=== PATIENT | female | born 1965 | race Caucasian/White ===

== ENCOUNTER → 2019-09-24 | Outpatient (CLI) | payer BC ==
[2019-09-24 14:17] VITALS: BP 116/72; PULSE 93; RESP 16; TEMP 97.9; BMI 44.3
--- NOTE | 2019-09-24 15:49 | P.GSHP ---
History of Present Illness H&P Date: 09/24/19 Chief Complaint: right breast cancer Destinee is a 53 old white female who approximately 6 weeks ago noticed some nodularity in her right breast. She states it was uncomfortable and she subsequently saw her primary care doctor and a mammogram and ultrasound were ordered. The mammogram was performed on 1020 919 as well as an ultrasound of the right breast and axilla. The radiographic findings revealed a 3.5-4 cm lesion in the 7 o'clock position of the right breast. An ultrasound-guided core biopsy was performed on 09-16-19. Pathology revealed invasive mammary carcinoma grade 2. The subtype was deferred. The tumor markers are not yet available. The patient does not complain of any nipple discharge or skin changes. The patient does complain of discomfort where the lump was noted. The pain intermittently for sharp like a needle stabbing her. Does not spread any place. Family History: paternal grandmother: breast cancer paternal aunt: breast cancer father: prostate patient: cervix frozen for pre-cancer Hormonal history: Menarche: 13 , first born at 23, breast fed: yes last menstraul period May 20 BCP: intermittant for 20 years hormones: none Medical history: arthritis Surgical History: 1. 4 C-sections 2. tonsillectomy 3. cervix frozen Social History: smoke: none alcohol: none drugs: none - Constitutional Constitutional: Reports sweats - EENT Comment: optic neuritis Eyes: denies blurred vision, denies pain Ears: deny: decreased hearing, tinnitus Ears, nose, mouth and throat: Denies headache, Denies sore throat - Breasts Breasts: bilateral: as per HPI - Cardiovascular Cardiovascular: Denies chest pain, Denies shortness of breath - Respiratory Comment: asthma Respiratory: Denies cough, Denies 7 - Gastrointestinal Comment: colitis Gastrointestinal: Denies abdominal pain, Denies diarrhea, Denies nausea, Denies vomiting - Genitourinary (Female) Genitourinary: Denies dysuria, Denies hematuria - Menstruation Comment: perimenopausal - Musculoskeletal Musculoskeletal: Denies myalgias - Integumentary Integumentary: Denies pruritus, Denies rash - Neurological Comment: multiple sclerosis dx for 3 years, left foot drop, left side of face numb - Psychiatric Psychiatric: Reports anxiety, Reports depression - Endocrine Endocrine: Denies fatigue, Denies weight change - Hematologic/Lymphatic Comment: aspirin - Allergic/Immunologic Allergic/Immunologic: Reports seasonal allergies Past Medical History History of Any Multi-Drug Resistant Organisms: None Reported Smoking Status: Never smoker Medications and Allergies Home Medications Medication Instructions Recorded Confirmed Type Aspirin [Adult Low Dose Aspirin EC] 81 mg PO DAILY 09/24/19 09/24/19 History Baclofen [Lioresal] 10 mg PO DAILY 09/24/19 09/24/19 History Cholecalciferol (Vitamin D3) 4,000 unit PO DAILY 09/24/19 09/24/19 History [Vitamin D3] Fingolimod HCl [Gilenya] 0.5 mg PO DAILY 09/24/19 09/24/19 History Gabapentin [Neurontin] 300 mg PO DAILY 09/24/19 09/24/19 History busPIRone HCL 10 mg PO DAILY 09/24/19 09/24/19 History Allergies Allergy/AdvReac Type Severity Reaction Status Date / Time Sulfa (Sulfonamide Allergy Mild Rash/Hives Unverified 09/24/19 14:21 Antibiotics) Surgical - Exam Vital Signs Temp Pulse Resp BP Pulse Ox 97.9 F 93 16 116/72 96 09/24/19 14:08 09/24/19 14:08 09/24/19 14:08 09/24/19 14:08 09/24/19 14:08 BMI 44.4 - General well developed, well nourished, no distress - Eyes normal ocular movement - ENT no hearing loss, no congestion - Neck no masses, trachea midline - Respiratory normal respiratory effort, clear to auscultation - Cardiovascular Rhythm: regular Heart Sounds: normal: S1, S2 - Abdomen Abdomen: soft, non tender, no guarding, no rigid, no rebound - Integumentary normal turgor - Neurologic no disoriented, no combative - Musculoskeletal no foot drop today normal gait, normal posture - Psychiatric oriented to time, oriented to person, oriented to place, speech is normal, memory intact Breast examination: Right breast: At approximately 7:00 there is an area of increased nodularity which is approximately 4 cm in size, there is no skin dimpling. There is a very small skin defect where the core biopsy was performed with some mild ecchymosis no evidence of infection Right axilla: No adenopathy of concern Left breast: Multiple positional exam no dominant masses or nodules of concern Left axilla: No adenopathy of concern Results Radiographic, pathology reports revealed Assessment and Plan Assessment: Impression: 1. Mastodynia 2. Right breast malignancy approximately 4 cm in size 3. Fibrocystic breast changes 4. Multiple sclerosis Plan: 1. Preoperative chemotherapy consultation 2. Await tumor markers 3. Pathology to be reviewed by our pathologist 4. Medical management of multiple sclerosis ([phone] Naomi Freeman Neurologist) 5. genetic testing (getting insurance clearance) I discussed medical treatment options with the patient and her . At this time I would recommend preoperative chemotherapy to shrink the lesion. We are awaiting the tumor marker results. I've also discussed genetic testing and the patient is going to have her blood drawn for this and wait for insurance clearance to proceed with the testing. Face time 50 minutes > 1/2 time discussing treatment options and planning. CC: DR. Manpreet Santillan
== END | disposition home or self-care (01) ==
LOC: WWCWWP 14:03
PROVIDERS: ATTEND Surgery
DX: Z53.9 Procedure and treatment not carried out, unspecified reason (principal)

== ENCOUNTER → 2019-10-14 | Outpatient (CLI) | payer BC ==
[2019-10-14 08:14] VITALS: BP 134/82; PULSE 81; RESP 18; TEMP 97.8
--- NOTE | 2019-10-14 15:05 | P.PN ---
Progress Note - Text Progress Note Date: 10/14/19 Destinee presents for discussion regarding treatment after she has been seen by Dr. Huizar from plastic surgery. It was felt after being seen by Dr. Huizar that she is not a good candidate for an attempted breast preservation. Destinee will have a right breast mastectomy with immediate post pectoral implant reconstruction. Her genetic studies are not yet back. She has obtained her radiographs from [facility] these have been reviewed with the radiologist including the left breast. No lesions of concern were identified in the left breast. The patient understands the risks and benefits of the procedure and she is scheduled for next week. At this time she is going to undergo a right breast mastectomy with subpectoral implant reconstruction, sentinel node biopsy possible axillary node dissection. She is not planning on a procedure in the left breast at the present time.
== END ==
LOC: WWCWWP 07:35
PROVIDERS: ATTEND Surgery
DX: Z53.9 Procedure and treatment not carried out, unspecified reason (principal)

== ENCOUNTER 2019-10-21 08:50 | Observation (INO) | payer BC ==
[2019-10-14 14:31] VITALS: BMI 45.3
[~2019-10-21 08:50] MED LIST: DEXAMETHASONE SOD PHOSPHATE 10 MG/ML 1 ML VIAL IV ONE; HEPARIN SODIUM,PORCINE 5,000 UNIT/ML 1 ML VIAL SQ ONE; LACTATED RINGERS 1,000 ML IV SCH; ONDANSETRON 4 MG/2 ML VIAL IVP ONE; Pre Op ABX Message 1 EACH MISC MISCELLANE ONE; SCOPOLAMINE 1.5MG/72HR PATCH TRANSDERM ONE
[2019-10-21] MEDS ORDERED: LIDOCAINE 1% 20 ML VIAL (10MG/ML) FOR IV START INTRADERMA ONE (10:02)
--- NOTE | 2019-10-21 10:32 | NM ---
EXAMINATION TYPE: NM sentinel node injection DATE OF EXAM: 10/21/2019 COMPARISON: Outside right breast imaging September 16, 2019. HISTORY: Right breast cancer. TECHNIQUE AND FINDINGS: The procedure of sentinel lymph node injection was explained to the patient. The benefits, alternatives, and risks were discussed. An informed consent was then obtained. Overlying skin is cleaned with sterile alcohol. Following this, 520 uCi Tc99m Tilmanocept was inject ed in the upper outer aspect of the right nipple intradermally. The patient tolerated the procedure well without any immediate complication. The patient was kept in the radiology department for short stay after the procedure and then taken to surgery for surgical p rocedure what is presumed intraoperative gamma probe will be used for sentinel lymph node detection. IMPRESSION: Right breast radiotracer injection for sentinel node localization as above.
[2019-10-21] MEDS: MIDAZOLAM 2 MG/2 ML VIAL IV PRN ×2 (10:40→10:46)
[2019-10-21] MEDS ORDERED: fentaNYL (PF) 50 MCG/ML 2 ML AMP ONE (11:09)
[2019-10-21] MEDS ORDERED: ROPIVACAINE 5 MG/ML 30 ML VIAL ONE (11:09)
[2019-10-21] MEDS ORDERED: PROPOFOL 10 MG/ML 20 ML VIAL IV ONE (11:09)
[2019-10-21] MEDS ORDERED: LIDOCAINE 1% INJ 10MG/ML (20 ML MDV) ONE (11:09)
[2019-10-21] MEDS ORDERED: PHENYLEPHRINE-0.9% NACL SYG 1 MG/10 ML SYRINGE ONE (11:09)
[2019-10-21] MEDS ORDERED: GLYCOPYRROLATE 0.2 MG/ML 2 ML VIAL ONE (11:09)
[2019-10-21] MEDS ORDERED: ROCURONIUM BROMIDE 10 MG/ML 10 ML VIAL IV ONE (11:09)
[2019-10-21] MEDS ORDERED: NEOSTIGMINE 1 MG/ML 10 ML VIAL ONE (11:09)
--- NOTE | 2019-10-21 11:10 | P.ANPRN ---
Procedure Note - Anesthesia - Nerve Block Performed Right Other (see comment) Single Time Out Performed: Yes (PECS2 Right side) Date of Procedure: 10/21/19 Procedure Start Time: 10:38 Procedure Stop Time: 10:48 Location of Patient: PreOp Indication: Acute Post-Operative Pain, Requested by Surgeon Sedation Type: Sedate with meaningful contact maintained Preparation: Sterile Prep, Sterile Dressing Position: Supine Catheter: None Needle Types: Pajunk Needle Gauge: 20 Ultrasound used to visualize needle placement: Yes Ultrasound used to observe medication spread: Yes Injectate: 0.5% Ropivacaine (see comment for volume) (30 ml) Blood Aspirated: No Pain Paresthesia on Injection Noted: No Resistance on Injection: Normal Image Stored and Saved: Yes Events: Uneventful and Well Tolerated
[2019-10-21] MEDS ORDERED: SODIUM CHLORIDE 0.9% 50 ML with ceFAZolin 2,000 MG IV ONE ×2 (11:28)
[2019-10-21] MEDS ORDERED: NALOXONE 0.4 MG/ML 1 ML VIAL IV PRN (14:11)
[2019-10-21] MEDS ORDERED: CALCIUM CARBONATE 500 MG CHEWABLE PO PRN (14:11)
[2019-10-21] MEDS ORDERED: ONDANSETRON 4 MG/2 ML VIAL IVP PRN (14:11)
[2019-10-21] MEDS ORDERED: BENZOCAINE/MENTHOL LOZENG 1 EACH LOZENGE MUCOUS MEM PRN (14:11)
--- NOTE | 2019-10-21 14:11 | P.OP ---
Date of Procedure: 10/21/19 Preoperative Diagnosis: Right breast cancer Postoperative Diagnosis: Same, micrometastatic disease and sentinel node Procedure(s) Performed: Right sentinel node biopsy, axillary dissection, mastectomy Anesthesia: NANNETTE Surgeon: Leeanna Concepcion Estimated Blood Loss (ml): 30 IV fluids (ml): 800 Pathology: other (Glen node, axillary contents, right breast) Condition: stable Disposition: floor Indications for Procedure: Right breast cancer Operative Findings: Varun metastatic disease and sentinel node, large mass right breast in proximity to chest wall Description of Procedure: The patient is a 54-year-old white female with a right breast mass biopsy proven to be invasive ductal carcinoma. She had no radiographic or physical exam evidence of axillary adenopathy. Preoperative injection of lymph node kind was performed. The patient was brought to the operating room after the right breast area for incisions was marked in conjunction with Dr. Huizar plastic surgery. There was concern that the tumor was close to the skin of the inferior lateral breast/chest wall and incision was performed skin could be taken. Following induction of anesthesia the right breast and axilla were prepped and draped in a sterile fashion. Using the neoprobe the area of greatest radioactivity in the axilla was identified. An incision was made at this site through the skin and subcutaneous tissue. Dissection was performed to thlateral edge of the pectoralis muscle and laterally the area of increased radioactivity was tracked. This tissue was grasped using an Allis clamp and using the Harmonic scalpel dissection was performed. The radioactive lymph node was identified. The node was approximately 1-1/2 CM in size and clinically Suspicious. A 10 Second Count on This was 34,000. The Background 10 Second Count Was Approximately 19. The node Was sent for frozen section evaluation. However, Secondary to the Suspicious Nature Dissection Was Performed in the Axilla. The Area of the Pectoralis Muscle Was Followed Superiorly to the Region of the Axillary Vein. The Vein Was Identified. Tissues Were Swept Inferiorly Using the Harmonic Scalpel to Maintain Hemostasis. The thoracodorsal nerve was identified and tissues were swept inferiorly preserving the nerve. The area of the long thoracic nerve was protected as well. Tissues were swept inferiorly and hemostasis was attained using the electrocautery device. The frozen section revealed micrometastatic disease in the lymph node. After being assured that hemostasis was attained thet area was well irrigated. A #10 NELI drain was placed and secured using a nylon suture. The subcutaneous tissues were closed using 3- 0 Vicryl suture. This was followed by closure of the skin with a 4-0 Monocryl. Following this the area of the breast was approached. Pre-operatively the area for the incision had been marked. This incorporated removal of skin over the area where the tumor was closest to the skin. Incision was made through the previously marked skin lines. This was carried through the skin into subcutaneous tissue. Entering the plane anterior to the breast tissue dissection was performed circumferentially down to the pectoralis major muscle. This was facilitated using the electrocautery device. Ligation of any vessels of concern was preformed. Following this dissection was performed down to the pectoralis muscle. The tissues were then swept laterally being careful to maintain hemostasis using the electrocautery device, Harmonic scalpel, and ligating any vessels of concern. The breast was then removed. Sutures were placed to jack the superior and lateral aspect of the breast. On evaluation it appeared that the tumor was close to the inferior medial margin and additional tissue was obtained from this area and painted for orientation. Additional tumor appeared to be close to the chest wall/serratus anterior muscle. There is no definite direct extension. The wound was well irrigated. After being assured that hemostasis was attained Dr. Huizar from plastic surgery came to place the subpectoral maintenance dispatcher and preform closure.
[2019-10-21] MEDS: HYDROmorphone 0.5 MG/0.5 ML SYRINGE IVP PRN ×2 (15:30→15:40)
[2019-10-21] MEDS ORDERED: LACTATED RINGERS 1,000 ML IV ONE (15:30)
[2019-10-21] MEDS: HYDROmorphone 1 MG/ML 1 ML SYRINGE IVP PRN (17:14)
[2019-10-21] MEDS: HEPARIN SODIUM,PORCINE 5,000 UNIT/ML 1 ML VIAL SQ SCH (18:24)
[2019-10-21] MEDS: DEXTROSE 5%-0.45% NACL 1,000 ML IV SCH (18:37)
[2019-10-21] MEDS: BACLOFEN 10 MG TAB PO SCH (22:23)
[2019-10-21] MEDS: busPIRone HCl 10 MG TAB PO SCH (22:23)
[2019-10-21] MEDS: GABAPENTIN 300 MG CAP PO SCH (22:24)
[2019-10-21] MEDS: FINGOLIMOD HCL 0.5 MG PO SCH (22:24)
--- NOTE | 2019-10-21 23:17 | OP ---
OPERATIVE REPORT SURGEON: Americo Chowdhury M.D. DATE OF SURGERY: October 21, 2019. PREOPERATIVE DIAGNOSES: 1. Acquired loss of right breast. 2. Breast cancer, right breast. POSTOPERATIVE DIAGNOSES: 1. Acquired loss, right breast. 2. Breast cancer, right breast. OPERATIVE PROCEDURE: 1. Immediate reconstruction right breast with insertion of tissue merchandising assistant and subsequent outpatient expansion. 2. Implantation of reconstructive graft for right breast reconstruction. OPERATIVE INDICATIONS: The patient is a 54-year-old female who has been diagnosed with breast cancer of the right breast. She has a large palpable tumor located central and inferiorly and very close to the inferior skin tissue. The patient was referred to my care for breast reconstructive surgery. She is to undergo mastectomy with sentinel lymph node dissection and possible axillary lymph node dissection. The patient understands potential risks and complications, and stage nature of reconstructive breast surgery, including but not limited to, seroma, hematoma, postoperative infection, wound healing problems, among others. She has requested I perform the surgery. OPERATIVE PROCEDURE SUMMARY: The patient is seen presurgical area, markings made and procedure reviewed and coordinated with Dr. Concepcion, her cancer surgeon. The patient was then transported to the operative room where she was placed in supine position. Following induction general endotracheal anesthesia, the patient is prepped and draped in the usual fashion. Dr. Concepcion and her surgical team then proceeded with sentinel lymph node dissection, which was positive for cancer. Axillary lymph node dissection was performed followed by right mastectomy. Once the mastectomy procedure was completed, I entered the procedure. All sponge and needle counts of prior procedure were correct. The mastectomy wound was open with no active bleeding. A modified circumareolar incision was made to allow for resection of the skin located inferiorly to the nipple areolar complex that was very close to the tumor. The breast reconstruction was initiated with elevation of the muscle flap identifying the pectorals major muscle where it joined the chest wall and the lateral border. Cauterization was used to divide loose areolar connective tissue. Blunt dissection was performed the pectorals major and minor muscles in the potential space area. Medial attachment fibers of the pectorals major muscle to ribs and all inferior attachments were released with cautery. To obtain sufficient muscle flap coverage required additional muscle tissue. Inferomedially, rectus abdominis muscle and fascia inferior laterally,external abdominal oblique muscle and fascia and laterally serrated anterior muscle and fascia. Once a sufficient size submuscular pocket was created, irrigations performed. Hemostasis was maintained with cautery and optimal tissue merchandising assistant was opened onto the field after first measuring for the size. A 500 mL high profile tissue merchandising assistant was opened on the field from the [employer] reference number TEXP 135 Rh serial #[id number]. The device was only handled by the surgeon after first changing gloves. All air was extracted. 50 mL 0.9 normal saline instilled. The patient's muscle flap tissue did have small tears and areas of significant attenuation. Due to this prior to inserting the merchandising assistant, SurgiMend reconstructive graft was opened on the field. SurgiMend measured 10 x 15 cm thin and fenestrated. We vitalized room temperature saline. Once ready it was inserted in reconstructive cavity in a modified inferior sling orientation and secured to the muscle flap tissue using interrupted and short running 3-0 Vicryl suture along the inferior portion, leaving the lateral access site open where the tissue merchandising assistant was now inserted. Orientation was assured under direct vision and then the SurgiMend was advanced over the merchandising assistant and inset to the muscle flap tissue where needed providing complete coverage. Irrigation was performed. Hemostasis was excellent. Surgicel powder was then sprayed into the surgical site including axillary node dissection and subcutaneous tissue flap spaces followed by insertion of a 19 round Venu drain was brought through a separate stab incision right anterior lateral chest wall suture placed 2-0 Prolene. The mastectomy incision was now closed closing the inferior portion as directly, approximated deep dermis using inverted interrupted 4-0 Monocryl. This continued until reaching the proximal into the level of where the circumareolar portion of the incision was made. At this point, the remaining open wound was closed as a [place] using a 2-0 Prolene pursestring suture in a deep dermal layer followed by finer approximation of the deep dermis with interrupted inverted 4-0 Monocryl and then completing the skin closure with pravin for the circumareolar closure and using running 5-0 Prolene for the linear closure along the lateral aspect. The drain was connected to close bulb suction and patent. Surgical cota cleansed with saline. Postoperative bandages placed using paper tape over suture repairs, Kerlix squares for drain sponges, all secured with 3 Medipore tape. The patient was then awakened from anesthetic and transferred to the recovery room in good condition with stable vital signs. ESTIMATED BLOOD LOSS: Was 100 mL for the entire procedure. There were no complications. QAMAR / SERGEYN: [id number] /
--- NOTE | 2019-10-21 23:31 | P.CONS ---
History of Present Illness - Reason for Consult Consult date: 10/21/19 Medical management Requesting physician: Leeanna Concepcion - Chief Complaint Mastectomy - History of Present Illness Consultation: This is a very pleasant 54-year-old patient of Dr. rdz. Patient was found to have right breast intraductal carcinoma. Patient today underwent right-sided mastectomy with sentinel node biopsy. Postprocedure she has a drain in place. Some pain is present. Patient chronic stable medical conditions include multiple sclerosis with optic neuritis and some left-sided weakness. Patient is able to walk without any support, chronic colitis controlled, anxiety depression controlled, and asthma. Postprocedure patient having some nausea from the pain medications. Did take a very light liquid diet. Laying in bed. Review of systems: GEN.: Tired EYES: None HEENT: None NECK: None RESPIRATORY: None CARDIOVASCULAR: None GASTROINTESTINAL: None GENITOURINARY: None MUSCULOSKELETAL: None LYMPHATICS: None HEMATOLOGICAL: None PSYCHIATRY: None NEUROLOGICAL: Some left-sided weakness and some vision is affected Past medical history to include: Right breast intraductal carcinoma, multiple sclerosis, chronic colitis, anxiety depression, asthma Social history: Does not smoke or drink alcohol. Physical examination: VITAL SIGNS: 98.6, 11, 18, 11 7/72, 94% on 2 L GENERAL: BMI 44.8, laying in bed awake. EYES: Pupils equal. Conjunctiva normal. HEENT: External appearance of nose and ears normal, oral cavity grossly normal. NECK: JVD unable to assess; masses not palpable. HEART: First and second heart sounds are normal; no edema. LUNGS: Respiratory rate normal; clear to auscultation. ABDOMEN: Soft, nontender, liver spleen not palpable, no masses palpable. PSYCH: Alert and oriented x3; mood and affect normal. NEUROLOGICAL: Cranial nerves grossly intact; no facial asymmetry, power and sensation grossly intact. LYMPHATICS: No lymph nodes palpable neck CHEST wall: Dressing over the right chest wall is a drain in place INVESTIGATIONS, reviewed in the clinical context: Urine hCG not detected Assessment: -Right sentinel lymph node biopsy, axilla dissection, mastectomy -Morbid obesity BMI 44.8 -Chronic multiple sclerosis was residue optic neuritis and left-sided paresis -Chronic colitis controlled -Intermittent asthma Plan: Patient's home medications to be resumed. Venodyne boots in place for DVT prophylaxis. Pain control in place. Care was discussed with the patient. Questions were answered. Thank you Dr.clark- Duffy Past Medical History Past Medical History: Cancer, Musculoskeletal Disorder Additional Past Medical History / Comment(s): STAGE 2 RT BREAST CANCER. MS. COLITIS History of Any Multi-Drug Resistant Organisms: None Reported Past Surgical History: Breast Surgery, Section, Tonsillectomy Additional Past Surgical History / Comment(s): RT BREAST BX. C-SECT X 4. COLONOSCOPY Past Anesthesia/Blood Transfusion Reactions: No Reported Reaction Past Psychological History: Anxiety, Depression Smoking Status: Never smoker Past Alcohol Use History: None Reported Past Drug Use History: None Reported - Past Family History Brother(s) Family Medical History: Deep Vein Thrombosis (DVT) Additional Family Medical History / Comment(s): 2 BROTHERS WITH DVT'S Medications and Allergies Home Medications Medication Instructions Recorded Confirmed Type Aspirin [Adult Low Dose Aspirin EC] 81 mg PO HS 09/24/19 10/21/19 History Baclofen [Lioresal] 10 mg PO HS 09/24/19 10/14/19 History Cholecalciferol (Vitamin D3) 4,000 unit PO HS 09/24/19 10/14/19 History [Vitamin D3] Fingolimod HCl [Gilenya] 0.5 mg PO HS 09/24/19 10/14/19 History Gabapentin [Neurontin] 300 mg PO HS 09/24/19 10/14/19 History busPIRone HCL 10 mg PO HS 09/24/19 10/14/19 History Albuterol Nebulized [Ventolin 1 ampul INHALATION DIRECTED PRN 10/21/19 10/21/19 History Nebulized] Allergies Allergy/AdvReac Type Severity Reaction Status Date / Time Sulfa (Sulfonamide Allergy Mild Rash/Hives Verified 10/21/19 19:23 Antibiotics) Physical Exam Vitals: Vital Signs Temp Pulse Pulse Resp BP BP Pulse Ox 10/21/19 20:50 98.6 F 111 H 18 117/72 94 L 10/21/19 19:50 113 H 16 109/71 96 10/21/19 18:50 113 H 14 114/73 93 L 10/21/19 18:20 113 H 16 117/74 93 L 10/21/19 17:50 110 H 16 126/72 94 L 10/21/19 17:35 110 H 16 123/79 93 L 10/21/19 17:20 111 H 16 134/80 94 L 10/21/19 17:08 99.4 F 105 H 16 134/84 94 L 10/21/19 16:30 105 H 16 139/75 94 L 10/21/19 16:15 101 H 16 143/79 95 10/21/19 16:00 98 16 146/84 95 10/21/19 15:45 101 H 16 151/82 99 10/21/19 15:32 97.7 F 99 146/84 98 10/21/19 10:57 90 16 135/77 97 10/21/19 09:21 98.7 F 91 16 149/80 98 Intake and Output 10/21/19 10/21/19 10/22/19 14:59 22:59 06:59 Intake Total 1050 800 Output Total 335 Balance 1050 465 Intake: IV 1050 800 Output: Drainage 60 A 60 B 0 Urine 175 Estimated Blood Loss 100 Other: Voiding Method Indwelling Catheter Weight 94 kg 94 kg
[2019-10-22] MEDS: HYDROmorphone 1 MG/ML 1 ML SYRINGE IVP PRN (00:35)
[2019-10-22] MEDS: HEPARIN SODIUM,PORCINE 5,000 UNIT/ML 1 ML VIAL SQ SCH ×3 (01:09→18:44)
[2019-10-22] MEDS: DEXTROSE 5%-0.45% NACL 1,000 ML IV SCH (04:28)
[2019-10-22] MEDS: HYDROcodone/APAP 5-325MG 1 EACH TAB PO PRN ×4 (06:29→21:06)
[2019-10-22 11:00] LABS: Basophils % (A) 0 %; Eosinophils # (A) 0.1 k/uL (0-0.7); Eosinophils % (A) 1 %; HCT 37.4 % (34.0-46.0); HGB 12.6 gm/dL (11.4-16.0); Lymphocytes # (A) 0.5 k/uL (1.0-4.8); Lymphocytes % (A) 4 %; MCH 30.5 pg (25.0-35.0); MCHC 33.6 g/dL (31.0-37.0); MCV 90.9 fL (80.0-100.0); Mean Platelet Volume 6.6; Monocytes # (A) 0.6 k/uL (0-1.0); Monocytes % (A) 6 %; Neutrophils % (A) 88 %; Platelet Count 249 k/uL (150-450); RBC 4.11 m/uL (3.80-5.40); RDW 12.9 % (11.5-15.5); WBC 10.2 k/uL (3.8-10.6)
--- NOTE | 2019-10-22 17:48 | P.PN ---
Subjective Progress Note Date: 10/22/19 Principal diagnosis: Postop day #1 right breast mastectomy and sub-pectoral implant placement and sentinel node biopsy Destinee is a 54-year-old white female who is status post right breast mastectomy and sentinel node biopsy/axillary node dissection on . At this time sta abundio she states she does have some discomfort in the right chest wall however, the Dilaudid makes her nauseated. She wishes not to take Dilaudid and wishes to use only [place]. She has had no output from the drain at the mastectomy site, and approximately 55 mL of thin dark serous drainage from the axillary drain. She was somewhat upset this morning feeling that there was some misunderstanding regarding her care with the night nurse. Objective - Vital Signs Vital signs: Vital Signs Temp 98.6 F 10/22/19 12:08 Pulse 94 10/22/19 12:08 Resp 16 10/22/19 12:08 BP 130/74 10/22/19 12:08 Pulse Ox 93 L 10/22/19 12:08 Intake & Output 10/21/19 10/22/19 10/22/19 18:59 06:59 18:59 Intake Total 1850 600 Output Total 275 1035 55 Balance 1575 -1035 545 Weight 94 kg 94 kg Intake: IV 1850 Oral 600 Output: Drainage 110 55 A 110 55 B 0 0 Urine 175 925 Estimated Blood Loss 100 Other: Voiding Method Indwelling Catheter Indwelling Catheter # Voids 1 - Constitutional General appearance: Present: obese - EENT Eyes: Present: EOMI ENT: Present: hearing grossly normal - Neck Neck: Present: normal ROM - Respiratory Respiratory: bilateral: CTA - Cardiovascular Rhythm: regular Heart sounds: normal: S1, S2 - Gastrointestinal General gastrointestinal: Present: soft - Integumentary Integumentary Comment(s): Incision clean and dry right axilla and right mastectomy site NELI drain a 55 mL of dark serous thin fluid NELI drain be no drainage No evidence of acute hematoma CBC reveals white count 10.2 Hemoglobin 12.6 Integumentary: Present: normal turgor - Psychiatric Psychiatric: Present: A&O x's 3, appropriate affect, intact judgment & insight - Labs CBC & Chem 7: 10/22/19 10:32 Labs: Abnormal Lab Results - Last 24 Hours (Table) 10/22/19 Range/Units 10:32 Neutrophils # 9.0 H (1.3-7.7) k/uL Lymphocytes # 0.5 L (1.0-4.8) k/uL Assessment and Plan Assessment: Impression: 1. Postop day #1 skin sparing mastectomy with subpectoral implant immediate reconstruction, sentinel node biopsy, axillary node dissection 2. Postop pain patient is not taking dilaudid 3. NELI drain A with dark serous output, does not appear to have a hematoma 4. Patient was somewhat anxious when evaluated this morning Plan: 1. Continue present therapy 2. Continue to manage postoperative pain 3. Follow NELI output 4. probable discharge home tomorrow
[2019-10-22] MEDS: GABAPENTIN 300 MG CAP PO SCH (21:08)
[2019-10-22] MEDS: BACLOFEN 10 MG TAB PO SCH (21:08)
[2019-10-22] MEDS: busPIRone HCl 10 MG TAB PO SCH (21:09)
[2019-10-22] MEDS: FINGOLIMOD HCL 0.5 MG PO SCH (21:10)
--- NOTE | 2019-10-22 23:36 | P.PN ---
Progress Note - Text Progress Note Date: 10/22/19 - Chief Complaint Mastectomy - History of Present Illness Consultation: This is a very pleasant 54-year-old patient of Dr. rdz. Patient was found to have right breast intraductal carcinoma. Patient underwent right-sided mastectomy with sentinel node biopsy. Postprocedure she has a drain in place. Patient chronic stable medical conditions include multiple sclerosis with optic neuritis and some left-sided weakness. Patient is able to walk without any support, chronic colitis controlled, anxiety depression controlled, and asthma. Today-sitting up in a chair. Some pain is present. Some anxiety. Did tolerate breakfast. Family is present. Review of systems: Was done for constitutional, cardiovascular, GI, pulmonary. relevant finding as above Active Medications Hydrocodone Bitart/Acetaminophen ([place] 5-325) 1 each PO Q4HR PRN PRN Reason: Moderate Pain Last Admin: 10/22/19 21:06 Dose: 1 each Documented by: Baclofen (Lioresal) 10 mg PO [facility] Last Admin: 10/22/19 21:08 Dose: 10 mg Documented by: Benzocaine/Menthol (Cepacol Lozenge) 1 each MUCOUS MEM Q4HR PRN PRN Reason: Sore Throat Buspirone HCl (Buspar) 10 mg PO [facility] Last Admin: 10/22/19 21:09 Dose: 10 mg Documented by: Calcium Carbonate/Glycine (Tums) 1,000 mg PO Q4HR PRN PRN Reason: Dyspepsia Gabapentin (Neurontin) 300 mg PO [facility] Last Admin: 10/22/19 21:08 Dose: 300 mg Documented by: Heparin Sodium (Porcine) (Heparin) 5,000 unit SQ Q8H [facility] Last Admin: 10/22/19 18:44 Dose: 5,000 unit Documented by: Hydromorphone HCl (Dilaudid) 1 mg IVP Q3HR PRN PRN Reason: Severe Pain Last Admin: 10/22/19 00:35 Dose: 0.5 mg Documented by: Naloxone HCl (Narcan) 0.2 mg IV Q2M PRN PRN Reason: Opioid Reversal Non-Formulary Medication (Fingolimod Hcl [Gilenya]) 0.5 mg PO [facility] Last Admin: 10/22/19 21:10 Dose: Not Given Documented by: Ondansetron HCl (Zofran) 4 mg IVP Q8HR PRN PRN Reason: Nausea And Vomiting Last Admin: 10/22/19 05:36 Dose: 4 mg Documented by: Physical examination: VITAL SIGNS: 98.6, 94, 16, 130/74, 93% on room air GENERAL: Sitting upon a chair, comfortable EYES: Pupils equal. Conjunctiva normal. HEENT: External appearance of nose and ears normal, oral cavity grossly normal. NECK: JVD unable to assess; masses not palpable. HEART: First and second heart sounds are normal; no edema. LUNGS: Respiratory rate normal; clear to auscultation. ABDOMEN: Soft, nontender, liver spleen not palpable, no masses palpable. PSYCH: Alert and oriented x3; mood and affect normal. CHEST wall: Dressing over the right chest wall is a drain in place INVESTIGATIONS, reviewed in the clinical context: Urine hCG not detected Assessment: -Right sentinel lymph node biopsy, axilla dissection, mastectomy -Morbid obesity BMI 44.8 -Chronic multiple sclerosis was residue optic neuritis and left-sided paresis -Chronic colitis controlled -Intermittent asthma Plan: Continue current medication treatment plan. Encouraged to ambulate. Care was discussed with the patient and at bedside. Thank you Dr.clark- Duffy
[2019-10-23] MEDS: HEPARIN SODIUM,PORCINE 5,000 UNIT/ML 1 ML VIAL SQ SCH ×2 (02:46→09:45)
[2019-10-23] MEDS: HYDROcodone/APAP 5-325MG 1 EACH TAB PO PRN ×3 (02:47→12:26)
[2019-10-23 09:28] VITALS: BP 144/82; PULSE 117; RESP 20; TEMP 98.4
[2019-10-23 10:14] LABS: Basophils % (A) 0 %; Eosinophils # (A) 0.1 k/uL (0-0.7); Eosinophils % (A) 2 %; HCT 38.9 % (34.0-46.0); HGB 13.1 gm/dL (11.4-16.0); Lymphocytes # (A) 0.3 k/uL (1.0-4.8); Lymphocytes % (A) 5 %; MCH 30.9 pg (25.0-35.0); MCHC 33.8 g/dL (31.0-37.0); MCV 91.5 fL (80.0-100.0); Mean Platelet Volume 6.3; Monocytes # (A) 0.4 k/uL (0-1.0); Monocytes % (A) 6 %; Neutrophils # (A) 5.7 k/uL (1.3-7.7); Neutrophils % (A) 88 %; Platelet Count 225 k/uL (150-450); RBC 4.26 m/uL (3.80-5.40); RDW 13.1 % (11.5-15.5); WBC 6.5 k/uL (3.8-10.6)
--- NOTE | 2019-10-23 13:58 | P.PN ---
Subjective Progress Note Date: 10/23/19 Principal diagnosis: Postop day #2 right breast mastectomy and sub-pectoral implant placement and sentinel node biopsy Destinee is a 54-year-old white female who is status post right breast mastectomy and sentinel node biopsy/axillary node dissection on . At this time the patient's pain is much improved. She is tolerating diet without difficulty. NELI drain under the axilla is serous in nature. Repeat hemoglobin 13.1. Objective - Vital Signs Vital signs: Vital Signs Temp 98.4 F 10/23/19 08:33 Pulse 117 H 10/23/19 08:33 Resp 20 10/23/19 08:33 BP 144/82 10/23/19 08:33 Pulse Ox 96 10/23/19 08:33 Intake & Output 10/22/19 10/23/19 10/23/19 18:59 06:59 18:59 Intake Total 600 Output Total 1270 390 170 Balance -670 -390 -170 Intake: Oral 600 Output: Drainage 70 90 20 A 70 90 20 B 0 0 0 Urine 1200 300 150 Uretheral (Rodriguez) 1200 Other: Voiding Method Toilet # Voids 1 1 1 # Bowel Movements 1 - Constitutional General appearance: Present: obese - EENT Eyes: Present: EOMI ENT: Present: hearing grossly normal - Respiratory Respiratory: bilateral: CTA - Cardiovascular Rhythm: regular Heart sounds: normal: S1, S2 - Integumentary Integumentary: Present: normal turgor - Musculoskeletal Musculoskeletal: Present: gait normal - Psychiatric Psychiatric: Present: A&O x's 3, appropriate affect, intact judgment & insight - Additional findings Additional findings: Incision: Clean and dry right breast and right axilla NELI drain and axilla serous in nature approximately 50 mL No evidence of any hematoma NELI at mastectomy site is no drainage - Labs CBC & Chem 7: 10/23/19 09:49 Labs: Abnormal Lab Results - Last 24 Hours (Table) 10/23/19 Range/Units 09:49 Lymphocytes # 0.3 L (1.0-4.8) k/uL Assessment and Plan Assessment: Impression: 1. Postop day #2 skin sparing mastectomy with subpectoral implant immediate reconstruction, sentinel node biopsy, axillary node dissection 2. Postop pain controlled 3. NELI drain A with dark serous output, does not appear to have a hematoma 4. Patient doing well at this time Plan: 1. Continue present therapy 2. Discharge home Patient was complaining of some postnasal discharge. She was evaluated by Dr. Fernandez and it is not felt to have any infection requiring antibiotic therapy.
--- NOTE | 2019-10-23 14:01 | P.DS ---
Providers Date of admission: 10/22/19 06:22 Attending physician: Leeanna Concepcion Consults: 10/21/19 14:14 Consult Physician Routine Consulting Provider: Teddy Fernandez Consult Reason/Comments: medical managment Do you want consulting provider notified?: Yes Primary care physician: Manpreet Santillan Plan - Discharge Summary Discharge Rx Participant: Yes New Discharge Prescriptions: No Action Baclofen [Lioresal] 10 mg PO HS Fingolimod HCl [Gilenya] 0.5 mg PO HS busPIRone HCL 10 mg PO HS Cholecalciferol (Vitamin D3) [Vitamin D3] 4,000 unit PO HS Aspirin [Adult Low Dose Aspirin EC] 81 mg PO HS Gabapentin [Neurontin] 300 mg PO HS Albuterol Nebulized [Ventolin Nebulized] 1 ampul INHALATION DIRECTED PRN PRN Reason: Dyspnea Discharge Medication List Aspirin [Adult Low Dose Aspirin EC] 81 mg PO HS 09/24/19 [History] Baclofen [Lioresal] 10 mg PO HS 09/24/19 [History] Cholecalciferol (Vitamin D3) [Vitamin D3] 4,000 unit PO HS 09/24/19 [History] Fingolimod HCl [Gilenya] 0.5 mg PO HS 09/24/19 [History] Gabapentin [Neurontin] 300 mg PO HS 09/24/19 [History] busPIRone HCL 10 mg PO HS 09/24/19 [History] Albuterol Nebulized [Ventolin Nebulized] 1 ampul INHALATION DIRECTED PRN 10/21/19 [History] Follow up Appointment(s)/Referral(s): Leeanna Concepcion MD [STAFF PHYSICIAN] - 10/31/19 1:20 pm Activity/Diet/Wound Care/Special Instructions: do not drive until seen by DR. Kevin hurst shower at 48 hours Discharge Disposition: HOME SELF-CARE
--- NOTE | 2019-10-24 11:56 | P.PN ---
Progress Note - Text Progress Note Date: 10/23/19 - Chief Complaint Mastectomy Interval history: This is a very pleasant 54-year-old patient of Dr. rdz. Patient was found to have right breast intraductal carcinoma. Patient underwent right-sided mastectomy with sentinel node biopsy. has a drain in place. Patient chronic stable medical conditions include multiple sclerosis with optic neuritis and some left-sided weakness. Baseline, Patient is able to walk without any support, chronic colitis controlled, anxiety depression controlled, and asthma. Today-sitting up in a chair. Did tolerate her breakfast. Pain is controlled. Has a slight cough with some clear sputum. No fever no chills. Review of systems: Was done for constitutional, cardiovascular, GI, pulmonary. relevant finding as above Current medications are reviewed in today's electronic records Physical examination: VITAL SIGNS: 98.4, 117, 20, 144/82, 96% room air GENERAL: Sitting upon a chair, comfortable EYES: Pupils equal. Conjunctiva normal. HEENT: External appearance of nose and ears normal, oral cavity grossly normal. NECK: JVD unable to assess; masses not palpable. HEART: First and second heart sounds are normal; no edema. LUNGS: Respiratory rate normal; clear to auscultation. ABDOMEN: Soft, nontender, liver spleen not palpable, no masses palpable. PSYCH: Alert and oriented x3; mood and affect normal. CHEST wall: Dressing over the right chest wall , drain in place INVESTIGATIONS, reviewed in the clinical context: White count 6.5 hemoglobin 13.1 Urine hCG not detected Assessment: -Right sentinel lymph node biopsy, axilla dissection, mastectomy -Morbid obesity BMI 44.8 -Chronic multiple sclerosis was residue optic neuritis and left-sided paresis -Chronic colitis controlled -Intermittent asthma -Virall upper respiratory tract infection. No fever. No white count. Plan: Patient doing well. Discussed with the patient. Did discuss with her to avoid antibiotics for upper respiratory tract infection felt to be viral at this point. Antibiotics living which indicated if there is fever or chills. Thank you Dr.clark- Duffy
== END 2019-10-23 14:45 | disposition home or self-care (01) ==
LOC: OR 08:50 → 6PED 15:32 → OR 10-22 06:22
PROVIDERS: ADMIT Surgery; ATTEND Surgery
DX: D05.11 Intraductal carcinoma in situ of right breast (principal); C77.3 Secondary and unspecified malignant neoplasm of axilla and upper limb lymph nodes; G35 Multiple sclerosis; H46.9 Unspecified optic neuritis; F41.8 Other specified anxiety disorders; E66.01 Morbid (severe) obesity due to excess calories; Z68.41 Body mass index [BMI] 40.0-44.9, adult; J45.20 Mild intermittent asthma, uncomplicated; K52.9 Noninfective gastroenteritis and colitis, unspecified; J06.9 Acute upper respiratory infection, unspecified; M19.90 Unspecified osteoarthritis, unspecified site; N60.19 Diffuse cystic mastopathy of unspecified breast; R11.0 Nausea; T40.2X5A Adverse effect of other opioids, initial encounter; Z79.82 Long term (current) use of aspirin; Z88.2 Allergy status to sulfonamides; Z79.899 Other long term (current) drug therapy; Z80.3 Family history of malignant neoplasm of breast; Z80.42 Family history of malignant neoplasm of prostate; Z80.8 Family history of malignant neoplasm of other organs or systems; Z82.49 Family history of ischemic heart disease and other diseases of the circulatory system
CPT/HCPCS: 19303; 19340; 81025; 64490; 76942; 85025 ×2; 88342; 88331; 88307; 88309; 84703; 88341; 38792; G0378 ×2; C1763; A9520; J2250; J1644 ×3; J1100; J2710; J2405 ×2; J0690 ×2; J2001; J3010; J1170 ×3; J2795; J2370; J2704

== ENCOUNTER → 2019-10-31 | Outpatient (CLI) | payer BC ==
[2019-10-31 13:36] VITALS: BP 124/79; PULSE 95; RESP 16; TEMP 97.7
--- NOTE | 2019-10-31 14:16 | P.PN ---
Progress Note - Text Progress Note Date: 10/31/19 Stage IIA [id number] Nahomy is a 54-year-old white female status post right breast mastectomy with subpectoral immediate reconstruction and axillary node dissection. She had 1 lymph node out of 7 with micrometastatic disease. The breast tumor greatest dimension was 4 cm. The margins of resection of the mastectomy were negative for malignancy. The closest margin was 4 mm from the debridement inferior margin. Additional inferior tissue was taken which was benign fibroadipose tissue. The patient has no complaints at this time. She is being followed by Dr. Huizar. She has [address] the one at the mastectomy site is pretty minimal output. The one at the axilla is still putting out approximately 170 mL per day. It is very serous in nature. physical exam: Lungs: Clear Heart: Regular rate and rhythm Right breast incision with ecchymosis/possible some early necrosis at the lateral aspect of the vertical portion of the incision. No evidence of infection NELI drain axilla approximately 1 70 mL per day serous NELI mastectomy site minimal output Impression/plan: 1. Patient status post mastectomy subpectoral immediate reconstruction and right axillary node dissection 2. some ecchymosis/necrosis of the lateral aspect of the vertical portion of the breast incision, this is being followed by plastic surgery 3. Appointment with medical oncology 4. Appointment with radiation oncology, consider radiation of the axilla as patient had micro-scopic disease to one of the nodes, although most likely this will not be necessary as nodes were resected 5. follow up in one week for drain removal CC: Dr. Santillan
== END | disposition home or self-care (01) ==
LOC: WWCWWP 13:20
PROVIDERS: ATTEND Surgery
DX: Z53.9 Procedure and treatment not carried out, unspecified reason (principal)

== ENCOUNTER → 2019-11-07 | Outpatient (CLI) | payer BC ==
[2019-11-07 16:17] VITALS: BP 146/86; PULSE 82; RESP 18; TEMP 97.9
--- NOTE | 2019-11-07 16:52 | P.PN ---
Progress Note - Text Progress Note Date: 11/07/19 Stage IIA [id number]+Her2-G3 Nahomy is a 54-year-old white female status post right breast mastectomy with subpectoral immediate reconstruction and axillary node dissection. She had 1 lymph node out of 7 with micrometastatic disease. The breast tumor greatest dimension was 4 cm. The margins of resection of the mastectomy were negative for malignancy. The closest margin was 4 mm from the debridement inferior margin. Additional inferior tissue was taken which was benign fibroadipose tissue. The patient has no complaints at this time. She is being followed by Dr. Huizar. She has [address]; liver putting out serous drainage but both are greater than 40 mL per day. She was recently seen by Dr. Huizar who felt that drain should stay until the first part of November. The patient is complaining of some tenderness around the more inferior drain. physical exam: Lungs: Clear Heart: Regular rate and rhythm No evidence of infection at incision sites NELI drain axilla serous output, greater than 40 mL per day NELI mastectomy serous output, greater than 40 mL per day, inflammation around the entrance site of the drain at the skin tender to palpation Incision with some necrosis at the lateral aspect of the vertical portion which is sloughing Impression/plan: 1. Patient status post mastectomy subpectoral immediate reconstruction and right axillary node dissection 2. some sloughing of hte skin of the lateral aspect of the vertical portion of the breast incision, this is being followed by plastic surgery 3. Appointment with medical oncology 4. Appointment with radiation oncology, consider radiation of the axilla as patient had micro-scopic disease to one of the nodes, although most likely this will not be necessary as nodes were resected 5. follow up in two weeks for hermelindo barahona 6. patient started on Keflex 500 mg QID 7. If patient has any fever/chills or concerns she should call immediately CC: Dr. Santillan
== END | disposition home or self-care (01) ==
LOC: WWCWWP 15:57
PROVIDERS: ATTEND Surgery
DX: Z53.9 Procedure and treatment not carried out, unspecified reason (principal)

== ENCOUNTER 2019-11-20 06:21 | Day surgery (SDC) | payer BC ==
[2019-11-18 09:04] VITALS: BMI 45.2
[~2019-11-20 06:21] MED LIST changes: -HEPARIN SODIUM,PORCINE 5,000 UNIT/ML 1 ML VIAL SQ ONE; +LIDOCAINE 1% 20 ML VIAL (10MG/ML) FOR IV START INTRADERMA PRN; +METOCLOPRAMIDE 5 MG/ML 2 ML VIAL IVP PRN; -SCOPOLAMINE 1.5MG/72HR PATCH TRANSDERM ONE
[2019-11-20] MEDS ORDERED: KETOROLAC 30 MG/ML 1 ML VIAL IVP SCH (07:00)
[2019-11-20] MEDS ORDERED: MIDAZOLAM 2 MG/2 ML VIAL ONE (08:42)
[2019-11-20] MEDS ORDERED: PHENYLEPHRINE-0.9% NACL SYG 1 MG/10 ML SYRINGE ONE (08:42)
[2019-11-20] MEDS ORDERED: PROPOFOL 10 MG/ML 20 ML VIAL IV ONE (08:42)
[2019-11-20] MEDS ORDERED: fentaNYL (PF) 50 MCG/ML 2 ML AMP ONE (08:42)
[2019-11-20] MEDS ORDERED: ROCURONIUM BROMIDE 10 MG/ML 10 ML VIAL IV ONE (08:42)
[2019-11-20] MEDS ORDERED: NEOSTIGMINE 1 MG/ML 10 ML VIAL ONE (08:42)
[2019-11-20] MEDS ORDERED: LIDOCAINE 1% INJ 10MG/ML (20 ML MDV) ONE (08:42)
[2019-11-20] MEDS ORDERED: GLYCOPYRROLATE 0.2 MG/ML 2 ML VIAL ONE (08:42)
[2019-11-20] MEDS ORDERED: LACTATED RINGERS 1,000 ML IV ONE (09:46)
[2019-11-20 10:07] VITALS: RESP 16; TEMP 98.9
[2019-11-20] MEDS ORDERED: ONDANSETRON 4 MG/2 ML VIAL IVP ONE (10:30)
[2019-11-20] MEDS: HYDROmorphone 0.5 MG/0.5 ML SYRINGE IVP PRN (10:38)
[2019-11-20 12:04] VITALS: BP 137/87; PULSE 92
--- NOTE | 2019-11-20 13:14 | OP ---
OPERATIVE REPORT DATE OF SURGERY: November 20, 2019 SURGEON: Americo Chowdhury MD. PREOPERATIVE DIAGNOSES: 1. Open right reconstructed breast wound with exposed director mba. 2. Invasive breast cancer. POSTOPERATIVE DIAGNOSES: 1. Open right reconstructed breast wound with exposed director mba. 2. Invasive breast cancer. OPERATIVE PROCEDURE: 1. Exploration of right reconstructed breast with removal of tissue director mba, irrigation and drainage. 2. Excision open right breast wound with local advancement flap closure, 40 square centimeters. OPERATIVE INDICATIONS: The patient is a 54-year-old female who underwent surgery for an invasive ductal carcinoma of the right breast October 21, 2019 with right mastectomy and sentinel lymph node excision. The patient elected preoperatively to proceed with immediate breast reconstruction and a tissue director mba was placed. The patient's postoperative course initially was unremarkable. She was seen for postoperative care in the office and the axillary drain ultimately removed. The reconstructive drain remained in place. Beginning of this week, the patient presented to the office with drainage through her incision, which was new and wound began opening up. Shortly thereafter there was tissue necrosis present. She was scheduled for the surgery and understands the director mba will need to be removed and if possible the site closed due to the nonviable tissue, some tissue will require excision and this may make closure not possible depending on circumstances. She understands the potential risks and complications associated with surgery such as wound healing, postoperative infection, hematoma, seroma, among others. She has requested I perform the surgery. OPERATIVE PROCEDURE SUMMARY: The patient was seen presurgical area. Markings made. Procedure reviewed. All questions answered. She was transported to the operating room where she was placed in supine position. Following induction general tracheal anesthesia, the patient was prepped and draped in usual fashion. The open right breast wound measured 6 x 3 square centimeters with necrotic tissue edges that is opened. Rn Transitional Care was exposed. There was minimal erythema and some induration in the area. The wound was outlined in a modified elliptical fashion creating an elliptical S. The wound was first sharply excised using a 10 blade scalpel and make full-thickness skin incision followed by cauterization excised soft tissue components until the wound was excised and area of fat necrosis was noted in the lateral aspect and this was also excised. All excised tissue was sent to pathology for permanent evaluation. Once demonstrating healthy margins, hemostasis maintained with cauterization. The muscle flap had a tear where it was inset just above the inframammary fold. The director mba was removed through this tear. The director mba appeared intact. The expansion cavity surfaces underneath demonstrated no exudates or granulation tissue. There is essentially no fluid collected at this point. Irrigation was performed using pulsatile irrigation unit and several liters of fluid. All tissue that remained appeared healthy. Cultures were obtained and sent to microbiology for Gram stain, aerobic, anaerobic culture and sensitivity. A new drain was inserted. A 19 round Venu channel drains brought through a new stab incision in the right anterior lateral chest wall and sutured in place with 2-0 Prolene. The full length of the drain was used for drainage. The muscle flap was reapproximated along the inferior edge using horizontal mattress sutures of 3-0 Monocryl. The mastectomy wound could not be primarily closed due to tension. Additional adipose tissue was excised from the lateral aspect and a flap created. This right lateral skin subcutaneous tissue flap was now advanced in tension-free fashion in inset, the deep dermal level using inverted interrupted 3-0 Monocryl followed by completing this skin closure with pravin. The flap measured 10 x 4 square centimeters. The drain is connected to closed bulb suction and patent. Surgical cota cleansed with saline, dried, postoperative bandages placed using Kerlix squares secured with 3M Medipore tape. The patient was then awakened from her anesthetic, extubated, and transferred to the recovery room in good condition with stable vital signs. The estimated blood loss was 25 mL. There were no complications. MMODL / IJN: [id number] /
--- NOTE | 2019-11-25 07:28 | CDI ---
Outpatient Documentation Clarification Form Date: 11/25/19 CDS/Access Service Representative Name: Nicole Rae Phone: If any questions, call Faiza Parsons [employer] Hand at [phone] Patient Name: Destinee Bell Admit Date: 11/20/19 Discharge DAte: 11/20/19 ATTENTION: The HIM/Coding staff appreciate your assistance in clarifying documentation. Please respond to the clarification below the line at the bottom and electronically sign. The [facility] Coding staff with review the response and follow-up as needed. Please Note: Queries are made part of the Legal Health Record. If you have any questions, pleas contact the Coding Manger. Dear. Dr. Chowdhury, In order to comply with the coding guidelines and to code to the greatest specificity, please clarify the dimensions of the area of of the wound that was debrided. Thank you for your kind consideration. ____ MTDD
== END 2019-11-20 12:13 | disposition home or self-care (01) ==
LOC: OR 06:21
PROVIDERS: ATTEND Plastic Surgery
DX: T81.31XA Disruption of external operation (surgical) wound, not elsewhere classified, initial encounter (principal); L98.492 Non-pressure chronic ulcer of skin of other sites with fat layer exposed; N64.1 Fat necrosis of breast; Z98.82 Breast implant status; K52.9 Noninfective gastroenteritis and colitis, unspecified; J45.909 Unspecified asthma, uncomplicated; G35 Multiple sclerosis; M19.90 Unspecified osteoarthritis, unspecified site; Z88.2 Allergy status to sulfonamides
CPT/HCPCS: 11971; 14301; 11045; 11042; 88304; 84703; 87070; 87205; 87075; 87077; 87186; J2250; J1100; J2710; J2405; J2001; J3010; J2370; J2704; J1170

== ENCOUNTER → 2019-11-28 | Outpatient (CLI) | payer BC ==
[2019-11-28 12:36] VITALS: BP 132/79; PULSE 98; RESP 18; TEMP 98
--- NOTE | 2019-11-28 12:40 | P.PN ---
Subjective Progress Note Date: 11/28/19 Principal diagnosis: stage IIA [id number]/AK+Her2-G3 Nahomy is a 54-year-old white female status post right breast mastectomy with subpectoral implant immediate reconstruction and axillary node dissection. This was performed on 10/21/2019. She had 1 lymph node out of 7 with micrometastatic disease. The breast tumor greatest dimension was 4 cm. The margins of resection of the mastectomy were negative for malignancy. The closest margin was 4 mm from the inferior margin. Postprocedure the patient developed exposure of the implant and this was removed approximately one week ago. A new NELI drain was placed. The drainage is approximately 60 mL per day at this time and it is serous in nature. She was taking Keflex prior to the removal of the implant. She has appointment with medical oncology on December 15. She has an appointment with radiation oncology on December 09. Patient has no fever or chills. She continues to complain of discomfort at the NELI drain site. This is a new NELI drain site which was placed by Dr. Huizar last week. Objective - Constitutional General appearance: Present: obese - EENT Eyes: Present: EOMI ENT: Present: hearing grossly normal - Respiratory Respiratory: bilateral: CTA - Cardiovascular Rhythm: regular Heart sounds: normal: S1, S2 - Integumentary Integumentary Comment(s): Incision reveals some erythematous irritation at the inferior aspect no definite infection There is a small area of questionable breakdown at the staple line which is being followed clinically NELI drain site inflammation noted definite infection output is serous in nature Assessment and Plan Assessment: Impression: 1. Patient status post right mastectomy with subpectoral implant placement October 21, the implant began to extrude and was removed on November 20. The patient has a NELI drain in place the output is serous in nature and it is decreased in amount. 2. Appointment with medical oncology 3. Primary with radiation oncology 4. No need for surgical intervention at this time Plan: 1. Follow-up medical oncology 2. Follow-up radiation oncology 3. Continue follow with plastic surgery 4. Patient is not on antibiotics at this time/if she develops evidence of increased erythema would consider antibiotics 5. Close surveillance of incision as a small portion appears to be breaking down and this may require debridement 6. Follow-up. 3 month's time unless patient has questions or concerns sooner CC: DR. Alonso Time with Patient: Less than 30
== END | disposition home or self-care (01) ==
LOC: WWCWWP 11:49
PROVIDERS: ATTEND Surgery
DX: Z53.9 Procedure and treatment not carried out, unspecified reason (principal)

== ENCOUNTER 2020-01-21 14:09 | Inpatient (IN) | payer BC ==
[2020-01-21 15:22] LABS: Appearance,Urine Clear (Clear); Bilirubin,Urine Negative (Negative); Blood,Urine Negative (Negative); Color,Urine Yellow; Glucose,Urine (UA) Negative (Negative); Ketones,Urine Negative (Negative); Leukocyte Esterase,Urine Negative (Negative); Nitrite,Urine Negative (Negative); PH, Urine 5.5 (5.0-8.0); Protein,Urine Negative (Negative); Specific Gravity,Urine 1.011 (1.001-1.035); Urobilinogen,Urine <2.0 mg/dL (<2.0)
[2020-01-21] MEDS ORDERED: LACTATED RINGERS 250 ML IV SCH (15:30)
--- NOTE | 2020-01-21 16:15 | P.PN ---
Progress Note - Text Progress Note Date: 01/21/20 01/21/20, Patient in office for f/u, s/p post first cycle of ADJUVANT TC with Neulasta-given 01/14. She has been having fevers intermittently at home, x 2 days, last night Tman 102.6F, she has been controlling temperature with Tylenol. She was given a Rx for cefedinir by her PCP yesterday, she has taken 2 doses, had a temp of 101F since starting abx, she has taken 3 doses of tylenol today. When seen today patient visually has start of rigors, moderate SOB at rest, tachycardic, temp 98.8F, WBC 0.9, ANC 416. + N, she vomited water x1, her mouth and tongue are very sore. In the last 5 days she had a MS relapse, she is taking antidiarrheals with control of diarrhea. She is feeling weak SOB, tired. Surprisingly she is drinking adequate fluids. On examination in the office patient had hard palate thrush, mild oral irritation, cool solution with nystatin ordered as well as salt and soda for cleansing of the mouth. Pancultures ordered. Empiric antibiotics initiated. Patient does not have a port. CTA ordered, malignancy, fever, RICHARD, tachycardia. Malignancy history: Mrs. Bell is a very pleasant 54-year-old female with a PMH of otic neuroitis and colitis, pt of Dr. Levine who presented with a right palpable breast mass 08/2019. Ultrasound follow-up revealed 3.5 x 3.8 x 4.0 cm mass at 7:00 in the right breast, core biopsy 09/16/19 positive for invasive ductal carcinoma, grade 2, ER/NC positive (31%/46% respectively), HER- 2/jesusita negative by fish. Genetic testing was negative. 10/21/19 patient had a right mastectomy, final path grade 3, IDC, 5 cm, 1/5 nodes positive for micrometastases. Patient did have complications postsurgery and prolonged healing. Oncotype DX recurrence risk score was 51. Patient has been started on adjuvant treatment, curative. She had a set of blood cultures done in the office during her lab draw. It is felt, due to persistent fevers and symptoms, patient be admitted to the hospital. Spoke with Dr. Fernandez who has accepted admission. She will be seen in the a.m. for formal consult.
--- NOTE | 2020-01-21 16:42 | CT ---
EXAMINATION TYPE: CT angio chest DATE OF EXAM: 01/21/2020 COMPARISON: None HISTORY: Tachycardia and fever. CT DLP: 290.8 mGycm Automated exposure control for dose reduction was used. CONTRAST: Performed with IV Contrast, patient injected with 55ml mL of Isovue 370. There are 3-D post processed images. FINDINGS: The lungs are clear of consolidation. There is mild coarsening of interstitial markings. There is no mediastinal adenopathy. Thoracic aorta shows no aneurysm or dissection. There are no hilar masses. As cending aorta measures 3.3 cm. Heart size is normal. There is no pericardial effusion. There is some fatty infiltration of the liver. I see no filling defects in the pulmonary arteries. Thoracic spine is intact. There is degenerative spurring in the mid thoracic spine. IMPRESSION: Mild coarse interstitial pulmonary density is nonspecific. This could relate to mild fibrosis. There is no evidence of pulmonary embolism.
[2020-01-21 16:45] LABS: ALT 63 U/L (4-34); AST 61 U/L (14-36); African American GFR (CKD) >90 (>60 ml/min/1.73 sqM); Albumin 3.6 g/dL (3.5-5.0); Alkaline Phosphatase 139 U/L (38-126); Anion Gap 9 mmol/L; Blood Urea Nitrogen 7 mg/dL (7-17); Calcium 8.5 mg/dL (8.4-10.2); Carbon Dioxide 23 mmol/L (22-30); Chloride 98 mmol/L (98-107); Glucose 134 mg/dL (74-99); Non-African American GFR(CKD) >90 (>60 ml/min/1.73 sqM); Potassium 3.8 mmol/L (3.5-5.1); Sodium 130 mmol/L (137-145); Total Bilirubin 1.3 mg/dL (0.2-1.3); Total Protein 6.2 g/dL (6.3-8.2)
[2020-01-21] MEDS: LACTATED RINGERS 1,000 ML IV SCH ×2 (16:45→22:57)
[2020-01-21 16:58] LABS: HCT 40.2 % (34.0-46.0); HGB 13.3 gm/dL (11.4-16.0); MCH 29.2 pg (25.0-35.0); MCHC 33.2 g/dL (31.0-37.0); MCV 88.1 fL (80.0-100.0); Mean Platelet Volume 7.6; Platelet Count 199 k/uL (150-450); RBC 4.57 m/uL (3.80-5.40); RDW 13.1 % (11.5-15.5)
[2020-01-21 17:01] LABS: WBC 1.3 k/uL (3.8-10.6)
--- NOTE | 2020-01-21 17:19 | XR ---
EXAMINATION TYPE: XR chest 2V DATE OF EXAM: 01/21/2020 COMPARISON: NONE HISTORY: Fever TECHNIQUE: 2 views FINDINGS: Heart and mediastinum are normal. Lungs are clear. Diaphragm is normal. Bony thorax is norm al. IMPRESSION: Normal chest.
[2020-01-21] MEDS: SALT AND SODA MOUTHWASH 1,000 ML PO SCH ×3 (18:33→23:22)
[2020-01-21] MEDS: MAG HYDROX/AL HYDROX/SIMETH 30 ML, LIDOCAINE VISCOUS 30 ML, diphenhydrAMINE ELIXIR 75 M... PO SCH ×8 (18:42→18:43)
[2020-01-21] MEDS ORDERED: ALBUTEROL NEBULIZED 2.5 MG/3 ML INHALATION PRN (19:10)
[2020-01-21 19:25] LABS: Band Neutrophils % 4 %; Lymphocytes # (M) 0.27 k/uL (1.0-4.8); Metamyelocytes # (M) 0.01 k/uL (0); Metamyelocytes % 1 %; Monocytes # (M) 0.47 k/uL (0-1.0); Myelocytes # (M) 0.01 k/uL (0); Myelocytes % 1 %; Neutrophils % (M) 37 %; Nucleated Red Blood Cells 0 /100 WBC (0-0); Total Cells Counted 100
[2020-01-21] MEDS ORDERED: LACTATED RINGERS 1,000 ML IV SCH (20:00)
[2020-01-21] MEDS: BACLOFEN 10 MG TAB PO SCH (20:45)
[2020-01-21] MEDS: busPIRone HCl 10 MG TAB PO SCH (20:45)
[2020-01-21] MEDS: ASPIRIN 81 MG PO SCH (20:45)
[2020-01-21] MEDS: CHOLECALCIFEROL 1,000 UNIT TAB PO SCH (20:45)
[2020-01-21] MEDS: GABAPENTIN 300 MG CAP PO SCH (20:46)
[2020-01-21] MEDS: CEFEPIME 2 GM in SODIUM CHLORIDE 0.9% 100 ML IVPB SCH (22:57)
[2020-01-21] MEDS: ACETAMINOPHEN TAB 325 MG TAB PO PRN (23:13)
--- NOTE | 2020-01-21 23:33 | P.CONS ---
History of Present Illness - Reason for Consult Consult date: 01/21/20 neutropenic fever Requesting physician: Teddy Fernandez - Chief Complaint Fever x 2 days - History of Present Illness Patient is a 54-year female with a past medical history significant for breast cancer in this patient was status post first cycle of chemotherapy w ith Neulasta given patient presented to her oncology office this morning with chief complaints of fever with chills for 2 days patient did have a temperature of 102/64 her last night for the patient has been taking some Tylenol currently patient was started on cefdinir by the PCP yesterday patient has taken 2 doses however the patient will have elevated fever patient denies having any headache denies any significant URI symptoms patient did have cough which has been mild to moderate intensity not bringing up any sputum denies having any chest pain, no nausea no vomiting no abdominal pain did have an episode of diarrhea with no blood or mucus in the stool patient was evaluated by her oncologist subsequently has been admitted her into the hospital for management of possible neutropenic fever. Review of Systems Positive point has been mentioned in HPI rest of the systems are negative Past Medical History Past Medical History: Asthma, Cancer, Osteoarthritis (OA) Additional Past Medical History / Comment(s): right breast cancer 08/2019, MULTIPLE SCLEROSIS , optic neuritis History of Any Multi-Drug Resistant Organisms: None Reported Past Surgical History: Section, Tonsillectomy Additional Past Surgical History / Comment(s): section x4, RIGHT MASTECTOMY WITH TISSURE CORRECTIONS LIEUTENANT. Tissue shook splicer removed in November 2019. Past Anesthesia/Blood Transfusion Reactions: Postoperative Nausea & Vomiting (PONV) Past Psychological History: Anxiety, Depression Smoking Status: Never smoker Past Alcohol Use History: None Reported Past Drug Use History: None Reported - Past Family History Brother(s) Family Medical History: Deep Vein Thrombosis (DVT) Additional Family Medical History / Comment(s): 2 BROTHERS WITH DVT'S Medications and Allergies Home Medications Medication Instructions Recorded Confirmed Type Aspirin [Adult Low Dose Aspirin EC] 81 mg PO HS 09/24/19 01/21/20 History Baclofen [Lioresal] 10 mg PO BID 09/24/19 01/21/20 History Cholecalciferol (Vitamin D3) 4,000 unit PO HS 09/24/19 01/21/20 History [Vitamin D3] Gabapentin [Neurontin] 300 mg PO BID 09/24/19 01/21/20 History busPIRone HCL 10 mg PO BID 09/24/19 01/21/20 History Albuterol Nebulized [Ventolin 2.5 mg INHALATION RT-TID PRN 01/21/20 01/21/20 His tory Nebulized] Cefdinir [Omnicef] 300 mg PO Q12H 01/21/20 01/21/20 History Cyclophosphamide [Cytoxan] 1,100 mg IV Q21D 01/21/20 01/21/20 History DOCEtaxel [Docetaxel] 140 mg IV Q21D 01/21/20 01/21/20 History Loratadine [Claritin] 10 mg PO DAILY 01/21/20 01/21/20 History Ondansetron [Zofran] 4 mg PO Q6H PRN 01/21/20 01/21/20 History Allergies Allergy/AdvReac Type Severity Reaction Status Date / Time Sulfa (Sulfonamide Allergy Mild Rash/Hives Verified 01/21/20 16:48 Antibiotics) Physical Exam Vitals: Vital Signs Temp Pulse Resp BP Pulse Ox 01/21/20 21:00 98.5 F 143 H 22 103/64 93 L 01/21/20 18:48 97.9 F 146 H 22 123/65 96 01/21/20 16:00 145 H 01/21/20 15:13 99.5 F 145 H 17 124/74 94 L Intake and Output 01/21/20 01/21/20 01/21/20 06:59 14:59 22:59 Other: Voiding Method Toilet Weight 91.172 kg 91.172 kg GENERAL DESCRIPTION: Middle-aged female lying in bed, no distress. No tachypnea or accessory muscle of respiration use. HEENT: Shows Pallor , no scleral icterus. Oral mucous membrane is dry. NECK: Trachea central, no thyromegaly. LUNGS: Unlabored breathing. Clear to auscultation anteriorly. No wheeze or crackle. HEART: S1, S2, regular rate and rhythm. ABDOMEN: Soft, no tenderness , guarding or rigidity EXTREMITIES: No edema of feet. SKIN: No rash, no masses palpable. NEUROLOGICAL: The patient is awake, alert, oriented x3, mood and affect normal. Results CBC & Chem 7: 01/21/20 16:07 03/04/20 16:07 Labs: Abnormal Lab Results - Last 24 Hours (Table) 01/21/20 01/21/20 Range/Units 16:07 16:07 WBC 1.3 L* (3.8-10.6) k/uL Neutrophils # (Manual) 0.50 L (1.3-7.7) k/uL Lymphocytes # (Manual) 0.27 L (1.0-4.8) k/uL Metamyelocytes # (Man) 0.01 H (0) k/uL Myelocytes # (Manual) 0.01 H (0) k/uL Sodium 130 L (137-145) mmol/L Glucose 134 H (74-99) mg/dL AST 61 H (14-36) U/L ALT 63 H (4-34) U/L Alkaline Phosphatase 139 H (38-126) U/L Total Protein 6.2 L (6.3-8.2) g/dL Assessment and Plan Assessment: -patient presented hospital with a fever of 2 days duration in this patient who has recently received chemotherapy for her breast cancer patient had did have a CBC we did shows mild leukopenia with white of 1.3 patient UA has been negative, chest x-ray and CT has been requested which is currently pending and her with predominantly respiratory symptom wound need to cover for possible pneumonia (1) Fever Current Visit: Yes Status: Acute Code(s): R50.9 - FEVER, UNSPECIFIED SNOMED Code(s): 208163027 Plan: 1-check nasopharyngeal swab for influenza a and B 2-we will obtain a sputum for Gram stain culture 3-blood cultures x2 4-we will empirically add cefepime 2 g every 12 hours We will follow on clinical condition and cultures to further adjust medication if needed Thank you for this consultation we will follow the patient along with you Time with Patient: Greater than 30
[2020-01-22] MEDS: ACETAMINOPHEN TAB 325 MG TAB PO PRN (04:58)
[2020-01-22] MEDS: LACTATED RINGERS 1,000 ML IV SCH ×2 (05:10→12:01)
[2020-01-22] MEDS: SALT AND SODA MOUTHWASH 1,000 ML PO SCH ×5 (05:11→23:16)
[2020-01-22] MEDS: GABAPENTIN 300 MG CAP PO SCH ×2 (08:30→20:12)
[2020-01-22] MEDS: LORATADINE 10 MG TAB PO SCH (08:30)
[2020-01-22] MEDS: busPIRone HCl 10 MG TAB PO SCH ×2 (08:30→20:12)
[2020-01-22] MEDS: BACLOFEN 10 MG TAB PO SCH ×2 (08:30→20:12)
[2020-01-22] MEDS: MAG HYDROX/AL HYDROX/SIMETH 30 ML, LIDOCAINE VISCOUS 30 ML, diphenhydrAMINE ELIXIR 75 M... PO SCH ×16 (08:32→20:12)
[2020-01-22] MEDS: CEFEPIME 2 GM in SODIUM CHLORIDE 0.9% 100 ML IVPB SCH ×2 (11:52→23:14)
[2020-01-22] MEDS: ENOXAPARIN 40 MG/0.4 ML SYRINGE SQ SCH (11:52)
[2020-01-22 12:06] LABS: HCT 39.3 % (34.0-46.0); HGB 13.3 gm/dL (11.4-16.0); MCH 29.8 pg (25.0-35.0); MCHC 33.9 g/dL (31.0-37.0); MCV 87.9 fL (80.0-100.0); Platelet Count 268 k/uL (150-450); RBC 4.48 m/uL (3.80-5.40); RDW 13.2 % (11.5-15.5); WBC 10.9 k/uL (3.8-10.6)
[2020-01-22 12:29] LABS: Band Neutrophils % 58 %; Lymphocytes # (M) 0.22 k/uL (1.0-4.8); Metamyelocytes # (M) 1.31 k/uL (0); Metamyelocytes % 12 %; Monocytes # (M) 0.76 k/uL (0-1.0); Myelocytes # (M) 0.11 k/uL (0); Myelocytes % 1 %; Neutrophils % (M) 21 %; Nucleated Red Blood Cells 0 /100 WBC (0-0); Total Cells Counted 200
[2020-01-22 12:30] LABS: Anisocytosis (M) Present; Poikilocytosis (M) Present; Toxic Granulation Present; Toxic Vacuolation Present
[2020-01-22 12:31] LABS: Polychromasia Present
--- NOTE | 2020-01-22 12:44 | P.HPIM ---
History of Present Illness H&P Date: 01/22/20 Chief Complaint: Fever History of presenting complaint: This is a pleasant 54-year-old patient of Dr. rdz out [facility].. Chronic stable medical conditions include asthma, osteoarthritis, multiple sclerosis, optic neuritis. Anxiety depression. Patient has a diagnosis of right breast cancer with biopsy confirming invasive ductal carcinoma. Patient had right mastectomy done. With 1 out of 5 nodes positive for micrometastases. Patient's cancer was grade 2 ER/IN positive, HER-2/jesusita negative. Patient started on adjuvant treatment with Neulasta. For last 3 days patient been having fevers up to 102. Saw family doctor. Started on cefednir. She spiked fever up to 102. Congested chest. Tired also had diarrhea for 1 day. Took some Imodium. Had presented with Dr. Levine's office. From there patient was sent to the hospital. Patient was tachycardic. Given fluid bolus started on lactated Ringer's. Also started on IV cefepime. ID was consulted. At her baseline does not use any support to walk Review of systems: GEN.: Fever or chills tired EYES: None HEENT: None NECK: None RESPIRATORY: Congested chest CARDIOVASCULAR: None GASTROINTESTINAL: Diarrhea 3 days ago better GENITOURINARY: None MUSCULOSKELETAL: None LYMPHATICS: None HEMATOLOGICAL: None PSYCHIATRY: None NEUROLOGICAL: None Past medical history to include: Asthma, right breast cancer with mastectomy getting adjuvant chemotherapy, osteoarthritis, MS, optic neuritis, anxiety depression Social history: Does not smoke or drink alcohol. . Physical examination: VITAL SIGNS: 100.9, 1:30, 23, para 3/63, 93% on room air GENERAL: BMI 43.5, sitting up, it of the bed, tired. EYES: Pupils equal. Conjunctiva normal. HEENT: External appearance of nose and ears normal, oral cavity dry. NECK: JVD not raised; masses not palpable. HEART: First and second heart sounds are normal; no edema. LUNGS: Respiratory rate increased, slightly decreased breath sounds. ABDOMEN: Soft, nontender, liver spleen not palpable, no masses palpable. PSYCH: [Alert and oriented x3; mood and affect tired l. NEUROLOGICAL: Cranial nerves grossly intact; no facial asymmetry, power and se nsation grossly intact. LYMPHATICS: No lymph nodes palpable in the axilla and neck INVESTIGATIONS, reviewed in the clinical context: White count 1.3 hemoglobin 13.3 platelets 199 sodium 1:30 potassium 3.8 creatinine 0.5 to UA negative Influenza A and B both negative Chest CTA-mild coarse interstitial pulmonary density Chest x-ray film personally reviewed by me-interstitial prominence/coarsening Assessment: -This is a patient presents with 3 days of fever up to 102 congested chest diarrhea for 24 hours of activity is resolved, we could be dealing with a viral pneumonitis and also evidenced by the coarsening of the chest x-ray. Given the neutropenia secondary bacterial infection decreased to be covered. -Severe sepsis from above -Right breast cancer with mastectomy getting adjuvant chemotherapy -Leukopenia secondary to chemotherapy -Hyponatremia from decreased solid intake -Chronic multiple sclerosis -Morbid obesity BMI 43.5 Plan: Patient started and IV cefepime. IV fluid bolus and IV fluids. Home medications resumed. Blood work will be followed closely. Patient is feeling better since compared to last night. Sitting in the edge of the bed. Consultation to oncology and infectious disease was made. Repeat labs. DVT prophylaxis. Past Medical History Past Medical History: Asthma, Cancer, Osteoarthritis (OA) Additional Past Medical History / Comment(s): right breast cancer 08/2019, MULTIPLE SCLEROSIS , optic neuritis History of Any Multi-Drug Resistant Organisms: None Reported Past Surgical History: Section, Tonsillectomy Additional Past Surgical History / Comment(s): section x4, RIGHT MASTECTOMY WITH TISSURE CHEST PAINTING LEADER. Tissue construction project engineer removed in November 2019. Past Anesthesia/Blood Transfusion Reactions: Postoperative Nausea & Vomiting (PONV) Past Psychological History: Anxiety, Depression Smoking Status: Never smoker Past Alcohol Use History: None Reported Past Drug Use History: None Reported - Past Family History Brother(s) Family Medical History: Deep Vein Thrombosis (DVT) Additional Family Medical History / Comment(s): 2 BROTHERS WITH DVT'S Medications and Allergies Home Medications Medication Instructions Recorded Confirmed Type Aspirin [Adult Low Dose Aspirin EC] 81 mg PO HS 09/24/19 01/21/20 History Baclofen [Lioresal] 10 mg PO BID 09/24/19 01/21/20 History Cholecalciferol (Vitamin D3) 4,000 unit PO HS 09/24/19 01/21/20 History [Vitamin D3] Gabapentin [Neurontin] 300 mg PO BID 09/24/19 01/21/20 History busPIRone HCL 10 mg PO BID 09/24/19 01/21/20 History Albuterol Nebulized [Ventolin 2.5 mg INHALATION RT-TID PRN 01/21/20 01/21/20 History Nebulized] Cefdinir [Omnicef] 300 mg PO Q12H 01/21/20 01/21/20 History Cyclophosphamide [Cytoxan] 1,100 mg IV Q21D 01/21/20 01/21/20 History DOCEtaxel [Docetaxel] 140 mg IV Q21D 01/21/20 01/21/20 History Loratadine [Claritin] 10 mg PO DAILY 01/21/20 01/21/20 History Ondansetron [Zofran] 4 mg PO Q6H PRN 01/21/20 01/21/20 History Allergies Allergy/AdvReac Type Severity Reaction Status Date / Time Sulfa (Sulfonamide Allergy Mild Rash/Hives Verified 01/21/20 16:48 Antibiotics) Physical Exam Vitals: Vital Signs Temp Pulse Pulse Resp BP Pulse Ox 01/22/20 08:54 119 H 01/22/20 08:41 120 H 01/22/20 06:05 97.3 F L 97/54 01/22/20 05:37 120 H 01/22/20 05:00 100.9 F H 130 H 23 93/63 93 L 01/21/20 23:38 138 H 20 01/21/20 21:00 98.5 F 143 H 22 103/64 93 L 01/21/20 18:48 97.9 F 146 H 22 123/65 96 01/21/20 16:00 145 H 01/21/20 15:13 99.5 F 145 H 17 124/74 94 L Intake and Output 01/21/20 01/22/20 01/22/20 22:59 06:59 14:59 Intake Total 570 1090 Balance 570 1090 Intake: Intake, IV Titration 450 850 Amount Cefepime 2 gm In Sodium 100 Chloride 0.9% 100 ml @ 200 mls/hr IVPB Q12H REYNA Rx#:[id number] Lactated Ringers 1,000 ml 450 750 @ 150 mls/hr IV .Q6H40M REYNA Rx#:[id number] Oral 120 240 Other: Voiding Method Toilet Toilet # Voids 3 5 Weight 91.172 kg Results CBC & Chem 7: 01/22/20 11:22 01/21/20 16:07 Labs: Abnormal Lab Results - Last 24 Hours (Table) 01/21/20 01/21/20 Range/Units 16:07 16:07 WBC 1.3 L* (3.8-10.6) k/uL Neutrophils # (Manual) 0.50 L (1.3-7.7) k/uL Lymphocytes # (Manual) 0.27 L (1.0-4.8) k/uL Metamyelocytes # (Man) 0.01 H (0) k/uL Myelocytes # (Manual) 0.01 H (0) k/uL Sodium 130 L (137-145) mmol/L Glucose 134 H (74-99) mg/dL AST 61 H (14-36) U/L ALT 63 H (4-34) U/L Alkaline Phosphatase 139 H (38-126) U/L Total Protein 6.2 L (6.3-8.2) g/dL Thrombosis Risk Factor Assmnt - Choose All That Apply Any of the Below Risk Factors Present?: Yes Each Factor Represents 1 point: Age 41-60 years, Obesity (BMI >25) Each Risk Factor Represents 2 Points: Malignancy Thrombosis Risk Factor Assessment Total Risk Factor Score: 4 Thrombosis Risk Factor Assessment Level: Moderate Risk
[2020-01-22] MEDS: ALBUTEROL NEBULIZED 2.5 MG/3 ML INHALATION SCH ×3 (13:47→20:36)
[2020-01-22 14:01] VITALS: BMI 43.4
[2020-01-22] MEDS: ONDANSETRON 4 MG TAB PO PRN (17:39)
--- NOTE | 2020-01-22 19:07 | P.CONS ---
History of Present Illness - Reason for Consult Consult date: 01/22/20 neutropenic fever, chemotherapy for breast cancer Requesting physician: Teddy Fernandez - Chief Complaint Febrile neutropenia - History of Present Illness 01/21/20, Patient in office for f/u, s/p post first cycle of ADJUVANT TC with Neulasta-given 01/14. She has been having fevers intermittently at home, x 2 days, last night Tman 102.6F, she has been controlling temperature with Tylenol. She was given a Rx for cefedinir by her PCP yesterday, she has taken 2 doses, had a temp of 101F since starting abx, she has taken 3 doses of tylenol today. When seen today patient visually has start of rigors, moderate SOB at rest, tachycardic, temp 98.8F, WBC 0.9, ANC 416. + N, she vomited water x1, her mouth and tongue are very sore. In the last 5 days she had a MS relapse, she is taking antidiarrheals with control of diarrhea. She is feeling weak SOB, tired. Malignancy history: Mrs. Bell is a very pleasant 54-year-old female with a PMH of otic neuroitis and colitis, pt of Dr. Levine who presented with a right palpable breast mass 08/2019. Ultrasound follow-up revealed 3.5 x 3.8 x 4.0 cm mass at 7:00 in the right breast, core biopsy 09/16/19 positive for invasive ductal carcinoma, grade 2, ER/OH positive (31%/46% respectively), HER- 2/jesusita negative by fish. Genetic testing was negative. 10/21/19 patient had a right mastectomy, final path grade 3, IDC, 5 cm, 1/5 nodes positive for micrometastases. Patient did have complications postsurgery and prolonged healing. Oncotype DX recurrence risk score was 51. Patient has been started on adjuvant treatment, curative. Today in follow-up patient states she does feel a little bit better, she is persistently tachycardic, 120 range, she had a 100.9F fever last night, her blood pressure is low today. CTA was negative for PE, chest x-ray did not show any infiltrates, UA was negative, thrush in her mouth still persist today, she denies any cough, shortness of breath, nausea, vomiting, abdominal pain or cramping, diarrhea, constipation, dysuria, hematuria, swelling or pain area Review of Systems 14 point review of systems is negative except as stated in HPI Past Medical History Past Medical History: Asthma, Cancer, Osteoarthritis (OA) Additional Past Medical History / Comment(s): right breast cancer 08/2019, MULTIPLE SCLEROSIS , optic neuritis History of Any Multi-Drug Resistant Organisms: None Reported Past Surgical History: Section, Tonsillectomy Additional Past Surgical History / Comment(s): section x4, RIGHT MASTECTOMY WITH TISSURE BUTCHER CHICKEN AND FISH. Tissue plastering supervisor removed in November 2019. Past Anesthesia/Blood Transfusion Reactions: Postoperative Nausea & Vomiting (PONV) Past Psychological History: Anxiety, Depression Smoking Status: Never smoker Past Alcohol Use History: None Reported Past Drug Use History: None Reported - Past Family History Brother(s) Family Medical History: Deep Vein Thrombosis (DVT) Additional Family Medical History / Comment(s): 2 BROTHERS WITH DVT'S Medications and Allergies Home Medications Medication Instructions Recorded Confirmed Type Aspirin [Adult Low Dose Aspirin EC] 81 mg PO HS 09/24/19 01/21/20 History Baclofen [Lioresal] 10 mg PO BID 09/24/19 01/21/20 History Cholecalciferol (Vitamin D3) 4,000 unit PO HS 09/24/19 01/21/20 History [Vitamin D3] Gabapentin [Neurontin] 300 mg PO BID 09/24/19 01/21/20 History busPIRone HCL 10 mg PO BID 09/24/19 01/21/20 History Albuterol Nebulized [Ventolin 2.5 mg INHALATION RT-TID PRN 01/21/20 01/21/20 History Nebulized] Cefdinir [Omnicef] 300 mg PO Q12H 01/21/20 01/21/20 History Cyclophosphamide [Cytoxan] 1,100 mg IV Q21D 01/21/20 01/21/20 History DOCEtaxel [Docetaxel] 140 mg IV Q21D 01/21/20 01/21/20 History Loratadine [Claritin] 10 mg PO DAILY 01/21/20 01/21/20 History Ondansetron [Zofran] 4 mg PO Q6H PRN 01/21/20 01/21/20 History Allergies Allergy/AdvReac Type Severity Reaction Status Date / Time Sulfa (Sulfonamide Allergy Mild Rash/Hives Verified 01/21/20 16:48 Antibiotics) Physical Exam Vitals: Vital Signs Temp Pulse Pulse Resp BP Pulse Ox 01/22/20 14:01 121 H 01/22/20 13:48 120 H 01/22/20 11:52 97.3 F L 115 H 18 121/76 96 01/22/20 08:54 119 H 01/22/20 08:41 120 H 01/22/20 06:05 97.3 F L 97/54 01/22/20 05:37 120 H 01/22/20 05:00 100.9 F H 130 H 23 93/63 93 L 01/21/20 23:38 138 H 20 01/21/20 21:00 98.5 F 143 H 22 103/64 93 L Intake and Output 01/22/20 01/22/20 01/22/20 06:59 14:59 22:59 Intake Total 1090 Balance 1090 Intake: Intake, IV Titration 850 Amount Cefepime 2 gm In Sodium 100 Chloride 0.9% 100 ml @ 200 mls/hr IVPB Q12H REYNA Rx#:[id number] Lactated Ringers 1,000 ml 750 @ 150 mls/hr IV .Q6H40M REYNA Rx#:[id number] Oral 240 Other: Voiding Method Toilet Toilet Toilet # Voids 5 3 Weight 91.172 kg - Constitutional General appearance: cooperative, no acute distress, obese - EENT Eyes: anicteric sclerae, EOMI ENT: hearing grossly normal, thrush (hard palate) - Neck Neck: no lymphadenopathy - Respiratory Respiratory: bilateral: CTA - Cardiovascular sustained tachycardia Heart sounds: normal: S1, S2 Abnormal Heart Sounds: no systolic murmur, no diastolic murmur, no rub, no S3 Gallop, no S4 Gallop, no click, no other leg Peripheral Edema: bilateral: Trace - Gastrointestinal General gastrointestinal: no absent bowel sounds, no decreased bowel sounds, no distended, no hepatomegaly, no hyperactive bowel sounds, normal bowel sounds, no organomegaly, no rigid, no scaphoid, soft, no splenomegaly, no tenderness, no umbilical hernia, no ventral hernia - Integumentary Integumentary: normal - Neurologic Neurologic: CNII-XII intact - Musculoskeletal Musculoskeletal: strength equal bilaterally - Psychiatric Psychiatric: A&O x's 3, appropriate affect, intact judgment & insight Results CBC & Chem 7: 01/22/20 11:22 01/21/20 16:07 Labs: Abnormal Lab Results - Last 24 Hours (Table) 01/21/20 01/22/20 Range/Units 16:07 11:22 WBC 10.9 H (3.8-10.6) k/uL Neutrophils # (Manual) 0.50 L 8.60 H (1.3-7.7) k/uL Lymphocytes # (Manual) 0.27 L 0.22 L (1.0-4.8) k/uL Metamyelocytes # (Man) 0.01 H 1.31 H (0) k/uL Myelocytes # (Manual) 0.01 H 0.11 H (0) k/uL Microbiology - Last 24 Hours (Table) 01/21/20 16:07 Blood Culture - Preliminary Blood No Growth after 24 hours Chest x-ray: report reviewed CT scan - chest: report reviewed Assessment and Plan (1) Neutropenia with fever Narrative/Plan: Patient's white count has recovered today. Patient did receive Neulasta about 8 days ago. Pending finalization of cultures. Patient will likely be discharged in the next 24-48 hours. Current Visit: Yes Status: Acute Priority: High Code(s): D70.9 - NEUTROPENIA, UNSPECIFIED; R50.81 - FEVER PRESENTING WITH CONDITIONS CLASSIFIED ELSEWHERE SNOMED Code(s): 361352613 (2) Breast cancer Narrative/Plan: Adjuvant TC with Neulasta, status post first cycle. Would certainly like to achieve relative dose intensity with this patient in the adjuvant setting. Going to investigate any way of providing growth factors in a different Rx for her. For now, plan is to keep patient on treatment plan. She did verbalize understanding this Current Visit: Yes Status: Acute Priority: High Code(s): C50.919 - MALIGNANT NEOPLASM OF UNSP SITE OF UNSPECIFIED FEMALE BREAST SNOMED Code(s): 033769937 (3) Thrush, oral Narrative/Plan: Mild case, oral treatments ordered. Current Visit: Yes Status: Acute Priority: Medium Code(s): B37.0 - CANDIDAL STOMATITIS SNOMED Code(s): 64516008 (4) Fever Narrative/Plan: Neutropenic fever from chemo, s/p GCSF, with WBC recovery. 100.9 Fahrenheit overnight. Needing >24 hours without fever for DC Current Visit: Yes Status: Acute Priority: High Code(s): R50.9 - FEVER, UNSPECIFIED SNOMED Code(s): 604491990 Plan: Did request a Cardiology consult. Patient has remained tachycardic, persistently.
[2020-01-22] MEDS: ASPIRIN 81 MG PO SCH (20:11)
[2020-01-22] MEDS: CHOLECALCIFEROL 1,000 UNIT TAB PO SCH (20:12)
--- NOTE | 2020-01-22 23:55 | PN ---
PROGRESS NOTE DATE OF SERVICE: 01/22/2020 REASON FOR FOLLOWUP: Fever. INTERVAL HISTORY: The patient did spike a fever of 100.9 early this morning; however, the patient has been afebrile since then. She is feeling slightly better. Denies having any chest pain. Occasional cough. No nausea, no vomiting. No abdominal pain or diarrhea. PHYSICAL EXAMINATION: Blood pressure 103/66, pulse of 131, temperature 98.5. She is 98% on room air. General description is a middle-aged female lying in bed in no distress. RESPIRATORY SYSTEM: Unlabored breathing with decreased breath sounds at the base. No wheeze. HEART: S1, S2. Regular rate and rhythm. ABDOMEN: Soft. No tenderness. LABS: Hemoglobin 13.3, white count 10.9. Liver enzymes mildly elevated. Blood culture so far negative. DIAGNOSTIC IMPRESSION AND PLAN: Patient admitted to hospital with a fever in this patient who did have a history of breast cancer, status post chemotherapy. So far of the pain has been negative. The patient is covered with cefazolin; to continue. Will check her hepatitis panel in view of elevated liver enzymes and monitor her clinical course closely. MMODL / IJN: [id number] /
[2020-01-23] MEDS: LACTATED RINGERS 1,000 ML IV SCH ×5 (01:21→19:47)
[2020-01-23] MEDS: SALT AND SODA MOUTHWASH 1,000 ML PO SCH ×5 (04:55→23:09)
[2020-01-23] MEDS: ALBUTEROL NEBULIZED 2.5 MG/3 ML INHALATION SCH ×4 (07:59→20:31)
[2020-01-23 09:07] LABS: Basophils % (A) 0 %; Eosinophils % (A) 0 %; HCT 36.4 % (34.0-46.0); HGB 11.8 gm/dL (11.4-16.0); Lymphocytes # (A) 0.8 k/uL (1.0-4.8); Lymphocytes % (A) 6 %; MCH 28.4 pg (25.0-35.0); MCHC 32.5 g/dL (31.0-37.0); MCV 87.4 fL (80.0-100.0); Monocytes # (A) 0.4 k/uL (0-1.0); Monocytes % (A) 3 %; Neutrophils # (A) 11.3 k/uL (1.3-7.7); Neutrophils % (A) 89 %; Platelet Count 241 k/uL (150-450); RBC 4.17 m/uL (3.80-5.40); RDW 13.3 % (11.5-15.5); WBC 12.7 k/uL (3.8-10.6)
[2020-01-23 09:21] LABS: ALT 42 U/L (4-34); AST 27 U/L (14-36); African American GFR (CKD) >90 (>60 ml/min/1.73 sqM); Albumin 2.8 g/dL (3.5-5.0); Alkaline Phosphatase 121 U/L (38-126); Anion Gap 9 mmol/L; Blood Urea Nitrogen 9 mg/dL (7-17); Calcium 8.7 mg/dL (8.4-10.2); Carbon Dioxide 24 mmol/L (22-30); Chloride 102 mmol/L (98-107); Glucose 85 mg/dL (74-99); Non-African American GFR(CKD) >90 (>60 ml/min/1.73 sqM); Potassium 3.7 mmol/L (3.5-5.1); Sodium 135 mmol/L (137-145); Total Bilirubin 0.7 mg/dL (0.2-1.3); Total Protein 5.3 g/dL (6.3-8.2)
[2020-01-23] MEDS: ENOXAPARIN 40 MG/0.4 ML SYRINGE SQ SCH (09:27)
[2020-01-23] MEDS: ONDANSETRON 4 MG TAB PO PRN ×2 (09:28→19:48)
[2020-01-23] MEDS: LORATADINE 10 MG TAB PO SCH (09:28)
[2020-01-23] MEDS: busPIRone HCl 10 MG TAB PO SCH ×2 (09:28→21:14)
[2020-01-23] MEDS: GABAPENTIN 300 MG CAP PO SCH ×2 (09:28→21:14)
[2020-01-23] MEDS: BACLOFEN 10 MG TAB PO SCH ×2 (09:28→21:13)
[2020-01-23] MEDS: MAG HYDROX/AL HYDROX/SIMETH 30 ML, LIDOCAINE VISCOUS 30 ML, diphenhydrAMINE ELIXIR 75 M... PO SCH ×16 (09:29→21:15)
[2020-01-23 10:59] LABS: Magnesium 2.2 mg/dL (1.6-2.3)
[2020-01-23] MEDS: CEFEPIME 2 GM in SODIUM CHLORIDE 0.9% 100 ML IVPB SCH (11:40)
--- NOTE | 2020-01-23 12:00 | ECHOF ---
Referral Reason:palpitations s/p chemotherapy MEASUREMENTS -------- HEIGHT: 149.9 cm WEIGHT: 91.2 kg BP: 111/75 RVIDd: 2.8 cm (< 3.3) IVSd: 1.1 cm (0.6 - 1.1) LVIDd: 3.6 cm (3.9 - 5.3) LVPWd: 1.1 cm (0.6 - 1.1) IVSs: 1.6 cm LVIDs: 2.5 cm LVPWs: 1.5 cm LA Diam: 3.3 cm (2.7 - 3.8) LAESV Index (A-L): 19.43 ml/m Ao Diam: 2.9 cm (2.0 - 3.7) AV Cusp: 1.8 cm (1.5 - 2.6) MV EXCURSION: 12.451 mm (> 18.000) MV EF SLOPE: 86 mm/s (70 - 150) EPSS: 0.5 cm AV maxP.32 mmHg AV meanP.58 mmHg RAP: 5.00 mmHg RVSP: 29.32 mmHg FINDINGS -------- Sinus rhythm. This was a technically adequate study. The left ventricular size is normal. There is borderline concentric left ventricular hypertrophy. Overall left ventricular systolic function is normal with, an EF between 60 - 65 %. The right ventricle is normal in size. Normal LA size by volume 22+/-6 ml/m2. The right atrium is normal in size. Interatrial and interventricular septum intact. There is mild aortic valve sclerosis. Peak/mean gradient across the Aortic Valve is 15.32mmHg / 7.5 8mmHg. Mild mitral annular calcification present. Mild tricuspid regurgitation present. Right ventricular systolic pressure is normal at < 35 mmHg. The pulmonic valve was not well visualized. The aortic root size is normal. IVC Not well visulized. There is no pericardial effusion. CONCLUSIONS -------- 1. Sinus rhythm. 2. This was a technically adequate study. 3. The left ventricular size is normal. 4. There is borderline concentric left ventricular hypertrophy. 5. Overall left ventricular systolic function is normal with, an EF between 60 - 65 %. 6. The right ventricle is normal in size. 7. Normal LA size by volume 22+/-6 ml/m2. 8. The right atrium is normal in size. 9. Interatrial and interventricular septum intact. 10. There is mild aortic valve sclerosis. 11. Peak/mean gradient across the Aortic Valve is 15.32mmHg / 7.58mmHg. 12. Mild mitral annular calcification present. 13. Mild tricuspid regurgitation present. 14. Right ventricular systolic pressure is normal at < 35 mmHg. 15. The pulmonic valve was not well visualized. 16. The aortic root size is normal. 17. IVC Not well visulized. 18. There is no pericardial effusion. ONION FARMER: Jayda Handley RDCS
--- NOTE | 2020-01-23 12:31 | P.CRDCN ---
History of Present Illness History of present illness: HISTORY OF PRESENTING ILLNESS This is a pleasant 54-year-old female past medical history significant for breast cancer status post mastectomy currently undergoing chemotherapy, mul tiple sclerosis and asthma. 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 She states approximately 8 years ago she underwent a cardiac catheterization at [facility] secondary to an abnormal stress test. Per the patient the cardiac catheterization was normal. Exact details and records unavailable. We have been asked to see in consultation for persistent tachycardia. She is seen and examined sitting up on the edge of the bed eating breakfast. She presented to the hospital with symptoms of persistent fever status post chemotherapy infusion with Neulasta. Initial EKG on arrival revealed sinus tachycardia heart rate 1 44. Telemetry tracings throughout hospitalization revealed persistent sinus tachycardia. No arrhythmias noted. She denies symptoms of chest pain, dizziness or shortness of breath. CT of the chest is negative for pulmonary embolism with mild coarse interstitial pulmonary density likely related to mild fibrosis. Chest x-ray is negative for an acute cardiopulmonary process. Laboratory data reviewed, WBC on admission was 1. 3 repeat today 12.7, hemoglobin 11.8-41, sodium 135, potassium 3.7, creatinine 0.4. Current daily cardiac medications include aspirin 81 mg daily. Echocardiogram obtained reveals preserved LV systolic function with ejection fraction 60-65%, mild aortic sclerosis with mild stenosis and a mean gradient of 7 mmHg. REVIEW OF SYSTEMS At the time of my exam: CONSTITUTIONAL: Denies fever or chills. CARDIOVASCULAR: Complains of palpitations. Denies chest pain, shortness of breath, orthopnea or PND. RESPIRATORY: Denies cough. GASTROINTESTINAL: Denies abdominal pain, diarrhea, constipation, nausea or vomiting. MUSCULOSKELETAL: Denies myalgias. NEUROLOGIC: Denies numbness, tingling or weakness. ENDOCRINE: Denies fatigue, weight change, polydipsia or polyurina. GENITOURINARY: Denies burning, hematuria or urgency with micturation. HEMATOLOGIC: Denies history of anemia or bleeding. PHYSICAL EXAMINATION Blood pressure 111/75 heart rate 105 afebrile and maintaining oxygen saturation on room air. CONSTITUTIONAL: No apparent distress. HEENT: Head is normocephalic. Pupils are equal, round. Sclerae anicteric. Mucous membranes of the mouth are moist. No JVD. No carotid bruit. CHEST EXAMINATION: Lungs are clear to auscultation. No chest wall tenderness is noted on palpation or with deep breathing. HEART EXAMINATION: Regular rate and rhythm. S1, S2 heard. Soft systolic murmur at the left sternal border, no gallops or rub. ABDOMEN: Soft, nontender. Positive bowel sounds. EXTREMITIES: 2+ peripheral pulses, no lower extremity edema and no calf tenderness. NEUROLOGIC EXAMINATION: Patient is awake, alert and oriented x3. ASSESSMENT Fever s/p chemotherapy with neutropenia Thrush Sinus tachycardia Breast cancer PLAN Telemetry tracings reviewed and reveal persistent sinus tachycardia with no evidence of arrhythmia. Tachycardia secondary to underlying fever and illness related to chemotherapy. Beta blockers may help relieve her symptoms however her blood pressure has been on the low side. PE has been ruled out. Check TSH. Tachycardia should improve when underlying infection improves. Thank you kindly for this consultation. Nurse Practitioner note has been reviewed, I agree with a documented findings and plan of care. Patient was seen and examined. Past Medical History Past Medical History: Asthma, Cancer, Osteoarthritis (OA) Additional Past Medical History / Comment(s): right breast cancer 08/2019, MULTIPLE SCLEROSIS , optic neuritis History of Any Multi-Drug Resistant Organisms: None Reported Past Surgical History: Section, Tonsillectomy Additional Past Surgical History / Comment(s): section x4, RIGHT MASTECTOMY WITH TISSURE TRACK LINER OPERATOR. Tissue ergonomist removed in November 2019. Past Anesthesia/Blood Transfusion Reactions: Postoperative Nausea & Vomiting (PONV) Past Psychological History: Anxiety, Depression Smoking Status: Never smoker Past Alcohol Use History: None Reported Past Drug Use History: None Reported - Past Family History Brother(s) Family Medical History: Deep Vein Thrombosis (DVT) Additional Family Medical History / Comment(s): 2 BROTHERS WITH DVT'S Medications and Allergies Home Medications Medication Instructions Recorded Confirmed Type Aspirin [Adult Low Dose Aspirin EC] 81 mg PO HS 09/24/19 01/21/20 History Baclofen [Lioresal] 10 mg PO BID 09/24/19 01/21/20 History Cholecalciferol (Vitamin D3) 4,000 unit PO HS 09/24/19 01/21/20 History [Vitamin D3] Gabapentin [Neurontin] 300 mg PO BID 09/24/19 01/21/20 History busPIRone HCL 10 mg PO BID 09/24/19 01/21/20 History Albuterol Nebulized [Ventolin 2.5 mg INHALATION RT-TID PRN 01/21/20 01/21/20 History Nebulized] Cefdinir [Omnicef] 300 mg PO Q12H 01/21/20 01/21/20 History Cyclophosphamide [Cytoxan] 1,100 mg IV Q21D 01/21/20 01/21/20 History DOCEtaxel [Docetaxel] 140 mg IV Q21D 01/21/20 01/21/20 History Loratadine [Claritin] 10 mg PO DAILY 01/21/20 01/21/20 History Ondansetron [Zofran] 4 mg PO Q6H PRN 01/21/20 01/21/20 History Allergies Allergy/AdvReac Type Severity Reaction Status Date / Time Sulfa (Sulfonamide Allergy Mild Rash/Hives Verified 01/21/20 16:48 Antibiotics) Physical Exam Vitals: Vital Signs Temp Pulse Pulse Resp BP Pulse Ox 01/23/20 08:13 105 H 01/23/20 08:00 104 H 01/23/20 04:45 98 F 111 H 17 111/75 95 01/22/20 20:59 98.5 F 131 H 17 103/66 95 01/22/20 14:01 121 H 01/22/20 13:48 120 H 01/22/20 11:52 97.3 F L 115 H 18 121/76 96 Intake and Output 01/22/20 01/23/20 01/23/20 22:59 06:59 14:59 Other: Voiding Method Toilet Toilet # Voids 1 # Bowel Movements 1 5 Results 01/23/20 08:11 01/23/20 08:11 Cardiac Enzymes 01/23/20 Range/Units 08:11 AST 27 (14-36) U/L CBC 01/22/20 01/23/20 Range/Units 11:22 08:11 WBC 10.9 H 12.7 H (3.8-10.6) k/uL RBC 4.48 4.17 (3.80-5.40) m/uL Hgb 13.3 11.8 (11.4-16.0) gm/dL Hct 39.3 36.4 (34.0-46.0) % Plt Count 268 241 (150-450) k/uL Comprehensive Metabolic Panel 01/23/20 Range/Units 08:11 Sodium 135 L (137-145) mmol/L Potassium 3.7 (3.5-5.1) mmol/L Chloride 102 (98-107) mmol/L Carbon Dioxide 24 (22-30) mmol/L BUN 9 (7-17) mg/dL Creatinine 0.48 L (0.52-1.04) mg/dL Glucose 85 (74-99) mg/dL Calcium 8.7 (8.4-10.2) mg/dL AST 27 (14-36) U/L ALT 42 H (4-34) U/L Alkaline Phosphatase 121 (38-126) U/L Total Protein 5.3 L (6.3-8.2) g/dL Albumin 2.8 L (3.5-5.0) g/dL Current Medications Generic Name Dose Route Start Last Admin Trade Name Freq PRN Reason Stop Dose Admin Acetaminophen 650 mg 01/21/20 23:05 01/22/20 04:58 Tylenol Tab PO 650 mg Q4HR PRN Administration Fever and/ or Pain Albuterol Sulfate 2.5 mg 01/22/20 12:45 01/23/20 07:59 Ventolin Nebulized INHALATION 2.5 mg RT-QID REYNA Administration Aspirin 81 mg 01/21/20 21:00 01/22/20 20:11 Aspirin PO 81 mg HS REYNA Administration Baclofen 10 mg 01/21/20 21:00 01/23/20 09:28 Lioresal PO 10 mg BID REYNA Administration Buspirone HCl 10 mg 01/21/20 21:00 01/23/20 09:28 Buspar PO 10 mg BID REYNA Administration Cholecalciferol 4,000 unit 01/21/20 21:00 01/22/20 20:12 Vitamin D3 (25 Mcg = 1000 Iu) PO 4,000 unit HS REYNA Administration Al Hydroxide/Mg Hydroxide 30 0 ml 01/21/20 18:00 01/23/20 09:29 ml/ Lidocaine HCl 30 ml/ PO 30 ml Diphenhydramine HCl 75 mg/ QID REYNA Administration Nystatin 3,000,000 unit Enoxaparin Sodium 40 mg 01/22/20 09:15 01/23/20 09:27 Lovenox SQ 40 mg DAILY REYNA Administration Gabapentin 300 mg 01/21/20 21:00 01/23/20 09:28 Neurontin PO 300 mg BID REYNA Administration Lactated Ringer's 1,000 mls @ 150 mls/hr 01/21/20 15:30 01/23/20 01:21 Lactated Ringers IV Not Given .Q6H40M REYNA Cefepime HCl 2 gm/ Sodium 100 mls @ 200 mls/hr 01/21/20 23:00 01/22/20 23:14 Chloride IVPB 200 mls/hr Q12H REYNA Administration Loratadine 10 mg 01/22/20 09:00 01/23/20 09:28 Claritin PO 10 mg DAILY REYNA Administration Ondansetron HCl 4 mg 01/21/20 19:10 01/23/20 09:28 Zofran PO 4 mg Q6H PRN Administration Nausea Sodium Bicarbonate 5 ml 01/21/20 16:00 01/23/20 04:55 PO Not Given 5XD REYNA Intake and Output 01/22/20 01/23/20 01/23/20 22:59 06:59 14:59 Other: Voiding Method Toilet Toilet # Voids 1 # Bowel Movements 1 5 01/23/20 08:11 01/23/20 08:11
[2020-01-23 13:22] LABS: T4, Free (Free Thyroxine) 1.62 ng/dL (0.78-2.19)
[2020-01-23] MEDS ORDERED: CHOLESTYRAMINE (WITH SUGAR) 4 GM PACKET PO STA (15:42)
--- NOTE | 2020-01-23 16:59 | P.PN ---
Subjective Progress Note Date: 01/23/20 Principal diagnosis: Sepsis, diarrhea 54-year-old female with PMH of multiple sclerosis, stage II breast cancer on chemotherapy, ulcerative colitis that was sent from her oncology clinic for concerns of sepsis. Patient underwent first round of chemotherapy recently and subsequently developed 2 days of fever with T-max 102.6 Fahrenheit at home. She was given cefdinir by her PCP but things continue to worsen. This prompted direct admission from her oncology clinic. When she first came to the hospital, she had a T-max of 100.9 Fahrenheit. She was tachycardic to 145 with BP of 124/76. She was leukopenic with WBC count 1.3. She was hyponatremic with sodium of 130. She had transaminitis with AST 61, ALT 63, alkaline phosphatase 139. Influenza negative. C. diff negative. CTA chest showed mild coarse interstitial pulmonary density could be related to mild fibrosis, no PE. Chest x-ray was negative. Patient was admitted for workup of sepsis and for infectious disease consult. Patient was seen and examined. No acute events overnight. Patient reports 9 episodes of diarrhea today. She describes her stool as loose, dark brown. Patient states that she last received Neulasta injection on January 14. She currently complains of a temporal headache that started today. Yesterday, patient experienced some nausea and nonbilious nonbloody vomiting. She does complain of some chills and shortness of breath. She denies any lower extremity edema, chest pain, cough, palpitations, changes in urination. No changes in appetite or weight. Patient denies any dizziness, numbness/weakness/tingling of the extremities. Objective - Vital Signs Vital signs: Vital Signs Temp 98.3 F 01/23/20 12:46 Pulse 104 H 01/23/20 16:23 Resp 16 01/23/20 12:46 BP 116/78 01/23/20 12:46 Pulse Ox 96 01/23/20 12:46 Intake & Output 01/22/20 01/23/20 01/23/20 18:59 06:59 18:59 Intake Total 100 Balance 100 Weight 91.172 kg Intake: Intake, IV Titration 100 Amount Cefepime 2 gm In Sodium 100 Chloride 0.9% 100 ml @ 200 mls/hr IVPB Q12H [facility] Rx#:[id number] Other: Voiding Method Toilet Toilet Toilet # Voids 3 1 2 # Bowel Movements 5 3 - Exam General: [non toxic], [no distress], [appears at stated age] Derm: [warm], [dry] Head: [atraumatic], [normocephalic], [symmetric] Eyes: [EOMI], [no lid lag], [anicteric sclera] Mouth: [no lip lesion], [mucus membranes moist] Cardiovascular: [S1S2 reg], [tachycardia], [positive DP pulse bilateral], Lungs: [CTA bilateral], [no rhonchi, no rales] , [no accessory muscle use] Abdominal: [soft], [ nontender to palpation], [no guarding], [no appreciable organomegaly] Ext: [no gross muscle atrophy], [no edema], [no contractures] Neuro: [no focal neuro deficits] Psych: [Alert], [oriented], [appropriate affect] - Labs CBC & Chem 7: 01/23/20 08:11 01/23/20 08:11 Labs: Abnormal Lab Results - Last 24 Hours (Table) 01/23/20 01/23/20 01/23/20 Range/Units 08:11 08:11 08:11 WBC 12.7 H (3.8-10.6) k/uL Neutrophils # 11.3 H (1.3-7.7) k/uL Lymphocytes # 0.8 L (1.0-4.8) k/uL Sodium 135 L (137-145) mmol/L Creatinine 0.48 L (0.52-1.04) mg/dL ALT 42 H (4-34) U/L Total Protein 5.3 L (6.3-8.2) g/dL Albumin 2.8 L (3.5-5.0) g/dL TSH 4.840 H (0.465-4.680) mIU/L Microbiology - Last 24 Hours (Table) 01/21/20 16:07 Blood Culture - Preliminary Blood No Growth after 24 hours Assessment and Plan Assessment: Sepsis of unknown etiology Diarrhea Stage II breast cancer on chemotherapy Leukocytosis Hyponatremia Multiple sclerosis Asthma Morbid obesity with BMI 43.5 Patient initially met sepsis criteria. She was leukopenic, tachycardic and hypotensive responding to fluid bolus. She did have T-max of 100.9 Fahrenheit. C. diff has been negative. Influenza has been negative. Urinalysis has been negative. Chest x-ray has been negative for pneumonia. Blood cultures negative at 24 hours. Plans: Tylenol as needed for fever. Zofran for nausea or vomiting. Continue lactated Ringer's at 150 mL per hour. Continue cefepime. Telemetry monitoring. Follow blood and stool culture. Follow infectious disease consultation. Possibly related to chemotherapy. Could also be infectious? Plans: Questran as needed. Follow stool culture. Plans: Follow oncology consultation. Patient has leukocytosis of 12.7. Her last Neulasta injection was 01/14/2020. Plans: Repeat CBC tomorrow morning. Patient initially with sodium of 130, today 135. Likely due to dehydration. Plans: Continue IVF as above. Repeat BMP tomorrow morning. Encourage hydration by mouth. Plans: Stable. Needs follow-up at [facility]. Plans: Albuterol neb as needed for shortness of breath and wheezing. Plans: Patient would likely benefit from structured weight loss program. [Patient admitted for sepsis of unknown etiology. Currently on IV antibiotics. Infectious disease on board. She is pending clinical improvement. Likely DC in 2-3 days.]
[2020-01-23] MEDS: CHOLESTYRAMINE (WITH SUGAR) 4 GM PACKET PO SCH (17:57)
--- NOTE | 2020-01-23 19:09 | PN ---
PROGRESS NOTE DATE OF SERVICE: 01/23/2020 REASON FOR FOLLOWUP: Fever. INTERVAL HISTORY: The patient is currently afebrile. The patient has been breathing comfortably. The patient has developed significant diarrhea as of yesterday and has had almost 10 loose stools for the last 24 hours. No blood or mucous in the stool. No abdominal pain. Denies any chest pain, shortness of breath or cough. PHYSICAL EXAMINATION: Blood pressure 115/78 with a pulse of 107, temperature 98.3. She is 96% on room air. General description is a middle-aged female up in the bed in no distress. Respiratory system: Unlabored breathing. Clear to auscultation anteriorly. Heart is S1, S2. Regular rate and rhythm. Abdomen soft, no tenderness. LABS: White count 12.7, creatinine 0.48. Stool for C difficile is negative. Blood culture has been negative. DIAGNOSTIC IMPRESSION AND PLAN: Patient admitted to the hospital with fever in this patient who did have history of breast cancer and recent chemo. The patient's fever has resolved and white count has recovered and no clinical focus of infection. Not developing significant diarrhea. Possible antibiotic associated. We will go ahead and discontinue the cefepime. Monitor the patient closely off antibiotic therapy. We will add Questran for symptomatic relief of her diarrhea and continue supportive care. MMODL / IJN: [id number] /
[2020-01-23] MEDS ORDERED: diphenhydrAMINE 25 MG CAP PO PRN (20:46)
[2020-01-23] MEDS: ASPIRIN 81 MG PO SCH (21:13)
[2020-01-23] MEDS: ACETAMINOPHEN TAB 325 MG TAB PO PRN (21:13)
[2020-01-23] MEDS: CHOLECALCIFEROL 1,000 UNIT TAB PO SCH (21:14)
--- NOTE | 2020-01-24 00:30 | P.PN ---
Subjective Progress Note Date: 01/23/20 The patient feels better overall. Her appetite is improved. Nausea is mostly resolved. She still having loose stools. She complains of feeling somewhat lightheaded on getting up after laying down. No oral ulcers. No fever since 3/5 am Objective - Vital Signs Vital signs: Vital Signs Temp 98 F 01/23/20 20:47 Pulse 104 H 01/23/20 20:50 Resp 17 01/23/20 20:47 BP 127/81 01/23/20 20:47 Pulse Ox 98 01/23/20 20:47 Intake & Output 01/23/20 01/23/20 01/24/20 06:59 18:59 06:59 Intake Total 340 1320 Balance 340 1320 Intake: Intake, IV Titration 100 600 Amount Cefepime 2 gm In Sodium 100 Chloride 0.9% 100 ml @ 200 mls/hr IVPB Q12H [facility] Rx#:[id number] Lactated Ringers 1,000 ml 600 @ 50 mls/hr IV .Q20H [facility] Rx#:[id number] Oral 240 720 Other: Voiding Method Toilet Toilet # Voids 1 2 2 # Bowel Movements 5 3 - Constitutional General appearance: Present: no acute distress - EENT Eyes: Present: EOMI ENT: Present: normal oropharynx - Respiratory Respiratory: bilateral: CTA - Cardiovascular Rhythm: regular Heart sounds: normal: S1, S2 - Gastrointestinal General gastrointestinal: Present: normal bowel sounds, soft - Integumentary Integumentary: Present: normal - Neurologic Neurologic: Present: CNII-XII intact - Musculoskeletal Musculoskeletal: Present: strength equal bilaterally - Psychiatric Psychiatric: Present: A&O x's 3 - Labs CBC & Chem 7: 01/23/20 08:11 01/23/20 08:11 Labs: Abnormal Lab Results - Last 24 Hours (Table) 01/23/20 01/23/20 01/23/20 Range/Units 08:11 08:11 08:11 WBC 12.7 H (3.8-10.6) k/uL Neutrophils # 11.3 H (1.3-7.7) k/uL Lymphocytes # 0.8 L (1.0-4.8) k/uL Sodium 135 L (137-145) mmol/L Creatinine 0.48 L (0.52-1.04) mg/dL ALT 42 H (4-34) U/L Total Protein 5.3 L (6.3-8.2) g/dL Albumin 2.8 L (3.5-5.0) g/dL TSH 4.840 H (0.465-4.680) mIU/L Microbiology - Last 24 Hours (Table) 01/23/20 18:57 Stool Culture - Preliminary Stool 01/21/20 16:07 Blood Culture - Preliminary Blood No Growth after 48 hours Assessment and Plan (1) Neutropenia with fever Narrative/Plan: WBC has normalized. No fever over the past 24 hours. Cultures are negative at this point. Antibiotic management for ID. Patient is okay for discharge from our standpoint whenever okay with the admitting service and other consultants Current Visit: Yes Status: Acute Priority: High Code(s): D70.9 - NEUTROPENIA, UNSPECIFIED; R50.81 - FEVER PRESENTING WITH CONDITIONS CLASSIFIED ELSEWHERE SNOMED Code(s): 234403663 (2) Breast cancer Narrative/Plan: Patient will continue chemotherapy as an outpatient. She will however have follow-up with Dr. Levine post discharge prior to resuming treatment Current Visit: Yes Status: Acute Priority: High Code(s): C50.919 - MALIGNANT NEOPLASM OF UNSP SITE OF UNSPECIFIED FEMALE BREAST SNOMED Code(s): 056901479
[2020-01-24] MEDS: LACTATED RINGERS 1,000 ML IV SCH ×2 (05:06→09:43)
[2020-01-24] MEDS: SALT AND SODA MOUTHWASH 1,000 ML PO SCH ×2 (05:09→13:00)
[2020-01-24] MEDS: ALBUTEROL NEBULIZED 2.5 MG/3 ML INHALATION SCH ×2 (07:44→10:55)
[2020-01-24 07:48] VITALS: PULSE 100
[2020-01-24 08:20] LABS: Basophils % (A) 0 %; Eosinophils % (A) 0 %; HCT 36.1 % (34.0-46.0); HGB 11.7 gm/dL (11.4-16.0); Lymphocytes # (A) 0.7 k/uL (1.0-4.8); Lymphocytes % (A) 7 %; MCH 28.5 pg (25.0-35.0); MCHC 32.5 g/dL (31.0-37.0); MCV 87.7 fL (80.0-100.0); Mean Platelet Volume 7.7; Monocytes # (A) 0.2 k/uL (0-1.0); Monocytes % (A) 2 %; Neutrophils # (A) 8.8 k/uL (1.3-7.7); Neutrophils % (A) 89 %; Platelet Count 273 k/uL (150-450); RBC 4.11 m/uL (3.80-5.40); RDW 13.2 % (11.5-15.5); WBC 9.8 k/uL (3.8-10.6)
[2020-01-24] MEDS: busPIRone HCl 10 MG TAB PO SCH (09:42)
[2020-01-24] MEDS: BACLOFEN 10 MG TAB PO SCH (09:42)
[2020-01-24] MEDS: GABAPENTIN 300 MG CAP PO SCH (09:42)
[2020-01-24] MEDS: ENOXAPARIN 40 MG/0.4 ML SYRINGE SQ SCH (09:42)
[2020-01-24] MEDS: LORATADINE 10 MG TAB PO SCH (09:42)
[2020-01-24] MEDS: CHOLESTYRAMINE (WITH SUGAR) 4 GM PACKET PO SCH (09:43)
[2020-01-24] MEDS: MAG HYDROX/AL HYDROX/SIMETH 30 ML, LIDOCAINE VISCOUS 30 ML, diphenhydrAMINE ELIXIR 75 M... PO SCH ×8 (09:44→13:00)
[2020-01-24] MEDS ORDERED: FLUCONAZOLE 150 MG TAB PO STA (10:08)
[2020-01-24 12:26] VITALS: BP 116/77; RESP 16; TEMP 97.9
--- NOTE | 2020-01-24 13:10 | P.DS ---
Providers Date of admission: 01/21/20 15:39 Expected date of discharge: 01/24/20 Attending physician: Evan Pan MD Consults: 01/21/20 15:34 Consult Physician Urgent Consulting Provider: Raman Vásquez Consult Reason/Comments: Neutropenic fever Do you want consulting provider notified?: Yes Placement Type Exists?: Yes 01/21/20 15:35 Consult Physician Routine Consulting Provider: Rusty Palacios Consult Reason/Comments: Neutropenic fever Do you want consulting provider notified?: Already Contacted Placement Type Exists?: Yes 01/22/20 18:56 Consult Physician Routine Consulting Provider: Jose Agraawl Consult Reason/Comments: sustained tachycardia Do you want consulting provider notified?: Yes, Notify in am Primary care physician: Manpreet [facility] Course: 54-year-old female with PMH of multiple sclerosis, stage II breast cancer on chemotherapy, ulcerative colitis that was sent from her oncology clinic for concerns of sepsis. Patient underwent first round of chemotherapy recently and subsequently developed 2 days of fever with T-max 102.6 Fahrenheit at home. She was given cefdinir by her PCP but things continue to worsen. This prompted direct admission from her oncology clinic. When she first came to the hospital, she had a T-max of 100.9 Fahrenheit. She was tachycardic to 145 with BP of 124/76. She was leukopenic with WBC count 1.3. She was hyponatremic with sodium of 130. She had transaminitis with AST 61, ALT 63, alkaline phosphatase 139. Influenza negative. C. diff negative. CTA chest showed mild coarse interstitial pulmonary density could be related to mild fibrosis, no PE. Chest x-ray was negative. Patient was admitted for workup of sepsis and for infectious disease consult. Patient had complaints of diarrhea on 01/23/2020. Stool for C. diff was negative. Stool culture was collected. Urinalysis was collected and was negative. Blood cultures were negative at 48 hours at the time of this note. Patient was initially started on cefepime and infectious disease was consulted. Cefepime was discontinued when cultures were negative. Patient was initially noted to be leukopenic with WBC count of 1.3 the trended up to 12.7. Her WBC count was within normal limits at 9.8 at the time of discharge. Her sodium did improve from 130 to 135 with IV hydration. Patient was seen and examined. No acute events overnight. Patient denies any more episodes of diarrhea. She denies any chest pain, shortness of breath or palpitations. No nausea or vomiting. No fever or chills. Wanting to go home today. General: [non toxic], [no distress], [appears at stated age] Derm: [warm], [dry] Head: [atraumatic], [normocephalic], [symmetric] Eyes: [EOMI], [no lid lag], [anicteric sclera] Mouth: [no lip lesion], [mucus membranes moist] Cardiovascular: [S1S2 reg], [tachycardia but improved], [positive DP pulse bilateral], Lungs: [CTA bilateral], [no rhonchi, no rales] , [no accessory muscle use] Abdominal: [soft], [ nontender to palpation], [no guarding], [no appreciable organomegaly] Ext: [no gross muscle atrophy], [no edema], [no contractures] Neuro: [no focal neuro deficits] Psych: [Alert], [oriented], [appropriate affect] Sepsis of unknown etiology Stage II breast cancer on chemotherapy Hyponatremia Multiple sclerosis Asthma Morbid obesity with BMI 43.5 Patient initially met sepsis criteria. She was leukopenic, tachycardic and hypotensive responding to fluid bolus. She did have T-max of 100.9 Fahrenheit, afebrile over the last 24 hours. C. diff has been negative. Influenza has been negative. Urinalysis has been negative. Chest x-ray has been negative for pneumonia. Blood cultures negative at 48 hours. Plans: Tylenol as needed for fever. Zofran for nausea or vomiting. Continue lactated Ringer's at 150 mL per hour. Antibiotics discontinued by ID. Telemetry monitoring. Follow blood and stool culture. Follow infectious disease consultation. Plans: Follow oncology consultation. Patient initially with sodium of 130, today 135. Likely due to dehydration. Plans: Continue IVF as above. Repeat BMP tomorrow morning. Encourage hydration by mouth. Plans: Stable. Needs follow-up at [facility]. Plans: Albuterol neb as needed for shortness of breath and wheezing. Plans: Patient would likely benefit from structured weight loss program. [Patient admitted for sepsis of unknown etiology. Cultures have been negative thus far. Leukopenia has improved now WBC count within normal limits. We'll plan on DC today and she will need to follow-up with her PCP for final results of her blood culture.] Pertinent Studies: Chest CTA, chest x-ray, echocardiogram Patient Condition at Discharge: Stable Plan - Discharge Summary New Discharge Prescriptions: Continue Baclofen [Lioresal] 10 mg PO BID busPIRone HCL 10 mg PO BID Cholecalciferol (Vitamin D3) [Vitamin D3] 4,000 unit PO HS Aspirin [Adult Low Dose Aspirin EC] 81 mg PO HS Gabapentin [Neurontin] 300 mg PO BID Cyclophosphamide [Cytoxan] 1,100 mg IV Q21D Loratadine [Claritin] 10 mg PO DAILY Albuterol Nebulized [Ventolin Nebulized] 2.5 mg INHALATION RT-TID PRN PRN Reason: Shortness Of Breath Ondansetron [Zofran] 4 mg PO Q6H PRN PRN Reason: Nausea DOCEtaxel [Docetaxel] 140 mg IV Q21D Ondansetron [Zofran] 4 mg PO Q6H PRN PRN Reason: dizziness Acetaminophen/Diphenhydramine [Tylenol PM 500-25mg] 1 tab PO HS Discontinued Cefdinir [Omnicef] 300 mg PO Q12H Discharge Medication List Aspirin [Adult Low Dose Aspirin EC] 81 mg PO HS 09/24/19 [History] Baclofen [Lioresal] 10 mg PO BID 09/24/19 [History] Cholecalciferol (Vitamin D3) [Vitamin D3] 4,000 unit PO HS 09/24/19 [History] Gabapentin [Neurontin] 300 mg PO BID 09/24/19 [History] busPIRone HCL 10 mg PO BID 09/24/19 [History] Albuterol Nebulized [Ventolin Nebulized] 2.5 mg INHALATION RT-TID PRN 01/21/20 [History] Cyclophosphamide [Cytoxan] 1,100 mg IV Q21D 01/21/20 [History] DOCEtaxel [Docetaxel] 140 mg IV Q21D 01/21/20 [History] Loratadine [Claritin] 10 mg PO DAILY 01/21/20 [History] Ondansetron [Zofran] 4 mg PO Q6H PRN 01/21/20 [History] Acetaminophen/Diphenhydramine [Tylenol PM 500-25mg] 1 tab PO HS 01/23/20 [History] Ondansetron [Zofran] 4 mg PO Q6H PRN 01/23/20 [History] Follow up Appointment(s)/Referral(s): Kana Herrera MD [STAFF PHYSICIAN] - 2 Weeks Manpreet Santillan MD [STAFF PHYSICIAN] - 1 Week Activity/Diet/Wound Care/Special Instructions: Diet: Low fiber Follow-up PCP within 3 days of discharge. Follow-up with cardiology within 2 weeks of discharge. Follow-up with your oncologist within 1 week of discharge. Take all medications as advised. Please follow up final blood culture results with your PCP. Discharge Disposition: HOME SELF-CARE
--- NOTE | 2020-01-24 21:04 | PN ---
PROGRESS NOTE DATE OF SERVICE: 01/24/2020. REASON FOR FOLLOW UP: 1. Fever, possible viral syndrome. 2. Diarrhea, antibiotic associated. INTERVAL HISTORY: The patient is currently afebrile. The patient has been feeling much better, breathing comfortably. The patient denies having any chest pain or shortness of breath or cough. No nausea, vomiting. No abdominal pain. Diarrhea has resolved. PHYSICAL EXAMINATION: Blood pressure is 113/77, pulse of 100. Temperature 97.9. She is 94% on room air. General description is a middle-aged female lying in bed in no distress. Respiratory system: Unlabored breathing. Clear to auscultation anteriorly. Heart S1, S2. Regular rate and rhythm. Abdomen soft. No tenderness. LABS: Hemoglobin 11.7, white count 9.8. Stool for C difficile is negative. Stool culture pending. Blood culture negative. DIAGNOSTIC IMPRESSION AND PLAN: 1. Patient admitted to the hospital with a fever, possible viral syndrome as the patient has no clinical focus of infection. Culture has been negative. Patient is currently off antibiotic for 24 hours with no recurrence of fever. 2. The patient with diarrhea antibiotic associated, resolved after discontinuation of antibiotics. There is no need for any antibiotic on discharge. MMODL / IJN: [id number] /
--- NOTE | 2020-01-30 08:21 | CDI ---
Documentation Clarification Form Date: 01/30/20 From: Teri Youssef Phone: If you have a question about this query, please contact Faiza Parsons, [employer] at [phone] between 8am and 5pm. Admit Date: 01/21/20 Discharge Date:01/24/20 Patient Name: Destinee Bell Visit Number: [id number] ATTENTION: The Clinical Documentation Specialists (CDI) and [facility] Coding Staff appreciate your assistance in clarifying documentation. Please respond to the clarification below the line at the bottom and electronically sign. The CDI & [facility] Coding staff will review the response and follow-up if needed. Please note: Queries are made part of the Legal Health Record. If you have any questions, please contact the author of this message via ITS. Dear Dr. Pan The patient presented with the following: Fevers for 3 days up to 102, congested chest, tired and diarrhea. Family doctor started patient on Cefdinir. Severe sepsis is documented in the H&P and sepsis of unknown etiology is documented in the discharge summary and your 01/22 progress note. Possible viral pneumonitis is documented in the H&P and possible viral syndrome is documented in Dr. Vásquez's 01/23 progress note. History/Risk Factors: Right breast cancer with lymph node metastases with recent first round of chemotherapy. Neutropenia Clinical Indicators: Neutropenia, leukocytosis Lab findings: WBC: 3/4 - 1/3, /5 - 10.9, /6 - 12.7. Bands: 3/4 - 4, /5 - 58. Lactic acid not tested. Radiology findings: CT Chest: Mild coarse interstitial pulmonary density is nonspecific. This could related to mild fibrosis. There is no evidence of pulmonary embolism. Chest x-ray: Normal chest Vital Signs: T. 99.5 on admit, 01/21 100.9, P. 120 on admit, R. 17 on admit, 23 on 01/21, BP 124/74 on admit, 01/21 - 93/63, 97/54. Treatment: IV Cefepime, 2 liters fluid bolus Consults: Dr. Vásquez documented possible viral syndrome as the patient has no clinical focus of infection. In your professional opinion, what is the most clinically appropriate diagnosis for this patient? Sepsis Ruled Out Sepsis Viral Syndrome Viral pneumonitis Fever of unknown origin Other, please specify Unable to determine sepsis likely from viral syndrome MTDD
== END 2020-01-24 15:45 | disposition home or self-care (01) | DRG 872 ==
LOC: 5NMEDONC 14:28 → OBSVTOIN 15:39
PROVIDERS: ADMIT Family Medicine; ATTEND Family Medicine
DX: A41.89 Other specified sepsis (principal); B37.0 Candidal stomatitis; E87.1 Hypo-osmolality and hyponatremia; H46.9 Unspecified optic neuritis; K51.90 Ulcerative colitis, unspecified, without complications; C77.9 Secondary and unspecified malignant neoplasm of lymph node, unspecified; Z68.41 Body mass index [BMI] 40.0-44.9, adult; D70.1 Agranulocytosis secondary to cancer chemotherapy; C50.911 Malignant neoplasm of unspecified site of right female breast; B34.9 Viral infection, unspecified; R50.81 Fever presenting with conditions classified elsewhere; E66.01 Morbid (severe) obesity due to excess calories; E86.0 Dehydration; G35 Multiple sclerosis; J45.909 Unspecified asthma, uncomplicated; M19.90 Unspecified osteoarthritis, unspecified site; T45.1X5A Adverse effect of antineoplastic and immunosuppressive drugs, initial encounter; R74.8 Abnormal levels of other serum enzymes; R74.0 Nonspecific elevation of levels of transaminase and lactic acid dehydrogenase [LDH]; I35.0 Nonrheumatic aortic (valve) stenosis; F41.9 Anxiety disorder, unspecified; F32.9 Major depressive disorder, single episode, unspecified; Z79.82 Long term (current) use of aspirin; Z79.899 Other long term (current) drug therapy; Z90.11 Acquired absence of right breast and nipple; Z88.2 Allergy status to sulfonamides; Z86.718 Personal history of other venous thrombosis and embolism
CPT/HCPCS: 71046; 71275; 80053; 81003; 83630; 83735; 84439; 84443; 85025; 87040; 87045; 87046; 87324; 87502; 93005; 93306; 94640

== ENCOUNTER → 2020-08-24 | Outpatient (CLI) | payer BC ==
--- NOTE | 2020-08-24 17:37 | BD ---
EXAMINATION TYPE: Axial Bone Density DATE OF EXAM: 08/24/2020 COMPARISON: NONE CLINICAL HISTORY: Height: 4 FT 9 1/2 IN Weight: 204 FRAX RISK QUESTIONS: Alcohol (3 or more units per day): NO Family History (Parent hip fracture): YES Glucocorticoids (More than 3mos): NO (Ex: prednisone, prednisolone, methylprednisolone, dexamethasone, and hydrocortisone). History of Fracture in Adulthood: NO Secondary Osteoporosis: 1. Type 1 Diabetes: NO 2. Hyperthyroidism: NO 3. Menopause before 45: NO 4. Malnutrition: NO 5. Chronic liver disease: NO Rheumatoid Arthritis: NO Current Tobacco Use: NO RISK FACTORS HISTORY OF: Family History of Osteoporosis: YES Active: YES Postmenopausal woman: AGE 52 MEDICATIONS: Additional Medications: HORMONE ROSE, BUSPRIN, BACLIFEN, AVITIN, VIT D, CLARITIN Additional History: HISTORY OF MS , RECENT BREAST CANCER DIAGNOSIS RADIATION AND CHEMO EXAM MEASUREMENTS: Bone mineral densitometry was performed using the [employer] Work Study System. Bone mineral density as measured about the Lumbar spine is: ----- L1-L4(G/cm2): 1.164 T Score Values are as follows: ----- L2: 0.1 ----- L3: 0.0 ----- L4: -0.8 ----- L1-L4: -0.1 BASELINE Bone mineral density about the R hip (g/cm2): 1.023 Bone mineral density about the L hip (g/cm2): 0.812 T Score values are as follows: -----R Neck: -0.1 -----L Neck: -1.6 -----R Total: 0.9 -----L Total: 0.5 BASELINE IMPRESSION: Osteopenia (T Score between -2.5 and -1) femoral neck level left hip. There is slightly increased risk of fracture and the patient may be considered for treatment. Re-Screen 2-5 years. NOTE: T-SCORE=SD OF THE YOUNG ADULT MEAN.
== END | disposition home or self-care (01) ==
LOC: RADBDWWP 13:12
PROVIDERS: ATTEND Internal Medicine Hematology & Oncology
DX: M85.88 Other specified disorders of bone density and structure, other site (principal); Z88.2 Allergy status to sulfonamides
CPT/HCPCS: 77080

== ENCOUNTER → 2020-09-23 | Outpatient (CLI) | payer BC ==
--- NOTE | 2020-10-01 10:41 | MM ---
Reason for exam: additional evaluation requested from prior study. Last mammogram was performed 1 year ago. History: Patient is postmenopausal and has history of breast cancer at age 53. Taking antineoplastic for 4 years. Physical Findings: Nurse did not find any significant physical abnormalities on exam. MG 3D Diag Mammo W/Cad LT CC and MLO view(s) were taken of the left breast. Prior study comparison: September 16, 2019, mammogram, performed at [place]. July 26, 2017, mammogram, performed at [place]. February 29, 2016, mammogram, performed at [place]. There are scattered fibroglandular densities. No significant new findings when compared with previous films. These results were verbally communicated with the patient on 10/01/20. ASSESSMENT: Negative, BI-RAD 1 RECOMMENDATION: Routine screening mammogram of both breasts in 1 year.
== END | disposition home or self-care (01) ==
LOC: RADMAMWWP 14:15
PROVIDERS: ATTEND Radiology Radiation Oncology
DX: C50.411 Malignant neoplasm of upper-outer quadrant of right female breast (principal); C77.9 Secondary and unspecified malignant neoplasm of lymph node, unspecified; Z92.21 Personal history of antineoplastic chemotherapy
CPT/HCPCS: 77061; 77065

== ENCOUNTER → 2020-10-21 | Outpatient (CLI) | payer BC ==
[2020-10-21 14:45] VITALS: BP 135/80; PULSE 90; RESP 16; TEMP 98
--- NOTE | 2020-10-21 15:22 | P.PN ---
Subjective Progress Note Date: 10/21/20 Principal diagnosis: right bresat stage IIA invasive ductal cancer Stage IIA [id number]+Her2-G3 right breast invasive ductal cancer Destinee is a 55 old white female initially noticed some nodularity in her right breast in 2018. She stateed it was uncomfortable and she subsequently saw her primary care doctor and a mammogram and ultrasound were ordered. The mammogram was performed on [id number] as well as an ultrasound of the right breast and axilla. The radiographic findings revealed a 3.5-4 cm lesion in the 7 o'clock position of the right breast. An ultrasound-guided core biopsy was performed on 09-16-19. Pathology revealed invasive mammary carcinoma grade 2. She underwent a right breast mastectomy and axillary node dissection the mastectomy revealed invasive high-grade ductal carcinoma at which was approximately 4 cm in size. The lymph nodes revealed sentinel node positive for micrometastatic disease 5 additional axillary nodes negative for cancer. She also had immediate postoperative subpectoral implant placement. However the implant became infected and was removed. She did not have any new implants placed. She states that she continues to have drainage sites from the breast approximately once a month. She did have chemotherapy with DR. Vega, and finished this in approximately April. She is using a breast prosthetic. She did have radiation therapy to the chest wall and under the arm. She completed this approximately 3 months ago. She is presently taking anastrozole with hot flashes. At this time she is doing well with no complaints. left bresat mammogram BIRAD 1, 09-23-20. Family History: paternal grandmother: breast cancer paternal aunt: breast cancer father: prostate patient: cervix frozen for pre-cancer Hormonal history: Menarche: 13 , first born at 23, breast fed: yes last menstraul period May 20 BCP: intermittant for 20 years hormones: none Medical history: arthritis Right arm lymphedema has seen a lymphedema specialist, and has a sleeve Surgical History: 1. 4 C-sections 2. tonsillectomy 3. cervix frozen 4. right mastectomy and AND, implant placed and removed Social History: smoke: none alcohol: none drugs: none - Constitutional Constitutional: Reports sweats - EENT Comment: optic neuritis Eyes: denies blurred vision, denies pain Ears: deny: decreased hearing, tinnitus Ears, nose, mouth and throat: Denies headache, Denies sore throat - Breasts Breasts: bilateral: as per HPI - Cardiovascular Cardiovascular: Denies chest pain, Denies shortness of breath - Respiratory Comment: asthma Respiratory: Denies cough - Gastrointestinal Comment: colitis Gastrointestinal: Denies abdominal pain, Denies diarrhea, Denies nausea, Denies vomiting - Genitourinary (Female) Genitourinary: Denies dysuria, Denies hematuria - Menstruation Comment: perimenopausal - Musculoskeletal Musculoskeletal: Denies myalgias - Integumentary Integumentary: Denies pruritus, Denies rash - Neurological Comment: multiple sclerosis dx for 3 years, left foot drop, left side of face numb - Psychiatric Psychiatric: Reports anxiety, Reports depression - Endocrine Endocrine: Denies fatigue, Denies weight change - Hematologic/Lymphatic Comment: aspirin - Allergic/Immunologic Allergic/Immunologic: Reports seasonal allergies Objective - Vital Signs Vital signs: Vital Signs Temp 98.0 F 10/21/20 14:35 Pulse 90 10/21/20 14:35 Resp 16 10/21/20 14:35 BP 135/80 10/21/20 14:35 Pulse Ox 98 10/21/20 14:35 Intake & Output 10/20/20 10/21/20 10/21/20 18:59 06:59 18:59 Weight 92.533 kg - Exam BMI 44.1 - Constitutional General appearance: Present: obese - EENT Eyes: Present: EOMI ENT: Present: hearing grossly normal - Neck Neck: Present: normal ROM - Respiratory Respiratory: bilateral: CTA - Cardiovascular Rhythm: regular Heart sounds: normal: S1, S2 - Gastrointestinal General gastrointestinal: Present: normal bowel sounds, soft - Integumentary Integumentary: Present: normal turgor - Musculoskeletal Musculoskeletal: Present: gait normal - Psychiatric Psychiatric: Present: A&O x's 3, appropriate affect - Additional findings Additional findings: breast exam: BRA: 46B inspection: scar no recurrence on the right chest wall, left breast grade 3 ptosis Palpation: right chest wall no recurrence right chest wall Right axilla: No adenopathy of concern Left breast: Positional exam no dominant masses or nodules of concern, fibrocystic changes Left axilla: No adenopathy of concern Assessment and Plan Assessment: Impression: 1. Patient status post right mastectomy for stage II invasive ductal breast cancer 2. Patient completed chemotherapy 3. Patient completed a course of radiation therapy 4. Patient presently on anastrozole 5. Left breast fibrocystic breast changes recent mammogram BIRADS 1 Plan: 1. Repeat examination in 6 months time 2. Continue anastrozole CC: Dr. Santillan encounter 25 minutes, > 50% of time on planning and counselling
== END | disposition home or self-care (01) ==
LOC: WWCWWP 14:20
PROVIDERS: ATTEND Surgery
DX: Z53.9 Procedure and treatment not carried out, unspecified reason (principal)

== ENCOUNTER 2020-11-28 11:07 | Emergency (ER) | payer BC ==
[2020-11-28 11:12] VITALS: BP 158/73; PULSE 96; RESP 18; TEMP 98.3
[2020-11-28] MEDS ORDERED: RX INFO: IV CONTRAST WAS GIVEN 1 EACH MISC MISCELLANE PRN (11:24)
[2020-11-28 11:51] LABS: Basophils # (A) 0.1 k/uL (0-0.2); Basophils % (A) 2 %; Eosinophils # (A) 0.2 k/uL (0-0.7); Eosinophils % (A) 4 %; HCT 40.9 % (34.0-46.0); Lymphocytes # (A) 0.7 k/uL (1.0-4.8); Lymphocytes % (A) 14 %; MCH 29.8 pg (25.0-35.0); MCHC 34.2 g/dL (31.0-37.0); MCV 87.1 fL (80.0-100.0); Mean Platelet Volume 6.9; Monocytes # (A) 0.4 k/uL (0-1.0); Monocytes % (A) 7 %; Neutrophils # (A) 3.7 k/uL (1.3-7.7); Neutrophils % (A) 71 %; Platelet Count 221 k/uL (150-450); RDW 13.4 % (11.5-15.5); WBC 5.1 k/uL (3.8-10.6)
[2020-11-28 12:01] LABS: ALT 22 U/L (4-34); AST 22 U/L (14-36); African American GFR (CKD) >90 (>60 ml/min/1.73 sqM); Alkaline Phosphatase 80 U/L (38-126); Anion Gap 7 mmol/L; Blood Urea Nitrogen 8 mg/dL (7-17); Calcium 9.1 mg/dL (8.4-10.2); Carbon Dioxide 27 mmol/L (22-30); Chloride 106 mmol/L (98-107); Glucose 106 mg/dL (74-99); Non-African American GFR(CKD) >90 (>60 ml/min/1.73 sqM); Sodium 140 mmol/L (137-145); Total Bilirubin 0.3 mg/dL (0.2-1.3); Total Protein 6.6 g/dL (6.3-8.2)
--- NOTE | 2020-11-28 12:14 | ED ---
General Adult HPI - General Chief complaint: Recheck/Abnormal Lab/Rx Stated complaint: PCP request ct Time Seen by Provider: 11/28/20 11:13 Source: patient, RN notes reviewed Mode of arrival: ambulatory Limitations: no limitations - History of Present Illness Initial comments: This a 55-year-old female presents emergency Department chief complaint of pos sible right breast infection. Patient states that she diagnosed in 2019 with fresh cancer. She had a mastectomy. Patient states she had expanders placed but states it became infected and was removed. Patient had on-and-off issues with infections to her right breast and usually requires antibiotics. Patient reports increasing discomfort, drainage from the site. Patient was seen by PCP sent for further evaluation there concern for spreading infection to the chest wall. Patient's prior surgeon was Dr. Kevin Duffy and plastic surgeon - Related Data Home Medications Medication Instructions Recorded Confirmed Aspirin [Adult Low Dose Aspirin EC] 81 mg PO HS 09/24/19 10/21/20 Baclofen [Lioresal] 10 mg PO HS 09/24/19 10/21/20 Cholecalciferol (Vitamin D3) 4,000 unit PO HS 09/24/19 10/21/20 [Vitamin D3] Gabapentin [Neurontin] 600 mg PO HS 09/24/19 10/21/20 busPIRone HCL 10 mg PO BID 09/24/19 10/21/20 Albuterol Nebulized [Ventolin 2.5 mg INHALATION RT-TID PRN 01/21/20 10/21/20 Nebulized] Loratadine [Claritin] 10 mg PO HS 01/21/20 10/21/20 Amitriptyline HCl 10 mg PO HS 10/21/20 10/21/20 Anastrozole [Arimidex] 1 mg PO HS 10/21/20 10/21/20 Glatiramer Acetate 40 mg SQ DIRECTED 10/21/20 10/21/20 Allergies Allergy/AdvReac Type Severity Reaction Status Date / Time Sulfa (Sulfonamide Allergy Mild Rash/Hives Verified 11/28/20 11:12 Antibiotics) Review of Systems ROS Statement: Those systems with pertinent positive or pertinent negative responses have been documented in the HPI. ROS Other: All systems not noted in ROS Statement are negative. 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 insertion of prosthesis due to infection; Past Anesthesia/Blood Transfusion Reactions: Postoperative Nausea & Vomiting (PONV) Past Psychological History: Anxiety, Depression Smoking Status: Never smoker Past Alcohol Use History: None Reported Past Drug Use History: None Reported - Past Family History Brother(s) Family Medical History: Deep Vein Thrombosis (DVT) Additional Family Medical History / Comment(s): 2 BROTHERS WITH DVT'S General Exam Limitations: no limitations General appearance: alert, in no apparent distress Head exam: Present: atraumatic, normocephalic, normal inspection Eye exam: Present: normal appearance, PERRL, EOMI. Absent: scleral icterus, conjunctival injection, periorbital swelling ENT exam: Present: normal exam, normal oropharynx, mucous membranes moist Neck exam: Present: normal inspection, full ROM. Absent: tenderness, meningismus, lymphadenopathy Respiratory exam: Present: normal lung sounds bilaterally, chest wall tenderness (mild right chest), other (Postsurgical changes the right breast there is small healing area that is tender with palpation mild erythema). Absent: respiratory distress, wheezes, rales, rhonchi, stridor Cardiovascular Exam: Present: regular rate, normal rhythm, normal heart sounds. Absent: systolic murmur, diastolic murmur, rubs, gallop, clicks Course Vital Signs 11/28/20 11:09 Temperature 98.3 F Pulse Rate 96 Respiratory 18 Rate Blood Pressure 158/73 O2 Sat by Pulse 99 Oximetry Medical Decision Making - Medical Decision Making Labwork reviewed no significant abnormality, CT shows postsurgical changes no drainable abscess. This image is stable from prior, appears to have mild underlying cellulitis. Patient was started on oral antibiotics advised to follow-up with her surgeon tomorrow and return for any worsening change in symptoms. - Lab Data Result diagrams: 11/28/20 11:37 11/28/20 11:37 Lab Results 11/28/20 11/28/20 11/28/20 Range/Units 11:37 11:37 11:37 WBC 5.1 (3.8-10.6) k/uL RBC 4.70 (3.80-5.40) m/uL Hgb 14.0 (11.4-16.0) gm/dL Hct 40.9 (34.0-46.0) % MCV 87.1 (80.0-100.0) fL MCH 29.8 (25.0-35.0) pg MCHC 34.2 (31.0-37.0) g/dL RDW 13.4 (11.5-15.5) % Plt Count 221 (150-450) k/uL MPV 6.9 Neutrophils % 71 % Lymphocytes % 14 % Monocytes % 7 % Eosinophils % 4 % Basophils % 2 % Neutrophils # 3.7 (1.3-7.7) k/uL Lymphocytes # 0.7 L (1.0-4.8) k/uL Monocytes # 0.4 (0-1.0) k/uL Eosinophils # 0.2 (0-0.7) k/uL Basophils # 0.1 (0-0.2) k/uL Sodium 140 (137-145) mmol/L Potassium 4.0 (3.5-5.1) mmol/L Chloride 106 (98-107) mmol/L Carbon Dioxide 27 (22-30) mmol/L Anion Gap 7 mmol/L BUN 8 (7-17) mg/dL Creatinine 0.53 (0.52-1.04) mg/dL Est GFR (CKD-EPI)AfAm >90 (>60 ml/min/1.73 sqM) Est GFR (CKD-EPI)NonAf >90 (>60 ml/min/1.73 sqM) Glucose 106 H (74-99) mg/dL Plasma Lactic Acid Tristen 1.2 (0.7-2.0) mmol/L Calcium 9.1 (8.4-10.2) mg/dL Total Bilirubin 0.3 (0.2-1.3) mg/dL AST 22 (14-36) U/L ALT 22 (4-34) U/L Alkaline Phosphatase 80 (38-126) U/L Total Protein 6.6 (6.3-8.2) g/dL Albumin 4.0 (3.5-5.0) g/dL Disposition Clinical Impression: Cellulitis of chest wall Disposition: HOME SELF-CARE Condition: Stable Instructions (If sedation given, give patient instructions): Cellulitis (ED) Additional Instructions: Please return to the Emergency Department if symptoms worsen or any other concerns. Is patient prescribed a controlled substance at d/c from ED?: No Referrals: Manpreet Santillan MD [Primary Care Provider] - 1-2 days Time of Disposition: 12:55
--- NOTE | 2020-11-28 12:40 | CT ---
EXAMINATION TYPE: CT chest w con DATE OF EXAM: 11/28/2020 COMPARISON: 01/21/2020 HISTORY: Rt chest wall infection CT DLP: 442.7 mGycm Automated exposure control for dose reduction was used. CONTRAST: CT scan of the chest is performed with IV Contrast, patient injected with 100 mL of Isovue 370. FINDINGS: Postsurgical change involving the right breast with abnormal soft tissue attenuation and thickening a nd likely postsurgical. Underlying infection not excluded. Skin thickening noted. No definable absces s cavity. Structures of the upper abdomen demonstrate no acute abnormality. Low-attenuation liver suggestive of fatty infiltration. Hypertrophic and degenerative changes spine. There is soft tissue fullness in the subcarinal region and right hilum measuring short axis of 1.2 cm compatible with pathologic adenopathy. Numerous nodes are seen on coronal subcarinal region. No pleu ral effusion. No consolidation or pneumothorax. No sizable pulmonary nodules. Aorta of normal caliber . Main pulmonary arteries enhance normally. IMPRESSION: 1. Postsurgical change involving the right breast with abnormal soft tissue attenuation skin thickeni ng most likely post surgical although infection would also be in the differential diagnosis. No defin able abscess. Findings are similar to the prior exam. Mild induration of the subcutaneous fat extends along lateral margin of the lower chest and upper abd omen on the right. This likely is postinfectious. Correlate for cellulitis. 2. Pathologic adenopathy right right hilum and mediastinum measuring 1.2 cm.
[2020-11-28] MEDS ORDERED: cefTRIAXone IN SWFI 1,000 MG/10 ML SYRINGE IVP STA (12:53)
== END 2020-11-28 13:09 | disposition home or self-care (01) ==
LOC: EC 11:07
DX: L03.313 Cellulitis of chest wall (principal); C50.911 Malignant neoplasm of unspecified site of right female breast; M19.90 Unspecified osteoarthritis, unspecified site; J45.909 Unspecified asthma, uncomplicated; G35 Multiple sclerosis; F41.9 Anxiety disorder, unspecified; F32.9 Major depressive disorder, single episode, unspecified; Z79.82 Long term (current) use of aspirin; Z79.899 Other long term (current) drug therapy; Z88.2 Allergy status to sulfonamides; Z90.11 Acquired absence of right breast and nipple
CPT/HCPCS: 36415; 80053; 83605; 85025; 71260; 99284; 96374; J0696; Q9967

== ENCOUNTER → 2020-12-03 | Outpatient (CLI) | payer BC ==
[2020-12-03 14:10] VITALS: BP 126/84; PULSE 100; RESP 18; TEMP 98.2
--- NOTE | 2020-12-03 14:36 | P.PN ---
Subjective Progress Note Date: 12/03/20 Principal diagnosis: rule out cellulitis right breast stage IIA invasive ductal cancer Stage IIA [id number]+Her2-G3 right breast invasive ductal cancer Destinee is a 55 old white female initially noticed some nodularity in her right breast in 2018. She stated it was uncomfortable and she subsequently saw her primary care doctor and a mammogram and ultrasound were ordered. The mammogram was performed on 10281127 as well as an ultrasound of the right breast and axilla. The radiographic findings revealed a 3.5-4 cm lesion in the 7 o'clock position of the right breast. An ultrasound-guided core biopsy was performed on 09-16-19. Pathology revealed invasive mammary carcinoma grade 2. She underwent a right breast mastectomy and axillary node dissection the mastectomy revealed invasive high-grade ductal carcinoma at which was approximately 4 cm in size. The lymph nodes revealed sentinel node positive for micrometastatic disease 5 additional axillary nodes negative for cancer. She also had immediate postoperative subpectoral implant placement. However the implant became infected and was removed. She did not have any new implants placed. She states that she continues to have drainage sites from the breast approximately once a month. She did have chemotherapy with DR. Vega, and finished this in approximately April. She is using a breast prosthetic. She did have radiation therapy to the chest wall and under the arm. She completed this approximately 3 months ago. She is presently taking anastrozole with hot flashes. At this time she is doing well with no complaints. left bresat mammogram BIRAD 1, 09-23-20. The patient states about a week ago she noted that a small portion of the incision had opened with some drainage and she was evaluated at urgent care. They sent her for a CAT scan and CAT scan was performed on . This reveals postsurgical changes in the right breast with abnormal soft tissue attenuation most likely postsurgical. No definable abscess was identified. Mild induration of the subcutaneous fat was noted. Pathologic adenopathy in the right hilum and mediastinum was noted. She was seen in the emergency department on and there was a question of some mild underlying cellulitis. The patient's WBC was 5.1. The patient has no drainage and no fever. The patient is feeling well at this time. She was given a prescription for cephalexin and is continuing this. Family History: paternal grandmother: breast cancer paternal aunt: breast cancer father: prostate patient: cervix frozen for pre-cancer Hormonal history: Menarche: 13 , first born at 23, breast fed: yes last menstraul period May 20 BCP: intermittant for 20 years hormones: none Medical history: arthritis Right arm lymphedema has seen a lymphedema specialist, and has a sleeve Surgical History: 1. 4 C-sections 2. tonsillectomy 3. cervix frozen 4. right mastectomy and AND, implant placed and removed Social History: smoke: none alcohol: none drugs: none - Constitutional Constitutional: Reports sweats - EENT Comment: optic neuritis Eyes: denies blurred vision, denies pain Ears: deny: decreased hearing, tinnitus Ears, nose, mouth and throat: Denies headache, Denies sore throat - Breasts Breasts: bilateral: as per HPI - Cardiovascular Cardiovascular: Denies chest pain, Denies shortness of breath - Respiratory Comment: asthma Respiratory: Denies cough - Gastrointestinal Comment: colitis Gastrointestinal: Denies abdominal pain, Denies diarrhea, Denies nausea, Denies vomiting - Genitourinary (Female) Genitourinary: Denies dysuria, Denies hematuria - Menstruation Comment: perimenopausal - Musculoskeletal Musculoskeletal: Denies myalgias - Integumentary Integumentary: Denies pruritus, Denies rash - Neurological Comment: multiple sclerosis dx for 3 years, left foot drop, left side of face numb - Psychiatric Psychiatric: Reports anxiety, Reports depression - Endocrine Endocrine: Denies fatigue, Denies weight change - Hematologic/Lymphatic Comment: aspirin - Allergic/Immunologic Allergic/Immunologic: Reports seasonal allergies Objective - Vital Signs Vital signs: Vital Signs Temp 98.2 F 12/03/20 14:08 Pulse 100 12/03/20 14:08 Resp 18 12/03/20 14:08 BP 126/84 12/03/20 14:08 Pulse Ox 96 12/03/20 14:08 Intake & Output 12/02/20 12/03/20 12/03/20 18:59 06:59 18:59 Weight 91.626 kg - Exam BMI 43.7 - Constitutional General appearance: Present: obese - EENT Eyes: Present: EOMI ENT: Present: hearing grossly normal - Neck Neck: Present: normal ROM - Respiratory Respiratory: bilateral: CTA - Cardiovascular Rhythm: regular Heart sounds: normal: S1, S2 - Integumentary Integumentary Comment(s): Incision right chest wall is clean and dry there is no open area on today's examination there is no drainage on today's examination there is no cellulitis and no infection there is a portion where the scar tissue and radiation tissue appeared to be somewhat thin but today there is no drainage from the site - Musculoskeletal Musculoskeletal: Present: gait normal Assessment and Plan Assessment: Impression: 1. Patient status post right breast mastectomy for stage II a invasive ductal carcinoma. 2. Patient had some drainage from the site with a question of cellulitis which has since resolved 3. CAT scan which was performed some questionable mediastinal adenopathy Plan: 1. Follow up with Dr. Levine regarding computed tomography scan findings of the mediastinum 2. Probable repeat computed tomography scan in 3 months 3. Follow-up in 2 months CC: Dr. Levine, Dr. Santillan encounter 15 minutes, > 50% of time in planning and counselling
== END | disposition home or self-care (01) ==
LOC: WWCWWP 13:42
PROVIDERS: ATTEND Surgery
DX: Z53.9 Procedure and treatment not carried out, unspecified reason (principal)

== ENCOUNTER → 2021-02-17 | Outpatient (CLI) | payer BC ==
[2021-02-17 09:55] VITALS: BP 118/77; PULSE 82; RESP 18; TEMP 98
--- NOTE | 2021-02-17 10:38 | P.PN ---
Subjective Progress Note Date: 02/17/21 Principal diagnosis: Stage II a left breast invasive ductal carcinoma Destinee is a 55-year-old white female who was initially seen in 2018 with a mass in her right breast. She had mammograms and ultrasound the [facility] and additional imaging which revealed a 3.5 x 3.8 cm mass at the 7 o'clock position of the right breast. Core biopsy on 10281127 was positive for invasive ductal carcinoma, grade 2, ER/NE positive, and HER-2/jesusita negative. Genetic testing was negative. On she underwent a right mastectomy with a subpectoral implant reconstruction. Pathology at the time of the mastectomy revealed a 4 cm lesion; lymph nodes revealed sentinel node positive for micrometastatic disease and 5 additional axillary nodes negative for cancer. The implant became infected and it was necessary for this to be removed. She did not have any new implants plac ed. She completed 4 cycles of adjuvant TC on 5719 She completed adjuvant radiation in April 2020. She was started on a arimidex May 2020, she is tolerating this without difficulty On bone density revealed mild osteopenia Patient's latest mammogram was on which was negative of the left breast. In November 2020 she noted a small opening in the right chest wall and wound. The wound has not completely healed since her surgery, and every several weeks she will have some minimal drainage from this site. She ended up having a computed tomography scan which revealed 1.2 cm right hilar lymph node and borderline enlarged mediastinal nodes. A PET scan was performed at [facility] on 2720 which revealed increased uptake in the thoracic nodes. She was evaluated by Dr. Doe it was felt that this was reactive and related to infection. The patient herself is asymptomatic. Repeat computed tomography scan is recommended to follow these. She was recently seen by DR. Santillan. She had a UTI and noted some minimal drainage from the right chest wall incision and was told it was a yeast infection. She was given nystatin cream and has had resolution of the drainage. Prior to that she had use Silvadene on the area in the past. At this time she has no complaints related to the right chest wall nor the left breast. She is not complaining of any new lumps masses or nodules in the left breast. She's not had any recent change in drainage of the right chest wall. Family history: Paternal grandmother: Breast cancer Paternal aunt: Breast cancer Father: Prostate cancer Patient: Cervix frozen for precancer, stage II a right breast cancer Hormonal history: Menarche: 13 ,M1 first at 23, breast-fed: Yes control pills: Intermittent for 20 years Last menstrual period: Over a year ago Hormones: Negative, is on limited ducts Medical history: Arthritis Right arm lymphedema has significant lymphedema specialist and has a sleeve Surgical history: 1. 4 C-sections 2. Tonsillectomy 3. Cervical frozen 4. Right mastectomy and axillary node biopsies, implant placed and removed Social history: Smoke: Negative Alcohol: Negative Drugs: Negative Review of systems: HEENT: MLS/optic neuritis Breasts: As per HPI Cardiovascular: Negative Pulmonary: Asthma: GI: Colitis : As HPI Musculoskeletal: Negative Integument: Negative Neurologic: Multiple sclerosis, left foot drop, left side of face numb Psychiatric: Anxiety/depression Endocrine: Negative Hematologic: Takes baby aspirin Objective - Vital Signs Vital signs: Vital Signs Temp 98.0 F 02/17/21 09:51 Pulse 82 02/17/21 09:51 Resp 18 02/17/21 09:51 BP 118/77 02/17/21 09:51 Pulse Ox 96 02/17/21 09:51 Intake & Output 02/16/21 02/17/21 02/17/21 18:59 06:59 18:59 Weight 88.451 kg - Exam BMI 42.2 - Constitutional General appearance: Present: cooperative - EENT Eyes: Present: EOMI ENT: Present: hearing grossly normal - Neck Neck: Present: normal ROM - Respiratory Respiratory: bilateral: CTA - Cardiovascular Rhythm: regular Heart sounds: normal: S1, S2 - Gastrointestinal General gastrointestinal: Present: soft - Integumentary Integumentary: Present: normal turgor - Musculoskeletal Musculoskeletal: Present: gait normal - Psychiatric Psychiatric: Present: A&O x's 3, appropriate affect, intact judgment & insight - Additional findings Additional findings: breast exam: BRA: 38D inspection: Incision right chest wall punctate opening the midportion approximately 6 mm, no drainage at this time is not bothering the patient; redundant skin at the mastectomy site Left breast grade 3 ptosis Palpation: Right chest wall: No evidence of recurrent cancer proximally 6 mm punctate opening in the midportion of the incision no drainage from this site this is an radiated tissue Right axilla: No adenopathy of concern Left breast: Multi-positional exam fibrocystic changes, no dominant masses or nodules of concern Left axilla: No adenopathy of concern In the left axilla and extending under the left breast there is a skin discoloration which is darker than the surrounding skin. This does not appear to be a specific rash the patient has not had it evaluated By dermatology Assessment and Plan Assessment: Impression: 1. Patient status post right mastectomy for stage II a invasive ductal right breast cancer, no evidence of recurrent cancer on chest wall 2. Difficulty with wound healing on the right mastectomy site no drainage at this time; has had intermittent drainage in the midportion of the wound sensor surgery 3. Patient has completed a course of TC is presently on a limited axis 4. Patient has completed course of radiation therapy 5. Skin discoloration left axilla 6. Patient recently treated for fungal infection and UTI via primary care physician 7. BMI 42.2 8. MS; left foot drop, left facial weakness 9. Recent CT November/PET scan enlarged lymph nodes and repeat computed tomography scan recommend that 10. Asymmetry related to right mastectomy, left breast BRA 42D Plan: 1. Repeat computed tomography scan with contrast in follow-up after this 2. Repeat left breast mammogram in September 2021 3. Continue to follow with medical oncology 4. At this time I would not recommend any further intervention for the right chest wall wound continue present therapy as needed; at this time it is not draining; 5. We have discussed the asymmetry related to her mastectomy and the patient is going to consider if she would like anything further done with respect to this however at this time we are awaiting the repeat computed tomography scan 6. We have discussed reconstruction of the right breast and she is not interested at this time 7. Consider appointment with wound clinic, possible excision of the area of ulceration in the right chest wall but we'll do this after consultation with wound clinic, to be done after CT results obtained CC: Dr. Serrano Encounter 35 minutes, time spent in reviewing medical records, physical exam, and counselling. Diagnoses: 1. Stage IIA right breast cancer 2. Wound healing difficulty right mastectomy site 3. Recent computed tomography scan in November 2019 with questionable lymph nodes followed by PET scan showing some increased activity. Repeat computed tomography scan 4. Fibrocystic changes left breast 5. Multiple sclerosis 6. Asymmetry related to right mastectomy 7. Skin discoloration left axilla/consider appointment with dermatology 8. Continue to follow with medical oncology, and radiation oncology [place] reviewed [place] [id number] Computed tomography scan and mammogram reviewed with Dr. Mason Computed tomography scan with contrast Repeat left breast mammogram consider appointment with dermatology Patient will follow up after the repeat computed tomography scan is performed Patient is going to consider if she would like to have a symmetry procedure to the left breast Prior to symmetry procedure would recommend appointment at wound clinic regarding the nonhealing wound on the right chest wall
== END ==
LOC: WWCWWP 09:43
PROVIDERS: ATTEND Surgery
DX: Z08 Encounter for follow-up examination after completed treatment for malignant neoplasm (principal); Z85.3 Personal history of malignant neoplasm of breast; M21.372 Foot drop, left foot; F32.9 Major depressive disorder, single episode, unspecified; J45.909 Unspecified asthma, uncomplicated; R29.810 Facial weakness; Z87.440 Personal history of urinary (tract) infections; Z68.41 Body mass index [BMI] 40.0-44.9, adult; L98.8 Other specified disorders of the skin and subcutaneous tissue; R92.8 Other abnormal and inconclusive findings on diagnostic imaging of breast

== ENCOUNTER → 2021-03-07 | Outpatient (CLI) | payer BC ==
[2021-03-07 12:36] LABS: African American GFR (CKD) >90 (>60 ml/min/1.73 sqM); Blood Urea Nitrogen 8 mg/dL (7-17); Non-African American GFR(CKD) >90 (>60 ml/min/1.73 sqM)
--- NOTE | 2021-03-07 14:59 | CT ---
EXAMINATION TYPE: CT chest w con DATE OF EXAM: 03/07/2021 COMPARISON: Chest CT November 28, [address] January 21, 2020 HISTORY: Hx right sided breast ca. Possible issue w/lymph node RT side. CT DLP: 590 mGycm. Automated Exposure Control for Dose Reduction was Utilized. TECHNIQUE: CT scan of the thorax is performed following with IV Contrast, patient injected with 100 mL of Isovue 300. FINDINGS: LUNGS: The lungs remain grossly clear, there is no concerning new parenchymal mass or nodule identifi ed. There is no pleural effusion or pneumothorax seen. The tracheobronchial tree is patent. MEDIASTINUM: There are persistent prominent and slightly enlarged bilateral hilar lymph nodes. There are fairly low density. For reference stable 1.2 x 1.1 cm lymph node image 26 from prior 2 studies. S table enlarged 1.4 x 1.3 cm right tracheobronchial lymph node axial image 21 from prior studies. No n ew or enlarging greater than 1.0 cm lymph nodes. No cardiomegaly and/or pericardial effusion is seen. OTHER: Treatment changes right breast with significant diminished size and focal scarring is redemons trated. IMPRESSION: Stable prominent thoracic lymph nodes favored inflammatory or product of old granulomatou s disease. No new or enlarging masses or adenopathy identified to suggest active neoplastic recurrenc e.
== END | disposition home or self-care (01) ==
LOC: RADCTMAIN 11:15
PROVIDERS: ATTEND Internal Medicine Hematology & Oncology
DX: C50.311 Malignant neoplasm of lower-inner quadrant of right female breast (principal)
CPT/HCPCS: 82565; 84520; 71260; 36415; Q9967

== ENCOUNTER → 2021-03-17 | Outpatient (CLI) | payer BC ==
[2021-03-17 11:44] VITALS: BP 123/75; PULSE 84; RESP 18; TEMP 98
--- NOTE | 2021-03-17 12:08 | P.PN ---
Progress Note - Text Progress Note Date: 03/17/21 Destinee is a 55-year-old white female who was initially seen in 2018 with a mass in her right breast. She had mammograms and ultrasound the [facility] and additional imaging which revealed a 3.5 x 3.8 cm mass at the 7 o'clock position of the right breast. Core biopsy on [id number] was positive for invasive ductal carcinoma, grade 2, ER/OK positive, and HER-2/jesusita negative. Genetic testing was negative. On she underwent a right mastectomy with a subpectoral implant reconstruction. Pathology at the time of the mastectomy revealed a 4 cm lesion; lymph nodes revealed sentinel node positive for micrometastatic disease and 5 additional axillary nodes negative for cancer. The implant became infected and it was necessary for this to be removed. She did not have any new implants placed. She completed 4 cycles of adjuvant TC on 5719 She completed adjuvant radiation in April 2020. She was started on a arimidex May 2020, she is tolerating this without difficulty On bone density revealed mild osteopenia Patient's latest mammogram was on which was negative of the left breast. In November 2020 she noted a small opening in the right chest wall and wound. The wound has not completely healed since her surgery, and every several weeks she will have some minimal drainage from this site. She ended up having a computed tomography scan which revealed 1.2 cm right hilar lymph node and borderline enlarged mediastinal nodes. A PET scan was performed at [facility] on 2720 which revealed increased uptake in the thoracic nodes. She was evaluated by Dr. Doe it was felt that this was reactive and related to infection. The patient herself is asymptomatic. Repeat computed tomography scan is recommended to follow these. She was recently seen by DR. Santillan. She had a UTI and noted some minimal drainage from the right chest wall incision and was told it was a yeast infection. She was given nystatin cream and has had resolution of the drainage. Prior to that she had use Silvadene on the area in the past. At this time she has no complaints related to the right chest wall nor the left breast. She is not complaining of any new lumps masses or nodules in the left breast. She's not had any recent change in drainage of the right chest wall. She had [place] [id number]. This showed stable prominent thoracic lymph nodes favored inflammatory prior to full granulomatous disease. Physical exam: Heart: Regular rate and rhythm Lungs: Clear bilaterally Right chest wall assessed, and the wound is closed at this time Patient continues to have asymmetry between the right chest wall and the left breast Stage II a right breast cancer Wound healing right mastectomy site improved at this time Recent computed [place] [address] Multiple sclerosis Asymmetry related to right mastectomy Skin discoloration and patient is going to be seen by dermatology Continue to follow with medical oncology and radiation oncology I discussed with Nahomy and her regarding the results of the computed tomography scan. We've also discussed possibility of wound revision of the right chest wall and reduction mammoplasty on the left. At this time she is going to wait and see if the area continues to stay healed. If it breaks down again to most likely want a revision of this incision. I would delay any left breast symmetry procedure until the right chest wall is completely healed. CC: Dr. Santillan
== END ==
LOC: WWCWWP 11:16
PROVIDERS: ATTEND Surgery
DX: C50.911 Malignant neoplasm of unspecified site of right female breast (principal); G35 Multiple sclerosis; N63.13 Unspecified lump in the right breast, lower outer quadrant; Z17.0 Estrogen receptor positive status [ER+]; Z90.11 Acquired absence of right breast and nipple

== ENCOUNTER → 2021-04-08 | Outpatient (CLI) | payer BC ==
[2021-04-08 10:07] VITALS: BP 149/93; PULSE 92; RESP 18; TEMP 98
--- NOTE | 2021-04-08 10:24 | P.PN ---
Subjective Progress Note Date: 04/08/21 Principal diagnosis: difficulty with wound healing Destinee is a 55-year-old white female who was initially seen in 2018 with a mass in her right breast. She had mammograms and ultrasound the [facility] and additional imaging which revealed a 3.5 x 3.8 cm mass at the 7 o' clock position of the right breast. Core biopsy on [id number] was positive for invasive ductal carcinoma, grade 2, ER/SC positive, and HER-2/jesusita negative. Genetic testing was negative. On she underwent a right mastectomy with a subpectoral implant reconstruction. Pathology at the time of the mastectomy revealed a 4 cm lesion; lymph nodes revealed sentinel node positive for micrometastatic disease and 5 additional axillary nodes negative for cancer. The implant became infected and it was necessary for this to be removed. She did not have any new implants placed. She completed 4 cycles of adjuvant TC on 5719 She completed adjuvant radiation in April 2020. She was started on a arimidex May 2020, she is tolerating this without difficulty On bone density revealed mild osteopenia Patient's latest mammogram was on which was negative of the left breast. In November 2020 she noted a small opening in the right chest wall and wound. The wound has not completely healed since her surgery, and every several weeks she will have some minimal drainage from this site. She ended up having a computed tomography scan which revealed 1.2 cm right hilar lymph node and borderline enlarged mediastinal nodes. A PET scan was performed at [facility] on 2720 which revealed increased uptake in the thoracic nodes. She was evaluated by Dr. Doe it was felt that this was reactive and related to infection. The patient herself is asymptomatic. Repeat computed tomography scan is recommended to follow these. She was recently seen by DR. Santillan. She had a UTI and noted some minimal drainage from the right chest wall incision and was told it was a yeast infection. She was given nystatin cream and has had resolution of the drainage. Prior to that she had use Silvadene on the area in the past. At this time she has no complaints related to the right chest wall nor the left breast. She is not complaining of any new lumps masses or nodules in the left breast. She's not had any recent change in drainage of the right chest wall. She had a repeat chest CT done a . This showed stable prominent thoracic lymph nodes favored inflammatory prior to full granulomatous disease. Patient states about one week ago she noted a second area of drainage from the midportion of the incision site. This is approximately 2 mm in size. It was clear in nature and stopped after approximately 4 days. At this time it is not draining. She has however had multiple episodes of intermittent drainage from the site. It has been infected in the past. At this episode she did not take any antibiotics and had spontaneous resolution. She did not have any fever or chills. Review of systems: HEENT: Negative Lungs: Negative Heart: Negative GI: colitis : right breast cancer Musculoskeletal: Arthritis Neurologic: Multiple sclerosis Endocrine: Negative Hematologic: Negative ALLERGIES: Sulfa Objective - Vital Signs Vital signs: Vital Signs Temp 98.0 F 04/08/21 10:03 Pulse 92 04/08/21 10:03 Resp 18 04/08/21 10:03 BP 149/93 04/08/21 10:03 Pulse Ox 96 04/08/21 10:03 Intake & Output 04/07/21 04/08/21 04/08/21 18:59 06:59 18:59 Weight 87.543 kg - Exam BMI 41.8 - Constitutional Constitutional Comment(s): BMI 41.8 General appearance: Present: cooperative - EENT Eyes: Present: EOMI ENT: Present: hearing grossly normal - Neck Neck: Present: normal ROM - Respiratory Respiratory: bilateral: CTA - Cardiovascular Rhythm: regular Heart sounds: normal: S1, S2 - Integumentary Integumentary Comment(s): Incision right chest wall clean and dry in the midportion there is approximately a 2 mm segment which is got minimal serous drainage, no evidence of infection Integumentary: Present: normal turgor - Musculoskeletal Musculoskeletal: Present: gait normal - Psychiatric Psychiatric: Present: A&O x's 3, appropriate affect, intact judgment & insight Assessment and Plan Assessment: Impression: 1. Chronic wound right chest wall 2. Status post right mastectomy for invasive ductal carcinomastage II 3. Multiple sclerosis in 4. BMI 41.8 Plan: 1. Appointment with wound clinic 2. Patient due for her left breast mammogram September 2021, with appointment 3. Chest CT in June to follow adenopathy/following with Dr. Levine 4. patient on Anestrazole I have called wound clinic and they are going to come and see the patient at this visit, depending on their recommendation further recommendation here to follow. CC: Dr. Santillan
--- NOTE | 2021-04-08 11:42 | P.CONS ---
History of Present Illness - Reason for Consult Consult date: 04/08/21 Nonhealing ulceration - History of Present Illness This is a 55-year-old female being seen in women's wellness for a nonhealing ulceration to the right breast. Patient was initially seen in 2018 with a mass to the right breast. She was found to have invasive ductal carcinoma grade 2 ER/MO positive and HGR2/and negative. Negative genetic testing. Patient underwent a right mastectomy on 10/21/2019 with subpectoral implant reconstruction. Pathology at the time of the mastectomy revealed a 4 cm lesion. Lymph nodes revealed sentinel node positive and 5 additional axillary nodes negative for cancer. The implant became infected and it was necessary for removal at that time. Patient did not have any new implants. Patient completed 4 cycles of adjuvant TC on 03/25/2020. She also completed radiation in April 2020. In November 2019 the patient develops a nonhealing ulceration which was treated over multiple weeks and eventually healed. In November 2020 the small opening to the right chest wall was noted with serosanguineous drainage. That ULCERATION subsequently healed however patient presented today with a recurrence reopening of the same ulceration. After discussion patient will undergo re vision of the incision site with hyperbaric therapy prior and post procedure. Patient ulceration has a thin layer epithelialized tissue however she continues to have serous drainage to the site. The ulceration measures approximately 0.3 x 0.8 x 0.1 cm. Review Of Systems: Constitutional: No fever, no chills, no night sweats. No weight change. No weakness, fatigue or lethargy. No daytime sleepiness. Integumentary:reports wounds, no lesions. No rash or pruritus. No unusual bruising. No change in hair or nails. Physical exam: General Appearance: Alert, cooperative, no distress, appears stated age. Skin: See HPI all other Skin color, texture, tugor normal, no rashes or lesions. Neurologic: Alert oriented x3 Assessment: 1. Nonhealing ulceration Limited to skin breakdown 2. Soft tissue radionecrosis 3. History of breast CA with mastectomy and reconstruction Plan: 1. Patient will undergo incisional revision with Dr. Kevin connor on 06/14/2021. Patient will starts hyperbaric therapy at 2.5 JANNA 20 visits prior to surgery and 20 visits post procedure. Patient is agreeable. Patient is scheduled for May 16, 2021 2 starts the HBO therapy. Thank you for the consultation any questions please contact the wound care center DNP note has been reviewed and discussed with Dr. Magaña and the impression and plan of care has been directed as dictated. 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 insertion of prosthesis due to infection; Past Anesthesia/Blood Transfusion Reactions: Postoperative Nausea & Vomiting (PONV) Past Psychological History: Anxiety, Depression Smoking Status: Never smoker Past Alcohol Use History: None Reported Additional Past Alcohol Use History / Comment(s): Never smoker Past Drug Use History: None Reported - Past Family History Brother(s) Family Medical History: Deep Vein Thrombosis (DVT) Additional Family Medical History / Comment(s): 2 BROTHERS WITH DVT'S Medications and Allergies Home Medications Medication Instructions Recorded Confirmed Type Aspirin [Adult Low Dose Aspirin EC] 81 mg PO HS 09/24/19 04/08/21 History Baclofen [Lioresal] 10 mg PO HS 09/24/19 04/08/21 History Cholecalciferol (Vitamin D3) 4,000 unit PO HS 09/24/19 04/08/21 History [Vitamin D3] Gabapentin [Neurontin] 600 mg PO HS 09/24/19 04/08/21 History busPIRone HCL 10 mg PO HS 09/24/19 04/08/21 History Albuterol Nebulized [Ventolin 2.5 mg INHALATION RT-TID PRN 01/21/20 04/08/21 History Nebulized] Loratadine [Claritin] 10 mg PO HS 01/21/20 04/08/21 History Amitriptyline HCl 10 mg PO HS 10/21/20 04/08/21 History Anastrozole [Arimidex] 1 mg PO HS 10/21/20 04/08/21 History Glatiramer Acetate 40 mg SQ DIRECTED 10/21/20 04/08/21 History Allergies Allergy/AdvReac Type Severity Reaction Status Date / Time Sulfa (Sulfonamide Allergy Mild Rash/Hives Verified 04/08/21 10:00 Antibiotics) Physical Exam Vitals: Vital Signs Temp Pulse Resp BP Pulse Ox 04/08/21 10:03 98.0 F 92 18 149/93 96 Intake and Output 04/07/21 04/08/21 04/08/21 22:59 06:59 14:59 Other: Weight 87.543 kg Assessment and Plan (1) Soft tissue radionecrosis Current Visit: Yes Status: Acute Code(s): L59.8 - OTH DISRD OF THE SKIN, SUBCU RELATED TO RADIATION; Y84.2 - RADIOLOG PROC/RADIOTHRPY CAUSE ABN REACT/COMPL, W/O MISADVNT SNOMED Code(s): 18248474 (2) Non-pressure chronic ulcer of skin of other sites limited to breakdown of skin Current Visit: Yes Status: Acute Code(s): L98.491 - NON-PRS CHRONIC ULCER SKIN/ SITES LIMITED TO BRKDWN SKIN SNOMED Code(s): 86798869 (3) Postoperative wound breakdown Current Visit: No Status: Acute Code(s): T81.31XA - DISRUPTION OF EXTERNAL OPERATION (SURGICAL) WOUND, NEC, INIT SNOMED Code(s): 880543516
== END ==
LOC: WWCWWP 09:42
PROVIDERS: ATTEND Surgery
DX: T81.31XA Disruption of external operation (surgical) wound, not elsewhere classified, initial encounter (principal); L59.8 Other specified disorders of the skin and subcutaneous tissue related to radiation; L98.491 Non-pressure chronic ulcer of skin of other sites limited to breakdown of skin; G35 Multiple sclerosis; F41.9 Anxiety disorder, unspecified; J45.909 Unspecified asthma, uncomplicated; M19.90 Unspecified osteoarthritis, unspecified site; F32.9 Major depressive disorder, single episode, unspecified; Z79.82 Long term (current) use of aspirin; Z88.2 Allergy status to sulfonamides; Z90.11 Acquired absence of right breast and nipple; Z85.3 Personal history of malignant neoplasm of breast; Z79.899 Other long term (current) drug therapy

== ENCOUNTER → 2021-05-26 | Outpatient (CLI) | payer BC ==
[2021-05-26 16:39] VITALS: BP 122/80; PULSE 94; RESP 18; TEMP 98.3
--- NOTE | 2021-05-26 16:53 | P.GSHP ---
History of Present Illness H&P Date: 05/26/21 Chief Complaint: Nonhealing wound right chest wall Nahomy is a 55-year-old white female who was initially seen in August 2019 with a mass in her right breast. Core biopsy was positive for invasive ductal carcinoma, G-tube, ER/IL positive, HER-2 negative. The lesion was 3.5 x 3.8 cm in size at the 7 o'clock position of the right breast. Today testing was negative. On she underwent a right mastectomy with subpectoral implant reconstruction. Pathology at the time of the mastectomy revealed a 4 cm lesion. Lymph nodes revealed sentinel node positive for micrometastatic disease and 5 additional nodes negative for cancer. The implant became infected and was necessary for this to be removed. She did not have new implants replaced. She completed 4 cycles of adjuvant TC on 5719. She completed adjuvant radiation therapy in April 2020. She was started on Arimidex in May 2020 and is continuing on this without difficulty Following the radiation the patient noted a small opening in her right chest wall incision. She has had intermittent drainage from several sites since that time. She wishes to have revision of the surgical scar and removal of redundant tissue. Secondary to the radiation she has received pre-operative hyperbaric oxygen and we'll continue this after the procedure. The patient has no evidence of metastatic disease at this time. She did have a computed tomography scan of the chest performed on which revealed stable prominent thoracic lymph nodes favoring inflammatory or old granulomatous disease. Patient's last left breast mammogram was 09/23/2020 this was benign BIRADS 1. Family History: paternal aunt: breast cancer paternal cousin: bilateral breast cancer Hormonal History: menarche: 13 M1, age at first :23, breast fed: yes menopause: stopped periods 2 years ago BCP: 14 years hormones: none Surgical history: Right mastectomy with subpectoral implant placement and axillary node removal Removal of subpectoral implant Anal fissure Tonsillectomy Medical history: asthma lymphedema right arm Multiple sclerosis Social History: Nicotine: Negative Alcohol: Negative Drugs: Negative - Constitutional Comment: hot flashes 5 times/day Constitutional: Denies chills, Denies fever - EENT Comment: optic neuritits Ears: deny: decreased hearing, tinnitus Ears, nose, mouth and throat: Denies headache, Denies sore throat - Breasts Breasts: bilateral: as per HPI - Cardiovascular Cardiovascular: Denies chest pain, Denies shortness of breath - Respiratory Respiratory: Denies cough, Denies 7 - Gastrointestinal Comment: colitis Gastrointestinal: Denies abdominal pain, Denies diarrhea, Denies nausea, Denies vomiting - Genitourinary (Female) Genitourinary: Denies dysuria, Denies hematuria - Menstruation Menstruation: Reports postmenopausal - Musculoskeletal Musculoskeletal: Denies myalgias - Integumentary Comment: Skin biopsy done by indirect sales representative results pending Integumentary: Denies pruritus, Denies rash - Neurological Neurological: Denies numbness, Denies weakness - Psychiatric Psychiatric: Reports anxiety, Reports depression - Endocrine Endocrine: Denies fatigue, Denies weight change - Hematologic/Lymphatic Comment: baby aspirin - Allergic/Immunologic Allergic/Immunologic: Reports as per HPI Past Medical History Past Medical History: Asthma, Cancer, Osteoarthritis (OA) Additional Past Medical History / Comment(s): right breast cancer 08/2019; MULTIPLE SCLEROSIS; optic neuritis; History of Any Multi-Drug Resistant Organisms: None Reported Past Surgical History: Section, Tonsillectomy Additional Past Surgical History / Comment(s): section x4; 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, 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 without insertion of prosthesis due to infection; Past Anesthesia/Blood Transfusion Reactions: Postoperative Nausea & Vomiting (PONV) Past Psychological History: Anxiety, Depression Smoking Status: Never smoker Past Alcohol Use History: None Reported Additional Past Alcohol Use History / Comment(s): Never smoker Past Drug Use History: None Reported - Past Family History Brother(s) Family Medical History: Deep Vein Thrombosis (DVT) Additional Family Medical History / Comment(s): 2 BROTHERS WITH DVT'S Medications and Allergies Home Medications Medication Instructions Recorded Confirmed Type Aspirin [Adult Low Dose Aspirin EC] 81 mg PO HS 09/24/19 04/08/21 History Baclofen [Lioresal] 10 mg PO HS 09/24/19 04/08/21 History Cholecalciferol (Vitamin D3) 4,000 unit PO HS 09/24/19 04/08/21 History [Vitamin D3] Gabapentin [Neurontin] 600 mg PO HS 09/24/19 04/08/21 History busPIRone HCL 10 mg PO HS 09/24/19 04/08/21 History Albuterol Nebulized [Ventolin 2.5 mg INHALATION RT-TID PRN 01/21/20 04/08/21 History Nebulized] Loratadine [Claritin] 10 mg PO HS 01/21/20 04/08/21 History Amitriptyline HCl 10 mg PO HS 10/21/20 04/08/21 History Anastrozole [Arimidex] 1 mg PO HS 10/21/20 04/08/21 History Glatiramer Acetate 40 mg SQ DIRECTED 10/21/20 04/08/21 History Allergies Allergy/AdvReac Type Severity Reaction Status Date / Time Sulfa (Sulfonamide Allergy Mild Rash/Hives Verified 05/26/21 16:33 Antibiotics) Surgical - Exam BMI 42.2 - General no distress - Eyes normal ocular movement - ENT normal pinna, normal mucosa - Neck no masses, trachea midline - Respiratory normal respiratory effort, clear to auscultation - Cardiovascular Rhythm: regular Heart Sounds: normal: S1, S2 - Abdomen Abdomen: soft - Integumentary skin biopsy path pending - Neurologic no disoriented, no combative - Musculoskeletal normal gait - Psychiatric oriented to time, oriented to person, oriented to place, speech is normal, memory intact breast exam: BRA: left breast 46D inspection: Right chest wall midportion radiation changes with some breakdown of the midportion of the incision no drainage at this time, dogear medially and laterally, grade 3 ptosis left breast Palpation: Right chest wall: No evidence of recurrent cancer radiation changes midportion of the incision with some mild breakdown and medial and lateral dogears Right axilla: No adenopathy of concern Left breast: No dominant masses or nodules of concern Left axilla: No adenopathy of concern Assessment and Plan Assessment: Impression: 1. Radiation and surgical changes right chest wall with chronic nonhealing wound 2. Redundant tissue right chest wall related to prior mastectomy with reconstruction 3. Fibrocystic changes left breast 4. No evidence of metastatic disease at this time Plan: 1. Patient is receiving hyperbaric oxygen she will have revision of the right chest wall incision and then continued hyperbaric oxygen throughout the healing period. 2. Close surveillance of the left breast with repeat left breast mammogram in September 2021 3. Continue Arimidex 4. Patient has skin changes in bilateral axilla for which she has seen a indirect sales representative biopsies been performed and results are pending 5. Patient to follow-up computed tomography scan of the chest as per medical oncology Cc: Dr. Santillan Risk and benefits of the procedure discussed with the patient. Risks include but are not limited to bleeding, infection, reaction to the anesthetic. Additionally fit difficulty with wound healing could occur. She understands and wishes to proceed.
== END ==
LOC: WWCWWP 16:17
PROVIDERS: ATTEND Surgery
DX: N60.12 Diffuse cystic mastopathy of left breast (principal); T81.89XA Other complications of procedures, not elsewhere classified, initial encounter; J45.909 Unspecified asthma, uncomplicated; M19.90 Unspecified osteoarthritis, unspecified site; F32.9 Major depressive disorder, single episode, unspecified; F41.9 Anxiety disorder, unspecified; Z79.82 Long term (current) use of aspirin; Z79.899 Other long term (current) drug therapy; Z79.811 Long term (current) use of aromatase inhibitors; Z88.2 Allergy status to sulfonamides; Z90.11 Acquired absence of right breast and nipple

== ENCOUNTER 2021-06-14 06:42 | Day surgery (SDC) | payer BC ==
[2021-06-10 09:45] VITALS: BMI 42.6
[~2021-06-14 06:42] MED LIST changes: -DEXAMETHASONE SOD PHOSPHATE 10 MG/ML 1 ML VIAL IV ONE; +DEXAMETHASONE SOD PHOSPHATE 4 MG/ML 1 ML VIAL IV ONE; +HEPARIN SODIUM,PORCINE/PF 5,000 UNIT/0.5 ML SYRINGE SQ PRN; -LACTATED RINGERS 1,000 ML IV SCH; -LIDOCAINE 1% 20 ML VIAL (10MG/ML) FOR IV START INTRADERMA PRN; -METOCLOPRAMIDE 5 MG/ML 2 ML VIAL IVP PRN; -Pre Op ABX Message 1 EACH MISC MISCELLANE ONE; +VANCOMYCIN 1,250 MG in SODIUM CHLORIDE 0.9% 250 ML IVPB PRN
[2021-06-14 07:39] VITALS: TEMP 97.9
[2021-06-14] MEDS: LACTATED RINGERS 1,000 ML IV SCH ×2 (07:53→08:45)
[2021-06-14] MEDS ORDERED: PROPOFOL 10 MG/ML 20 ML VIAL IV ONE (08:43)
[2021-06-14] MEDS ORDERED: HYDROmorphone (PF) 1 MG/ML ONE (08:43)
[2021-06-14] MEDS ORDERED: fentaNYL (PF) 50 MCG/ML 2 ML AMP ONE (08:43)
[2021-06-14] MEDS ORDERED: MIDAZOLAM 2 MG/2 ML VIAL ONE (08:43)
[2021-06-14] MEDS ORDERED: LIDOCAINE 1% INJ 10MG/ML (20 ML MDV) ONE (08:43)
[2021-06-14] MEDS ORDERED: LIDOCAINE 1% INJ 10MG/ML (20 ML MDV) SQ ONE ×2 (09:14→10:33)
--- NOTE | 2021-06-14 10:46 | P.OP ---
Date of Procedure: 06/14/21 Preoperative Diagnosis: Chronic wound midportion of the mastectomy incision/radiated tissue/redundant skin and subcutaneous tissue Postoperative Diagnosis: Same Procedure(s) Performed: Revision of right mastectomy scar/tissue transfer/excision of radiated tissue Anesthesia: NANNETTE Surgeon: Leeanna Concepcion Estimated Blood Loss (ml): 15 IV fluids (ml): 400 Pathology: other (Subcutaneous tissue and radiated chest wall cavity) Condition: stable Disposition: same day Indications for Procedure: Nonhealing wound center of the right breast mastectomy scar Operative Findings: Radiated breast tissue cavity approximately 8 cm x 5 cm Description of Procedure: The patient was taken to the operating room and following induction of general anesthesia the right chest wall was prepped and draped in a sterile fashion. An incision was made excising redundant tissue. Dissecting down into the subcutaneous tissue a smooth-walled cavity directly on the chest wall was identified. The cavity was approximately 8 cm x 5 cm. The cavity was able to be removed and a large portion of the posterior wall of the cavity was removed. The cavity however was directly on the ribs. The tissue removed was 13 cm x 5 cm. The subcutaneous tissue was mobilized superiorly 3 x 13 cm inferiorly 3 x 9 cm. Total tissue mobilized was 131 cm. The cavity was well irrigated. After assured that hemostasis was attained the deep tissues were brought together using 3-0 Vicryl suture. Prior to this a Noel-Montemayor drain was placed. The subcutaneous tissue was closed using 3-0 Vicryl suture. The skin was reapproximated using pravin. Drain was secured using a nylon suture. Patient tolerated the procedure in stable condition. All instrument and sponge counts were correct at the end of the case.
--- NOTE | 2021-06-14 10:50 | P.DS ---
Providers Attending physician: Leeanna Concepcion Primary care physician: Manpreet Santillan Plan - Discharge Summary Discharge Rx Participant: No New Discharge Prescriptions: No Action Cholecalciferol (Vitamin D3) [Vitamin D3] 5,000 unit PO HS Aspirin [Adult Low Dose Aspirin EC] 81 mg PO HS Gabapentin [Neurontin] 600 mg PO HS Loratadine [Claritin] 10 mg PO HS Anastrozole [Arimidex] 1 mg PO HS Amitriptyline HCl 10 mg PO HS Glatiramer Acetate 40 mg SQ MOWEFR Melatonin 5 mg PO HS Cyclobenzaprine HCl 10 mg PO HS Ascorbic Acid [Vitamin C] 1,000 mg PO DAILY Cranberry Fruit Extract [Cranberry] 200 mg PO DAILY FLUoxetine HCL [PROzac] 20 mg PO HS Mupirocin 2% Oint [Bactroban 2% Oint] 1 applic TOPICAL BID Triamcinolone 0.1% Cream [Kenalog 0.1% Cream] 1 applicatio TOPICAL DAILY Albuterol Inhaler [Ventolin Hfa Inhaler] 1 puff INHALATION DAILY PRN PRN Reason: Dyspnea Discharge Medication List Aspirin [Adult Low Dose Aspirin EC] 81 mg PO HS 09/24/19 [History] Cholecalciferol (Vitamin D3) [Vitamin D3] 5,000 unit PO HS 09/24/19 [History] Gabapentin [Neurontin] 600 mg PO HS 09/24/19 [History] Loratadine [Claritin] 10 mg PO HS 01/21/20 [History] Amitriptyline HCl 10 mg PO HS 10/21/20 [History] Anastrozole [Arimidex] 1 mg PO HS 10/21/20 [History] Glatiramer Acetate 40 mg SQ MOWEFR 10/21/20 [History] Cranberry Fruit Extract [Cranberry] 200 mg PO DAILY 05/26/21 [History] FLUoxetine HCL [PROzac] 20 mg PO HS 05/26/21 [History] Melatonin 5 mg PO HS 05/26/21 [History] Albuterol Inhaler [Ventolin Hfa Inhaler] 1 puff INHALATION DAILY PRN 06/10/21 [History] Ascorbic Acid [Vitamin C] 1,000 mg PO DAILY 06/10/21 [History] Cyclobenzaprine HCl 10 mg PO HS 06/10/21 [History] Mupirocin 2% Oint [Bactroban 2% Oint] 1 applic TOPICAL BID 06/10/21 [History] Triamcinolone 0.1% Cream [Kenalog 0.1% Cream] 1 applicatio TOPICAL DAILY 06/10/21 [History] Follow up Appointment(s)/Referral(s): Leeanna Concepcion MD [STAFF PHYSICIAN] - 1 Week Activity/Diet/Wound Care/Special Instructions: teach patient drain care/drain BID and as needed Patient to wear bra at all times Patient may shower after [address] for at least 24 hours after discharge or if taking narcotic pain medication Discharge Disposition: HOME SELF-CARE
[2021-06-14] MEDS: HYDROmorphone 0.5 MG/0.5 ML SYRINGE IVP PRN ×2 (11:24→11:37)
[2021-06-14 13:01] VITALS: RESP 20
[2021-06-14] MEDS ORDERED: ONDANSETRON 4 MG/2 ML VIAL IVP ONE (13:04)
[2021-06-14] MEDS ORDERED: ONDANSETRON 4 MG/2 ML VIAL ONE (13:06)
[2021-06-14 14:15] VITALS: BP 106/70; PULSE 87
== END 2021-06-14 14:54 | disposition home or self-care (01) ==
LOC: OR 06:42
PROVIDERS: ATTEND Surgery
DX: T81.89XA Other complications of procedures, not elsewhere classified, initial encounter (principal); Y83.8 Other surgical procedures as the cause of abnormal reaction of the patient, or of later complication, without mention of misadventure at the time of the procedure; L90.5 Scar conditions and fibrosis of skin; Z85.3 Personal history of malignant neoplasm of breast; Z17.1 Estrogen receptor negative status [ER-]; C77.3 Secondary and unspecified malignant neoplasm of axilla and upper limb lymph nodes; Z80.3 Family history of malignant neoplasm of breast; G35 Multiple sclerosis; J45.909 Unspecified asthma, uncomplicated; Z79.899 Other long term (current) drug therapy; Z88.2 Allergy status to sulfonamides
CPT/HCPCS: 88305; 19316; J2250; J3370; J1100; J2405; J2001; J3010; J1170 ×2; J2704; J1644

== ENCOUNTER → 2021-06-23 | Outpatient (CLI) | payer BC ==
[2021-06-23 15:38] VITALS: BP 135/79; PULSE 87; RESP 16; TEMP 98
--- NOTE | 2021-06-23 15:40 | P.PN ---
Progress Note - Text Progress Note Date: 06/23/21 Destinee is a 55 year old white female status post revision of right mastectomy scar on 06-14-21. She has a NELI drain in place and the drain is putting out a proximally 60 mL per day. The drainage is serous in nature. She is also being seen for hyperbaric oxygen therapy. Approximately 3 days ago they noted that she had some erythema of the wound. This has improved. The patient has had no fever or chills. Her pain is 3 on a scale of 1-10 today. The patient did have a nasal swab prior to her procedure which was positive for MRSA and was treated for this prior to the procedure. The patient was also given IV antibiotics prior to her procedure. Pathology revealed scar tissue with no evidence of recurrent cancer. Lungs: Clear Heart: S1-S2 Incision: Clean and dry/erythema in the lateral aspect of the incision which patient states has improved NELI drain in place output is serous Impression: 1. Scar revision right chest wall NELI drain in place 2. Mild erythema lateral aspect of incision Plan: 1. Patient started on doxycycline 2. Patient will continue hyperbaric oxygen therapy 3. Continue NELI drain 4. Follow-up next week CC: Dr. Santillan
== END ==
LOC: WWCWWP 15:08
PROVIDERS: ATTEND Surgery
DX: L53.8 Other specified erythematous conditions (principal); L90.5 Scar conditions and fibrosis of skin; Z90.11 Acquired absence of right breast and nipple; Z88.2 Allergy status to sulfonamides

== ENCOUNTER → 2021-06-28 | Outpatient (CLI) | payer BC ==
--- NOTE | 2021-06-28 16:37 | P.PN ---
Progress Note - Text Progress Note Date: 06/28/21 Patient evaluated in hyperbaric chamber as some concern about erythema of mid portion of right chest wall incision. It could not be well seen with her in the hyperbaric chamber so she was seen in the clinic after she finished the hyperbaric therapy. She has no fever or chills. She is concerned that it may be slightly more red. Exam: The incision has some mild erythema in the mid portion of the wound, but it appears improved from her last visit. Plan: continue antibiotic therapy/doxyclicine follow up on Sunday call if any change she is concerned about
== END ==
LOC: WWCWWP 13:25
PROVIDERS: ATTEND Surgery
DX: L53.8 Other specified erythematous conditions (principal); Z88.2 Allergy status to sulfonamides

== ENCOUNTER → 2021-07-01 | Outpatient (CLI) | payer BC ==
[2021-07-01 08:48] VITALS: BP 158/82; PULSE 89; RESP 18; TEMP 97.7
--- NOTE | 2021-07-01 09:10 | P.PN ---
Progress Note - Text Progress Note Date: 07/01/21 Destinee is a 55 year old white female status post revision of right mastectomy scar on 06-14-21. She has a NELI drain in place and the drain is putting out a proximally 45 mL per day. The drainage is serous in nature. She is also undergoing hyperbaric oxygen therapy. She was seen on Sunday for some erythema of the wound and started on doxycycline. This has improved. The patient has had no fever or chills. She is not complaining of any pain at this time. The patient did have a nasal swab prior to her procedure which was positive for MRSA and was treated for this prior to the procedure. The patient was also given IV antibiotics prior to her procedure. Pathology revealed scar tissue with no evidence of recurrent cancer. Lungs: Clear Heart: S1-S2 Incision: Erythema has improved NELI drain in place output is serous Impression: 1. Scar revision right chest wall NELI drain in place 2. Mild erythema lateral aspect of incision improved Plan: 1. Patient on doxycycline 2. Patient will continue hyperbaric oxygen therapy 3. Continue NELI drain 4. Follow-up next week
== END ==
LOC: WWCWWP 08:29
PROVIDERS: ATTEND Surgery
DX: L76.82 Other postprocedural complications of skin and subcutaneous tissue (principal)

== ENCOUNTER → 2021-07-05 | Outpatient (CLI) | payer BC ==
--- NOTE | 2021-07-05 14:21 | P.PN ---
Progress Note - Text Progress Note Date: 07/05/21 Destinee is a 55 year old white female status post revision of right mastectomy scar on 06-14-21. She has a NELI drain in place and the drain is putting out a proximally 45 mL per day. The drainage is serous in nature. She is also undergoing hyperbaric oxygen therapy. She was seen on Sunday for some erythema of the wound and started on doxycycline. This has improved. The patient has had no fever or chills. She is not complaining of any pain at this time. The patient did have a nasal swab prior to her procedure which was positive for MRSA and was treated for this prior to the procedure. The patient was also given IV antibiotics prior to her procedure. Pathology revealed scar tissue with no evidence of recurrent cancer. 07-05-21 Patient presented today to the office with a concern that she had fallen and hit the right side of her chest. After which the drainage in the NELI drain w as serosanguineous. The patient has no evidence of any hematoma. She has had no fever or chills. She finished her doxycycline several days ago. The output from the NELI drain is approximately 20 mL per day. Lungs: Clear Heart: S1-S2 Incision: Erythema has resolved NELI drain in place output is serosangenous/ about 50cctoday Impression: 1. Scar revision right chest wall NELI drain in place/ open serosanguineous no evidence of any infection 2. Mild erythema lateral aspect of incision improved Plan: 1. Patient finished doxycycline 2. Patient will continue hyperbaric oxygen therapy 3. Continue NELI drain 4. Follow-up next week for drain removal
== END ==
LOC: WWCWWP 13:51
PROVIDERS: ATTEND Surgery
DX: L76.82 Other postprocedural complications of skin and subcutaneous tissue (principal); Z90.11 Acquired absence of right breast and nipple; Z99.81 Dependence on supplemental oxygen

== ENCOUNTER → 2021-07-11 | Outpatient (CLI) | payer BC ==
--- NOTE | 2021-07-11 10:30 | CT ---
EXAMINATION TYPE: CT chest w con DATE OF EXAM: 07/11/2021 COMPARISON: 03/07/2021, 11/28/2020 HISTORY: 55-year-old female C50.311 breast cancer, Z03.89 Observation for Mets. TECHNIQUE: Contiguous axial scanning of the chest after the administration of 100 mL of Isovue 300. Coronal/sagittal reconstructions performed. CT DLP: 404.0mGycm. Automatic exposure control utilized for a dose reduction. FINDINGS: Partial right-sided mastectomy redemonstrated. There is some skin and trabecular thickening with fat stranding in this region, increased from prior. Surgical drain is present. Some of the soft tissue thickening along the far lateral aspect of the right breast measuring up to 1 .8 cm now versus 1.0 cm, previously. Suspect postinflammatory changes but continued follow-up is krystal mmended. Heart upper limits of normal in size without pericardial effusion. Aorta normal caliber with conventional arch vessel branching anatomy. A 1.1 cm right hilar lymph node is unchanged to slightly smaller compared to 1.2 cm, previously. Othe rwise, no thoracic lymphadenopathy by CT size criteria. No consolidation or pleural effusion. No suspicious pulmonary nodules. Visualized upper abdomen shows no gross abnormal ejection Bones: No osseous destructive process. Anterior endplate spondylosis lower thoracic spine. IMPRESSION: 1. Partial right-sided mastectomy. Skin and trabecular thickening is new and could reflect interval r adiation therapy change or other inflammation/cellulitis. A surgical drain is in place. 2. Increase in soft tissue thickening peripheral lateral right breast measuring up to 1.8 cm versus 1 .0 cm, previously. Suspect postinflammatory changes but continued follow-up is recommended. 3. Otherwise, no evidence for metastatic disease in the chest.
== END | disposition home or self-care (01) ==
LOC: RADCTMAIN 09:06
PROVIDERS: ATTEND Internal Medicine Hematology & Oncology
DX: Z46.82 Encounter for fitting and adjustment of non-vascular catheter (principal); C50.311 Malignant neoplasm of lower-inner quadrant of right female breast
CPT/HCPCS: 71260; Q9967

== ENCOUNTER → 2021-07-14 | Outpatient (CLI) | payer BC ==
[2021-07-14 08:42] VITALS: BP 121/83; PULSE 85; RESP 16; TEMP 98.3
--- NOTE | 2021-07-14 09:02 | P.PN ---
Progress Note - Text Progress Note Date: 07/14/21 Destinee is a 55 year old white female status post revision of right mastectomy scar on 06-14-21. She has a NELI drain in place and the drain was initially putting out approximately 45 mL per day. The drainage was serous in nature. She was also undergoing hyperbaric oxygen therapy. She was seen for some erythema of the wound and started on doxycycline. This improved. The patient has had no fever or chills. She is not complaining of any pain at this time. The patient did have a nasal swab prior to her procedure which was positive for MRSA and was treated for this prior to the procedure. The patient was also given IV antibiotics prior to her procedure. Pathology revealed scar tissue with no evidence of recurrent cancer. The patient at this time only has approximately 16 mL per day of serous drainage / day. Lungs: Clear Heart: S1-S2 Incision: Erythema has improved NELI drain in place output is serous Impression: 1. Scar revision right chest wall NELI drain in place 2. no evidence of infection of the incision site Plan: 1. Patient finished doxycycline 2. Patient will continue hyperbaric oxygen therapy last treatment is next week 3. d/c NELI drain 4. Follow-up two weeks
== END ==
LOC: WWCWWP 08:21
PROVIDERS: ATTEND Surgery
DX: Z48.03 Encounter for change or removal of drains (principal); Z88.2 Allergy status to sulfonamides

== ENCOUNTER 2021-08-11 12:13 | Inpatient (IN) | payer BC ==
[2021-08-11] MEDS ORDERED: HYDROmorphone 1 MG/ML 1 ML SYRINGE IVP STA ×2 (12:30→14:15)
--- NOTE | 2021-08-11 12:31 | ED ---
Back Pain HPI - General Chief Complaint: Back Pain/Injury Stated Complaint: back pain Time Seen by Provider: 08/11/21 12:15 Source: EMS Limitations: no limitations - History of Present Illness Initial Comments: 55-year-old female past medical history of breast cancer in remission who presents emergency room with reported left side back pain with lumbar radiculopathy. Patient states she has a long-standing history of sciatica she follows with Dr. Santillan. She does have Motrin 800 mg and a control at home to take when she has exacerbation of her pain. States that for the past week her pain has been worse. 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 The pain starts in the middle of her back as a throbbing sensation and radiates down the left leg into the knee. She went into [facility] yesterday. She was given a shot of Toradol and discharged. States that she cannot get up out of bed and ambulate and therefore called EMS to be reevaluated. Denies having any previous imaging. She does have a history of breast cancer however is in remission. EMS upon transfer did give her 30 mg of Toradol however she states it did not help. No fevers. No numbness, tingling, weakness or paralysis of the lower extremities. No chages in her bowel or bladder habits. No saddle anesthesia. No other alleviating, precipit ating or modifying factors - Related Data Home Medications Medication Instructions Recorded Confirmed Aspirin [Adult Low Dose Aspirin EC] 81 mg PO HS 09/24/19 08/11/21 Gabapentin [Neurontin] 600 mg PO HS 09/24/19 08/11/21 Loratadine [Claritin] 10 mg PO HS 01/21/20 08/11/21 Amitriptyline HCl 10 mg PO HS 10/21/20 08/11/21 Anastrozole [Arimidex] 1 mg PO HS 10/21/20 08/11/21 Glatiramer Acetate 40 mg SQ MOWEFR 10/21/20 08/11/21 Cranberry Fruit Extract [Cranberry] 200 mg PO HS 05/26/21 08/11/21 FLUoxetine HCL [PROzac] 20 mg PO HS 05/26/21 08/11/21 Melatonin 5 mg PO HS 05/26/21 08/11/21 Albuterol Inhaler [Ventolin Hfa 1 - 2 puff INHALATION RT-QID PRN 06/10/21 08/11/21 Inhaler] Ascorbic Acid [Vitamin C] 1,000 mg PO HS 06/10/21 08/11/21 Cyclobenzaprine HCl 10 mg PO TID PRN 06/10/21 08/11/21 Cholecalciferol (Vitamin D3) 125 mcg PO HS 08/11/21 08/11/21 [Vitamin D3 (125 MCG = 5,000 IU)] Ibuprofen [Motrin] 600 mg PO Q8H PRN 08/11/21 08/11/21 methylPREDNISolone [Medrol Dose See Taper PO DIRECTED 08/11/21 08/11/21 Pack] Allergies Allergy/AdvReac Type Severity Reaction Status Date / Time Sulfa (Sulfonamide Allergy Mild Rash/Hives Verified 08/11/21 13:28 Antibiotics) Review of Systems ROS Statement: Those systems with pertinent positive or pertinent negative responses have been documented in the HPI. ROS Other: All systems not noted in ROS Statement are negative. Past Medical History Past Medical History: Asthma, Cancer, Neurologic Disorder, Osteoarthritis (OA) Additional Past Medical History / Comment(s): right breast cancer 08/2019; MU LTIPLE SCLEROSIS; optic neuritis; lymphadema rt arm; mild lichenoid inflammation lt axillary area and inbetween legs; colitis History of Any Multi-Drug Resistant Organisms: MRSA Date of last positivie culture/infection: 01/2020 MDRO Source:: abdomen Past Surgical History: Section, Tonsillectomy Additional Past Surgical History / Comment(s): section x4; RIGHT MASTECTOMY WITH TISSUE SITE ACQUISITION SPECIALIST, subsequent extraction of tissue building services coordinator without insertion of prosthesis due to infection; right chest wall revision 06/14/21; Past Anesthesia/Blood Transfusion Reactions: Postoperative Nausea & Vomiting (PONV) Past Psychological History: Anxiety, Depression Smoking Status: Never smoker Past Alcohol Use History: None Reported Past Drug Use History: None Reported - Past Family History Brother(s) Family Medical History: Deep Vein Thrombosis (DVT) Additional Family Medical History / Comment(s): 2 BROTHERS WITH DVT'S General Exam Limitations: no limitations Course Vital Signs 08/11/21 08/11/21 12:13 14:27 Temperature 98 F Pulse Rate 92 101 H Respiratory 18 18 Rate Blood Pressure 146/75 153/88 O2 Sat by Pulse 99 97 Oximetry - Reevaluation(s) Reevaluation #1: reevaluated and states she has no improvement in her symptoms. 5 mg of Valium and 125 mg of SoluMedrol are ordered. 08/11/21 13:50 Reevaluation #2: 08/11/21 16:00 Spoke with roxi lentz - dr bertrand will take admission Reevaluation #3: 08/11/21 16:[address] marques Medical Decision Making - Medical Decision Making On arrival patient is placed into room 6. A thorough history and physical exam was performed. Patient was given 15 mg of Toradol from EMS did report some improvement in her pain. I did give her 1 mg of Dilaudid and sent her over for a CT of her lumbar spine due to her history of breast cancer with worsening back pain. It demonstrates mild disc bulge at L4-L5 and L5-S1 with no enhancing lesions. Patient is reevaluated and continues to have pain. She is given 5 mg of Valium and 125 mg of Solu-Medrol. Patient is reevaluated after vacation administration with continued pain. Because of this I did order laboratory studies and a pelvic x-ray. Other x-ray demonstrates a displaced femoral neck fracture on the left. Patient originally denies any trauma. 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 He attempted to grope her and she jumped backwards hitting her left hip against the table. I did call and seek with Roxi Lentz. Recommending dedicated hip imaging. Patient will be admitted to Dr. Bertrand. Spoke with Dr. Marques who will be on consult. Patient's remained in stable condition awaiting a bed on the floor - Lab Data Result diagrams: 08/11/21 15:03 08/11/21 15:03 Lab Results 08/11/21 08/11/21 Range/Units 15:03 15:03 WBC 12.9 H (3.8-10.6) k/uL RBC 4.38 (3.80-5.40) m/uL Hgb 13.3 (11.4-16.0) gm/dL Hct 40.7 (34.0-46.0) % MCV 92.9 (80.0-100.0) fL MCH 30.4 (25.0-35.0) pg MCHC 32.7 (31.0-37.0) g/dL RDW 13.0 (11.5-15.5) % Plt Count 238 (150-450) k/uL MPV 7.4 Neutrophils % 90 % Lymphocytes % 6 % Monocytes % 3 % Eosinophils % 0 % Basophils % 0 % Neutrophils # 11.6 H (1.3-7.7) k/uL Lymphocytes # 0.8 L (1.0-4.8) k/uL Monocytes # 0.4 (0-1.0) k/uL Eosinophils # 0.0 (0-0.7) k/uL Basophils # 0.0 (0-0.2) k/uL Sodium 135 L (137-145) mmol/L Potassium 4.2 (3.5-5.1) mmol/L Chloride 105 (98-107) mmol/L Carbon Dioxide 23 (22-30) mmol/L Anion Gap 7 mmol/L BUN 9 (7-17) mg/dL Creatinine 0.37 L (0.52-1.04) mg/dL Est GFR (CKD-EPI)AfAm >90 (>60 ml/min/1.73 sqM) Est GFR (CKD-EPI)NonAf >90 (>60 ml/min/1.73 sqM) Glucose 106 H (74-99) mg/dL Calcium 9.4 (8.4-10.2) mg/dL Total Bilirubin 0.5 (0.2-1.3) mg/dL AST 22 (14-36) U/L ALT 15 (4-34) U/L Alkaline Phosphatase 99 (38-126) U/L Total Protein 6.6 (6.3-8.2) g/dL Albumin 4.2 (3.5-5.0) g/dL Disposition Clinical Impression: Mechanical back pain, Left hip pain, Femoral neck fracture Disposition: ADMITTED IP TO THIS [facility] Condition: Stable Is patient prescribed a controlled substance at d/c from ED?: No Decision to Admit Reason: Admit from EC Decision Date: 08/11/21 Decision Time: 15:55
--- NOTE | 2021-08-11 13:22 | CT ---
EXAMINATION TYPE: CT lumbar spine w con DATE OF EXAM: 08/11/2021 COMPARISON: None HISTORY: Back pain without injury. CT DLP: 1581.6 mGycm Automated exposure control for dose reduction was used. CONTRAST: CT scan of the lumbar is performed with IV Contrast, patient injected with 100 mL of Isovue 300. Enhanced CT of the lumbar spine was performed. Bone and soft tissue window settings are submitted as well as coronal and sagittal reconstructions. L1-L2: Normal disc space height. No disc herniation protrusion or central stenosis. No facet joint arthropathy. No evidence for foraminal encroachment. L2-L3: Normal disc space height. No disc herniation protrusion or central stenosis. No facet joint arthropathy. No evidence for foraminal encroachment. L3-L4: Normal disc space height. No disc herniation protrusion or central stenosis. No facet joint arthropathy. No evidence for foraminal encroachment. L4-L5: Normal disc space height. There is mild posterior disc bulge noted. No evidence for herniation protrusion or central stenosis. No facet joint arthropathy. No evidence for foraminal encroachment. L5-S1: Normal disc space height. There is mild posterior disc bulge noted. No evidence for herniatio n protrusion or central stenosis. No facet joint arthropathy. No evidence for foraminal encroachmen t. IMPRESSION: Mild disc bulging at L4-5 and L5-S1. No enhancing lesions seen.
[2021-08-11] MEDS ORDERED: methylPREDNISolone SOD SUCCI 125 MG/2 ML VIAL IV STA (13:33)
[2021-08-11] MEDS ORDERED: DIAZEPAM 5 MG/ML 2 ML INJ IVP STA (13:33)
[2021-08-11 15:20] LABS: Basophils % (A) 0 %; Eosinophils % (A) 0 %; HCT 40.7 % (34.0-46.0); HGB 13.3 gm/dL (11.4-16.0); Lymphocytes # (A) 0.8 k/uL (1.0-4.8); Lymphocytes % (A) 6 %; MCH 30.4 pg (25.0-35.0); MCHC 32.7 g/dL (31.0-37.0); MCV 92.9 fL (80.0-100.0); Mean Platelet Volume 7.4; Monocytes # (A) 0.4 k/uL (0-1.0); Monocytes % (A) 3 %; Neutrophils # (A) 11.6 k/uL (1.3-7.7); Neutrophils % (A) 90 %; Platelet Count 238 k/uL (150-450); RBC 4.38 m/uL (3.80-5.40); WBC 12.9 k/uL (3.8-10.6)
[2021-08-11 15:26] LABS: ALT 15 U/L (4-34); AST 22 U/L (14-36); African American GFR (CKD) >90 (>60 ml/min/1.73 sqM); Albumin 4.2 g/dL (3.5-5.0); Alkaline Phosphatase 99 U/L (38-126); Anion Gap 7 mmol/L; Blood Urea Nitrogen 9 mg/dL (7-17); Calcium 9.4 mg/dL (8.4-10.2); Carbon Dioxide 23 mmol/L (22-30); Chloride 105 mmol/L (98-107); Glucose 106 mg/dL (74-99); Non-African American GFR(CKD) >90 (>60 ml/min/1.73 sqM); Potassium 4.2 mmol/L (3.5-5.1); Sodium 135 mmol/L (137-145); Total Bilirubin 0.5 mg/dL (0.2-1.3); Total Protein 6.6 g/dL (6.3-8.2)
--- NOTE | 2021-08-11 15:40 | XR ---
EXAMINATION TYPE: XR pelvis AP view DATE OF EXAM: 08/11/2021 COMPARISON: NONE HISTORY: Pain Findings: There is a displaced left femoral neck fracture. Arthropathy of the right hip. Contrast in the ureter s and bladder. SI joints symmetric. IMPRESSION: 1. Displaced fracture left femoral neck.
[2021-08-11] MEDS ORDERED: NALOXONE 0.4 MG/ML 1 ML VIAL IV PRN (15:56)
[2021-08-11] MEDS ORDERED: ACETAMINOPHEN TAB 325 MG TAB PO PRN (15:56)
--- NOTE | 2021-08-11 17:09 | XR ---
EXAMINATION TYPE: XR Hip Complete LT DATE OF EXAM: 08/11/2021 CLINICAL HISTORY: Left hip fracture. TECHNIQUE: AP and frogleg views of the left hip are obtained. COMPARISON: Radiograph 08/11/21. FINDINGS: Mildly displaced fracture of the left femoral neck. IMPRESSION: Mildly displaced sub-fracture of the left femoral neck.
--- NOTE | 2021-08-11 17:37 | P.CONS ---
History of Present Illness - Reason for Consult Consult date: 08/11/21 - Chief Complaint Pre-operative clearance, med management - History of Present Illness 55 year old woman with history of MS, Breast cancer on estrogen therapy, ulcerative colitis presented for hip pain. 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 She was seen by [facility] for this pain, and was told it was a sciatic flare and was sent home with steroids after a toradol shot. However, when she got home, the pain was so unbearable she could not walk or move from the bed without significant pain. Her called EMS, and patient was brought to [facility] for further evaluation. Upon arrival, patients pain was controlled with narcotics, but pelvic x ray imaging demonstrated a left hip fracture which prompted her admission. Her last breast cancer treatment was in May with chemoradiation, and patient has also had breast reduction surgery and wound care evaluation for non-healing ulcer in that area. She is currently on maintenance hormonal therapy. She previously had a DEXA scan which demonstrated 2 standard deviation reduction in bone density in the left hip only, but otherwise was unremarkable. She was diagnosed with osteopenia of the left hip. She is also on immunotherapy for relapsing-remitting MS, but retains great functional status at this time. Her METs > 4, and she is physically active. Previously had surgery with no adverse events. Labs and pertinent imaging were reviewed and unremarkable but for mild leukocytosis. Review of Systems All Systems reviewed and pertinent positives and negatives noted in HPI, all other symptoms are negative Past Medical History Past Medical History: Asthma, Cancer, Neurologic Disorder, Osteoarthritis (OA) Additional Past Medical History / Comment(s): right breast cancer 08/2019; MULTIPLE SCLEROSIS; optic neuritis; lymphadema rt arm; mild lichenoid inflammation lt axillary area and inbetween legs; colitis History of Any Multi-Drug Resistant Organisms: MRSA Year Discovered:: 01/2020 MDRO Source:: abdomen Past Surgical History: Section, Tonsillectomy Additional Past Surgical History / Comment(s): section x4; RIGHT MASTECTOMY WITH TISSUE PIANO REFINISHER, subsequent extraction of tissue invertebrate paleontologist with out insertion of prosthesis due to infection; right chest wall revision 06/14/21; Past Anesthesia/Blood Transfusion Reactions: Postoperative Nausea & Vomiting (PONV) Past Psychological History: Anxiety, Depression Smoking Status: Never smoker Past Alcohol Use History: None Reported Past Drug Use History: None Reported - Past Family History Brother(s) Family Medical History: Deep Vein Thrombosis (DVT) Additional Family Medical History / Comment(s): 2 BROTHERS WITH DVT'S Medications and Allergies Home Medications Medication Instructions Recorded Confirmed Type Aspirin [Adult Low Dose Aspirin EC] 81 mg PO HS 09/24/19 08/11/21 History Gabapentin [Neurontin] 600 mg PO HS 09/24/19 08/11/21 History Loratadine [Claritin] 10 mg PO HS 01/21/20 08/11/21 History Amitriptyline HCl 10 mg PO HS 10/21/20 08/11/21 History Anastrozole [Arimidex] 1 mg PO HS 10/21/20 08/11/21 History Glatiramer Acetate 40 mg SQ MOWEFR 10/21/20 08/11/21 History Cranberry Fruit Extract [Cranberry] 200 mg PO HS 05/26/21 08/11/21 History FLUoxetine HCL [PROzac] 20 mg PO HS 05/26/21 08/11/21 History Melatonin 5 mg PO HS 05/26/21 08/11/21 History Albuterol Inhaler [Ventolin Hfa 1 - 2 puff INHALATION RT-QID PRN 06/10/21 08/11/21 History Inhaler] Ascorbic Acid [Vitamin C] 1,000 mg PO HS 06/10/21 08/11/21 History Cyclobenzaprine HCl 10 mg PO TID PRN 06/10/21 08/11/21 History Cholecalciferol (Vitamin D3) 125 mcg PO HS 08/11/21 08/11/21 History [Vitamin D3 (125 MCG = 5,000 IU)] Ibuprofen [Motrin] 600 mg PO Q8H PRN 08/11/21 08/11/21 History methylPREDNISolone [Medrol Dose See Taper PO DIRECTED 08/11/21 08/11/21 History Pack] Allergies Allergy/AdvReac Type Severity Reaction Status Date / Time Sulfa (Sulfonamide Allergy Mild Rash/Hives Verified 08/11/21 13:28 Antibiotics) Physical Exam Osteopathic Statement: *. No significant issues noted on an osteopathic structural exam other than those noted in the History and Physical/Consult. Vitals: Vital Signs Temp Pulse Resp BP Pulse Ox 08/11/21 14:27 101 H 18 153/88 97 08/11/21 12:13 98 F 92 18 146/75 99 Intake and Output 08/11/21 08/11/21 08/11/21 06:59 14:59 22:59 Other: Weight 86.183 kg Gen: awake, alert HEENT: normocephalic, atraumatic, good hearing acuity, moist mucous membranes Resp: good air exchange, breathing comfortably with no accessory muscle use CVS: good distal perfusion x 4, GI: soft, NTTP, ND : no SPT, no CVAT, jaime catheter not present MSK: no pitting edema, no clubbing Neuro: non-focal, moving all extremities Psych: cooperative, euthymic mood Results CBC & Chem 7: 08/11/21 15:03 08/11/21 15:03 Labs: Abnormal Lab Results - Last 24 Hours (Table) 08/11/21 08/11/21 Range/Units 15:03 15:03 WBC 12.9 H (3.8-10.6) k/uL Neutrophils # 11.6 H (1.3-7.7) k/uL Lymphocytes # 0.8 L (1.0-4.8) k/uL Sodium 135 L (137-145) mmol/L Creatinine 0.37 L (0.52-1.04) mg/dL Glucose 106 H (74-99) mg/dL Assessment and Plan Assessment: Pre-operative Clearance Left Hip Fracture - patient is intermediate risk for intermediate risk surgery; may proceed to surgery without further need of testing. - repair and DVT prophylaxis to be addressed by primary team - pain control Multiple Sclerosis Hx of Ulcerative Colitis Hx of Breast Cancer Osteoporosis Mood Disorder -Home medications reviewed and reconciled Thank you for this consult, a member of [employer] is available for any questions or concerns 11/06 via [employer] serve
[2021-08-11] MEDS: HYDROmorphone 1 MG/ML 1 ML SYRINGE IVP PRN ×2 (17:57→21:05)
--- NOTE | 2021-08-11 18:29 | P.HPOR ---
History of Present Illness H&P Date: 08/11/21 Chief Complaint: Left hip pain This is a 55-year-old female who presented to the emergency department today with complaint of severe left buttock and groin pain which radiated down the leg. She does have history of sciatica which flares up from time to time. She also has history of breast cancer 3 years ago with subsequent bilateral mastectomy. She has had a recent surgery for infection with her tissue expanders in May 2021. She had chemotherapy and radiation therapy around the time of her mastectomy. She does not have history of metastatic disease that she is aware of. She originally did not recall an injury but states that 2 days ago at work she did fall against a table when she was assisting with a patient. 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 She states that she did not have pain immediately but yesterday began having increasingly worsening pain to the left hip and leg. She went to [facility] emergency department and low back x-rays were done which showed no acute fracture. She was diagnosed with sciatica and given a shot of site Medrol and discharged home. She states that pain became severe today and presented to the emergency department at [facility]. Lumbar CT revealed no acute findings. Pelvis x- ray revealed a femoral neck fracture. We are consulted for orthopedic evaluation. 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, subsequent extraction of tissue plastics scientist without insertion of prosthesis due to infection; right chest wall revision 06/14/21; Past Anesthesia/Blood Transfusion Reactions: Postoperative Nausea & Vomiting (PONV) Past Psychological History: Anxiety, Depression Smoking Status: Never smoker Past Alcohol Use History: None Reported Past Drug Use History: None Reported - Past Family History Brother(s) Family Medical History: Deep Vein Thrombosis (DVT) Additional Family Medical History / Comment(s): 2 BROTHERS WITH DVT'S Medications and Allergies Home Medications Medication Instructions Recorded Confirmed Type Aspirin [Adult Low Dose Aspirin EC] 81 mg PO HS 09/24/19 08/11/21 History Gabapentin [Neurontin] 600 mg PO HS 09/24/19 08/11/21 History Loratadine [Claritin] 10 mg PO HS 01/21/20 08/11/21 History Amitriptyline HCl 10 mg PO HS 10/21/20 08/11/21 History Anastrozole [Arimidex] 1 mg PO HS 10/21/20 08/11/21 History Glatiramer Acetate 40 mg SQ MOWEFR 10/21/20 08/11/21 History Cranberry Fruit Extract [Cranberry] 200 mg PO HS 05/26/21 08/11/21 History FLUoxetine HCL [PROzac] 20 mg PO HS 05/26/21 08/11/21 History Melatonin 5 mg PO HS 05/26/21 08/11/21 History Albuterol Inhaler [Ventolin Hfa 1 - 2 puff INHALATION RT-QID PRN 06/10/21 08/11/21 History Inhaler] Ascorbic Acid [Vitamin C] 1,000 mg PO HS 06/10/21 08/11/21 History Cyclobenzaprine HCl 10 mg PO TID PRN 06/10/21 08/11/21 History Cholecalciferol (Vitamin D3) 125 mcg PO HS 08/11/21 08/11/21 History [Vitamin D3 (125 MCG = 5,000 IU)] Ibuprofen [Motrin] 600 mg PO Q8H PRN 08/11/21 08/11/21 History methylPREDNISolone [Medrol Dose See Taper PO DIRECTED 08/11/21 08/11/21 History Pack] Allergies Allergy/AdvReac Type Severity Reaction Status Date / Time Sulfa (Sulfonamide Allergy Mild Rash/Hives Verified 08/11/21 13:28 Antibiotics) Physical Examination This is a pleasant 55-year-old female in no acute distress. She is alert and oriented 3. Exam of the head neck reveal no obvious deformity. She has full cervical spine motion without difficulty or pain. Exam of the upper extremities is unremarkable. She has full shoulder, elbow, wrist and finger motion bilaterally. Neurovascular status to the upper extremities is intact. Exam of the lower extremities reveals no obvious rotational deformity. She is unable to lift the left leg off the bed independently. She has full foot ankle motion bilaterally. Neurovascular status to the lower extremities is intact. Results X-rays of the pelvis and left hip reveal a displaced low femoral neck fracture. No other fractures identified. No obvious radiographic evidence of bony metastatic disease. Computed tomography scan of the lumbar spine reveals no obvious bony abnormality or evidence of metastatic disease. Mild degenerative disc changes. - Labs Labs: Abnormal Lab Results - Last 24 Hours (Table) 08/11/21 08/11/21 Range/Units 15:03 15:03 WBC 12.9 H (3.8-10.6) k/uL Neutrophils # 11.6 H (1.3-7.7) k/uL Lymphocytes # 0.8 L (1.0-4.8) k/uL Sodium 135 L (137-145) mmol/L Creatinine 0.37 L (0.52-1.04) mg/dL Glucose 106 H (74-99) mg/dL H & H 08/11/21 Range/Units 15:03 Hgb 13.3 (11.4-16.0) gm/dL Hct 40.7 (34.0-46.0) % Result Diagrams: 08/11/21 15:03 08/11/21 15:03 Assessment and Plan (1) Femoral neck fracture Current Visit: Yes Status: Acute Code(s): S72.009A - FRACTURE OF UNSP PART OF NECK OF UNSP FEMUR, INIT SNOMED Code(s): 3557741 (2) Left hip pain Current Visit: Yes Status: Acute Code(s): M25.552 - PAIN IN LEFT HIP SNOMED Code(s): 37764830 (3) Mechanical back pain Current Visit: Yes Status: Acute Code(s): M54.9 - DORSALGIA, UNSPECIFIED SNOMED Code(s): 455909224 (4) Breast cancer Current Visit: No Status: Acute Priority: High Code(s): C50.919 - MALIGNANT NEOPLASM OF UNSP SITE OF UNSPECIFIED FEMALE BREAST SNOMED Code(s): 527250636 Plan: The clinical and x-ray findings are discussed with the patient. It is recommended she undergo cemented total hip arthroplasty for treatment of her left femoral neck fracture. It is discussed with the patient and her that we will send the femoral head to pathology to evaluate for possible metastatic disease. Internal medicine has been consulted for presurgical clearance and medical management. We are planning surgery for tomorrow morning if cleared medically.
[2021-08-11] MEDS: SODIUM CHLORIDE 0.9% 1,000 ML IV SCH (20:48)
[2021-08-11] MEDS: AMITRIPTYLINE HCL 10 MG TAB PO SCH (21:43)
[2021-08-11] MEDS: ANASTROZOLE 1 MG TAB PO SCH (21:43)
[2021-08-11] MEDS: FLUoxetine HCL 20 MG CAP PO SCH (21:43)
[2021-08-11] MEDS: GABAPENTIN 300 MG CAP PO SCH (21:43)
[2021-08-11] MEDS: CHOLECALCIFEROL 25 MCG (1000 IU) TABLET PO SCH (21:43)
[2021-08-11] MEDS: LORATADINE 10 MG TAB PO SCH (21:43)
[2021-08-11] MEDS: MELATONIN 5 MG TABLET PO SCH (21:43)
[2021-08-11] MEDS: ASCORBIC ACID 500 MG TAB PO SCH (21:43)
[2021-08-12] MEDS: HYDROmorphone 1 MG/ML 1 ML SYRINGE IVP PRN ×6 (00:29→20:23)
[2021-08-12 05:50] LABS: Basophils % (A) 0 %; Eosinophils # (A) 0.1 k/uL (0-0.7); Eosinophils % (A) 1 %; HCT 39.8 % (34.0-46.0); HGB 12.7 gm/dL (11.4-16.0); Lymphocytes # (A) 0.6 k/uL (1.0-4.8); Lymphocytes % (A) 6 %; MCH 30.2 pg (25.0-35.0); MCHC 31.8 g/dL (31.0-37.0); MCV 94.9 fL (80.0-100.0); Mean Platelet Volume 7.1; Monocytes # (A) 0.4 k/uL (0-1.0); Monocytes % (A) 4 %; Neutrophils # (A) 8.5 k/uL (1.3-7.7); Neutrophils % (A) 89 %; Platelet Count 248 k/uL (150-450); RBC 4.19 m/uL (3.80-5.40); WBC 9.6 k/uL (3.8-10.6)
[2021-08-12] MEDS: SODIUM CHLORIDE 0.9% 1,000 ML IV SCH ×2 (05:56→17:50)
[2021-08-12] MEDS ORDERED: IV FLUID CONTINUATION 1,000 ML IV ONE (07:43)
[2021-08-12] MEDS ORDERED: ONDANSETRON 4 MG/2 ML VIAL ONE (07:59)
[2021-08-12] MEDS ORDERED: TRANEXAMIC ACID 1,000 MG in SODIUM CHLORIDE 0.9% 100 ML IVPB ONE ×2 (08:00→08:30)
[2021-08-12] MEDS ORDERED: ONDANSETRON 4 MG/2 ML VIAL IVP ONE (08:04)
[2021-08-12] MEDS ORDERED: DEXAMETHASONE SOD PHOSPHATE 4 MG/ML 1 ML VIAL IV ONE (08:05)
[2021-08-12] MEDS ORDERED: GLYCOPYRROLATE 0.2 MG/ML 2 ML VIAL ONE (08:35)
[2021-08-12] MEDS ORDERED: NALOXONE 0.4 MG/ML 1 ML VIAL ONE (08:35)
[2021-08-12] MEDS ORDERED: LIDOCAINE 1% INJ 10MG/ML (20 ML MDV) ONE (08:35)
[2021-08-12] MEDS ORDERED: ROCURONIUM 10 MG/ML (5 ML VIAL) IV ONE (08:35)
[2021-08-12] MEDS ORDERED: fentaNYL (PF) 50 MCG/ML 2 ML AMP ONE (08:35)
[2021-08-12] MEDS ORDERED: TRANEXAMIC ACID 1,000 MG/10 ML VIAL ONE (08:35)
[2021-08-12] MEDS ORDERED: PROPOFOL 10 MG/ML 20 ML VIAL IV ONE (08:35)
[2021-08-12] MEDS ORDERED: SODIUM CHLORIDE 0.9% 100 ML BAG ONE (08:35)
[2021-08-12] MEDS ORDERED: NEOSTIGMINE 1 MG/ML 10 ML VIAL ONE (08:35)
[2021-08-12] MEDS ORDERED: ceFAZolin 1,000 MG VIAL IVPB ONE (08:40)
[2021-08-12] MEDS ORDERED: ceFAZolin 3,000 MG in SODIUM CHLORIDE 0.9% IRRIGATIO 3,000 ML IRRIGATION ONE (09:00)
[2021-08-12] MEDS ORDERED: THROMBIN (BOVINE) 5,000 UNIT VIAL TOPICAL ONE (09:00)
[2021-08-12] MEDS ORDERED: GELATIN SPONGE,ABSORB (LARGE) 1 EACH SPONGE TOPICAL ONE (09:00)
[2021-08-12] MEDS ORDERED: LACTATED RINGERS 1,000 ML IV ONE (10:15)
[2021-08-12] MEDS ORDERED: NALOXONE 0.4 MG/ML 1 ML VIAL IV PRN (10:56)
[2021-08-12] MEDS ORDERED: HYDROcodone/APAP 5-325MG 1 EACH TAB PO PRN (10:56)
[2021-08-12] MEDS ORDERED: MAGNESIUM HYDROXIDE 2,400 MG/10 ML CUP PO PRN (10:56)
[2021-08-12] MEDS ORDERED: ONDANSETRON 4 MG/2 ML VIAL IVP PRN (10:56)
[2021-08-12] MEDS ORDERED: HYDROmorphone 0.5 MG/0.5 ML SYRINGE IVP ONE (11:24)
--- NOTE | 2021-08-12 11:34 | XR ---
Left hip HISTORY: Postop left hip arthroplasty Single frontal view of the left hip Patient is status post left hip arthroplasty. There is anatomic alignment. Lucencies present in the s oft tissues. There is overlying artifact. IMPRESSION: Orthopedic follow-up
--- NOTE | 2021-08-12 14:03 | P.OP ---
Date of Procedure: 08/12/21 Procedure(s) Performed: PREOPERATIVE DIAGNOSIS: 1. Left hip femoral neck fracture; 2. Morbid obesity, BMI 41 POSTOPERATIVE DIAGNOSIS: 1. Left hip femoral neck fracture; 2. Morbid obesity, BMI 41 OPERATION: Left hip cemented unipolar hemiarthroplasty. ANESTHESIA: Spinal ESTIMATED BLOOD LOSS: 500 ml. GREASE REMOVER: Roxi Lentz PA-C (assistance with: patient positioning, retraction, exposure, hemostasis, leg positioning, implantation, irrigation, closure, dressing) COMPLICATIONS: None apparent. COMPONENTS IMPLANTED: Ankush LDFx cemented femoral stem; unipolar femoral head; neck extension +7 mm. INDICATIONS: Destinee is a 55-year-old female with severe obesity, breast CA and demyelinating disease with a history of falling and sustaining a femoral neck fracture. I have recommended surgical treatment with a cemented unipolar hemiarthroplasty versus total hip arthroplasty. I have discussed this procedure in detail and explained the potential risks and complications as being inclusive of, but not limited to: Bleeding, infection, scarring, discomfort, blood vessel and/or nerve damage, limb length inequality, gait disturbance, blood clot, pulmonary embolism, , and other risks. The consent form has been signed. PROCEDURE: After appropriate consent was obtained, the patient was taken to the operating room and placed in supine position. General anesthetic was administered and after confirmation of adequate anesthesia, the patient was placed into the lateral decubitus position with the affected side up. Care was taken to make sure that all pressure points were adequately padded and a Lv hip positioner was utilized for positioning. The hip was prepped and draped in the usual aseptic fashion using a combination of Chloraprep and alcohol. Ioban drape was used for the case and the patient received intravenous antibiotics and 1 gram intravenous tranexamic acid prior to the incision. The incision was created directly over the greater trochanter and carried slightly posteriorly for a posterior approach to the hip. Due to the patient's body habitus and severe truncal obesity, the length of the incision to be extended to approximately 20 cm. Depth of the incision down to bone was no less than 10 cm. The incision was then deepened down to subcutaneous tissue and fascia armando. Fascia armando was split in line with the incision and split proximally along the fibers of the gluteus glen. The underlying fibers of the muscle were teased apart using finger dissection and bleeding vessels were picked up and coagulated. Retractor was then placed posteriorly consisting of a blunt [place]. The short external rotators and capsule were exposed and good visualization of the attachment of the external rotators to the femur was established. The short external rotators and capsule were released using electrocautery from their femoral attachments. A hockey stick shaped incision was created in the capsule. Joint fluid and hemarthrosis was evacuated and the patient's hip was internally rotated to expose the fracture site. Fracture bone appeared to be somewhat soft, consistent with a possible metastatic lesion in this region. Blood loss was brisk from this area, and therefore a thrombin- soaked Gelfoam, electrocautery, and where necessary Surgicel hemostatic powder was utilized to control bleeding. The femoral neck cut was created approximately 1 cm superior to the lesser trochanter using a reciprocating saw. The femoral head and neck fragment was re moved and visualization and palpation of the acetabular vault showed intact hyaline cartilage with no bone exposure or significant degeneration. At this point, blood loss was approximately 450 mL. Considering difficulty of exposure, medical problems including severe demyelinating disease, ongoing blood loss, and integrity of the acetabular cartilage, I decided proceed with cemented hemiarthroplasty rather than full replacement. Attention was then directed back to the proximal femur. Retractors were placed around the proximal femur and box osteotome was used followed by canal finder and trochanteric reamer. Cylindrical reaming was performed. Progressive broaching was then performed starting with a #10 broach and progressing final size, in a position of 10-15 degrees anteversion. Crow anteversion was within 5 degrees of stem position. The final size broach had excellent fit and fill of the patient's metaphysis and diaphysis. Calcar planing was performed. Trial reduction was then performed starting with appropriately sized femoral head and various neck extensions to evaluate stability, limb length equality, and soft tissue tension. Once these parameters were satisfactory, the corresponding final components were then called for. Trial components were removed. The femoral canal was sized for the centralizer and cement plug. Once the cement plug had been inserted distal to the planned length of the femoral component, the canal was pulse lavaged and brushed to remove any unstable bone. It was then dried with a lap sponge. Cement was mixed under vacuum conditions to decrease porosity and inserted into a cement gun. Distal centralizer was placed onto the femoral component with a bit of cement. The cement was allowed to reach a slightly doughy consistency and then the canal was filled retrograde with the cement gun. Thumb pressurization was performed three times. The femoral component was then inserted with the previously determined degree of anteversion. Excess cement was removed before it hardened completely. The femoral head was then impacted onto the Khan taper. Rate of blood loss significantly diminished once the femoral component had been inserted . Blood and debris were removed from the acetabular socket and the hip was then reduced and checked for stability, limb length and soft tissue tension. These parameters were found to be satisfactory; the wound was then thoroughly irrigated with normal saline. Final hemostasis was obtained using electrocautery and IV tranexamic acid, 1 g given at the time of prepping and draping, and another 1 g given at the time of closure. Closure of the capsule was performed meticulously using #3 Vicryl suture. Four [id number] sutures were placed in the posterior capsule along with repair of the external rotators. The fascia armando was then repaired using combination of #3 Vicryl suture in interrupted fashion and Quill and running fashion. 2-0 Vicryl suture was used for the subcutaneous tissues and 3-0 Quill for the skin. Dermabond or Steri-Strips were then applied. The patient tolerated the procedure well. There were no complications and the wound bed was dry and there was no need for drain placement. Sterile dressing was then applied and the patient was carefully removed from the operating room table, placed on the stretcher and was taken to the recovery room in stable condition. Sponge and needle counts were correct.
--- NOTE | 2021-08-12 14:24 | P.PN ---
Subjective Progress Note Date: 08/12/21 Pt seen after surgery, recovering well from procedure. No further complaints of pain. Objective - Vital Signs Vital signs: Vital Signs Temp 98.4 F 08/12/21 12:40 Pulse 105 H 08/12/21 13:45 Resp 16 08/12/21 13:45 BP 146/86 08/12/21 13:45 Pulse Ox 97 08/12/21 13:45 Intake & Output 08/11/21 08/12/21 08/12/21 18:59 06:59 18:59 Intake Total 750 1551 Output Total 500 Balance 750 1051 Weight 86.183 kg 86.183 kg Intake: IV 1551 Intake, IV Titration 750 Amount Sodium Chloride 0.9% 1, 750 000 ml @ 75 mls/hr IV . [id number] [facility] Rx#:[id number] Output: Estimated Blood Loss 500 Other: Voiding Method Bedpan Diaper Diaper Incontinent # Voids 3 - Exam Gen: asleep, arousable HEENT: normocephalic, atraumatic, good hearing acuity, moist mucous membranes Resp: good air exchange, breathing comfortably with no accessory muscle use CVS: good distal perfusion x 4, GI: soft, NTTP, ND : no SPT, no CVAT, jaime catheter not present MSK: no pitting edema, no clubbing Neuro: non-focal, moving all extremities Psych: cooperative, euthymic mood - Labs CBC & Chem 7: 08/12/21 05:29 08/11/21 15:03 Labs: Abnormal Lab Results - Last 24 Hours (Table) 08/11/21 08/11/21 08/12/21 Range/Units 15:03 15:03 05:29 WBC 12.9 H (3.8-10.6) k/uL Neutrophils # 11.6 H 8.5 H (1.3-7.7) k/uL Lymphocytes # 0.8 L 0.6 L (1.0-4.8) k/uL Sodium 135 L (137-145) mmol/L Creatinine 0.37 L (0.52-1.04) mg/dL Glucose 106 H (74-99) mg/dL Assessment and Plan Assessment: Pre-operative Clearance Left Hip Fracture - patient is intermediate risk for intermediate risk surgery; may proceed to surgery without further need of testing. - repair and DVT prophylaxis to be addressed by primary team - pain control Multiple Sclerosis Hx of Ulcerative Colitis Hx of Breast Cancer Osteoporosis Mood Disorder -Home medications reviewed and reconciled Thank you for this consult, a member of [employer] is available for any questions or concerns 11/06 via [employer]
[2021-08-12 17:08] LABS: African American GFR (CKD) 125.4 (60.0-200.0); Anion Gap 9.7 mmol/L (4.00-12.00); Calcium 8.8 mg/dL (8.7-10.3); Carbon Dioxide 24.3 mmol/L (21.6-31.8); Non-African American GFR(CKD) 108.2 (60.0-200.0); Potassium 5.1 mmol/L (3.5-5.5)
[2021-08-12] MEDS: ANASTROZOLE 1 MG TAB PO SCH (20:22)
[2021-08-12] MEDS: FLUoxetine HCL 20 MG CAP PO SCH (20:22)
[2021-08-12] MEDS: ASPIRIN 81 MG PO SCH (20:22)
[2021-08-12] MEDS: CHOLECALCIFEROL 25 MCG (1000 IU) TABLET PO SCH (20:22)
[2021-08-12] MEDS: AMITRIPTYLINE HCL 10 MG TAB PO SCH (20:22)
[2021-08-12] MEDS: ASCORBIC ACID 500 MG TAB PO SCH (20:22)
[2021-08-12] MEDS: SENNOSIDES-DOCUSATE SODIUM 1 EACH TAB PO SCH (20:23)
[2021-08-12] MEDS: GABAPENTIN 300 MG CAP PO SCH (20:23)
[2021-08-12] MEDS: LORATADINE 10 MG TAB PO SCH (20:23)
[2021-08-12] MEDS: MELATONIN 5 MG TABLET PO SCH (20:23)
[2021-08-13] MEDS: HYDROmorphone 1 MG/ML 1 ML SYRINGE IVP PRN ×2 (02:10→06:11)
[2021-08-13] MEDS: SODIUM CHLORIDE 0.9% 1,000 ML IV SCH ×2 (06:12→21:26)
[2021-08-13 06:41] LABS: Basophils % (A) 0 %; Eosinophils # (A) 0.1 k/uL (0-0.7); Eosinophils % (A) 1 %; HCT 34.9 % (34.0-46.0); HGB 10.9 gm/dL (11.4-16.0); Lymphocytes % (A) 11 %; MCH 30.2 pg (25.0-35.0); MCHC 31.3 g/dL (31.0-37.0); MCV 96.3 fL (80.0-100.0); Mean Platelet Volume 7.4; Monocytes # (A) 0.6 k/uL (0-1.0); Monocytes % (A) 7 %; Neutrophils # (A) 7.2 k/uL (1.3-7.7); Neutrophils % (A) 80 %; Platelet Count 196 k/uL (150-450); RBC 3.62 m/uL (3.80-5.40); RDW 13.2 % (11.5-15.5)
[2021-08-13] MEDS: HYDROcodone/APAP 5-325MG 1 EACH TAB PO PRN ×2 (08:40→15:17)
[2021-08-13] MEDS: MELOXICAM 7.5 MG TAB PO SCH (09:55)
[2021-08-13] MEDS: ASPIRIN 81 MG PO SCH ×2 (09:56→21:22)
--- NOTE | 2021-08-13 12:53 | P.PN ---
Subjective Progress Note Date: 08/13/21 Principal diagnosis: Left femoral neck fracture. History of breast cancer. Status post hemiarthroplasty left hip. This is a 55-year-old female who is status post fortunato-arthroplasty of the left hip for femoral neck fracture on 08/12/2021. She has no new complaints or concerns today. She does continue to have sciatic pain. Vital signs and labs are stable. Pathology is pending. Objective - Vital Signs Vital signs: Vital Signs Temp 97 F L 08/13/21 04:30 Pulse 70 08/13/21 10:03 Resp 20 08/13/21 08:30 BP 104/67 08/13/21 10:03 Pulse Ox 96 08/13/21 07:46 Intake & Output 08/12/21 08/13/21 08/13/21 18:59 06:59 18:59 Intake Total 2711 1150 Output Total 500 300 200 Balance 2211 850 -200 Intake: IV 1551 Intake, IV Titration 800 950 Amount Sodium Chloride 0.9% 1, 750 900 000 ml @ 75 mls/hr IV . [id number] [facility] Rx#:[id number] ceFAZolin 2 gm In Sodium 50 50 Chloride 0.9% 50 ml @ 100 mls/hr IVPB Q8H [facility] Rx#: [id number] Oral 360 200 Output: Urine 300 200 Estimated Blood Loss 500 Other: Voiding Method Diaper Diaper External Catheter Incontinent Incontinent # Voids 3 1 - Exam This is a pleasant 55-year-old female in no acute distress. She is alert and oriented 3. Exam of the left hip reveals that her dressing is clean, dry and intact. She has full foot and ankle motion without difficulty or pain. Neurovascular status to the lower extremity is intact. - Labs CBC & Chem 7: 08/13/21 06:05 08/12/21 05:29 Labs: Abnormal Lab Results - Last 24 Hours (Table) 08/12/21 08/13/21 Range/Units 05:29 06:05 RBC 3.62 L (3.80-5.40) m/uL Hgb 10.9 L (11.4-16.0) gm/dL Creatinine 0.5 L (0.6-1.5) mg/dL BUN/Creatinine Ratio 24.00 H (12.00-20.00) Ratio Glucose 111 H (70-110) mg/dL Assessment and Plan (1) Femoral neck fracture Current Visit: Yes Status: Acute Code(s): S72.009A - FRACTURE OF UNSP PART OF NECK OF UNSP FEMUR, INIT SNOMED Code(s): 7057878 (2) Left hip pain Current Visit: Yes Status: Acute Code(s): M25.552 - PAIN IN LEFT HIP SNOMED Code(s): 63388040 (3) Mechanical back pain Current Visit: Yes Status: Acute Code(s): M54.9 - DORSALGIA, UNSPECIFIED SNOMED Code(s): 368634824 (4) Breast cancer Current Visit: No Status: Acute Priority: High Code(s): C50.919 - MALIGNANT NEOPLASM OF UNSP SITE OF UNSPECIFIED FEMALE BREAST SNOMED Code(s): 523864042 Plan: The clinical findings are discussed the patient and her . She is to continue with physical therapy. We're planning discharge to home tomorrow versus Sunday with home care.
--- NOTE | 2021-08-13 14:05 | P.PN ---
Subjective Progress Note Date: 08/13/21 Pt doing well today. Worked well with PT yesterday. Excited about advanced diet this morning. Objective - Vital Signs Vital signs: Vital Signs Temp 97 F L 08/13/21 04:30 Pulse 70 08/13/21 10:03 Resp 20 08/13/21 08:30 BP 104/67 08/13/21 10:03 Pulse Ox 96 08/13/21 07:46 Intake & Output 08/12/21 08/13/21 08/13/21 18:59 06:59 18:59 Intake Total 2711 1150 Output Total 500 300 200 Balance 2211 850 -200 Intake: IV 1551 Intake, IV Titration 800 950 Amount Sodium Chloride 0.9% 1, 750 900 000 ml @ 75 mls/hr IV . [id number] [facility] Rx#:[id number] ceFAZolin 2 gm In Sodium 50 50 Chloride 0.9% 50 ml @ 100 mls/hr IVPB Q8H [facility] Rx#: [id number] Oral 360 200 Output: Urine 300 200 Estimated Blood Loss 500 Other: Voiding Method Diaper Diaper External Catheter Incontinent Incontinent # Voids 3 1 - Exam Gen: asleep, arousable HEENT: normocephalic, atraumatic, good hearing acuity, moist mucous membranes Resp: good air exchange, breathing comfortably with no accessory muscle use CVS: good distal perfusion x 4, GI: soft, NTTP, ND : no SPT, no CVAT, jaime catheter not present MSK: no pitting edema, no clubbing Neuro: non-focal, moving all extremities Psych: cooperative, euthymic mood - Labs CBC & Chem 7: 08/13/21 06:05 08/12/21 05:29 Labs: Abnormal Lab Results - Last 24 Hours (Table) 08/12/21 08/13/21 Range/Units 05:29 06:05 RBC 3.62 L (3.80-5.40) m/uL Hgb 10.9 L (11.4-16.0) gm/dL Creatinine 0.5 L (0.6-1.5) mg/dL BUN/Creatinine Ratio 24.00 H (12.00-20.00) Ratio Glucose 111 H (70-110) mg/dL Assessment and Plan Assessment: Pre-operative Clearance Left Hip Fracture - patient is intermediate risk for intermediate risk surgery; may proceed to surgery without further need of testing. - repair and DVT prophylaxis to be addressed by primary team - pain control Multiple Sclerosis Hx of Ulcerative Colitis Hx of Breast Cancer Osteoporosis Mood Disorder -Home medications reviewed and reconciled Thank you for this consult, a member of [employer] is available for any questions or concerns 11/06 via [employer]
[2021-08-13] MEDS: AMITRIPTYLINE HCL 10 MG TAB PO SCH (21:21)
[2021-08-13] MEDS: CHOLECALCIFEROL 25 MCG (1000 IU) TABLET PO SCH (21:21)
[2021-08-13] MEDS: ANASTROZOLE 1 MG TAB PO SCH (21:22)
[2021-08-13] MEDS: ASCORBIC ACID 500 MG TAB PO SCH (21:22)
[2021-08-13] MEDS: SENNOSIDES-DOCUSATE SODIUM 1 EACH TAB PO SCH (21:22)
[2021-08-13] MEDS: GABAPENTIN 300 MG CAP PO SCH (21:22)
[2021-08-13] MEDS: LORATADINE 10 MG TAB PO SCH (21:22)
[2021-08-13] MEDS: MELATONIN 5 MG TABLET PO SCH (21:22)
[2021-08-13] MEDS: FLUoxetine HCL 20 MG CAP PO SCH (21:22)
[2021-08-14] MEDS: HYDROmorphone 1 MG/ML 1 ML SYRINGE IVP PRN (02:33)
[2021-08-14 06:43] LABS: African American GFR (CKD) >90 (>60 ml/min/1.73 sqM); Anion Gap 1 mmol/L; Blood Urea Nitrogen 14 mg/dL (7-17); Calcium 8.8 mg/dL (8.4-10.2); Carbon Dioxide 29 mmol/L (22-30); Chloride 104 mmol/L (98-107); Glucose 97 mg/dL (74-99); Magnesium 2.1 mg/dL (1.6-2.3); Non-African American GFR(CKD) >90 (>60 ml/min/1.73 sqM); Potassium 4.4 mmol/L (3.5-5.1); Sodium 134 mmol/L (137-145)
[2021-08-14] MEDS: ASPIRIN 81 MG PO SCH ×2 (08:42→21:18)
[2021-08-14] MEDS: MELOXICAM 7.5 MG TAB PO SCH (08:42)
[2021-08-14] MEDS: HYDROcodone/APAP 5-325MG 1 EACH TAB PO PRN (08:43)
--- NOTE | 2021-08-14 10:52 | P.PN ---
Subjective Progress Note Date: 08/14/21 Pt did well with PT. Had episode of desaturation last night, now on 2L NC. CXR pending. Objective - Vital Signs Vital signs: Vital Signs Temp 97.8 F 08/14/21 05:00 Pulse 88 08/14/21 07:42 Resp 20 08/14/21 05:00 BP 126/76 08/14/21 07:42 Pulse Ox 99 08/14/21 05:00 Intake & Output 08/13/21 08/14/21 08/14/21 18:59 06:59 18:59 Intake Total 800 Output Total 200 450 Balance -200 350 Intake: Intake, IV Titration 600 Amount Sodium Chloride 0.9% 1, 600 000 ml @ 75 mls/hr IV . [id number] [facility] Rx#:[id number] Oral 200 Output: Urine 200 450 Other: Voiding Method External Catheter External Catheter # Voids 1 - Exam Gen: asleep, arousable HEENT: normocephalic, atraumatic, good hearing acuity, moist mucous membranes Resp: good air exchange, breathing comfortably with no accessory muscle use CVS: good distal perfusion x 4, GI: soft, NTTP, ND : no SPT, no CVAT, jaime catheter not present MSK: no pitting edema, no clubbing Neuro: non-focal, moving all extremities Psych: cooperative, euthymic mood - Labs CBC & Chem 7: 08/13/21 06:05 08/13/21 06:05 Labs: Abnormal Lab Results - Last 24 Hours (Table) 08/13/21 Range/Units 06:05 Sodium 134 L (137-145) mmol/L Creatinine 0.51 L (0.52-1.04) mg/dL Assessment and Plan Assessment: Pre-operative Clearance Left Hip Fracture - patient is intermediate risk for intermediate risk surgery; may proceed to surgery without further need of testing. - repair and DVT prophylaxis to be addressed by primary team - pain control Acute Hypoxemic Respiratory Failure - Oxygen PRN - Encourage IS - OOB to chair for meals - CXR pending Multiple Sclerosis Hx of Ulcerative Colitis Hx of Breast Cancer Osteoporosis Mood Disorder -Home medications reviewed and reconciled Thank you for this consult, a member of [employer] is available for any questions or concerns 11/06 via [employer]
--- NOTE | 2021-08-14 12:57 | P.PN ---
Subjective Progress Note Date: 08/14/21 Principal diagnosis: Left femoral neck fracture. History of breast cancer. Status post hemiarthroplasty left hip. This is a 55-year-old female who is status post fortunato-arthroplasty of the left hip for femoral neck fracture on 08/12/2021. She has no new complaints or concerns today. She does continue to have sciatic pain. Vital signs and labs are stable. Pathology is pending. Objective - Vital Signs Vital signs: Vital Signs Temp 97.8 F 08/14/21 05:00 Pulse 96 08/14/21 07:50 Resp 20 08/14/21 07:50 BP 126/76 08/14/21 07:42 Pulse Ox 99 08/14/21 05:00 Intake & Output 08/13/21 08/14/21 08/14/21 18:59 06:59 18:59 Intake Total 800 Output Total 200 450 450 Balance -200 350 -450 Intake: Intake, IV Titration 600 Amount Sodium Chloride 0.9% 1, 600 000 ml @ 75 mls/hr IV . [id number] [facility] Rx#:[id number] Oral 200 Output: Urine 200 450 450 Other: Voiding Method External Catheter External Catheter External Catheter # Voids 1 1 - Exam This is a pleasant 55-year-old female in no acute distress. She is alert and oriented 3. Exam of the left hip reveals that her dressing is clean, dry and intact. She has full foot and ankle motion without difficulty or pain. Neurovascular status to the lower extremity is intact. - Labs CBC & Chem 7: 08/13/21 06:05 08/13/21 06:05 Labs: Abnormal Lab Results - Last 24 Hours (Table) 08/13/21 Range/Units 06:05 Sodium 134 L (137-145) mmol/L Creatinine 0.51 L (0.52-1.04) mg/dL Assessment and Plan (1) Femoral neck fracture Current Visit: Yes Status: Acute Code(s): S72.009A - FRACTURE OF UNSP PART OF NECK OF UNSP FEMUR, INIT SNOMED Code(s): 3498104 (2) Left hip pain Current Visit: Yes Status: Acute Code(s): M25.552 - PAIN IN LEFT HIP SNOMED Code(s): 26244226 (3) Mechanical back pain Current Visit: Yes Status: Acute Code(s): M54.9 - DORSALGIA, UNSPECIFIED SNOMED Code(s): 260647656 (4) Breast cancer Current Visit: No Status: Acute Priority: High Code(s): C50.919 - MALIGNANT NEOPLASM OF UNSP SITE OF UNSPECIFIED FEMALE BREAST SNOMED Code(s): 611893864 Plan: The clinical findings are discussed the patient. She is to continue with physical therapy. We're planning discharge to home Sunday with home care.
[2021-08-14] MEDS: SODIUM CHLORIDE 0.9% 1,000 ML IV SCH (14:31)
--- NOTE | 2021-08-14 15:14 | XR ---
EXAMINATION TYPE: XR chest 1V portable DATE OF EXAM: 08/14/2021 COMPARISON: 01/21/2020 HISTORY: Single view TECHNIQUE: FINDINGS: Heart and mediastinum are normal. Lungs are clear. Diaphragm is normal. Bony thorax appears normal. IMPRESSION: No change. Normal chest.
[2021-08-14] MEDS: LORATADINE 10 MG TAB PO SCH (21:18)
[2021-08-14] MEDS: ASCORBIC ACID 500 MG TAB PO SCH (21:18)
[2021-08-14] MEDS: SENNOSIDES-DOCUSATE SODIUM 1 EACH TAB PO SCH (21:18)
[2021-08-14] MEDS: MELATONIN 5 MG TABLET PO SCH (21:18)
[2021-08-14] MEDS: CHOLECALCIFEROL 25 MCG (1000 IU) TABLET PO SCH (21:18)
[2021-08-14] MEDS: FLUoxetine HCL 20 MG CAP PO SCH (21:18)
[2021-08-14] MEDS: GABAPENTIN 300 MG CAP PO SCH (21:18)
[2021-08-14] MEDS: AMITRIPTYLINE HCL 10 MG TAB PO SCH (21:19)
[2021-08-14] MEDS: ANASTROZOLE 1 MG TAB PO SCH (21:19)
[2021-08-15 06:45] LABS: Basophils % (A) 0 %; Eosinophils # (A) 0.2 k/uL (0-0.7); Eosinophils % (A) 3 %; HCT 30.1 % (34.0-46.0); HGB 10.2 gm/dL (11.4-16.0); Lymphocytes # (A) 0.7 k/uL (1.0-4.8); Lymphocytes % (A) 9 %; MCH 31.4 pg (25.0-35.0); MCHC 33.8 g/dL (31.0-37.0); Mean Platelet Volume 7.2; Monocytes # (A) 0.4 k/uL (0-1.0); Monocytes % (A) 5 %; Neutrophils # (A) 6.6 k/uL (1.3-7.7); Neutrophils % (A) 83 %; Platelet Count 185 k/uL (150-450); RBC 3.24 m/uL (3.80-5.40); WBC 7.9 k/uL (3.8-10.6)
[2021-08-15] MEDS: MELOXICAM 7.5 MG TAB PO SCH (08:03)
[2021-08-15] MEDS: ASPIRIN 81 MG PO SCH (08:03)
--- NOTE | 2021-08-15 11:20 | P.PN ---
Subjective Progress Note Date: 08/15/21 Pt ambulating well with walker. No further oxygen requirement. CXR was clear. Objective - Vital Signs Vital signs: Vital Signs Temp 99.4 F 08/15/21 04:35 Pulse 115 H 08/15/21 04:35 Resp 16 08/15/21 04:35 BP 145/83 08/15/21 04:35 Pulse Ox 94 L 08/15/21 04:35 Intake & Output 08/14/21 08/15/21 08/15/21 18:59 06:59 18:59 Intake Total 240 290 Output Total 1050 700 Balance -810 -410 Intake: Oral 240 290 Output: Urine 1050 700 Other: Voiding Method External Catheter Bedside Commode # Voids 1 1 - Exam Gen: asleep, arousable HEENT: normocephalic, atraumatic, good hearing acuity, moist mucous membranes Resp: good air exchange, breathing comfortably with no accessory muscle use CVS: good distal perfusion x 4, GI: soft, NTTP, ND : no SPT, no CVAT, jaime catheter not present MSK: no pitting edema, no clubbing Neuro: non-focal, moving all extremities Psych: cooperative, euthymic mood - Labs CBC & Chem 7: 08/15/21 06:09 08/13/21 06:05 Labs: Abnormal Lab Results - Last 24 Hours (Table) 08/15/21 Range/Units 06:09 RBC 3.24 L (3.80-5.40) m/uL Hgb 10.2 L (11.4-16.0) gm/dL Hct 30.1 L (34.0-46.0) % Lymphocytes # 0.7 L (1.0-4.8) k/uL Assessment and Plan Assessment: Pre-operative Clearance Left Hip Fracture - patient is intermediate risk for intermediate risk surgery; may proceed to surgery without further need of testing. - repair and DVT prophylaxis to be addressed by primary team - pain control Acute Hypoxemic Respiratory Failure - Oxygen PRN - Encourage IS - OOB to chair for meals - CXR clear Multiple Sclerosis Hx of Ulcerative Colitis Hx of Breast Cancer Osteoporosis Mood Disorder -Home medications reviewed and reconciled Thank you for this consult, a member of [employer] is available for any questions or concerns 11/06 via [employer] Patient medically clear for discharge. Med rec completed.
[2021-08-15 11:38] VITALS: BP 131/74; PULSE 110; RESP 17; TEMP 98.4
== END 2021-08-15 12:22 | disposition home or self-care (01) | DRG 521 ==
LOC: EC 12:13 → 5NMEDONC 15:57
PROVIDERS: ADMIT Orthopaedic Surgery; ATTEND Orthopaedic Surgery
PROC: 0SRS019 Replacement of Left Hip Joint, Femoral Surface with Metal Synthetic Substitute, Cemented, Open Approach (ICD-10-PCS; principal; 2021-08-12 09:45)
DX: S72.002A Fracture of unspecified part of neck of left femur, initial encounter for closed fracture (principal); J96.01 Acute respiratory failure with hypoxia; Z68.41 Body mass index [BMI] 40.0-44.9, adult; K51.90 Ulcerative colitis, unspecified, without complications; H46.9 Unspecified optic neuritis; Z20.822 Contact with and (suspected) exposure to COVID-19; E66.01 Morbid (severe) obesity due to excess calories; G35 Multiple sclerosis; F32.9 Major depressive disorder, single episode, unspecified; F41.9 Anxiety disorder, unspecified; J45.909 Unspecified asthma, uncomplicated; M54.16 Radiculopathy, lumbar region; M54.32 Sciatica, left side; M81.0 Age-related osteoporosis without current pathological fracture; M19.90 Unspecified osteoarthritis, unspecified site; Z79.82 Long term (current) use of aspirin; Z79.811 Long term (current) use of aromatase inhibitors; Z79.899 Other long term (current) drug therapy; Z85.3 Personal history of malignant neoplasm of breast; Z88.2 Allergy status to sulfonamides; Z90.13 Acquired absence of bilateral breasts and nipples; Z86.14 Personal history of Methicillin resistant Staphylococcus aureus infection; Z98.891 History of uterine scar from previous surgery; Z91.81 History of falling; Z90.89 Acquired absence of other organs; Z98.890 Other specified postprocedural states; Z92.3 Personal history of irradiation; Z92.21 Personal history of antineoplastic chemotherapy; W22.8XXA Striking against or struck by other objects, initial encounter; Z83.2 Family history of diseases of the blood and blood-forming organs and certain disorders involving the immune mechanism
CPT/HCPCS: 36415; 71045; 72132; 72170; 73501; 73502; 80048; 80053; 83735; 85025; 86850; 86900; 86901; 87635; 94760; 96374; 96375; 96376; 99285

== ENCOUNTER → 2021-08-25 | Outpatient (CLI) | payer BC ==
[2021-08-25 12:22] VITALS: BP 140/76; PULSE 97; RESP 16; TEMP 98.4
--- NOTE | 2021-08-25 12:36 | P.PN ---
Subjective Progress Note Date: 08/25/21 Principal diagnosis: Stage II right breast invasive ductal cancer, now stage 4 with hip mets Nahomy is a 55-year-old white female who was initially seen in August 2019 with a mass in her right breast. Core biopsy was positive for invasive ductal carcinoma, G-2, ER/AR positive, HER-2 negative. The lesion was 3.5 x 3.8 cm in size at the 7 o'clock position of the right breast. Genetic testing was negative. On she underwent a right mastectomy with subpectoral implant reconstruction. Pathology at the time of the mastectomy revealed a 4 cm lesion. Lymph nodes revealed sentinel node positive for micrometastatic disease and 5 additional nodes negative for cancer. The implant became infected and was necessary for this to be removed. She did not have new implants replaced. She completed 4 cycles of adjuvant TC on 5719. She completed adjuvant radiation therapy in April 2020. She was started on Arimidex in May 2020 and is continuing on this without difficulty Following the radiation the patient noted a small opening in her right chest wall incision. She has had intermittent drainage from several sites since that time. She wished to have revision of the surgical scar and removal of redundant tissue. Secondary to the radiation she received pre-operative hyperbaric oxygen and continued this after the procedure. The patient at that time had no evidence of metastatic disease. She did have a computed tomography scan of the chest performed on which revealed stable prominent thoracic lymph nodes favoring inflammatory or old granulomatous disease. Patient's last left breast mammogram was 09/23/2020 this was benign BIRADS 1. She hit her hip on the table at work several days before she was diagnosed with a fracture on 08-11-21. She had hip surgery on 08-12-21. She is walking now. Her pathology was consistent for metastatic breast cancer. Family History: paternal aunt: breast cancer paternal cousin: bilateral breast cancer Hormonal History: menarche: 13 M1, age at first :23, breast fed: yes menopause: stopped periods 2 years ago BCP: 14 years hormones: none Surgical history: Right mastectomy with subpectoral implant placement and axillary node removal Removal of subpectoral implant Anal fissure Tonsillectomy right hip surgery Medical history: asthma lymphedema right arm Multiple sclerosis Social History: Nicotine: Negative Alcohol: Negative Drugs: Negative - Constitutional Comment: hot flashes 5 times/day Constitutional: Denies chills, Denies fever - EENT Comment: optic neuritits Ears: deny: decreased hearing, tinnitus Ears, nose, mouth and throat: Denies headache, Denies sore throat - Breasts Breasts: bilateral: as per HPI - Cardiovascular Cardiovascular: Denies chest pain, Denies shortness of breath - Respiratory Respiratory: Denies cough - Gastrointestinal Comment: colitis Gastrointestinal: Denies abdominal pain, Denies diarrhea, Denies nausea, Denies vomiting - Genitourinary (Female) Genitourinary: Denies dysuria, Denies hematuria - Menstruation Menstruation: Reports postmenopausal - Musculoskeletal Musculoskeletal: Denies myalgias - Integumentary Comment: Skin biopsy done by [facility] results pending Integumentary: Denies pruritus, Denies rash - Neurological Neurological: Denies numbness, Denies weakness - Psychiatric Psychiatric: Reports anxiety, Reports depression - Endocrine Endocrine: Denies fatigue, Denies weight change - Hematologic/Lymphatic Comment: baby aspirin - Allergic/Immunologic Allergic/Immunologic: Reports as per HPI Objective - Constitutional General appearance: Present: cooperative - EENT Eyes: Present: EOMI ENT: Present: hearing grossly normal - Neck Neck: Present: normal ROM - Respiratory Respiratory: bilateral: CTA - Cardiovascular Heart sounds: normal: S1, S2 - Musculoskeletal Musculoskeletal Comment(s): Left hip fracture, patient is ambulating at this time without difficulty Musculoskeletal: Present: gait normal - Psychiatric Psychiatric: Present: A&O x's 3, appropriate affect, intact judgment & insight - Additional findings Additional findings: Chest wall: Well-healed no evidence of any recurrent cancer Right axilla: No evidence of any recurrent disease Left breast: No masses or nodules of concern Left axilla: No adenopathy of concern Assessment and Plan Assessment: Impression: asthma lymphedema right arm Multiple sclerosis left hip fracture/ stage 4 metastatic breast cancer Plan: Follow-up medical oncology Follow-up radiation oncology Follow-up here in 4 months PET/CT to be done IGGY Cc: Dr. Santillan
== END ==
LOC: WWCWWP 12:03
PROVIDERS: ATTEND Surgery
DX: C50.911 Malignant neoplasm of unspecified site of right female breast (principal); G35 Multiple sclerosis; I89.0 Lymphedema, not elsewhere classified; J45.909 Unspecified asthma, uncomplicated; Z17.0 Estrogen receptor positive status [ER+]; Z90.11 Acquired absence of right breast and nipple; Z80.3 Family history of malignant neoplasm of breast; Z88.2 Allergy status to sulfonamides

== ENCOUNTER → 2021-09-02 | Outpatient (CLI) | payer BC ==
--- NOTE | 2021-09-06 10:45 | PE ---
Nuclear medicine PET/CT HISTORY: Metastatic breast carcinoma, C 79.81, right, subsequent Patient received 9.5 mCi F-18 FDG intravenously in delayed scanning was performed from skull base to the mid thighs. Localization and attenuation correction CT scan was performed. Chest and neck: There is no evident cervical or supraclavicular adenopathy. Postop changes noted to t he right breast, there is some hypermetabolic uptake which is thought likely to be inflammatory. Some mild uptake present within the right hilar nodes which are not enlarged, SUV 2.92, 3.2 left hilar no de 2.7. There is no pleural or pericardial effusion. No evident axillary adenopathy. ABDOMEN: There is no evident liver mass. No retroperitoneal adenopathy. At the level the head of the pancreas there is some nodes present, only mild metabolic activity, SUV 2.9. There is no ascites. Osseous structures remarkable for a contents uptake associated with patient's left hip arthroplasty, SUV greater than 15, within the subcutaneous fat laterally there is probable postoperative collection , consider seroma or hematoma there is streak artifact present. IMPRESSION: Postop changes. Nonspecific findings. Findings at the left hip are felt likely to be due to postop change. Follow-up as indicated.
== END | disposition home or self-care (01) ==
LOC: RADPETMAIN 10:57
PROVIDERS: ATTEND Surgery
DX: C50.911 Malignant neoplasm of unspecified site of right female breast (principal)
CPT/HCPCS: 78815; A9552

== ENCOUNTER 2021-09-23 11:41 | Day surgery (SDC) | payer BC ==
[2021-09-21 11:47] VITALS: BMI 41.8
[~2021-09-23 11:41] MED LIST changes: +ALBUTEROL NEB (CONC) 2.5 MG/0.5 ML INHALATION ONE; -DEXAMETHASONE SOD PHOSPHATE 4 MG/ML 1 ML VIAL IV ONE; -HEPARIN SODIUM,PORCINE/PF 5,000 UNIT/0.5 ML SYRINGE SQ PRN; +LACTATED RINGERS 1,000 ML IV SCH; +LIDOCAINE 1% (10MG/ML) FOR IV START INTRADERMA PRN; +LIDOCAINE 2% (PF) 20 MG/ML 5 ML VIAL INHALATION ONE; +LIDOCAINE VISCOUS 300 MG/15 ML CUP MUCOUS MEM ONE; -ONDANSETRON 4 MG/2 ML VIAL IVP ONE; -VANCOMYCIN 1,250 MG in SODIUM CHLORIDE 0.9% 250 ML IVPB PRN
[2021-09-23] MEDS ORDERED: ONDANSETRON 4 MG/2 ML VIAL ONE (12:48)
[2021-09-23] MEDS ORDERED: fentaNYL (PF) 50 MCG/ML 2 ML AMP ONE (12:59)
[2021-09-23] MEDS ORDERED: MIDAZOLAM 2 MG/2 ML VIAL ONE (12:59)
[2021-09-23] MEDS ORDERED: GLYCOPYRROLATE 0.2 MG/ML 2 ML VIAL ONE (12:59)
[2021-09-23] MEDS ORDERED: LIDOCAINE 1% INJ 10MG/ML (20 ML MDV) ONE (12:59)
[2021-09-23] MEDS ORDERED: PROPOFOL 10 MG/ML 20 ML VIAL IV ONE (12:59)
[2021-09-23] MEDS ORDERED: ROCURONIUM 10 MG/ML (5 ML VIAL) IV ONE (12:59)
[2021-09-23] MEDS ORDERED: NEOSTIGMINE 1 MG/ML 10 ML VIAL ONE (12:59)
--- NOTE | 2021-09-23 13:59 | P.PCN ---
Date of Procedure: 09/23/21 Preoperative Diagnosis: Metastatic breast cancer Mediastinal lymphadenopathy Postoperative Diagnosis: Metastatic breast cancer Mediastinal lymphadenopathy Procedure(s) Performed: Flexible bronchoscopy Endobronchial ultrasound Transbronchial needle aspirate of the station 10R and 11R lymph node Anesthesia: NANNETTE Surgeon: Eagle Doe Clin Tech #1: Tamra Coles Estimated Blood Loss (ml): 0 Pathology: other Condition: stable Disposition: same day Operative Findings: This procedure was done in the endoscopy suite. The patient was intubated by #8 orotracheal tube by the anesthesia team. The patient was placed on a mechanical ventilator. After achieving adequate airway control, oxygenation and ventilation and sedation, the flexible bronchoscope was introduced into the orotracheal tube and physical and lower trachea. Examination of the airway was done. The distal trachea, bilateral mainstem bronchi, right upper lobe bronchus, bronchus intermedius, right middle lobe bronchus and right lower lobe bronchus and the left upper lobe bronchus and left lower bronchus were all inspected and were all within normal limits. The parents segments on the right and 8 segments on the left with also inspected and there were all within normal limits. No endobronchial tumors. No respiratory secretions. No mucus. No foreign bodies Following that, the flexible bronchoscope was removed and the endobronchial ultrasound/EBUS was introduced. Examination of the mediastinal airways revealed that the patient had 2 subcarinal lymph nodes measuring 8 x 4.6 mm in size and 6 x 2.7 mm in size. There was also another 11 x 7 mm station 10 R lymph node and, by 7.6 cm patient 11 R lymph node. Note that the 10 R and 11 R lymph nodes were slightly avid on the previous PET scan. Based on that, under ultrasonic guidance, EBUS directed transbronchial needle aspirate of the station 11 R lymph node was done with a total of 5 passes taken using a 22-gauge needle. Following that EBUS directed transbronchial needle aspirate of station 10 R lymph node was done with total of 4 passes using 22-gauge needle. No bleeding complications. Samples were sent for histologic evaluation. Bronchoscope was removed. Flexible bronchoscope was introduced and therapeutic it was suctioning was done. The flexible onset was removed. Following that the patient was extubated and transferred to recovery in stable condition. No bedside complications. Patient was monitored in recovery and discharged home if stable.
[2021-09-23 14:27] VITALS: TEMP 97.4
--- NOTE | 2021-09-23 14:42 | XR ---
EXAMINATION TYPE: XR chest 1V portable DATE OF EXAM: 09/23/2021 Comparison: 08/14/2021 Clinical History: 55-year-old female post bronchoscopy Findings: Heart borderline enlarged. Diffuse interstitial density. Patchy retrocardiac opacity. Impression: 1. No appreciable pneumothorax. 2. Borderline cardiomegaly and interstitial changes. Correlate to exclude mild pulmonary vascular con gestion. 3. There is patchy retrocardiac atelectasis or consolidation.
[2021-09-23 14:44] VITALS: RESP 16
[2021-09-23] MEDS ORDERED: HYDROcodone/APAP 5-325MG 1 EACH TAB ONE (14:59)
[2021-09-23] MEDS ORDERED: HYDROcodone/APAP 5-325MG 1 EACH TAB PO ONE (15:06)
[2021-09-23 15:36] VITALS: BP 144/76; PULSE 91
[2021-09-25] MEDS ORDERED: LIDOCAINE 1% INJ 10MG/ML (20 ML MDV) ONE (12:59)
[2021-09-25] MEDS ORDERED: ROCURONIUM 10 MG/ML (5 ML VIAL) IV ONE (12:59)
[2021-09-25] MEDS ORDERED: NEOSTIGMINE 1 MG/ML 10 ML VIAL ONE (12:59)
[2021-09-25] MEDS ORDERED: PROPOFOL 10 MG/ML 20 ML VIAL IV ONE (12:59)
[2021-09-25] MEDS ORDERED: GLYCOPYRROLATE 0.2 MG/ML 2 ML VIAL ONE (12:59)
[2021-09-25] MEDS ORDERED: MIDAZOLAM 2 MG/2 ML VIAL ONE (12:59)
[2021-09-25] MEDS ORDERED: fentaNYL (PF) 50 MCG/ML 2 ML AMP ONE (12:59)
== END 2021-09-23 15:51 | disposition home or self-care (01) ==
LOC: ORWHC2ENDO 11:41
PROVIDERS: ATTEND Internal Medicine Critical Care Medicine
DX: R59.0 Localized enlarged lymph nodes (principal); C50.919 Malignant neoplasm of unspecified site of unspecified female breast; I51.7 Cardiomegaly; Z98.890 Other specified postprocedural states
CPT/HCPCS: 31652; 31645; 71045; J2405

== ENCOUNTER 2021-10-21 10:03 | Emergency (ER) | payer BC ==
[2021-10-21 10:21] VITALS: TEMP 97.6
[2021-10-21] MEDS ORDERED: HYDROmorphone 1 MG/ML 1 ML SYRINGE IM STA (10:23)
--- NOTE | 2021-10-21 11:16 | XR ---
EXAMINATION TYPE: XR Hip LT and AP Pelvis DATE OF EXAM: 10/21/2021 COMPARISON: NONE HISTORY: Pain TECHNIQUE: A single AP view of the pelvis is obtained. Two views of the left hip are obtained. FINDINGS: There is postsurgical change involving the left hip. Metallic clips seen within the diaphy sis. Degenerative change lower lumbar spine. No acute fracture or dislocation. IMPRESSION: 1. Postoperative change.
--- NOTE | 2021-10-21 11:22 | ED ---
Lower Extremity Injury HPI - General Chief Complaint: Extremity Injury, Lower Stated Complaint: hip pain Time Seen by Provider: 10/21/21 10:16 Source: patient, RN notes reviewed Mode of arrival: wheelchair Limitations: no limitations - History of Present Illness Initial Comments: Patient is a 56-year-old female that presents to the emergency department complaining of left hip pain. She notes she has a history of breast cancer that metastasized to her left hip. Patient notes that she did have a hip replacement. She notes that she rolled over in bed last night felt a pop in her left hip and noticed sore. Patient notes she can emergency room for evaluation for any possible fractures or hardware issues. Patient was otherwise well- appearing. She denied any other issues or complaints. She denied any numbness or tingling in her left lower external lip. She did know weakness secondary to pain. She denied chest pain shortness of breath headache nausea vomiting diarrhea constipation fever fatigue chills. - Related Data Home Medications Medication Instructions Recorded Confirmed Gabapentin [Neurontin] 600 mg PO HS 09/24/19 10/21/21 Loratadine [Claritin] 10 mg PO HS 01/21/20 10/21/21 Amitriptyline HCl 10 mg PO HS 10/21/20 10/21/21 Glatiramer Acetate 40 mg SQ MOWEFR 10/21/20 10/21/21 Cranberry Fruit Extract [Cranberry] 400 mg PO HS 05/26/21 10/21/21 FLUoxetine HCL [PROzac] 20 mg PO HS 05/26/21 10/21/21 Melatonin 5 mg PO HS 05/26/21 10/21/21 Ascorbic Acid [Vitamin C] 1,000 mg PO HS 06/10/21 10/21/21 Cholecalciferol (Vitamin D3) 125 mcg PO HS 08/11/21 10/21/21 [Vitamin D3 (125 MCG = 5,000 IU)] Aspirin [Adult Low Dose Aspirin EC] 81 mg PO HS 09/21/21 10/21/21 Albuterol Nebulized [Ventolin 2.5 mg INHALATION RT-Q6H PRN 10/21/21 10/21/21 Nebulized] Baclofen [Lioresal] 20 mg PO HS 10/21/21 10/21/21 Capecitabine [Xeloda] 1,500 mg PO DIRECTED 10/21/21 10/21/21 Capecitabine [Xeloda] 150 mg PO DIRECTED 10/21/21 10/21/21 Ibuprofen [Motrin] 800 mg PO Q8H PRN 10/21/21 10/21/21 Ondansetron [Zofran] 4 mg PO Q8H PRN 10/21/21 10/21/21 Zinc 50 mg PO HS 10/21/21 10/21/21 Allergies Allergy/AdvReac Type Severity Reaction Status Date / Time Sulfa (Sulfonamide Allergy Mild Rash/Hives Verified 10/21/21 11:27 Antibiotics) Review of Systems ROS Statement: Those systems with pertinent positive or pertinent negative responses have been documented in the HPI. ROS Other: All systems not noted in ROS Statement are negative. Past Medical History Past Medical History: Asthma, Cancer, Neurologic Disorder, Osteoarthritis (OA) Additional Past Medical History / Comment(s): right breast cancer 08/2019,stage IV breast cancer with bone mestasis 07/09; MULTIPLE SCLEROSIS; optic neuritis; lymphadema rt arm; mild lichenoid inflammation lt axillary area and inbetween legs; colitis History of Any Multi-Drug Resistant Organisms: MRSA Date of last positivie culture/infection: 01/2020 MDRO Source:: abdomen Past Surgical History: Section, Orthopedic Surgery, Tonsillectomy Additional Past Surgical History / Comment(s): section x4; 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, subsequent extraction of tissue mallet cutter without insertion of prosthesis due to infection; right chest wall revision 06/14/21; fx lt hip with surgery using cement to repair 08/11/21 Past Anesthesia/Blood Transfusion Reactions: Postoperative Nausea & Vomiting (PONV) Past Psychological History: Anxiety, Depression Smoking Status: Never smoker Past Alcohol Use History: None Reported Past Drug Use History: None Reported - Past Family History Brother(s) Family Medical History: Deep Vein Thrombosis (DVT) Additional Family Medical History / Comment(s): 2 BROTHERS WITH DVT'S General Exam Limitations: no limitations General appearance: alert, in no apparent distress, obese Head exam: Present: atraumatic, normocephalic, normal inspection Eye exam: Present: normal appearance, PERRL, EOMI. Absent: scleral icterus, conjunctival injection, periorbital swelling ENT exam: Present: normal exam, mucous membranes moist Neck exam: Present: normal inspection Respiratory exam: Present: normal lung sounds bilaterally. Absent: respiratory distress, wheezes, rales, rhonchi, stridor Cardiovascular Exam: Present: regular rate, normal rhythm, normal heart sounds. Absent: systolic murmur, diastolic murmur, rubs, gallop, clicks Extremities exam: Present: normal inspection, full ROM, normal capillary refill. Absent: tenderness, pedal edema, joint swelling, calf tenderness Neurological exam: Present: alert, oriented X3 Psychiatric exam: Present: normal affect, normal mood Skin exam: Present: warm, dry, intact, normal color. Absent: rash Course Vital Signs 10/21/21 10:15 Temperature 97.6 F Pulse Rate 93 Respiratory 20 Rate Blood Pressure 130/70 O2 Sat by Pulse 99 Oximetry Medical Decision Making - Medical Decision Making 56-year-old female complaining of left hip pain after rolling over in bed last night. Left hip and pelvis x-ray, 1 mg of Dilaudid ordered. X-ray shows postoperative changes with no acute process. Patient was informed of these results and was informed that she needs to follow- up with her surgeon. Case discussed with Dr. Larkin. Patient is better with discharge home. - Radiology Data Radiology results: report reviewed, image reviewed Left hip and pelvis x-ray: Postoperative change. Disposition Clinical Impression: Strain of left hip Disposition: HOME SELF-CARE Condition: Stable Instructions (If sedation given, give patient instructions): Hip Pain (ED) Additional Instructions: Please return to the Emergency Department if symptoms worsen or any other concerns. Follow-up with primary care 1-2 days. Take Tylenol Motrin 3 alternating every 3 hours for pain control. Follow-up with corrections specialist. Is patient prescribed a controlled substance at d/c from ED?: No Referrals: Manpreet Santillan MD [Primary Care Provider] - 1-2 days Time of Disposition: 11:36
[2021-10-21] MEDS ORDERED: ONDANSETRON ODT 4 MG TAB PO STA (11:25)
[2021-10-21] MEDS ORDERED: ONDANSETRON 4 MG ODT STARTER PACK 2 TAB BTL PO STA (12:15)
[2021-10-21 12:23] VITALS: BP 128/72; PULSE 82; RESP 18
== END 2021-10-21 12:24 | disposition home or self-care (01) ==
LOC: EC 10:03
DX: S76.012A Strain of muscle, fascia and tendon of left hip, initial encounter (principal); W06.XXXA Fall from bed, initial encounter; J45.909 Unspecified asthma, uncomplicated; M19.90 Unspecified osteoarthritis, unspecified site; F41.9 Anxiety disorder, unspecified; F32.A Depression, unspecified
CPT/HCPCS: 73502; 99283; 96372; J1170; S0119

== ENCOUNTER → 2021-11-01 | Outpatient (CLI) | payer BC ==
--- NOTE | 2021-11-01 11:10 | MM ---
Reason for exam: additional evaluation requested from prior study. Last mammogram was performed 1 year and 1 month ago. History: Patient is postmenopausal and has history of breast cancer at age 53. Family history of breast cancer in paternal cousin. Mastectomy of the right breast. Chemotherapy. Radiation therapy of the right breast. Taking antineoplastic for 4 years. Physical Findings: Nurse did not find any significant physical abnormalities on exam. MG 3D Diag Mammo W/Cad LT CC and MLO view(s) were taken of the left breast. Prior study comparison: September 23, 2020, left breast MG 3d diag mammo w/cad LT. September 16, 2019, mammogram, performed at [facility]. There are scattered fibroglandular densities. These results were verbally communicated with the patient and result sheet given to the patient on 11/01/21. ASSESSMENT: Benign, BI-RAD 2 RECOMMENDATION: Follow-up diagnostic mammogram of the left breast in 1 year. Manage patient on a clinical basis. Ongoing appropriate oncologic management of known metastatic cancer.
== END | disposition home or self-care (01) ==
LOC: RADMAMWWP 08:34
PROVIDERS: ATTEND Surgery
DX: R92.8 Other abnormal and inconclusive findings on diagnostic imaging of breast (principal); Z85.3 Personal history of malignant neoplasm of breast
CPT/HCPCS: 77061; 77065

== ENCOUNTER → 2021-11-25 | Outpatient (CLI) | payer BC ==
[2021-11-25 12:50] VITALS: BP 112/73; PULSE 83; RESP 18; TEMP 97.8
--- NOTE | 2021-11-25 13:03 | P.PN ---
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 Core biopsy was positive for invasive ductal carcinoma, G-2, ER/AK positive, HER-2 negative. The lesion was 3.5 x 3.8 cm in size at the 7 o'clock position of the right breast. Genetic testing was negative. On she underwent a right mastectomy with subpectoral implant reconstruction. Pathology at the time of the mastectomy revealed a 4 cm lesion. Lymph nodes revealed sentinel node positive for micrometastatic disease and 5 additional nodes negative for cancer. The implant became infected and was necessary for this to be removed. She did not have new implants replaced. She completed 4 cycles of adjuvant TC on 5719. She completed adjuvant radiation therapy in April 2020. She was started on Arimidex in May 2020 and is continuing on this without difficulty Following the radiation the patient noted a small opening in her right chest wall incision. She has had intermittent drainage from several sites since that time. She wished to have revision of the surgical scar and removal of redundant tissue. Secondary to the radiation she received pre-operative hyperbaric oxygen and continued this after the procedure. The patient at that time had no evidence of metastatic disease. She did have a computed tomography scan of the chest performed on which revealed stable prominent thoracic lymph nodes favoring inflammatory or old granulomatous disease. Patient's last left breast mammogram was 09/23/2020 this was benign BIRADS 1. She hit her hip on the table at work several days before she was diagnosed with a fracture on 08-11-21. She had hip surgery on 08-12-21. She is walking now. Her pathology was consistent for metastatic breast cancer. She has no complaints of lumps masses or nodules on the chest wall or either breast. She had a left breast mammogram on 11-01-21 Benign BIRAD 2 She is complaining of pain in her left hip. She told Dr. Levine and a CT scan and a bone scan are ordered in two weeks. She will follow up with Dr. Levine at that time. She just saw him today. Family History: paternal aunt: breast cancer paternal cousin: bilateral breast cancer Hormonal History: menarche: 13 M1, age at first :23, breast fed: yes menopause: stopped periods 2 years ago BCP: 14 years hormones: none Surgical history: Right mastectomy with subpectoral implant placement and axillary node removal Removal of subpectoral implant Anal fissure Tonsillectomy right hip surgery Medical history: asthma lymphedema right arm Multiple sclerosis Social History: Nicotine: Negative Alcohol: Negative Drugs: Negative - Constitutional Comment: hot flashes 5 times/day Constitutional: Denies chills, Denies fever - EENT Comment: optic neuritits Ears: deny: decreased hearing, tinnitus Ears, nose, mouth and throat: Denies headache, Denies sore throat - Breasts Breasts: bilateral: as per HPI - Cardiovascular Cardiovascular: Denies chest pain, Denies shortness of breath - Respiratory Respiratory: Denies cough - Gastrointestinal Comment: colitis Gastrointestinal: Denies abdominal pain, Denies diarrhea, Denies nausea, Denies vomiting - Genitourinary (Female) Genitourinary: Denies dysuria, Denies hematuria - Menstruation Menstruation: Reports postmenopausal - Musculoskeletal Musculoskeletal: Denies myalgias - Integumentary Comment: Skin biopsy done by certified technician specialist results pending Integumentary: Denies pruritus, Denies rash - Neurological Neurological: Denies numbness, Denies weakness - Psychiatric Psychiatric: Reports anxiety, Reports depression - Endocrine Endocrine: Denies fatigue, Denies weight change - Hematologic/Lymphatic Comment: baby aspirin - Allergic/Immunologic Allergic/Immunologic: Reports as per HPI Objective - Constitutional General appearance: Present: cooperative - EENT ENT: Present: hearing grossly normal - Neck Neck: Present: normal ROM - Respiratory Respiratory: bilateral: CTA - Cardiovascular Heart sounds: normal: S1, S2 - Gastrointestinal General gastrointestinal: Present: soft - Integumentary Integumentary Comment(s): Well-healed scar right chest wall no evidence of recurrence, no evidence of infection - Musculoskeletal Musculoskeletal: Present: gait normal - Psychiatric Psychiatric: Present: A&O x's 3, appropriate affect, intact judgment & insight - Additional findings Additional findings: Breast Exam: BRA: 46B inspection: Well-healed scar right chest wall, left breast grade 3 ptosis Palpation: Right chest wall: No evidence of recurrent cancer Right axilla: No adenopathy of concern Left breast: Multiple positional exam no dominant masses or nodules of concern Left axilla: No adenopathy of concern Assessment and Plan Assessment: Impression: Stage IV right breast cancer metastatic to left hip patient following with DR. Levine/ on Xeloda; Zometa to strengthen the bone status post radiation to left hip recent mammogram on 11-01-21 BIRAD 2 Plan: 1. Continue follow-up with Dr. Levine 2. CT scans chest abdomen and pelvis ordered as well as a bone scan 3. Will appear in 4 months 4. Repeat left breast mammogram in 1 year CC: Dr. Santillan
== END ==
LOC: WWCWWP 12:26
PROVIDERS: ATTEND Surgery
DX: C50.911 Malignant neoplasm of unspecified site of right female breast (principal); C79.89 Secondary malignant neoplasm of other specified sites; Z92.3 Personal history of irradiation; J45.909 Unspecified asthma, uncomplicated; Z88.2 Allergy status to sulfonamides

== ENCOUNTER → 2022-01-03 | Outpatient (CLI) | payer BC, OTHER ==
[2022-01-03 10:36] LABS: African American GFR (CKD) >90 (>60 ml/min/1.73 sqM); Blood Urea Nitrogen 10 mg/dL (7-17); Non-African American GFR(CKD) >90 (>60 ml/min/1.73 sqM)
--- NOTE | 2022-01-03 13:38 | CT ---
EXAMINATION TYPE: CT Chest Abd Pelvis w con DATE OF EXAM: 01/03/2022 COMPARISON: PET scan dated 09/02/[address] chest dated 07/11/2021 HISTORY: Breast cancer CT DLP: 1754.30 mGycm Automated exposure control for dose reduction was used. CONTRAST: Multiplanar CT scan of the chest, abdomen and pelvis is performed with Oral Contrast and with IV Cont rast, patient injected with 100 ml mL of Isovue 300. FINDINGS: Chest: Unremarkable lungs with no definite lung nodule identified. No pleural or pericardial effusion. No gr oss cardiomegaly. Stable millimetric hilar and mediastinal lymph nodes with no progressive lymphadeno abhinav in the chest. Previous right mastectomy. Soft tissue thickening and scarring are seen along the lateral aspect of t he mastectomy bed, smaller as compared to the previous CT scan. No aggressive bone lesion. Abdomen and pelvis: No definite hepatic focal lesion. Contracted gallbladder. Unremarkable spleen, pancreas, adrenals and kidneys. The urinary bladder and the adjacent left pelvic organs are partially obscured by the left hip prosthesis. No gross uterine or adnexal mass. Unremarkable abdominal aorta and IVC. Unremarkable stomach. Small second part of the duodenum diverticulum. Unremarkable small bowel. Moder ate fecal loading of the colon. Normal appendix. No suspicious lymphadenopathy or sizable ascites. Le ft hip arthroplasty. No aggressive bone lesion. IMPRESSION: Status post right mastectomy demonstrating post surgical changes as described above. No evidence of m etastatic disease seen in the chest, abdomen or the pelvis. Incidental findings as described above.
--- NOTE | 2022-01-03 15:00 | NM ---
EXAMINATION TYPE: NM bone scan whole body DATE OF EXAM: 01/03/2022 COMPARISON: CT scan 01/03/2022 HISTORY: Breast cancer Delayed whole-body scanning was performed following the injection of 21.4 mCi Tc 99m MDP. Images acq uired 3.5 hours post injection. FINDINGS: Photopenic defect involving the left hip compatible with previous surgery. Abnormal uptake involving the knees, feet, ankles and shoulders most typical of post arthritic change. Faint uptake throughout the lower cervical, thoracic and lumbar spine likely on the basis of hypertro phic and degenerative changes as noted by previous CT scan. Increased uptake along the calvarium likely related to hyperostosis. IMPRESSION: 1. No diagnostic evidence of metastasis
== END | disposition home or self-care (01) ==
LOC: RADNMMAIN 08:59
PROVIDERS: ATTEND Internal Medicine Hematology & Oncology
DX: K57.10 Diverticulosis of small intestine without perforation or abscess without bleeding (principal); K82.0 Obstruction of gallbladder; Z85.3 Personal history of malignant neoplasm of breast
CPT/HCPCS: 82565; 84520; 71260; 74177; 36415; 78306; A9503; Q9967

== ENCOUNTER → 2022-03-30 | Outpatient (CLI) | payer BC, OTHER ==
[2022-03-30 16:28] VITALS: BP 154/79; PULSE 86; RESP 17; TEMP 98.7
--- NOTE | 2022-03-30 16:32 | P.PN ---
Subjective Progress Note Date: 03/30/22 Principal diagnosis: stage 4 right breast cancer stage 4 right breast cancer/ mets to left hip Stage II right breast invasive ductal cancer, now stage 4 with hip mets Nahomy is a 56-year-old white female who was initially seen in August 2019 with a mass in her right breast. Core biopsy was positive for invasive ductal carcinoma, G-2, ER/HI positive, HER-2 negative. The lesion was 3.5 x 3.8 cm in size at the 7 o'clock position of the right breast. Genetic testing was negat bran. On she underwent a right mastectomy with subpectoral implant reconstruction. Pathology at the time of the mastectomy revealed a 4 cm lesion. Lymph nodes revealed sentinel node positive for micrometastatic disease and 5 additional nodes negative for cancer. The implant became infected and was necessary for this to be removed. She did not have new implants replaced. She completed 4 cycles of adjuvant TC on 5719. She completed adjuvant radiation therapy in April 2020. She was started on Arimidex in May 2020 and is continuing on this without difficulty Following the radiation the patient noted a small opening in her right chest wall incision. She has had intermittent drainage from several sites since that time. She wished to have revision of the surgical scar and removal of redundant tissue. Secondary to the radiation she received pre-operative hyperbaric oxygen and continued this after the procedure. The patient at that time had no evidence of metastatic disease. She did have a computed tomography scan of the chest performed on which revealed stable prominent thoracic lymph nodes favoring inflammatory or old granulomatous disease. Patient's last left breast mammogram was 09/23/2020 this was benign BIRADS 1. She hit her hip on the table at work several days before she was diagnosed with a fracture on 08-11-21. She had hip surgery on 08-12-21. She is walking now. Her pathology was consistent for metastatic breast cancer. She has no complaints of lumps masses or nodules on the chest wall or either breast. She had a left breast mammogram on 11-01-21 Benign BIRAD 2 She is complaining of pain in her left hip. 03-30-[address] Levine 02-22-22 reviewed PET scan on [id number] revealed slight uptake in hilar and mediastinal lymph nodes slight uptake in hip otherwise negative She was started on Xeloda on [id number] On computed tomography scan of COPD and bone scan revealed no evidence of disease She was tolerating treatment well except for dryness in her hands and feet The patient is not complaining of any new lumps masses or nodules of concern in either breast, she is not complaining of any lumps or nodules in her right chest wall or right axilla Family History: paternal aunt: breast cancer paternal cousin: bilateral breast cancer Hormonal History: menarche: 13 M1, age at first :23, breast fed: yes menopause: stopped periods 2 years ago BCP: 14 years hormones: none Surgical history: Right mastectomy with subpectoral implant placement and axillary node removal Removal of subpectoral implant Anal fissure Tonsillectomy right hip surgery Medical history: asthma lymphedema right arm Multiple sclerosis Social History: Nicotine: Negative Alcohol: Negative Drugs: Negative - Constitutional Comment: hot flashes 5 times/day Constitutional: Denies chills, Denies fever - EENT Comment: optic neuritits Ears: deny: decreased hearing, tinnitus Ears, nose, mouth and throat: Denies headache, Denies sore throat - Breasts Breasts: bilateral: as per HPI - Cardiovascular Cardiovascular: Denies chest pain, Denies shortness of breath - Respiratory Respiratory: Denies cough - Gastrointestinal Comment: colitis Gastrointestinal: Denies abdominal pain, Denies diarrhea, Denies nausea, Denies vomiting - Genitourinary (Female) Genitourinary: Denies dysuria, Denies hematuria - Menstruation Menstruation: Reports postmenopausal - Musculoskeletal Musculoskeletal: Denies myalgias - Integumentary Comment: Skin biopsy done by metal trades instructor results pending Integumentary: Denies pruritus, Denies rash - Neurological Neurological: Denies numbness, Denies weakness - Psychiatric Psychiatric: Reports anxiety, Reports depression - Endocrine Endocrine: Denies fatigue, Denies weight change - Hematologic/Lymphatic Comment: baby aspirin - Allergic/Immunologic Allergic/Immunologic: Reports as per HPI Objective - Constitutional General appearance: Present: cooperative - EENT Eyes: Present: EOMI ENT: Present: hearing grossly normal - Neck Neck: Present: normal ROM - Respiratory Respiratory: bilateral: CTA - Cardiovascular Heart sounds: normal: S1, S2 - Integumentary Integumentary Comment(s): dry skin - Musculoskeletal Musculoskeletal: Present: gait normal - Psychiatric Psychiatric: Present: A&O x's 3, appropriate affect, intact judgment & insight - Additional findings Additional findings: Breast Exam: BRA: 42D inspection: Chest wall no evidence of recurrence Left breast grade 3 ptosis Palpation: Right chest wall: No evidence of recurrent cancer Right axilla: No adenopathy of concern Left breast: Multi-positional exam fibrocystic changes no dominant masses or nodules of concern Left axilla: Skin coloration changes for which she has been recommended to see a metal trades instructor in the past this is not bothering the patient at this time no adenopathy of concern Assessment and Plan Assessment: Impression: Stage IV invasive ductal breast cancer, metastatic to the left hip patient on Xeolda Plan: continue xeloda q 12 weeks at this time No evidence of metastatic disease at this time Follow up here in 6 months Cc: Dr. Santillan
== END ==
LOC: WWCWWP 16:14
PROVIDERS: ATTEND Surgery
DX: C79.51 Secondary malignant neoplasm of bone (principal); J45.909 Unspecified asthma, uncomplicated; G35 Multiple sclerosis; Z90.11 Acquired absence of right breast and nipple; Z88.2 Allergy status to sulfonamides

== ENCOUNTER 2022-06-19 16:18 | Emergency (ER) | payer BC, OTHER ==
[2022-06-19 17:17] VITALS: BP 134/78; PULSE 88; RESP 18; TEMP 98.4
--- NOTE | 2022-06-19 18:47 | XR ---
EXAMINATION TYPE: XR knee complete RT DATE OF EXAM: 06/19/2022 COMPARISON: NONE HISTORY: Knee pain TECHNIQUE: 3 views FINDINGS: There is spurring of the femoral and tibial condyles. I see no fracture nor dislocation. No evidence of knee joint effusion. Joint spaces are fairly normal. IMPRESSION: There is mild hypertrophic osteoarthritis. No fracture seen.
--- NOTE | 2022-06-19 19:06 | ED ---
Lower Extremity Injury HPI - General Chief Complaint: Extremity Injury, Lower Stated Complaint: Knee Pain Time Seen by Provider: 06/19/22 17:44 Source: patient Mode of arrival: ambulatory Limitations: no limitations - History of Present Illness Initial Comments: Patient is a 56-year-old female presenting with chief complaint of left knee pain. Patient states that she has chronic DVT and is currently treated as osteoarthritis by her PCP. Patient states that she had a stumble today, causing increased pain to the left knee. Patient does have stage IV breast cancer. Patient is having difficulty with weightbearing. She denies any numbness, tingling, discoloration, redness, swelling. - Related Data Home Medications Medication Instructions Recorded Confirmed Loratadine [Claritin] 10 mg PO HS 01/21/20 03/30/22 Amitriptyline HCl 10 mg PO HS 10/21/20 03/30/22 Cranberry Fruit Extract [Cranberry] 400 mg PO HS 05/26/21 03/30/22 FLUoxetine HCL [PROzac] 20 mg PO HS 05/26/21 03/30/22 Melatonin 5 mg PO HS 05/26/21 03/30/22 Ascorbic Acid [Vitamin C] 1,000 mg PO HS 06/10/21 03/30/22 Cholecalciferol (Vitamin D3) 125 mcg PO HS 08/11/21 03/30/22 [Vitamin D3 (125 MCG = 5,000 IU)] Aspirin [Adult Low Dose Aspirin EC] 81 mg PO HS 09/21/21 03/30/22 Albuterol Nebulized [Ventolin 2.5 mg INHALATION RT-Q6H PRN 10/21/21 03/30/22 Nebulized] Capecitabine [Xeloda] 1,500 mg PO DIRECTED 10/21/21 03/30/22 Capecitabine [Xeloda] 150 mg PO DIRECTED 10/21/21 10/21/21 Ibuprofen [Motrin] 800 mg PO Q8H PRN 10/21/21 03/30/22 Ondansetron [Zofran] 4 mg PO Q8H PRN 10/21/21 03/30/22 Zinc 50 mg PO HS 10/21/21 03/30/22 Allergies Allergy/AdvReac Type Severity Reaction Status Date / Time Sulfa (Sulfonamide Allergy Mild Rash/Hives Verified 06/19/22 17:17 Antibiotics) Review of Systems ROS Statement: Those systems with pertinent positive or pertinent negative responses have been documented in the HPI. ROS Other: All systems not noted in ROS Statement are negative. Past Medical History Past Medical History: Asthma, Cancer, Neurologic Disorder, Osteoarthritis (OA) Additional Past Medical History / Comment(s): right breast cancer 08/2019,stage IV breast cancer with bone mestasis 07/09; MULTIPLE SCLEROSIS; optic neuritis; lymphadema rt arm; mild lichenoid inflammation lt axillary area and inbetween legs; colitis History of Any Multi-Drug Resistant Organisms: MRSA Date of last positivie culture/infection: 01/2020 MDRO Source:: abdomen Past Surgical History: Section, Orthopedic Surgery, Tonsillectomy Additional Past Surgical History / Comment(s): section x4; RIGHT 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, subsequent extraction of tissue front office agent without insertion of prosthesis due to infection; right chest wall revision 06/14/21; fx lt hip with surgery using cement to repair 08/11/21 Past Anesthesia/Blood Transfusion Reactions: Postoperative Nausea & Vomiting (PONV) Past Psychological History: Anxiety, Depression Smoking Status: Never smoker Past Alcohol Use History: None Reported Past Drug Use History: None Reported - Past Family History Brother(s) Family Medical History: Deep Vein Thrombosis (DVT) Additional Family Medical History / Comment(s): 2 BROTHERS WITH DVT'S General Exam Limitations: no limitations General appearance: alert, in no apparent distress Head exam: Present: atraumatic, normocephalic, normal inspection Eye exam: Present: normal appearance, EOMI. Absent: scleral icterus, periorbital swelling Neck exam: Present: normal inspection Left Knee exam: Present: normal inspection, tenderness (Secondary to pain). Absent: full ROM Neurovascular tendon exam: Present: no vascular compromise. Absent: sensory deficit Neurological exam: Present: alert, oriented X3, CN II-XII intact Psychiatric exam: Present: normal affect, normal mood Skin exam: Present: warm, dry, intact, normal color. Absent: rash Course Vital Signs 06/19/22 17:12 Temperature 98.4 F Pulse Rate 88 Respiratory 18 Rate Blood Pressure 134/78 O2 Sat by Pulse 98 Oximetry Medical Decision Making - Medical Decision Making Patient is a 56-year-old female stage IV breast cancer presenting with chief complaint of left knee pain. Patient has chronic pain to this, however pain worsened after stumbling today. On examination she has limited range of motion secondary to pain. There is no vascular compromise or sensory deficit. X-ray shows no acute fracture or dislocation. Patient is given pain medication and instructed to follow-up with her PCP and orthopedist. Report back to ER if any new or worsening symptoms. Discussed return parameters answered all questions. Patient conveyed verbal understanding and agreed to the plan. I discussed this case with my attending Dr. Duffy. Disposition Clinical Impression: Knee sprain, Osteoarthritis Disposition: HOME SELF-CARE Condition: Good Instructions (If sedation given, give patient instructions): Knee Sprain (ED), Osteoarthritis (ED) Additional Instructions: Follow-up with PCP and orthopedist in one to 2 days.. Report back to ER if any new or worsening symptoms. Take Motrin and Tylenol as needed for pain control. Is patient prescribed a controlled substance at d/c from ED?: Yes When asked, does pt state using other controlled substances?: No If prescribed controlled substance>3 days was MAPS reviewed?: Prescribed <3 Days If opioid is for acute pain is fill amount 7 days or less?: Yes Referrals: Manpreet Santillan MD [Primary Care Provider] - 1-2 days Time of Disposition: 19:09
[2022-06-19] MEDS ORDERED: ACET/COD 300 MG/30 MG STARTER PACK 6 TAB BTL PO STA (19:07)
[2022-06-19] MEDS ORDERED: HYDROmorphone 1 MG/ML 1 ML SYRINGE IM STA (19:08)
[2022-06-19] MEDS ORDERED: ONDANSETRON ODT 4 MG TAB PO STA (19:08)
== END 2022-06-19 20:03 | disposition home or self-care (01) ==
LOC: EC 16:18
DX: S83.92XA Sprain of unspecified site of left knee, initial encounter (principal); M17.12 Unilateral primary osteoarthritis, left knee; J45.909 Unspecified asthma, uncomplicated; Z88.2 Allergy status to sulfonamides; X58.XXXA Exposure to other specified factors, initial encounter
CPT/HCPCS: 73562; 99283; 96372; J1170

== ENCOUNTER → 2022-09-06 | Outpatient (CLI) | payer OTHER ==
[2022-09-06 10:14] LABS: African American GFR (CKD) >90 (>60 ml/min/1.73 sqM); Blood Urea Nitrogen 12 mg/dL (7-17); Non-African American GFR(CKD) >90 (>60 ml/min/1.73 sqM)
--- NOTE | 2022-09-06 13:32 | CT ---
EXAMINATION TYPE: CT ChestAbdPelvis w con DATE OF EXAM: 09/06/2022 COMPARISON: 01/03/2022 and 09/02/2021 HISTORY: 56-year-old female C50.311, breast CA TECHNIQUE: Contiguous axial scanning of the chest, abdomen, and pelvis performed with IV Contrast, pa tient injected with 70 mL of Isovue 300. Delayed images through the kidneys were obtained. Coronal/sa gittal reconstructions performed. CT DLP: 1741.6 mGycm Automated exposure control for dose reduction was used. FINDINGS: Chest: Postsurgical change of right mastectomy. Scarring along the deep chest wall remains unchanged. There may be some residual seroma measuring 3.4 x 1.1 cm. Heart upper limits of normal in size without pericardial effusion. Aorta normal caliber with conventional arch vessel branching anatomy. No thoracic lymphadenopathy by CT size criteria. Mild diffuse bronchial wall thickening may reflect bronchitis or chronic asthma. No consolidation or pleural effusion. ABDOMEN: No focal liver lesion or biliary ductal dilatation. Portal venous system is patent. Small 1.3 cm diverticulum of the second portion of the duodenum projecting into the pancreatic head r egion. Gallbladder,, left adrenal gland, kidneys, spleen, and pancreas show no gross abnormality. There is a rosa hepatic lymph node measuring 1.3 cm versus 1.1 cm, previously. There is new right adrenal nodularity measuring 2.2 and 2.0 cm. No dilated small bowel, free fluid, or free air. No mesenteric or retroperitoneal lymphadenopathy. However, there is a new suspicious lower left sided omental mass measuring 5.0 cm and right paramedia n lower omental nodule measuring 1.6 cm. Refer to axial image 72. A third anterior lower right abdominal soft tissue deposit measuring 1.5 cm, axial image 87. Normal appendix. Oral contrast progressed to the rectum. Mild scattered stool. No pericolonic inflamm atory change. PELVIS: Large left external iliac chain lymph node at 2.6 cm is new. Bladder is urine distended. Uterus antev erted. Ovaries not well seen, likely small postmenopausal. No abnormal fluid collection in the pelvis . Bones: Left hip total arthroplasty. Mild degenerative change right hip. Facet arthropathy lower lumbar spine . No osseous destructive process seen. IMPRESSION: 1. STATUS POST RIGHT MASTECTOMY WITH UNDERLYING SCARRING AND POSSIBLE 3.4 X 1.1 CM DEEP SEROMA, OVERA LL UNCHANGED IN APPEARANCE COMPARED TO 01/03/2022. 2. HOWEVER, NEW FINDINGS HIGHLY SUGGESTIVE OF METASTATIC DISEASE: 2 NEW NODULES WITHIN THE RIGHT ADRE NAL GLAND MEASURING UP TO 2.2 CM, 3 LOWER ABDOMINAL OMENTAL SOFT TISSUE DEPOSITS MEASURING UP TO 5.0 CM, AND A NEW 2.6 CM LEFT EXTERNAL ILIAC CHAIN LYMPH NODE.
--- NOTE | 2022-09-06 15:54 | NM ---
EXAMINATION TYPE: NM bone scan whole body DATE OF EXAM: 09/06/2022 COMPARISON: 01/03/2022 HISTORY: Breast cancer Delayed whole-body scanning was performed following the injection of 22.5 mCi Tc 99m MDP. Images acq uired 3 hours post injection. FINDINGS: There is abnormal uptake involving the bilateral knee and right ankle which could be on the basis of postarthritic changes. Findings involving the right ankle could be on the basis of previous trauma. Photopenic defect involving the left hip compatible with previous surgery. There appears to be increa sed uptake near the tip of the prostheses at the mid shaft left femur. This is increasing relative to prior exam. Abnormal uptake involving the calvarium could be on the basis of hyperostosis. Faint uptake seen throughout the thoracic and portions of the lumbar spine are nonspecific but likely degenerative. Abnormal uptake involving the shoulders likely postarthritic. IMPRESSION: 1. No diagnostic evidence of metastases as discussed above. 2. There is no uptake involving the mid left femur near the tip of the prostheses which likely is pos tsurgical. Correlate for loosening, infectious etiology or prostheses dysfunction.
== END | disposition home or self-care (01) ==
LOC: RADNMMAIN 09:12
PROVIDERS: ATTEND Internal Medicine Hematology & Oncology
DX: C50.311 Malignant neoplasm of lower-inner quadrant of right female breast (principal)
CPT/HCPCS: 82565; 84520; 71260; 74177; 36415; 78306; A9503; Q9967

== ENCOUNTER 2022-09-18 08:58 | Day surgery (SDC) | payer OTHER ==
[2022-09-18 09:50] VITALS: RESP 16; TEMP 97.9
[2022-09-18 10:20] LABS: Mean Platelet Volume 8.1; Platelet Count 201 k/uL (150-450)
[2022-09-18 10:28] LABS: INR 0.9 (<1.2); Prothrombin Time 9.6 sec (9.0-12.0)
--- NOTE | 2022-09-18 11:20 | CT ---
EXAMINATION TYPE: CT biopsy st back/flank [facility] DATE OF EXAM: 09/18/2022 COMPARISON: 09/06/2022 HISTORY: Abdominal mass CT DLP: 1041 mGycm The procedure is discussed with the patient, the risks, complications, benefits and alternatives, wer e discussed and any questions were answered. Informed consent was obtained. The patient is placed p ziyad on the CT table, prepped and draped in the usual sterile fashion. Utilizing a 18-gauge core biopsy needle access into the abdominal request of mass was achieved with 2 passes performed. Pathology and. All elements of maximal barrier sterile technique were utilized. The patient remained stable throughout the procedure with no immediate postprocedural complication. IMPRESSION: 1. Successful CT guided core biopsy requested for abdominal mass mass
[2022-09-18 14:17] VITALS: BP 127/69; PULSE 84
== END 2022-09-18 14:15 | disposition home or self-care (01) ==
LOC: RADPROMAIN 08:58
PROVIDERS: ATTEND Internal Medicine Hematology & Oncology
DX: C50.311 Malignant neoplasm of lower-inner quadrant of right female breast (principal)
CPT/HCPCS: 21920; 77012; 85049; 85610

== ENCOUNTER → 2022-11-02 | Outpatient (CLI) | payer OTHER ==
--- NOTE | 2022-11-02 15:21 | MM ---
Reason for Exam: Hx of breast cancer, mastectomy. Last screening mammogram was performed 12 month(s) ago. Patient History: Menarche at age 13. First Full-Term at age 22. Postmenopausal. Breast cancer, right, age 53. Previous chest radiation therapy at age 53. Previous chemotherapy at age 53. Mastectomy on the Right side. Chemotherapy. Radiation Therapy, right. Paternal cousin had breast cancer at or over age 50. Prior Study Comparison: 09/16/2019 Screening Mammogram, [place]. 09/23/2020 Left Diagnostic Mammogram, [facility]. 11/01/2021 Left Diagnostic Mammogram, [facility]. Tissue Density: Left: There are scattered fibroglandular densities. Findings: Analyzed By CAD. Pattern appears stable. Focal asymmetries in the upper outer mid left breast. No suspicious groups of microcalcifications, spiculated or lobular masses, architectural distortion or other secondary signs of malignancy are mammographically apparent. Overall Assessment: Benign, BI-RAD 2 Management: Diagnostic Mammogram of the left breast in 1 year. A negative mammogram report should not preclude additional follow up of suspicious palpable abnormalities. Patient should continue monthly self breast exam. A clinical breast exam by your physician is recommended on an annual basis and results should be correlated with mammographic findings. Electronically signed and approved by: Chadwick Mason D.O. Radiologis
== END | disposition home or self-care (01) ==
LOC: RADMAMWWP 14:37
PROVIDERS: ATTEND Surgery
DX: R92.8 Other abnormal and inconclusive findings on diagnostic imaging of breast (principal); Z85.3 Personal history of malignant neoplasm of breast; Z78.0 Asymptomatic menopausal state; Z80.3 Family history of malignant neoplasm of breast; Z92.3 Personal history of irradiation
CPT/HCPCS: 77061; 77065

== ENCOUNTER → 2022-11-09 | Outpatient (CLI) | payer OTHER ==
--- NOTE | 2022-11-09 15:04 | P.PN ---
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 Core biopsy was positive for invasive ductal carcinoma, G-2, ER/CT positive, HER-2 negative. The lesion was 3.5 x 3.8 cm in size at the 7 o'clock position of the right breast. Genetic testing was negative . On she underwent a right mastectomy with subpectoral implant reconstruction. Pathology at the time of the mastectomy revealed a 4 cm lesion. Lymph nodes revealed sentinel node positive for micrometastatic disease and 5 additional nodes negative for cancer. The implant became infected and was necessary for this to be removed. She did not have new implants replaced. She completed 4 cycles of adjuvant TC on 5719. She completed adjuvant radiation therapy in April 2020. She was started on Arimidex in May 2020 and is continuing on this without difficulty Following the radiation the patient noted a small opening in her right chest wall incision. She has had intermittent drainage from several sites since that time. She wished to have revision of the surgical scar and removal of redundant tissue. Secondary to the radiation she received pre-operative hyperbaric oxygen and continued this after the procedu She hit her hip on the table at work several days before she was diagnosed with a fracture on 08-11-21. She had hip surgery on 08-12-21. She is walking now. Her pathology was consistent for metastatic breast cancer. She has no complaints of lumps masses or nodules on the chest wall or either breast. She had a left breast mammogram on 11-01-21 Benign BIRAD 2 She is complaining of pain in her left hip. 03-30-[address] Levine 02-22-22 reviewed PET scan on [id number] revealed slight uptake in hilar and mediastinal lymph nodes slight uptake in hip otherwise negative She was started on Xeloda on [id number] On computed tomography scan of COPD and bone scan revealed no evidence of disease She was tolerating treatment well except for dryness in her hands and feet The patient is not complaining of any new lumps masses or nodules of concern in either breast, she is not complaining of any lumps or nodules in her right chest wall or right axilla 11-09-22 left breast mammogram 11-02-22 KENJI Machuca Is not complaining of any new lumps masses or nodules of concern in her left breast, nor on her right chest wall. 09-06-22 CT scan revealed disease progression in abdomen, right adrenal, and omental implants She is presently on IBRANCE it is causing her diahrea Family History: paternal aunt: breast cancer paternal cousin: bilateral breast cancer Hormonal History: menarche: 13 M1, age at first :23, breast fed: yes menopause: stopped periods 2 years ago BCP: 14 years hormones: none Surgical history: Right mastectomy with subpectoral implant placement and axillary node removal Removal of subpectoral implant Anal fissure Tonsillectomy right hip surgery Medical history: asthma lymphedema right arm Multiple sclerosis Social History: Nicotine: Negative Alcohol: Negative Drugs: Negative - Constitutional Comment: hot flashes 5 times/day Constitutional: Denies chills, Denies fever - EENT Comment: optic neuritits Ears: deny: decreased hearing, tinnitus Ears, nose, mouth and throat: Denies headache, Denies sore throat - Breasts Breasts: bilateral: as per HPI - Cardiovascular Cardiovascular: Denies chest pain, Denies shortness of breath - Respiratory Respiratory: Denies cough - Gastrointestinal Comment: colitis Gastrointestinal: Denies abdominal pain, Denies diarrhea, Denies nausea, Denies vomiting - Genitourinary (Female) Genitourinary: Denies dysuria, Denies hematuria - Menstruation Menstruation: Reports postmenopausal - Musculoskeletal Musculoskeletal: Denies myalgias - Integumentary Comment: Skin biopsy done by material crew supervisor results pending Integumentary: Denies pruritus, Denies rash - Neurological Neurological: Denies numbness, Denies weakness - Psychiatric Psychiatric: Reports anxiety, Reports depression - Endocrine Endocrine: Denies fatigue, Denies weight change - Hematologic/Lymphatic Comment: baby aspirin - Allergic/Immunologic Allergic/Immunologic: Reports as per HPI Objective - Constitutional General appearance: Present: cooperative - EENT Eyes: Present: EOMI ENT: Present: hearing grossly normal - Neck Neck: Present: normal ROM - Respiratory Respiratory: bilateral: CTA - Cardiovascular Rhythm: regular Heart sounds: normal: S1, S2 - Gastrointestinal General gastrointestinal: Present: soft - Integumentary Integumentary: Present: normal turgor - Musculoskeletal Musculoskeletal: Present: gait normal - Psychiatric Psychiatric: Present: A&O x's 3, appropriate affect, intact judgment & insight - Additional findings Additional findings: Breast Exam: BRA: 42D inspection: Chest wall no evidence of recurrence Left breast grade 3 ptosis Palpation: Right chest wall: No evidence of recurrent cancer Right axilla: No adenopathy of concern Left breast: Multi-positional exam fibrocystic changes no dominant masses or nodules of concern Left axilla: Skin coloration changes for which she has been recommended to see a material crew supervisor in the past this is not bothering the patient at this time no adenopathy of concern Assessment and Plan Assessment: Impression: Stage IV breast cancer metastatic to abdomen/omentum patient presently on hyperal units Note reviewed from Dr. Levine of [id number] Plan: Continue)'s Continue with Dr. Levine Left breast mammogram in 1 year with physician exam at that time Follow-up. 4 months CC: Tyrell
[2022-11-09 15:33] VITALS: BP 111/71; PULSE 89; RESP 17; TEMP 98.9
== END ==
LOC: WWCWWP 14:18
PROVIDERS: ATTEND Surgery
DX: C78.89 Secondary malignant neoplasm of other digestive organs (principal); C50.919 Malignant neoplasm of unspecified site of unspecified female breast; J45.909 Unspecified asthma, uncomplicated; G35 Multiple sclerosis; I89.0 Lymphedema, not elsewhere classified; Z88.2 Allergy status to sulfonamides

== ENCOUNTER 2022-12-07 10:43 | Inpatient (IN) | payer OTHER ==
[2022-12-07] MEDS ORDERED: SODIUM CHLORIDE 0.9% 500 ML 500 ML IV STA (11:33)
--- NOTE | 2022-12-07 11:36 | ED ---
Abdominal Pain HPI - General Chief Complaint: Abdominal Pain Stated Complaint: abd pain Time Seen by Provider: 12/07/22 11:14 Source: patient, family, RN notes reviewed, old records reviewed Mode of arrival: ambulatory Limitations: no limitations - History of Present Illness Initial Comments: This is a pleasant 57-year-old female that presents to the emergency room with family complaining of left lower quadrant abdominal pain that is intermittent. She states that she was diagnosed with a urinary tract infection by her doctor and switched from Macrobid after cultures came back to Cipro which she finished yesterday. States that dysuria has resolved however she is now having left lower quadrant pain with low-grade fevers of 99 at home. States does have occasional nausea vomiting which is resolved at this time. She has history of breast cancer in 2017 with metastasis to left hip and adrenal glands diagnosed a couple months ago. She is scheduled to start chemotherapy soon however postponed due to her urinary tract infection. She states that she is having some diarrhea which is improving and more formed today. MD Complaint: abdominal pain (llq) Location: LLQ Radiation: none Severity scale (1-10): 6 Associated Symptoms: nausea - Related Data Home Medications Medication Instructions Recorded Confirmed Loratadine [Claritin] 10 mg PO HS 01/21/20 12/07/22 Amitriptyline HCl 10 mg PO HS 10/21/20 12/07/22 FLUoxetine HCL [PROzac] 20 mg PO HS 05/26/21 12/07/22 Cholecalciferol (Vitamin D3) 250 mcg PO DAILY 08/11/21 12/07/22 [Vitamin D3 (125 MCG = 5,000 IU)] Aspirin [Adult Low Dose Aspirin EC] 81 mg PO HS 09/21/21 12/07/22 Palbociclib [Ibrance] 125 mg PO DIRECTED 11/01/22 12/07/22 Calcium Carb/Mag Ox/Zinc Sulf 1 tab PO DAILY 12/07/22 12/07/22 [Jid-Dik-Ldeo 334-134-5 mg Tab] Cranberry + Vitamin C 2 tab PO DAILY 12/07/22 12/07/22 Cyanocobalamin (Vitamin B-12) 1,000 mcg PO DAILY 12/07/22 12/07/22 [Vitamin B-12] Glucosam/Bao-Msm1/C/Massimo/Bosw 1 tab PO DAILY 12/07/22 12/07/22 [Bvtbfuqxwfu-Hhqtjwygqsi-WQF Tb] Ibuprofen [Motrin] 600 mg PO Q8HR PRN 12/07/22 12/07/22 Metamucil Gummies 2 cap PO DAILY 12/07/22 12/07/22 Ondansetron [Zofran] 4 mg PO Q4H PRN 12/07/22 12/07/22 Allergies Allergy/AdvReac Type Severity Reaction Status Date / Time Sulfa (Sulfonamide Allergy Mild Rash/Hives Verified 12/07/22 14:21 Antibiotics) Review of Systems ROS Statement: Those systems with pertinent positive or pertinent negative responses have been documented in the HPI. ROS Other: All systems not noted in ROS Statement are negative. Past Medical History Past Medical History: Asthma, Cancer, Neurologic Disorder, Osteoarthritis (OA) Additional Past Medical History / Comment(s): right breast cancer 08/2019,stage IV breast cancer with bone mestasis 07/09; MULTIPLE SCLEROSIS; optic neuritis; lymphadema rt arm; mild lichenoid inflammation lt axillary area and inbetween l egs; colitis History of Any Multi-Drug Resistant Organisms: MRSA Date of last positivie culture/infection: 01/2020 MDRO Source:: abdomen Past Surgical History: Section, Orthopedic Surgery, Tonsillectomy Additional Past Surgical History / Comment(s): section x4; RIGHT MASTECTOMY WITH TISSUE FILM NUMBERER, subsequent extraction of tissue is architect without insertion of prosthesis due to infection; right chest wall revision 06/14/21; fx lt hip with surgery using cement to repair 08/11/21 Past Anesthesia/Blood Transfusion Reactions: Postoperative Nausea & Vomiting (PONV) Past Psychological History: Anxiety, Depression Smoking Status: Never smoker - Past Family History Brother(s) Family Medical History: Deep Vein Thrombosis (DVT) Additional Family Medical History / Comment(s): 2 BROTHERS WITH DVT'S General Exam Limitations: no limitations General appearance: alert, in no apparent distress Head exam: Present: atraumatic Eye exam: Absent: scleral icterus, conjunctival injection, periorbital swelling ENT exam: Present: mucous membranes moist Respiratory exam: Present: normal lung sounds bilaterally. Absent: respiratory distress, accessory muscle use Cardiovascular Exam: Present: regular rate GI/Abdominal exam: Present: soft, tenderness (Left lower quadrant). Absent: distended, guarding, rigid Extremities exam: Present: normal inspection, normal capillary refill. Absent: pedal edema Back exam: Absent: tenderness, CVA tenderness (R), CVA tenderness (L), rash noted Neurological exam: Present: alert, oriented X3 Psychiatric exam: Present: normal affect, normal mood Skin exam: Present: warm, dry, normal color. Absent: cyanosis, diaphoretic, petechiae, pallor Course Vital Signs 12/07/22 12/07/22 12/07/22 11:07 11:23 12:00 Temperature 98.2 F Pulse Rate 99 72 Pulse Rate [ Left] Respiratory 20 Rate Blood Pressure 152/84 123/60 Blood Pressure [Right Arm] O2 Sat by Pulse 97 98 98 Oximetry 12/07/22 12/07/22 12/07/22 13:00 14:00 15:00 Temperature Pulse Rate 68 70 76 Pulse Rate [ Left] Respiratory Rate Blood Pressure 120/76 132/71 115/63 Blood Pressure [Right Arm] O2 Sat by Pulse 98 98 98 Oximetry 12/07/22 12/07/22 12/07/22 16:00 17:19 19:48 Temperature 98.7 F 98.3 F 98.4 F Pulse Rate 72 Pulse Rate [ 90 95 Left] Respiratory 16 16 Rate Blood Pressure 126/51 Blood Pressure 113/68 93/59 [Right Arm] O2 Sat by Pulse 97 97 96 Oximetry - Reevaluation(s) Reevaluation #1: 12/07/22 11:49 Patient offered pain and nausea medication and declined at this time. Time: 11:49 Medical Decision Making - Medical Decision Making She has a history of right breast cancer with metastasis to bone and adrenals. She is currently undergoing oral chemo treatment on and off for the past month. She also has history of MS, optic neuritis, lymphedema right arm, status post right mastectomy, left hip fracture history states from metastasis. Patient states started oral chemo last month however off now related to urinary tract infection and low white count. Finished antibiotics for UTI yesterday. Presents to the ER today with left lower quadrant pain. Labs show a slight leukocytosis. COMFORT with creatinine of 1.27 up from August of last year of 0.42, GFR 47 down from greater than 90 in August. Urinalysis is clear, patient did finish antibiotics for UTI yesterday. CT the abdomen and pelvis performed without contrast due to COMFORT, for left lower quadrant pain r/o diverticulitis versus obstruction. Radiologist's interpretation enlarging mesenteric masses largest on the left appears to be possibly invading into the transverse colon wall. There are also enlarging right adrenal masses and new retroperitoneal lymphadenopathy consistent with progression of disease. No additional findings to suggest acute left lower quadrant pain She agreeable to admission with surgery and oncology consults. Patient offered pain medication and declined at this time Case discussed with Dr. Vicente Was pt. sent in by a medical professional or institution? @ -no Did you speak to anyone other than the patient for history? @ -no Did you review nursing and triage notes? @ -yes i agree Were old charts reviewed? @ -yes previous labs Differential Diagnosis? Differential Abdominal Pain Women: Appendicitis, Cholecystitis, diverticulosis, ischemic bowel, pancreatitis, hepatitis, UTI, gastroenteritis, AAA, incarcerated hernia, bowel obstruction, constipation, inflammatory bowel, hepatitis, peptic ulcer disease, splenic infarction, perforated viscus, vulvitis, ovarian torsion, PID, kidney stone, placenta abruption, this is not meant to be an all-inclusive list EKG interpreted by me (3pts min.)? @ -no X-rays interpreted by me (1pt min.)? @ -no CT interpreted by me (1pt min.)? @ -no What testing was considered but not performed? (CT, X-rays, U/S, labs)? Why? @ no What meds were considered but not given? Why? @ -Antibiotics were considered however no evidence of infection or diverticulitis patient's pain is likely from metastasis the transverse colon Did you discuss the management of the patient with other professionals? @ -no Did you reconcile home meds? @ -no Was smoking cessation discussed for >3mins.? @ -[none] Was critical care preformed (if so, how long)? @ -no Were there social determinants of health that impacted care today? How? (Homelessness, low income, unemployed, alcoholism, drug addiction, transportation, low edu. Level, literacy, decrease access to med. care, custodial, rehab)? @ -no Was there de-escalation of care discussed even if they declined? (Discuss DNR or withdrawal of care, Hospice)? @ -no What co-morbidities impacted this encounter? (DM, HTN, Smoking, COPD, CAD, Cancer, CVA, Hep., AIDS, mental health diagnosis, sleep apnea, morbid obesity)? @ -Metastatic breast cancer, obesity, asthma, multiple sclerosis, lymphedema, optic neuritis, MRSA, anxiety and depression Was patient admitted / discharged? @ -Admitted Undiagnosed new problem with uncertain prognosis? @ -[none] Drug Therapy requiring intensive monitoring for toxicity (Heparin, Nitro, Insulin, Cardizem)? @ -no Were any procedures done? @ -no Diagnosis/symptom? @ -Acute kidney injury, metastatic breast cancer Acute, or Chronic, or Acute on Chronic? @ -Acute COMFORT and acute on chronic cancer Uncomplicated (without systemic symptoms) or Complicated (systemic symptoms)? @ -Complicated Side effects of treatment? @ -[none] Exacerbation, Progression, or Severe Exacerbation] @ -[no] Poses a threat to life or bodily function? @ -[no] - Lab Data Result diagrams: 12/07/22 11:45 12/07/22 11:45 Lab Results 12/07/22 12/07/22 12/07/22 Range/Units 11:45 11:45 11:45 WBC 12.2 H (3.8-10.6) k/uL RBC 3.70 L (3.80-5.40) m/uL Hgb 11.7 (11.4-16.0) gm/dL Hct 34.9 (34.0-46.0) % MCV 94.3 (80.0-100.0) fL MCH 31.5 (25.0-35.0) pg MCHC 33.4 (31.0-37.0) g/dL RDW 15.0 (11.5-15.5) % Plt Count 373 (150-450) k/uL MPV 7.1 Neutrophils % 88 % Lymphocytes % 3 % Monocytes % 6 % Eosinophils % 1 % Basophils % 0 % Neutrophils # 10.7 H (1.3-7.7) k/uL Lymphocytes # 0.4 L (1.0-4.8) k/uL Monocytes # 0.8 (0-1.0) k/uL Eosinophils # 0.1 (0-0.7) k/uL Basophils # 0.0 (0-0.2) k/uL PT 10.3 (9.0-12.0) sec INR 1.0 (<1.2) APTT 24.4 (22.0-30.0) sec Sodium (137-145) mmol/L Potassium (3.5-5.1) mmol/L Chloride (98-107) mmol/L Carbon Dioxide (22-30) mmol/L Anion Gap mmol/L BUN (7-17) mg/dL Creatinine (0.52-1.04) mg/dL Est GFR (CKD-EPI)AfAm (>60 ml/min/1.73 sqM) Est GFR (CKD-EPI)NonAf (>60 ml/min/1.73 sqM) Glucose (74-99) mg/dL Plasma Lactic Acid Tristen (0.7-2.0) mmol/L Calcium (8.4-10.2) mg/dL Total Bilirubin (0.2-1.3) mg/dL AST (14-36) U/L ALT (4-34) U/L Alkaline Phosphatase (38-126) U/L Total Protein (6.3-8.2) g/dL Albumin (3.5-5.0) g/dL Amylase (30-110) U/L Lipase (23-300) U/L Urine Color Colorless Urine Appearance Clear (Clear) Urine pH 5.5 (5.0-8.0) Ur Specific [place] 1.003 (1.001-1.035) Urine Protein Negative (Negative) Urine Glucose (UA) Negative (Negative) Urine Ketones Negative (Negative) Urine Blood Negative (Negative) Urine Nitrite Negative (Negative) Urine Bilirubin Negative (Negative) Urine Urobilinogen <2.0 (<2.0) mg/dL Ur Leukocyte Esterase Negative (Negative) 12/07/22 12/07/22 Range/Units 11:45 11:45 WBC (3.8-10.6) k/uL RBC (3.80-5.40) m/uL Hgb (11.4-16.0) gm/dL Hct (34.0-46.0) % MCV (80.0-100.0) fL MCH (25.0-35.0) pg MCHC (31.0-37.0) g/dL RDW (11.5-15.5) % Plt Count (150-450) k/uL MPV Neutrophils % % Lymphocytes % % Monocytes % % Eosinophils % % Basophils % % Neutrophils # (1.3-7.7) k/uL Lymphocytes # (1.0-4.8) k/uL Monocytes # (0-1.0) k/uL Eosinophils # (0-0.7) k/uL Basophils # (0-0.2) k/uL PT (9.0-12.0) sec INR (<1.2) APTT (22.0-30.0) sec Sodium 137 (137-145) mmol/L Potassium 4.0 (3.5-5.1) mmol/L Chloride 106 (98-107) mmol/L Carbon Dioxide 25 (22-30) mmol/L Anion Gap 6 mmol/L BUN 16 (7-17) mg/dL Creatinine 1.27 H (0.52-1.04) mg/dL Est GFR (CKD-EPI)AfAm 54 (>60 ml/min/1.73 sqM) Est GFR (CKD-EPI)NonAf 47 (>60 ml/min/1.73 sqM) Glucose 91 (74-99) mg/dL Plasma Lactic Acid Tristen 1.4 (0.7-2.0) mmol/L Calcium 8.6 (8.4-10.2) mg/dL Total Bilirubin 0.4 (0.2-1.3) mg/dL AST 24 (14-36) U/L ALT 20 (4-34) U/L Alkaline Phosphatase 115 (38-126) U/L Total Protein 5.8 L (6.3-8.2) g/dL Albumin 3.3 L (3.5-5.0) g/dL Amylase 128 H (30-110) U/L Lipase 58 (23-300) U/L Urine Color Urine Appearance (Clear) Urine pH (5.0-8.0) Ur Specific [place] (1.001-1.035) Urine Protein (Negative) Urine Glucose (UA) (Negative) Urine Ketones (Negative) Urine Blood (Negative) Urine Nitrite (Negative) Urine Bilirubin (Negative) Urine Urobilinogen (<2.0) mg/dL Ur Leukocyte Esterase (Negative) Disposition Clinical Impression: COMFORT (acute kidney injury), Breast cancer metastasized to multiple sites Disposition: ADMITTED IP TO THIS [facility] Decision Date: 12/07/22 Decision Time: 13:48
[2022-12-07 12:04] LABS: Appearance,Urine Clear (Clear); Basophils % (A) 0 %; Bilirubin,Urine Negative (Negative); Blood,Urine Negative (Negative); Color,Urine Colorless; Eosinophils # (A) 0.1 k/uL (0-0.7); Eosinophils % (A) 1 %; Glucose,Urine (UA) Negative (Negative); HCT 34.9 % (34.0-46.0); HGB 11.7 gm/dL (11.4-16.0); Ketones,Urine Negative (Negative); Leukocyte Esterase,Urine Negative (Negative); Lymphocytes # (A) 0.4 k/uL (1.0-4.8); Lymphocytes % (A) 3 %; MCH 31.5 pg (25.0-35.0); MCHC 33.4 g/dL (31.0-37.0); MCV 94.3 fL (80.0-100.0); Mean Platelet Volume 7.1; Monocytes # (A) 0.8 k/uL (0-1.0); Monocytes % (A) 6 %; Neutrophils # (A) 10.7 k/uL (1.3-7.7); Neutrophils % (A) 88 %; Nitrite,Urine Negative (Negative); PH, Urine 5.5 (5.0-8.0); Platelet Count 373 k/uL (150-450); Protein,Urine Negative (Negative); Specific Gravity,Urine 1.003 (1.001-1.035); Urobilinogen,Urine <2.0 mg/dL (<2.0); WBC 12.2 k/uL (3.8-10.6)
[2022-12-07 12:18] LABS: Partial Thromboplastin Time 24.4 sec (22.0-30.0); Prothrombin Time 10.3 sec (9.0-12.0)
[2022-12-07 12:31] LABS: Albumin 3.3 g/dL (3.5-5.0); Calcium 8.6 mg/dL (8.4-10.2); Total Bilirubin 0.4 mg/dL (0.2-1.3); Total Protein 5.8 g/dL (6.3-8.2)
--- NOTE | 2022-12-07 13:19 | CT ---
EXAMINATION TYPE: CT abdomen pelvis wo con CT DLP: 850.0 mGycm, Automated exposure control for dose reduction was used. DATE OF EXAM: 12/07/2022 1:05 PM COMPARISON: 09/06/2022 CLINICAL INDICATION:Female, 57 years old with history of llq pain; LLQ abdominal pain, history of met s. TECHNIQUE: Axial CT of the abdomen and pelvis. Sagittal and coronal reformats were created on a [employer] workstation. Contrast used: None Oral contrast used: without Oral Contrast FINDINGS: LOWER CHEST: Heart is enlarged for size ABDOMEN LIVER: Unremarkable GALLBLADDER AND BILE DUCTS: Unremarkable. PANCREAS: Unremarkable. SPLEEN: Unremarkable. ADRENAL GLANDS: Right adrenal mass has increased in size now measuring up to 3.7 cm, previously 2.2 c m. This appears as one mass compared to 2 separate masses but to be present on prior CT. KIDNEYS AND URETERS: No evidence of hydronephrosis or renal calculus. The ureters are unremarkable. PELVIS Limited evaluation of the pelvis due to streak artifact. BLADDER: Unremarkable REPRODUCTIVE: Unremarkable. ABDOMEN & PELVIS STOMACH AND BOWEL: No evidence of bowel obstruction. PERITONEUM/RETROPERITONEUM: No evidence of pneumoperitoneum or free fluid. Mass within the mesentery on the left measuring up to 6.2 x 6.3 x 5.5 cm, previously up to 4.9 cm has increased in size. Right mesenteric mass has also increase in size measuring up to 2.4 cm, previously 1.6 cm. There is desmopl astic reaction around the left mass which does abut the transverse colon and likely invades into the transverse colon series 2002 image 35. More inferiorly there is another mesenteric mass series 201 im age 89 now measuring 2.697 mm, previously 1.5 . VASCULATURE: No evidence of aortic aneurysm. MUSCULOSKELETAL: No acute osseous abnormalities, left hip arthroplasty with hardware in appropriate p osition. LYMPH NODES: New enlarged 11 mm in short axis lymph node near the eloy of the diaphragm on the right of the aorta. Additional lymphadenopathy is seen along the retroperitoneum. Left external iliac lymp h nodes now measuring 2.5 x 1.7 cm, previously 2.6 x 1.7 cm SOFT TISSUE/ABDOMINAL WALL: Unremarkable IMPRESSION: 1. Enlarging mesenteric masses of which the largest on the left appears to be possibly invading into the transverse colon wall. 2. Additionally there is enlarging right adrenal mass which appears as one on today's exam and new r etroperitoneal lymphadenopathy of consistent with progression of disease. 3. No additional finding to suggest acute left lower quadrant process.
[2022-12-07] MEDS ORDERED: ONDANSETRON 4 MG/2 ML VIAL IVP PRN (14:32)
[2022-12-07] MEDS ORDERED: ACETAMINOPHEN TAB 325 MG TAB PO PRN (14:32)
[2022-12-07] MEDS ORDERED: HYDROmorphone 0.5 MG/0.5 ML SYRINGE IVP PRN (14:32)
[2022-12-07] MEDS ORDERED: NALOXONE 0.4 MG/ML 1 ML VIAL IV PRN (14:32)
[2022-12-07 17:20] VITALS: RESP 16
--- NOTE | 2022-12-07 17:49 | P.HPIM ---
History of Present Illness H&P Date: 12/07/22 Patient is a 57-year-old female with PMH of metastatic breast cancer, multiple sclerosis, optic neuritis, chronic diarrhea, seasonal ALLERGIES, anxiety and depression presents the ED for abdominal pain. Patient reports abdominal pain that has been ongoing for the past 2 weeks. Abdominal pain is left lower quadrant with no radiating features. She describes the pain as dull in nature. Pain is worsened with movement and walking. No relation to meals. Pain is associated with nausea and one episode of emesis. She denies any dysuria. She reports diarrhea that has been chronic in nature ongoing for many years. Of note, patient was recently treated for UTI. She has been on and off chemothe [place] top[place] under Dr. Levine. She has missed doses due to insurance issues and treatment of UTI. She denies any headache, lower extremity edema, fever or chills, cough, chest pain, shortness of breath, palpitations, changes in appetite or weight. She denies any dizziness, numbness/weakness/tingling of the extremities. In the ED, vital signs were stable. CBC showed leukocytosis of 12.2. Coagulation panel is negative. CMP shows Cr of 1.27, Albumin 3.3. Amylase 128. Lipase negative. Lactic acid negative. UA is negative. CT AP shows enlarging mesenteric masses (6.2 x 6.3 x 5.5 cm) of which the largest on of the left appears to be possibly invading into the transverse colon. CT AP also shows enlarging right adrenal mass. Pertinent positives and negatives as discussed in HPI, a complete review of systems was performed and all other systems are negative. General: non toxic, no distress, appears at stated age Derm: warm, dry Head: atraumatic, normocephalic, symmetric Eyes: EOMI, no lid lag, anicteric sclera Mouth: no lip lesion, mucus membranes moist Cardiovascular: S1S2 reg, no murmur, positive posterior tibial pulse bilateral, Lungs: CTA bilateral, no rhonchi, no rales , no accessory muscle use Abdominal: soft, nontender to palpation, no guarding, no appreciable organomegaly Ext: no gross muscle atrophy, no edema, no contractures Neuro: CN II-XI grossly intact, no focal neuro deficits Psych: Alert, oriented, appropriate affect #Abdominal pain likely related to enlarging mesenteric masses (6.2 x 6.3 x 5.5 cm) of which the largest on of the left appears to be possibly invading into the transverse colon #Acute kidney injury #Leukocytosis #Elevated amylase Chronic conditions: Metastatic breast cancer, multiple sclerosis, optic neuritis, chronic diarrhea, seasonal ALLERGIES, anxiety and depression CT from August 2022 shows lower left sided omental mass measuring 5 cm. It appears that her mass has enlarged since the CT. Patient has a nonacute abdomen. No concern for bowel obstruction. We will hold off surgery consultation for now and consult oncology for further recommendations. Pain to be controlled with Dilaudid and Toradol as needed. Zofran as needed for nausea and vomiting. Her acute kidney injury likely related to dehydration from chronic diarrhea. Start normal saline at 75 mL/h. Repeat CBC and BMP tomorrow morning. Her leukocytosis is likely reactive, no signs of active infection. Her home medications have been reviewed and will be restarted DVT prophylaxis: Heparin Discussed with: Patient, ED physician, spouse Anticipated discharge: 1-[address]: Home A total of 35 minutes was spent on the care of this complex patient more than 50% of the time was spent in counseling and care coordination. Patient names her decision maker if she can't make decisions for herself. Patient would like to be full code. Past Medical History Past Medical History: Asthma, Cancer, Neurologic Disorder, Osteoarthritis (OA) Additional Past Medical History / Comment(s): right breast cancer 08/2019, stage IV breast cancer with bone mestasis 08/09; MULTIPLE SCLEROSIS; optic neuritis; lymphadema rt arm; mild lichenoid inflammation lt axillary area and in between legs; colitis, chemotherapy -current with PO tablets, radiation -last one was on hip 11/[address] albarran History of Any Multi-Drug Resistant Organisms: None Reported Date of last positivie culture/infection: 01/2020 MDRO Source:: abdomen Past Surgical History: Section, Orthopedic Surgery, Tonsillectomy Additional Past Surgical History / Comment(s): section x4; RIGHT MASTECTOMY WITH TISSUE PHOTOGRAPH INSPECTOR, subsequent extraction of 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 roller coaster 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 without insertion of prosthesis due to infection; right chest wall revision 06/14/21; fx lt hip with surgery using cement to repair 08/11/21, hormone cristopher shots monthly, bone infusion every 3 months, Past Anesthesia/Blood Transfusion Reactions: Postoperative Nausea & Vomiting (PONV) Past Psychological History: Anxiety, Depression Smoking Status: Never smoker Past Alcohol Use History: None Reported Additional Past Alcohol Use History / Comment(s): Never smoker Past Drug Use History: None Reported - Past Family History Brother(s) Family Medical History: Deep Vein Thrombosis (DVT) Additional Family Medical History / Comment(s): 2 BROTHERS WITH DVT'S Medications and Allergies Home Medications Medication Instructions Recorded Confirmed Type RX: Loratadine [Claritin] 10 mg PO HS 01/21/20 12/07/22 History RX: Amitriptyline HCl 10 mg PO HS 10/21/20 12/07/22 History RX: FLUoxetine HCL [PROzac] 20 mg PO HS 05/26/21 12/07/22 History RX: Cholecalciferol (Vitamin D3) 250 mcg PO DAILY 08/11/21 12/07/22 History [Vitamin D3 (125 MCG = 5,000 IU)] RX: Aspirin [Adult Low Dose 81 mg PO HS 09/21/21 12/07/22 History Aspirin EC] Palbociclib [Ibrance] 125 mg PO DIRECTED 11/01/22 12/07/22 History Calcium Carb/Mag Ox/Zinc Sulf 1 tab PO DAILY 12/07/22 12/07/22 History [Eao-Xsv-Hazr 334-134-5 mg Tab] Cranberry + Vitamin C 2 tab PO DAILY 12/07/22 12/07/22 History Cyanocobalamin (Vitamin B-12) 1,000 mcg PO DAILY 12/07/22 12/07/22 History [Vitamin B-12] Glucosam/Bao-Msm1/C/Massimo/Bosw 1 tab PO DAILY 12/07/22 12/07/22 History [Skxvqfycgkp-Ztnmvycxwcn-MTX Tb] Ibuprofen [Motrin] 600 mg PO Q8HR PRN 12/07/22 12/07/22 History Metamucil Gummies 2 cap PO DAILY 12/07/22 12/07/22 History Ondansetron [Zofran] 4 mg PO Q4H PRN 12/07/22 12/07/22 History Allergies Allergy/AdvReac Type Severity Reaction Status Date / Time Sulfa (Sulfonamide Allergy Mild Rash/Hives Verified 12/07/22 14:21 Antibiotics) Physical Exam Vitals: Vital Signs Temp Pulse Pulse Resp BP BP Pulse Ox 12/07/22 17:19 98.3 F 90 16 113/68 97 12/07/22 16:00 98.7 F 72 126/51 97 12/07/22 15:00 76 115/63 98 12/07/22 14:00 70 132/71 98 12/07/22 13:00 68 120/76 98 12/07/22 12:00 72 123/60 98 12/07/22 11:23 98 12/07/22 11:07 98.2 F 99 20 152/84 97 Intake and Output 12/07/22 12/07/22 12/07/22 06:59 14:59 22:59 Other: Voiding Method Toilet Weight 86.183 kg 86.183 kg Results CBC & Chem 7: 12/07/22 11:45 12/07/22 11:45 Labs: Abnormal Lab Results - Last 24 Hours (Table) 12/07/22 12/07/22 Range/Units 11:45 11:45 WBC 12.2 H (3.8-10.6) k/uL RBC 3.70 L (3.80-5.40) m/uL Neutrophils # 10.7 H (1.3-7.7) k/uL Lymphocytes # 0.4 L (1.0-4.8) k/uL Creatinine 1.27 H (0.52-1.04) mg/dL Total Protein 5.8 L (6.3-8.2) g/dL Albumin 3.3 L (3.5-5.0) g/dL Amylase 128 H (30-110) U/L Thrombosis Risk Factor Assmnt - Choose All That Apply Each Factor Represents 1 point: Age 41-60 years Each Risk Factor Represents 2 Points: Malignancy Thrombosis Risk Factor Assessment Total Risk Factor Score: 3 Thrombosis Risk Factor Assessment Level: Moderate Risk
[2022-12-07] MEDS: KETOROLAC 15 MG/ML 1 ML VIAL IVP SCH (18:02)
[2022-12-07] MEDS: SODIUM CHLORIDE 0.9% 1,000 ML IV SCH (18:03)
[2022-12-07] MEDS ORDERED: FLUoxetine HCL 20 MG CAP PO SCH (21:00)
[2022-12-07] MEDS ORDERED: AMITRIPTYLINE HCL 10 MG TAB PO SCH (21:00)
[2022-12-07] MEDS ORDERED: ASPIRIN 81 MG PO SCH (21:00)
[2022-12-07] MEDS ORDERED: LORATADINE 10 MG TAB PO SCH (21:00)
[2022-12-07] MEDS: HEPARIN SODIUM,PORCINE/PF 5,000 UNIT/0.5 ML SYRINGE SQ SCH (21:33)
[2022-12-08] MEDS: KETOROLAC 15 MG/ML 1 ML VIAL IVP SCH ×3 (01:03→13:08)
[2022-12-08] MEDS: SODIUM CHLORIDE 0.9% 1,000 ML IV SCH (05:43)
[2022-12-08] MEDS: HEPARIN SODIUM,PORCINE/PF 5,000 UNIT/0.5 ML SYRINGE SQ SCH (08:42)
[2022-12-08] MEDS ORDERED: PANTOPRAZOLE 40 MG/10 ML VIAL IV SCH (09:00)
[2022-12-08 09:35] LABS: HCT 30.7 % (34.0-46.0); HGB 10.3 gm/dL (11.4-16.0); MCH 31.3 pg (25.0-35.0); MCHC 33.7 g/dL (31.0-37.0); MCV 93.1 fL (80.0-100.0); Mean Platelet Volume 6.9; Platelet Count 330 k/uL (150-450); RDW 14.5 % (11.5-15.5); WBC 8.3 k/uL (3.8-10.6)
[2022-12-08 09:44] LABS: African American GFR (CKD) 70 (>60 ml/min/1.73 sqM); Anion Gap 7 mmol/L; Blood Urea Nitrogen 15 mg/dL (7-17); Calcium 7.5 mg/dL (8.4-10.2); Carbon Dioxide 22 mmol/L (22-30); Chloride 107 mmol/L (98-107); Glucose 128 mg/dL (74-99); Non-African American GFR(CKD) 61 (>60 ml/min/1.73 sqM); Potassium 3.8 mmol/L (3.5-5.1); Sodium 136 mmol/L (137-145)
[2022-12-08 12:40] VITALS: BP 138/87; PULSE 86; TEMP 97.7
[2022-12-08] MEDS ORDERED: HYDROcodone/APAP 5-325MG 1 EACH TAB PO PRN (13:02)
--- NOTE | 2022-12-08 13:58 | P.PN ---
Subjective Progress Note Date: 12/08/22 Patient is a 57-year-old female with PMH of metastatic breast cancer, multiple sclerosis, optic neuritis, chronic diarrhea, seasonal ALLERGIES, anxiety and depression presents the ED for abdominal pain. Patient reports abdominal pain that has been ongoing for the past 2 weeks. Abdominal pain is left lower quadrant with no radiating features. She describes the pain as dull in nature. Pain is worsened with movement and walking. No relation to meals. Pain is associated with nausea and one episode of emesis. She denies any dysuria. She reports diarrhea that has been chronic in nature ongoing for many years. Of note, patient was recently treated for UTI. She has been on and off chem otherapy, Ibrance under Dr. Levine. She has missed doses due to insurance issues and treatment of UTI. In the ED, vital signs were stable. CBC showed leukocytosis of 12.2. Coagulation panel is negative. CMP shows Cr of 1.27, Albumin 3.3. Amylase 128. Lipase negative. Lactic acid negative. UA is negative. CT AP shows enlarging mesenteric masses (6.2 x 6.3 x 5.5 cm) of which the largest on of the left appears to be possibly invading into the transverse colon. CT AP also shows enlarging right adrenal mass. Patient seen and examined. No acute events overnight. Patient reports well- controlled pain in her left lower quadrant. No nausea or vomiting. No bowel movement. Not passing gas. General: non toxic, no distress, appears at stated age Derm: warm, dry Head: atraumatic, normocephalic, symmetric Eyes: EOMI, no lid lag, anicteric sclera Mouth: no lip lesion, mucus membranes moist Cardiovascular: S1S2 reg, no murmur, positive posterior tibial pulse bilateral, Lungs: CTA bilateral, no rhonchi, no rales , no accessory muscle use Abdominal: soft, mild tenderness to palpation in the left lower quadrant without rebound, no guarding, no appreciable organomegaly Ext: no gross muscle atrophy, no edema, no contractures Neuro: no focal neuro deficits Psych: Alert, oriented, appropriate affect #Abdominal pain likely related to enlarging mesenteric masses (6.2 x 6.3 x 5.5 cm) of which the largest on of the left appears to be possibly invading into the transverse colon #Elevated amylase Chronic conditions: Metastatic breast cancer, multiple sclerosis, optic neuritis, chronic diarrhea, seasonal ALLERGIES, anxiety and depression Resolved: Leukocytosis, acute kidney injury CT from August 2022 shows lower left sided omental mass measuring 5 cm. It appears that her mass has enlarged since the CT. Patient has a nonacute abdomen. No concern for bowel obstruction. We will hold off surgery consultation for now and consult oncology for further recommendations. Pain to be controlled with Dilaudid and Toradol as needed. [place] added. Zofran as needed for nausea and vomiting. Case discussed with Jimena Alvarez, they would like to keep the patient to undergo pain CT with contrast as well as echocardiogram and further titration of pain medication. Anticipated discharge home in 1-2 days. Objective - Vital Signs Vital signs: Vital Signs Temp 97.7 F 12/08/22 12:23 Pulse 86 12/08/22 12:23 Resp 16 12/08/22 12:23 BP 138/87 12/08/22 12:23 Pulse Ox 96 12/08/22 12:23 FiO2 Intake & Output 12/07/22 12/08/22 12/08/22 18:59 06:59 18:59 Intake Total 590 Balance 590 Weight 86.183 kg Intake: Oral 590 Other: Voiding Method Toilet Toilet # Voids 1 2 - Labs CBC & Chem 7: 12/08/22 09:11 12/08/22 09:11 Labs: Abnormal Lab Results - Last 24 Hours (Table) 12/08/22 12/08/22 Range/Units 09:11 09:11 RBC 3.30 L (3.80-5.40) m/uL Hgb 10.3 L (11.4-16.0) gm/dL Hct 30.7 L (34.0-46.0) % Sodium 136 L (137-145) mmol/L Glucose 128 H (74-99) mg/dL Calcium 7.5 L (8.4-10.2) mg/dL
[2022-12-08] MEDS: IOPAMIDOL CONTRAST (ORAL USE) VIAL PO PRN ×2 (14:10→15:11)
--- NOTE | 2022-12-08 16:27 | CT ---
EXAMINATION TYPE: CT ChestAbdPelvis w con DATE OF EXAM: 12/08/2022 COMPARISON: 09/06/2022 and 12/07/2022 HISTORY: 57-year-old female mets, hx of breast and bone ca TECHNIQUE: Contiguous axial scanning of the chest, abdomen, and pelvis performed with IV Contrast, pa tient injected with 70cc mL of Isovue 300. Delayed images through the kidneys were obtained. Coronal/ sagittal reconstructions performed. CT DLP: 1631.5 mGycm Automated exposure control for dose reduction was used. FINDINGS: CHEST: Heart upper limits of normal in size without pericardial effusion. Aorta normal caliber with conventional arch vessel branching anatomy. Patient is status post right mastectomy with a previous deep seroma appears slightly smaller now 1.6 x 0.5 cm. Left axillary node larger at 1.1 cm versus 6 mm, previously. There is a new 1.5 cm right retrocrural node. Otherwise, no thoracic lymphadenopathy by CT size criteria. Lungs show mild diffuse bronchial wall thickening suggesting bronchitis or chronic asthma. No consoli dation. New trace right pleural effusion. ABDOMEN: An 8 mm right flank soft tissue deposit in the subcutaneous adipose layer, axial image 51 is new. A second 1.1 cm subcutaneous soft tissue deposit just behind the left paraspinal musculature at the L 3 level. Some focal fat along the anterior falciform ligament. Portal venous system is patent. No biliary duct al dilatation. Gallbladder, kidneys, spleen, and pancreas within normal limits. Small 1.5 cm diverticulum of the thi rd portion of the duodenum projecting up into the pancreatic head region. New 1.1 cm nodularity left adrenal gland. The 2 right adrenal masses have increased from 09/06/2022 now 4.2 and 3.3 cm versus 2.2 and 2.0 cm, p reviously. New retroperitoneal retrocaval adenopathy measuring up to 2.7 x 1.1 cm. Additional smaller retroperitoneal nodes measuring up to 8 mm have increased from 09/06/2022. New 1.0 cm retroperitoneal soft tissue deposit posterior right pararenal space. Dominant centrally necrotic left paramedian lower abdominal omental mass measuring 6.5 cm versus 5.0 cm, previously. There is mural invasion of the transverse colon narrowing is limited just superiorly and serosal invasion of a jejunal small bowel loop inferiorly. Adjacent right paramedian omental deposits larger at 2.6 cm versus 1.6 cm, previously. Right lower quadrant omental deposit larger at 2.7 cm versus 1.5 cm, previously. No dilated small bowel, free fluid, or free air. Oral contrast progressed to the mid transverse colon . No pericolic inflammatory change. No significant stool burden. PELVIS: Left external iliac chain lymph node 2.6 cm now versus 2.4 cm, previously. Prominent artifact from th e patient's left hip arthroplasty limits detailed assessment of the pelvis. Bladder partially distend ed. Uterus anteverted. Both ovaries are visualized. No abnormal fluid collection in the pelvis or pel donnie lymphadenopathy. Bones: Left hip total arthroplasty. Facet arthropathy lower lumbar spine. Endplate spondylosis midthoracic s pine. No osseous destructive process. IMPRESSION: 1. THE EXAM IS BEING COMPARED TO 09/06/2022. 2. DISEASE PROGRESSION. ENLARGING (THOUGH STILL NORMAL SIZE) LEFT AXILLARY NODE. NEW RIGHT RETROCRURA L AND RETROPERITONEAL ADENOPATHY. A COUPLE NEW SUBCUTANEOUS SOFT TISSUE DEPOSITS RIGHT FLANK AND LEFT PARAMEDIAN LOWER BACK. NEW RIGHT PARARENAL RETROPERITONEAL SOFT TISSUE DEPOSIT. 3. ENLARGING RIGHT ADRENAL NODULARITY 4.2 CM NOW VERSUS 2.2 CM, PREVIOUSLY. NEW LEFT ADRENAL NODULARI TY. ENLARGING LEFT EXTERNAL ILIAC CHAIN NODE. 4. ALL 3 OMENTAL MASSES HAVE INCREASED IN SIZE. THE DOMINANT CENTRALLY NECROTIC MASS NOW 6.5 CM (VERS US 5.0 CM, PREVIOUSLY). THIS NOW HAS MURAL INVASION OF THE TRANSVERSE COLON NARROWING ITS LUMEN. KRISTI TIONAL SEROSAL INVASION OF AN ADJACENT JEJUNAL LOOP. 5. UNABLE TO CLEARLY IDENTIFY OSSEOUS METASTATIC DISEASE BY CT. IF THERE IS KNOWN OSSEOUS DISEASE, TH E EXAM CAN BE REVIEWED WITH DIRECTED ATTENTION.
[2022-12-09] MEDS ORDERED: PANTOPRAZOLE 40 MG TABLET PO SCH (07:30)
--- NOTE | 2022-12-09 08:29 | CA ---
Transthoracic Echo Report Name: Destinee Bell Age: 57 Gender: F : 1965 Exam Date: 12/08/2022 14:20 Exam Location: [facility] Ht (in): 59 Wt (lb): 190 Ordering Physician: Jenifer Alvarez Attending/Referring Phys: Band Instrument Repairer Luis Eng RDCS Procedure CPT: Indications: baseline, cardiotoxic chemotherapy Cardiac Hx: Technical Quality: Fair Contrast 1: Total Dose (mL): Contrast 2: Total Dose (mL): MEASUREMENTS (Male / Female) Normal Values 2D ECHO LV Diastolic Diameter PLAX 4.0 cm 4.2 - 5.9 / 3.9 - 5.3 cm LV Systolic Diameter PLAX 2.4 cm IVS Diastolic Thickness 1.2 cm 0.6 - 1.0 / 0.6 - 0.9 cm LVPW Diastolic Thickness 1.1 cm 0.6 - 1.0 / 0.6 - 0.9 cm LV Relative Wall Thickness 0.6 RV Internal Dim ED PLAX 3.0 cm M-MODE Aortic Root Diameter MM 2.3 cm LA Systolic Diameter MM 4.0 cm LA Ao Ratio MM 1.7 AV Cusp Separation MM 1.3 cm DOPPLER AV Peak Velocity 183.9 cm/s AV Peak Gradient 13.5 mmHg LVOT Peak Velocity 126.8 cm/s LVOT Peak Gradient 6.4 mmHg MV Area PHT 8.7 cm??? MR Peak Velocity 333.5 cm/s MR Peak Gradient 44.5 mmHg Mitral E Point Velocity 92.8 cm/s Mitral A Point Velocity 108.1 cm/s Mitral E to A Ratio 0.9 MV Deceleration Time 87.1 ms TR Peak Velocity 250.5 cm/s TR Peak Gradient 25.1 mmHg Right Atrial Pressure 3.0 mmHg Pulmonary Artery Systolic Pressu 28.1 mmHg Right Ventricular Systolic Press 28.1 mmHg PV Peak Velocity 102.8 cm/s PV Peak Gradient 4.2 mmHg FINDINGS Left Ventricle Mildly increased septal wall thickness. Mildly increased posterior wall thickness. Mild concentric left ventricular hypertrophy. Left ventricular ejection fraction is estimated at 55-60 %. Right Ventricle Mild right ventricular dilatation. Right ventricular systolic pressure within normal limits. Right Atrium Normal right atrial size. Left Atrium Left atrial size at the upper limits of normal. Mitral Valve Mitral valve thickened. Mild mitral regurgitation. Aortic Valve Trileaflet aortic valve. No aortic stenosis. No aortic regurgitation. Tricuspid Valve [id number] tricuspid regurgitation. Pulmonic Valve Structurally normal pulmonic valve. Pericardium No pericardial or pleural effusion. Aorta Normal size aortic root and proximal ascending aorta. CONCLUSIONS Normal left ventricular dimension and systolic function [id number] tricuspid regurgitation Previewed by: Dr. Jose Agrawal MD (Electronically Signed) Final Date: 09 December 2022 08:28
--- NOTE | 2022-12-09 11:53 | P.CONS ---
History of Present Illness - Reason for Consult Consult date: 12/08/22 metastatic breast cancer Requesting physician: Yaron Rey - Chief Complaint LLQ pain - History of Present Illness Mrs. Bell is a very pleasant pt of Dr. Levine with a PMH of MS, osteopenia and breast cancer who reported to the emergency room last night with complaints of a bdominal pain, localized to the left lower quadrant, she denied having any fevers, nausea or vomiting. She was recently diagnosed with a urinary tract infection and was on antibiotics for the same. She reports diarrhea, this is chronic, nothing progressive. CT AP without contrast revealed increase in the size of a right adrenal mass, new retroperitoneal lymphadenopathy and enlarging mesenteric mass and a possibly be invading into the transverse colon. Patient was started on a new treatment for her metastatic breast cancer in October. She was due for her second cycle but this was delayed due to low neutrophil count and patient stopped taking it while she was on antibiotics this past week. Patient is denying fevers, no other pain to report, shortness of breath, palpitations, urinary symptoms, rash or swelling of the legs. Onc Hx: Presented with palpable right breast mass Aug 2019, she had additional imaging and U/S which revealed 3.5 x 3.8 x 4 cm mass at 7 o'clock right breast, core biopsy 09/16/2019 was positive for invasive ductal carcinoma,grade 2,ER/VT positive(31%.46%) and HER2/GEOVANNA was negative by FISH.(2+ by IHC). Genetic testing were negative. 10/21/2019 she had right mastectomy, pathology revealed grade 3, invasive ductal carcinoma, 5cm, 1/5 nodes positive for micromets. Surgery was complicated by unhealing wound which required debridment and removal of lean manufacturing engineer,which took a long time to heal. OncotypeDx revealed recurrence score of 51. Completed adjuvant TC 03/25/2020. Completed adjuvant radiation in April 2020. Started arimidex in May/2020. She continued on f/u and did well until she noticed small open wound on right chest wall in November 2020. Went to ER, however, by the time she got there, the wound closed, but she ended up having a CT chest which revealed 1.2 cm right hilar node and borderline enlarged mediastinal nodes, PET 12/26/2020 revealed increased uptake in thoracic nodes, Pulmonary felt that the nodes were reactive to recent chest wall infection at that time. 03/07/[address] chest revealed prominent thoracic nodes favored inflammatory. 07/11/[address] chest revealed no evidence of recurrence. 08/11/2021 she presented with pathologic fracture of left hip, underwent surgery, biopsy was positive for metastatic carcinoma,ER/VT negative and HER2/GEOVANNA negative.PDL-1 negative. PET 09/02/2021 revealed slight uptake in hilar and mediastinal nodes (small size), slight uptake in left hip, otherwise negative. EBUS 09/23/2021 was not diagnostic. Started xeloda on 10/18/2021. 01/03/22 CT CAP and bone scan revealed no evidence of disease. 09/06/2022 treatment f/u CT CAP showed disease progression in abdomen, new right adrenal nodules, new omental lesions, bone scan was negative. 09/17/2022,biopsy of omental lesion was positive for metastatic breast cancer, ER+(21-30%), VT+(21-30%),HER2 negative by FISH (2+ by IHC). She was started in Ibrance and faslodex, end of Sep 2022. She had 1 cycle of ibrance, completed her loading dose of faslodex. She was delayed in starting her 2nd cycle due to low ANC. She resumed but only for a few a days as she was started on abx and stopped ibrance. Review of Systems 10 point ROS is neg except as stated in HPI Past Medical History Past Medical History: Asthma, Cancer, Neurologic Disorder, Osteoarthritis (OA) Additional Past Medical History / Comment(s): right breast cancer 08/2019,stage IV breast cancer with bone mestasis 07/09; MULTIPLE SCLEROSIS; optic neuritis; lymphadema rt arm; mild lichenoid inflammation lt axillary area and inbetween legs; colitis History of Any Multi-Drug Resistant Organisms: MRSA Year Discovered:: 01/2020 MDRO Source:: abdomen Past Surgical History: Section, Orthopedic Surgery, Tonsillectomy Additional Past Surgical History / Comment(s): section x4; RIGHT MASTECTOMY WITH TISSUE CARDIOPULMONARY SPECIALIST, subsequent extraction of tissue lean manufacturing engineer without insertion of prosthesis due to infection; right chest wall revision 06/14/21; fx lt hip with surgery using cement to repair 08/11/21 Past Anesthesia/Blood Transfusion Reactions: Postoperative Nausea & Vomiting (PONV) Past Psychological History: Anxiety, Depression Smoking Status: Never smoker - Past Family History Brother(s) Family Medical History: Deep Vein Thrombosis (DVT) Additional Family Medical History / Comment(s): 2 BROTHERS WITH DVT'S Medications and Allergies Home Medications Medication Instructions Recorded Confirmed Type Loratadine [Claritin] 10 mg PO HS 01/21/20 12/07/22 History Amitriptyline HCl 10 mg PO HS 10/21/20 12/07/22 History FLUoxetine HCL [PROzac] 20 mg PO HS 05/26/21 12/07/22 History Cholecalciferol (Vitamin D3) 250 mcg PO DAILY 08/11/21 12/07/22 History [Vitamin D3 (125 MCG = 5,000 IU)] Aspirin [Adult Low Dose Aspirin EC] 81 mg PO HS 09/21/21 12/07/22 History Palbociclib [Ibrance] 125 mg PO DIRECTED 11/01/22 12/07/22 History Calcium Carb/Mag Ox/Zinc Sulf 1 tab PO DAILY 12/07/22 12/07/22 History [Cgg-Onq-Rmfj 334-134-5 mg Tab] Cranberry + Vitamin C 2 tab PO DAILY 12/07/22 12/07/22 History Cyanocobalamin (Vitamin B-12) 1,000 mcg PO DAILY 12/07/22 12/07/22 History [Vitamin B-12] Glucosam/Bao-Msm1/C/Massimo/Bosw 1 tab PO DAILY 12/07/22 12/07/22 History [Fbfueifiqlo-Twvcgwejvvu-UUV Tb] Metamucil Gummies 2 cap PO DAILY 12/07/22 12/07/22 History Ondansetron [Zofran] 4 mg PO Q4H PRN 12/07/22 12/07/22 History HYDROcodone/APAP 5-325MG [Kirby 1 each PO Q4HR PRN #18 tab 12/08/22 Rx 5-325] Ketorolac [Toradol] 10 mg PO Q6HR #20 tab 12/08/22 Rx Pantoprazole [Protonix] 40 mg PO AC-BRKFST #30 tab 12/08/22 Rx Allergies Allergy/AdvReac Type Severity Reaction Status Date / Time Sulfa (Sulfonamide Allergy Mild Rash/Hives Verified 12/07/22 14:21 Antibiotics) Physical Exam Vitals: Vital Signs Temp Pulse Pulse Resp BP BP BP 12/08/22 07:25 98.4 F 85 16 116/70 12/08/22 02:00 98.5 F 91 16 101/62 12/07/22 20:00 16 12/07/22 19:48 98.4 F 95 16 93/59 12/07/22 17:19 98.3 F 90 16 113/68 12/07/22 16:00 98.7 F 72 126/51 12/07/22 15:00 76 115/63 12/07/22 14:00 70 132/71 12/07/22 13:00 68 120/76 12/07/22 12:00 72 123/60 12/07/22 11:23 12/07/22 11:07 98.2 F 99 20 152/84 Pulse Ox 12/08/22 07:25 96 12/08/22 02:00 92 L 12/07/22 20:00 12/07/22 19:48 96 12/07/22 17:19 97 12/07/22 16:00 97 12/07/22 15:00 98 12/07/22 14:00 98 12/07/22 13:00 98 12/07/22 12:00 98 12/07/22 11:23 98 12/07/22 11:07 97 Intake and Output 12/07/22 12/08/22 12/08/22 22:59 06:59 14:59 Intake Total 590 Balance 590 Intake: Oral 590 Other: Voiding Method Toilet # Voids 1 2 Weight 86.183 kg - Constitutional General appearance: cooperative, no acute distress, obese - EENT Eyes: anicteric sclerae, EOMI ENT: hearing grossly normal - Neck Neck: no lymphadenopathy - Respiratory Respiratory: bilateral: CTA - Cardiovascular Rhythm: regular Heart sounds: normal: S1, S2 Abnormal Heart Sounds: no systolic murmur, no diastolic murmur, no rub, no S3 Gallop, no S4 Gallop, no click, no other - Gastrointestinal General gastrointestinal: no absent bowel sounds, no decreased bowel sounds, distended, no hepatomegaly, no hyperactive bowel sounds, normal bowel sounds, no organomegaly, no rigid, no scaphoid, soft, no splenomegaly, no tenderness, no umbilical hernia, no ventral hernia - Integumentary Integumentary: normal - Neurologic Neurologic: CNII-XII intact - Musculoskeletal Musculoskeletal: generalized weakness - Psychiatric Psychiatric: A&O x's 3, appropriate affect, intact judgment & insight Results CBC & Chem 7: 12/08/22 09:11 12/08/22 09:11 Labs: Abnormal Lab Results - Last 24 Hours (Table) 12/07/22 12/07/22 12/08/22 Range/Units 11:45 11:45 09:11 WBC 12.2 H (3.8-10.6) k/uL RBC 3.70 L 3.30 L (3.80-5.40) m/uL Hgb 10.3 L (11.4-16.0) gm/dL Hct 30.7 L (34.0-46.0) % Neutrophils # 10.7 H (1.3-7.7) k/uL Lymphocytes # 0.4 L (1.0-4.8) k/uL Sodium (137-145) mmol/L Creatinine 1.27 H (0.52-1.04) mg/dL Glucose (74-99) mg/dL Calcium (8.4-10.2) mg/dL Total Protein 5.8 L (6.3-8.2) g/dL Albumin 3.3 L (3.5-5.0) g/dL Amylase 128 H (30-110) U/L 12/08/22 Range/Units 09:11 WBC (3.8-10.6) k/uL RBC (3.80-5.40) m/uL Hgb (11.4-16.0) gm/dL Hct (34.0-46.0) % Neutrophils # (1.3-7.7) k/uL Lymphocytes # (1.0-4.8) k/uL Sodium 136 L (137-145) mmol/L Creatinine (0.52-1.04) mg/dL Glucose 128 H (74-99) mg/dL Calcium 7.5 L (8.4-10.2) mg/dL Total Protein (6.3-8.2) g/dL Albumin (3.5-5.0) g/dL Amylase (30-110) U/L CT scan - abdomen: report reviewed CT scan - pelvis: report reviewed Assessment and Plan (1) Abdominal pain Status: Acute Priority: High Code(s): R10.9 - UNSPECIFIED ABDOMINAL PAIN SNOMED Code(s): 98247030 (2) Breast cancer metastasized to multiple sites Status: Chronic Priority: High Code(s): C50.919 - MALIGNANT NEOPLASM OF UNSP SITE OF UNSPECIFIED FEMALE BREAST SNOMED Code(s): 644909073 Plan: Abdominal pain -CT AP without contrast, compared to imaging from Oct. Increase in size of mesenteric mass, retroperitoneal LAD, rt adrenal mass. Pain likely related to metastatic disease in the abd. -Been on tramadol since admit but, would prefer non NSAID for pain control so, adjusted pain meds and spoke with Nursing who will administer and evaluate adequate pain control -Pt has chronic diarrhea. Told her to monitor stools as pain meds can make her constipated. PRN meds to treat constipation added Breast cancer -CT AP without contrast reports disease progression. -Unfortunately pt has only had 1 cycle of oral Ibrance, not absolutely certain this is failure of med but, plan is to change treatment regimen. -Restaging CT CAP with contrast ordered -Baseline echo to begin cardiotoxic chemotherapy ordered All of the above was discussed with the patient and her family. All of their questions were answered to the best of my ability. They agree with the plan. Discussed the case briefly with Internal Medicine. Patient will stay to have testing completed and analgesic control attests: I have seen and examined patient, performed H&P, developed impression and plan of care. Discussed with dictator. Agree with documentation, dictated as scribe.
--- NOTE | 2022-12-10 12:10 | P.DS ---
Providers Date of admission: 12/07/22 14:32 Expected date of discharge: 12/10/22 Attending physician: Eliazar Shell MD Consults: 12/07/22 14:32 Consult Physician Routine Consulting Provider: Rusty Palacios Consult Reason/Comments: Metastatic breast cancer Do you want consulting provider notified?: Yes, Notify in am Primary care physician: [facility] Course: Patient is a 57-year-old female with PMH of metastatic breast cancer, multiple sclerosis, optic neuritis, chronic diarrhea, seasonal ALLERGIES, anxiety and depression presents the ED for abdominal pain. Patient reports abdominal pain that has been ongoing for the past 2 weeks. Abdominal pain is left lower quadrant with no radiating features. She describes the pain as dull in nature. Pain is worsened with movement and walking. No relation to meals. Pain is associated with nausea and one episode of emesis. She denies any dysuria. She reports diarrhea that has been chronic in nature ongoing for many years. Of note, patient was recently treated for UTI. She has been on and off chemotherapy, Ibrance under Dr. Levine. She has missed doses due to insurance issues and treatment of UTI. In the ED, vital signs were stable. CBC showed leukocytosis of 12.2. Coagulation panel is negative. CMP shows Cr of 1.27, Albumin 3.3. Amylase 128. Lipase negative. Lactic acid negative. UA is negative. CT AP shows enlarging mesenteric masses (6.2 x 6.3 x 5.5 cm) of which the largest on of the left appears to be possibly invading into the transverse colon. CT AP also shows enlarging right adrenal mass. Patient seen and examined. No acute events overnight. Patient reports well- controlled pain in her left lower quadrant. The case was discussed with Dr. Palacios who agreed the patient can be discharged home with outpatient follow-up for adjustments in chemotherapy. Patient was agreeable to this plan. Pertinent studies include CTAP, CT chest abdomen pelvis, echocardiogram. Please refer to progress note for physical exam. Discharge diagnosis: #Abdominal pain likely related to enlarging mesenteric masses (6.2 x 6.3 x 5.5 cm) of which the largest on of the left appears to be possibly invading into the transverse colon #Elevated amylase Chronic conditions: Metastatic breast cancer, multiple sclerosis, optic neuritis, chronic diarrhea, seasonal ALLERGIES, anxiety and depression Resolved: Leukocytosis, acute kidney injury This complex discharge took 35 minutes to complete. Patient Condition at Discharge: Stable Plan - Discharge Summary Discharge Rx Participant: Yes New Discharge Prescriptions: New Pantoprazole [Protonix] 40 mg PO AC-BRKFST #30 tab Ketorolac [Toradol] 10 mg PO Q6HR #20 tab Continue Loratadine [Claritin] 10 mg PO HS Amitriptyline HCl 10 mg PO HS Cholecalciferol (Vitamin D3) [Vitamin D3 (125 MCG = 5,000 IU)] 250 mcg PO DAILY Aspirin [Adult Low Dose Aspirin EC] 81 mg PO HS Cranberry + Vitamin C 2 tab PO DAILY Calcium Carb/Mag Ox/Zinc Sulf [Faz-Uoo-Ivqs 334-134-5 mg Tab] 1 tab PO DAILY FLUoxetine HCL [PROzac] 20 mg PO HS Metamucil Gummies 2 cap PO DAILY Cyanocobalamin (Vitamin B-12) [Vitamin B-12] 1,000 mcg PO DAILY Glucosam/Bao-Msm1/C/Massimo/Bosw [Xwrdukfodna-Fiqecbzavsh-BEO Tb] 1 tab PO DAILY Ondansetron [Zofran] 4 mg PO Q4H PRN PRN Reason: Nausea Discontinued Ibuprofen [Motrin] 600 mg PO Q8HR PRN PRN Reason: Pain Or Fever > 100.5 No Action HYDROcodone/APAP 5-325MG [[place] 5-325] 1 tab PO Q4HR PRN PRN Reason: Pain Discharge Medication List Loratadine [Claritin] 10 mg PO HS 01/21/20 [History] Amitriptyline HCl 10 mg PO HS 10/21/20 [History] FLUoxetine HCL [PROzac] 20 mg PO HS 05/26/21 [History] Cholecalciferol (Vitamin D3) [Vitamin D3 (125 MCG = 5,000 IU)] 250 mcg PO DAILY 08/11/21 [History] Aspirin [Adult Low Dose Aspirin EC] 81 mg PO HS 09/21/21 [History] Calcium Carb/Mag Ox/Zinc Sulf [Yvz-Wof-Oohx 334-134-5 mg Tab] 1 tab PO DAILY 12/07/22 [History] Cranberry + Vitamin C 2 tab PO DAILY 12/07/22 [History] Cyanocobalamin (Vitamin B-12) [Vitamin B-12] 1,000 mcg PO DAILY 12/07/22 [History] Glucosam/Bao-Msm1/C/Massimo/Bosw [Voutnmmveba-Dzutxthhhfg-JGN Tb] 1 tab PO DAILY 12/07/22 [History] Metamucil Gummies 2 cap PO DAILY 12/07/22 [History] Ondansetron [Zofran] 4 mg PO Q4H PRN 12/07/22 [History] Ketorolac [Toradol] 10 mg PO Q6HR #20 tab 12/08/22 [Rx] Pantoprazole [Protonix] 40 mg PO AC-BRKFST #30 tab 12/08/22 [Rx] HYDROcodone/APAP 5-325MG [[place] 5-325] 1 tab PO Q4HR PRN 12/09/22 [History] Follow up Appointment(s)/Referral(s): Manpreet Santillan MD [Primary Care Provider] - 1-2 days Severo Levine MD [STAFF PHYSICIAN] - 12/26/22 4:15 pm Patient Instructions/Handouts: Hydrocodone/Acetaminophen (By mouth), Ketorolac (By mouth), Pantoprazole (By mouth), Acute Kidney Injury (DC) Discharge Disposition: HOME SELF-CARE
== END 2022-12-08 18:10 | disposition home or self-care (01) | DRG 392 ==
LOC: EC 10:43 → 5NMEDONC 14:32
PROVIDERS: ADMIT Student in an Organized Health Care Education/Training Program; ATTEND Student in an Organized Health Care Education/Training Program
DX: R19.09 Other intra-abdominal and pelvic swelling, mass and lump (principal); C77.3 Secondary and unspecified malignant neoplasm of axilla and upper limb lymph nodes; C79.51 Secondary malignant neoplasm of bone; H46.9 Unspecified optic neuritis; N17.9 Acute kidney failure, unspecified; Z68.41 Body mass index [BMI] 40.0-44.9, adult; C50.511 Malignant neoplasm of lower-outer quadrant of right female breast; E86.0 Dehydration; E27.9 Disorder of adrenal gland, unspecified; G35 Multiple sclerosis; E66.9 Obesity, unspecified; I89.0 Lymphedema, not elsewhere classified; M85.80 Other specified disorders of bone density and structure, unspecified site; Z17.0 Estrogen receptor positive status [ER+]; K52.9 Noninfective gastroenteritis and colitis, unspecified; J45.909 Unspecified asthma, uncomplicated; F41.9 Anxiety disorder, unspecified; F32.A Depression, unspecified; R74.8 Abnormal levels of other serum enzymes; M19.90 Unspecified osteoarthritis, unspecified site; Z79.82 Long term (current) use of aspirin; Z79.899 Other long term (current) drug therapy; Z87.440 Personal history of urinary (tract) infections; Z86.14 Personal history of Methicillin resistant Staphylococcus aureus infection; Z87.311 Personal history of (healed) other pathological fracture; Z88.2 Allergy status to sulfonamides
CPT/HCPCS: 36415; 71260; 74176; 74177; 80048; 80053; 81003; 82150; 83605; 83690; 85025; 85027; 85610; 85730; 93306; 99285

== ENCOUNTER 2022-12-09 19:08 | Inpatient (IN) | payer OTHER ==
[2022-12-09] MEDS ORDERED: SODIUM CHLORIDE 0.9% 2,000 ML IV STA (19:24)
[2022-12-09] MEDS ORDERED: HYDROmorphone 0.5 MG/0.5 ML SYRINGE IVP STA (19:25)
[2022-12-09] MEDS ORDERED: PROCHLORPERAZINE INJ 10 MG/2 ML VIAL IVP STA (19:25)
[2022-12-09 20:27] LABS: Appearance,Urine Clear (Clear); Bacteria,Urine Rare /hpf; Bilirubin,Urine Negative (Negative); Blood,Urine Negative (Negative); Color,Urine Yellow; Glucose,Urine (UA) Negative (Negative); Hyaline Casts,Urine 3 /lpf (0-2); Ketones,Urine Negative (Negative); Leukocyte Esterase,Urine Small (Negative); Mucus,Urine Rare /hpf; Nitrite,Urine Negative (Negative); PH, Urine 5.5 (5.0-8.0); Protein,Urine Trace (Negative); RBC,Urine 1 /hpf (0-5); Specific Gravity,Urine 1.014 (1.001-1.035); Squamous Epithelial Cell,Urine <1 /hpf (0-4); Urobilinogen,Urine <2.0 mg/dL (<2.0); WBC,Urine 15 /hpf (0-5)
--- NOTE | 2022-12-09 20:36 | XR ---
EXAMINATION TYPE: XR KUB DATE OF EXAM: 12/09/2022 COMPARISON: NONE HISTORY: Abdominal pain TECHNIQUE: 2 views FINDINGS: 2 views upright show no some mildly dilated gas and fluid-filled small bowel in the mid abd omen. There is a relative lack of large bowel gas.. No pathologic calcification seen over the kidneys . IMPRESSION: There are some dilated small bowel that could relate to mechanical small bowel obstructio n. No free air.
[2022-12-09 20:40] LABS: ALT 17 U/L (4-34); AST 21 U/L (14-36); African American GFR (CKD) >90 (>60 ml/min/1.73 sqM); Albumin 3.2 g/dL (3.5-5.0); Alkaline Phosphatase 95 U/L (38-126); Amylase 131 U/L (30-110); Anion Gap 7 mmol/L; Blood Urea Nitrogen 6 mg/dL (7-17); Calcium 8.3 mg/dL (8.4-10.2); Carbon Dioxide 23 mmol/L (22-30); Chloride 107 mmol/L (98-107); Glucose 145 mg/dL (74-99); Lipase 37 U/L (23-300); Magnesium 1.9 mg/dL (1.6-2.3); Non-African American GFR(CKD) >90 (>60 ml/min/1.73 sqM); Sodium 137 mmol/L (137-145); Total Bilirubin 0.4 mg/dL (0.2-1.3); Total Protein 5.8 g/dL (6.3-8.2)
[2022-12-09 20:42] LABS: Basophils % (A) 0 %; Eosinophils % (A) 0 %; HCT 34.7 % (34.0-46.0); HGB 11.6 gm/dL (11.4-16.0); Lymphocytes # (A) 0.4 k/uL (1.0-4.8); Lymphocytes % (A) 3 %; MCH 30.7 pg (25.0-35.0); MCHC 33.4 g/dL (31.0-37.0); MCV 91.9 fL (80.0-100.0); Mean Platelet Volume 7.1; Monocytes # (A) 0.5 k/uL (0-1.0); Monocytes % (A) 4 %; Neutrophils % (A) 91 %; Platelet Count 391 k/uL (150-450); Poikilocytosis Slight; RBC 3.78 m/uL (3.80-5.40); RDW 14.5 % (11.5-15.5)
[2022-12-09] MEDS ORDERED: PROCHLORPERAZINE INJ 10 MG/2 ML VIAL IVP PRN (21:02)
--- NOTE | 2022-12-09 21:13 | ED ---
Abdominal Pain HPI - General Chief Complaint: Abdominal Pain Stated Complaint: Abd Pain,Cancer Pt. Time Seen by Provider: 12/09/22 19:22 Source: patient Mode of arrival: ambulatory Limitations: no limitations - History of Present Illness Initial Comments: Patient is a 57 -year-old female who presents to the emergency department with a chief complaint of abdominal pain. Patient has metastatic breast cancer with various mets including likely the transverse colon. She was recently admitted and discharged yesterday for similar symptoms. Patient states the Waveseer is not working. Patient feels very nauseous, had 2 episodes of vomiting today shortly after taking Zofran, nonbloody. She feels that her abdomen is more distended than normal. No fever or chills. Last bowel movement was yesterday 5 pm, diarrhea, nonbloody. Oncologist is Dr. Levine. - Related Data Home Medications Medication Instructions Recorded Confirmed Loratadine [Claritin] 10 mg PO HS 01/21/20 12/09/22 Amitriptyline HCl 10 mg PO HS 10/21/20 12/09/22 FLUoxetine HCL [PROzac] 20 mg PO HS 05/26/21 12/09/22 Cholecalciferol (Vitamin D3) 250 mcg PO DAILY 08/11/21 12/09/22 [Vitamin D3 (125 MCG = 5,000 IU)] Aspirin [Adult Low Dose Aspirin EC] 81 mg PO HS 09/21/21 12/09/22 Calcium Carb/Mag Ox/Zinc Sulf 1 tab PO DAILY 12/07/22 12/09/22 [Izs-Bgq-Eljt 334-134-5 mg Tab] Cranberry + Vitamin C 2 tab PO DAILY 12/07/22 12/09/22 Cyanocobalamin (Vitamin B-12) 1,000 mcg PO DAILY 12/07/22 12/09/22 [Vitamin B-12] Glucosam/Bao-Msm1/C/Massimo/Bosw 1 tab PO DAILY 12/07/22 12/09/22 [Tnmkjucargk-Fgdhxhoafkj-KXF Tb] Metamucil Gummies 2 cap PO DAILY 12/07/22 12/09/22 Ondansetron [Zofran] 4 mg PO Q4H PRN 12/07/22 12/09/22 HYDROcodone/APAP 5-325MG [[place] 1 tab PO Q4HR PRN 12/09/22 12/09/22 5-325] Previous Rx's Medication Instructions Recorded Ketorolac [Toradol] 10 mg PO Q6HR #20 tab 12/08/22 Pantoprazole [Protonix] 40 mg PO AC-BRKFST #30 tab 12/08/22 Allergies Allergy/AdvReac Type Severity Reaction Status Date / Time Sulfa (Sulfonamide Allergy Mild Rash/Hives Verified 12/09/22 21:08 Antibiotics) Review of Systems ROS Statement: Those systems with pertinent positive or pertinent negative responses have been documented in the HPI. ROS Other: All systems not noted in ROS Statement are negative. Past Medical History Past Medical History: Asthma, Cancer, Neurologic Disorder, Osteoarthritis (OA) Additional Past Medical History / Comment(s): right breast cancer 08/2019,stage IV breast cancer with bone mestasis 07/09; MULTIPLE SCLEROSIS; optic neuritis; lymphadema rt arm; mild lichenoid inflammation lt axillary area and inbetween legs; colitis History of Any Multi-Drug Resistant Organisms: MRSA Date of last positivie culture/infection: 01/2020 MDRO Source:: abdomen Past Surgical History: Section, Orthopedic Surgery, Tonsillectomy Additional Past Surgical History / Comment(s): section x4; RIGHT MASTECTOMY WITH TISSUE OPEN CLAIMS REPRESENTATIVE, subsequent extraction of tissue mine motor operator without insertion of prosthesis due to infection; right chest wall revision ; fx lt hip with surgery using cement to repair 08/11/21 Past Anesthesia/Blood Transfusion Reactions: Postoperative Nausea & Vomiting (PONV) Past Psychological History: Anxiety, Depression Smoking Status: Never smoker - Past Family History Brother(s) Family Medical History: Deep Vein Thrombosis (DVT) Additional Family Medical History / Comment(s): 2 BROTHERS WITH DVT'S General Exam Limitations: no limitations General appearance: alert, in no apparent distress Eye exam: Present: normal appearance, PERRL, EOMI. Absent: scleral icterus, conjunctival injection, periorbital swelling Respiratory exam: Present: normal lung sounds bilaterally. Absent: respiratory distress, wheezes, rales, rhonchi, stridor Cardiovascular Exam: Present: regular rate, normal rhythm, normal heart sounds. Absent: systolic murmur, diastolic murmur, rubs, gallop, clicks GI/Abdominal exam: Present: soft, distended, tenderness (generalized), normal bowel sounds. Absent: guarding, rebound, rigid Neurological exam: Present: alert, oriented X3, CN II-XII intact Psychiatric exam: Present: normal affect, normal mood Skin exam: Present: warm, dry, intact, normal color. Absent: rash Course Vital Signs 12/09/22 19:17 Temperature 97.8 F Pulse Rate 88 Respiratory 18 Rate Blood Pressure 133/69 O2 Sat by Pulse 95 Oximetry Medical Decision Making - Medical Decision Making Was pt. sent in by a medical professional or institution (, PA, TAPPET ADJUSTER, urgent care, hospital, or skilled nursing...) When possible be specific @ -[No] Did you speak to anyone other than the patient for history (EMS, parent, family, police, friend...)? What history was obtained from this source @ -[No] Did you review nursing and triage notes (agree or disagree)? Why? @ -[I reviewed and agree with nursing and triage notes] Were old charts reviewed (outside hosp., previous admission, EMS record, old EKG , old radiological studies, urgent care reports/EKG's, skilled nursing records)? Report findings @ -Yes, I reviewed patient's recent admission. Patient had recent abdominal computed tomography scan on 12/08/22 which was significant for enlarging right adrenal nodularity, new right pararenal retroperitoneal soft tissue deposit, increase of all 3 of mental masses, including invasion of the transverse colon area and lumen Differential Diagnosis (chest pain, altered mental status, abdominal pain women, abdominal pain men, vaginal bleeding, weakness, fever, dyspnea, syncope, headache, dizziness, GI bleed, back pain, seizure, CVA, palpatations, mental health)? @ -bowel obstruction, ileus, EKG interpreted by me (3pts min.). @ -[As above] X-rays interpreted by me (1pt min.). @ -[None done] CT interpreted by me (1pt min.). @ -[None done] U/S interpreted by me (1pt. min.). @ -[None done] What testing was considered but not performed or refused? (CT, X-rays, U/S, labs )? Why? @ -[None] What meds were considered but not given or refused? Why? @ -[None] Did you discuss the management of the patient with other professionals (professionals i.e. , PA, TAPPET ADJUSTER, lab, RT, psych nurse, social media marketing specialist, plywood stock grader, teacher, commercial escrow officer, case sealer)? Give summary @ -[No] Was smoking cessation discussed for >3mins.? @ -[No] Was critical care preformed (if so, how long)? @ -[No] Were there social determinants of health that impacted care today? How? (Homelessness, low income, unemployed, alcoholism, drug addiction, transportation, low edu. Level, literacy, decrease access to med. care, detention, rehab)? @ -[No] Was there de-escalation of care discussed even if they declined (Discuss DNR or withdrawal of care, Hospice)? DNR status @ -[No] What co-morbidities impacted this encounter? (DM, HTN, Smoking, COPD, CAD, Cancer, CVA, ARF, Chemo, Hep., AIDS, mental health diagnosis, sleep apnea, morbid obesity)? @ metastatic breast cancer Was patient admitted / discharged? Hospital course, mention meds given and route, prescriptions, significant lab abnormalities, going to OR and other pertinent info. @ Admitted-patient has mildly distended abdomen with concern for small bowel obstruction on KUB x-ray. Afebrile. Mild leukocytosis at 12.0. Pain and nausea controlled, pt resting comfortably. No further episodes of emesis in the emergency department. Patient NPO, receiving IV fluids. Admitted to Dr. Kwong. Oncology and general surgery on consult Undiagnosed new problem with uncertain prognosis? @ -[No] Drug Therapy requiring intensive monitoring for toxicity (Heparin, Nitro, Insulin, Cardizem)? @ -[No] Were any procedures done? @ -[No] Diagnosis/symptom? @ -SBO Acute, or Chronic, or Acute on Chronic? @ -acute Uncomplicated (without systemic symptoms) or Complicated (systemic symptoms)? @ -uncomplicated Side effects of treatment? @ -[No] Exacerbation, Progression, or Severe Exacerbation? @ -[No] Poses a threat to life or bodily function? How? (Chest pain, USA, VT, pneumonia, PE, COPD, DKA, ARF, appy, cholecystitis, CVA, Diverticulitis, Homicidal, Suicidal, threat to staff... and all critical care pts) @ -[No] Dr. Magaña is my attending - Lab Data Result diagrams: 12/09/22 20:10 12/09/22 20:10 Lab Results 12/09/22 12/09/22 12/09/22 Range/Units 19:52 19:52 20:10 WBC 12.0 H (3.8-10.6) k/uL RBC 3.78 L (3.80-5.40) m/uL Hgb 11.6 (11.4-16.0) gm/dL Hct 34.7 (34.0-46.0) % MCV 91.9 (80.0-100.0) fL MCH 30.7 (25.0-35.0) pg MCHC 33.4 (31.0-37.0) g/dL RDW 14.5 (11.5-15.5) % Plt Count 391 (150-450) k/uL MPV 7.1 Neutrophils % 91 % Lymphocytes % 3 % Monocytes % 4 % Eosinophils % 0 % Basophils % 0 % Neutrophils # 11.0 H (1.3-7.7) k/uL Lymphocytes # 0.4 L (1.0-4.8) k/uL Monocytes # 0.5 (0-1.0) k/uL Eosinophils # 0.0 (0-0.7) k/uL Basophils # 0.0 (0-0.2) k/uL Poikilocytosis Slight Sodium (137-145) mmol/L Potassium (3.5-5.1) mmol/L Chloride (98-107) mmol/L Carbon Dioxide (22-30) mmol/L Anion Gap mmol/L BUN (7-17) mg/dL Creatinine (0.52-1.04) mg/dL Est GFR (CKD-EPI)AfAm (>60 ml/min/1.73 sqM) Est GFR (CKD-EPI)NonAf (>60 ml/min/1.73 sqM) Glucose (74-99) mg/dL Plasma Lactic Acid Tristen (0.7-2.0) mmol/L Calcium (8.4-10.2) mg/dL Magnesium (1.6-2.3) mg/dL Total Bilirubin (0.2-1.3) mg/dL AST (14-36) U/L ALT (4-34) U/L Alkaline Phosphatase (38-126) U/L Total Protein (6.3-8.2) g/dL Albumin (3.5-5.0) g/dL Amylase (30-110) U/L Lipase (23-300) U/L Urine Color Yellow Urine Appearance Clear (Clear) Urine pH 5.5 (5.0-8.0) Ur Specific [place] 1.014 (1.001-1.035) Urine Protein Trace H (Negative) Urine Glucose (UA) Negative (Negative) Urine Ketones Negative (Negative) Urine Blood Negative (Negative) Urine Nitrite Negative (Negative) Urine Bilirubin Negative (Negative) Urine Urobilinogen <2.0 (<2.0) mg/dL Ur Leukocyte Esterase Small H (Negative) Urine RBC 1 (0-5) /hpf Urine WBC 15 H (0-5) /hpf Ur Squamous Epith Cells <1 (0-4) /hpf Urine Bacteria Rare H (None) /hpf Hyaline Casts 3 H (0-2) /lpf Urine Mucus Rare H (None) /hpf Influenza Type A (PCR) Not Detected (Not Detectd) Influenza Type B (PCR) Not Detected (Not Detectd) RSV (PCR) Not Detected (Not Detectd) SARS-CoV-2 (PCR) Not Detected (Not Detectd) 12/09/22 12/09/22 Range/Units 20:10 20:10 WBC (3.8-10.6) k/uL RBC (3.80-5.40) m/uL Hgb (11.4-16.0) gm/dL Hct (34.0-46.0) % MCV (80.0-100.0) fL MCH (25.0-35.0) pg MCHC (31.0-37.0) g/dL RDW (11.5-15.5) % Plt Count (150-450) k/uL MPV Neutrophils % % Lymphocytes % % Monocytes % % Eosinophils % % Basophils % % Neutrophils # (1.3-7.7) k/uL Lymphocytes # (1.0-4.8) k/uL Monocytes # (0-1.0) k/uL Eosinophils # (0-0.7) k/uL Basophils # (0-0.2) k/uL Poikilocytosis Sodium 137 (137-145) mmol/L Potassium 4.0 (3.5-5.1) mmol/L Chloride 107 (98-107) mmol/L Carbon Dioxide 23 (22-30) mmol/L Anion Gap 7 mmol/L BUN 6 L (7-17) mg/dL Creatinine 0.47 L (0.52-1.04) mg/dL Est GFR (CKD-EPI)AfAm >90 (>60 ml/min/1.73 sqM) Est GFR (CKD-EPI)NonAf >90 (>60 ml/min/1.73 sqM) Glucose 145 H (74-99) mg/dL Plasma Lactic Acid Tristen 1.3 (0.7-2.0) mmol/L Calcium 8.3 L (8.4-10.2) mg/dL Magnesium 1.9 (1.6-2.3) mg/dL Total Bilirubin 0.4 (0.2-1.3) mg/dL AST 21 (14-36) U/L ALT 17 (4-34) U/L Alkaline Phosphatase 95 (38-126) U/L Total Protein 5.8 L (6.3-8.2) g/dL Albumin 3.2 L (3.5-5.0) g/dL Amylase 131 H (30-110) U/L Lipase 37 (23-300) U/L Urine Color Urine Appearance (Clear) Urine pH (5.0-8.0) Ur Specific [place] (1.001-1.035) Urine Protein (Negative) Urine Glucose (UA) (Negative) Urine Ketones (Negative) Urine Blood (Negative) Urine Nitrite (Negative) Urine Bilirubin (Negative) Urine Urobilinogen (<2.0) mg/dL Ur Leukocyte Esterase (Negative) Urine RBC (0-5) /hpf Urine WBC (0-5) /hpf Ur Squamous Epith Cells (0-4) /hpf Urine Bacteria (None) /hpf Hyaline Casts (0-2) /lpf Urine Mucus (None) /hpf Influenza Type A (PCR) (Not Detectd) Influenza Type B (PCR) (Not Detectd) RSV (PCR) (Not Detectd) SARS-CoV-2 (PCR) (Not Detectd) Disposition Clinical Impression: Breast cancer metastasized to multiple sites, Small bowel obstruction Disposition: ADMITTED IP TO THIS HOSP Condition: Stable Referrals: Manpreet Santillan MD [Primary Care Provider] - 1-2 days
[2022-12-09] MEDS ORDERED: NALOXONE 0.4 MG/ML 1 ML VIAL IV PRN (21:17)
[2022-12-09] MEDS: SODIUM CHLORIDE 0.9% 1,000 ML IV SCH (22:57)
--- NOTE | 2022-12-10 | P.HPIM ---
History of Present Illness H&P Date: 12/09/22 Chief Complaint: intractable pain, nausea and vomiting 57 year old female with metastatic breast cancer to the colon patient was recently discharged from the hospital where she was admitted for pain control . she returns today due to worsening epigastric abd pain, with re peated nausea and vomiting, here home meds of norco were not helping control the pain, patient is having PO intake intolerance . she also reports chronic diarrhea . her most recent CT done during last admission , showed worsening omentum mass croaching into the transverse colon. she denies any fever, chills, chest pain , cough or trouble breathing. blood work showed elevated amylase, , negative lipase, slightly elevated WBC , no fever, no electrolytes imbalance. patient denies any GI bleeding abd xray showed gas pattern suggestive of SBO patient aware of abd mass, and was told that surgery should be postponed if possible to to be able to try chemotherapy first. Review of Systems Pertinent positives as noted in HPI. All other systems were reviewed and are negative Past Medical History Past Medical History: Asthma, Cancer, Neurologic Disorder, Osteoarthritis (OA) Additional Past Medical History / Comment(s): right breast cancer 08/2019,stage IV breast cancer with bone mestasis 07/09; MULTIPLE SCLEROSIS; optic neuritis; lymphadema rt arm; mild lichenoid inflammation lt axillary area and inbetween legs; colitis History of Any Multi-Drug Resistant Organisms: MRSA Date of last positivie culture/infection: 01/2020 MDRO Source:: abdomen Past Surgical History: Section, Orthopedic Surgery, Tonsillectomy Additional Past Surgical History / Comment(s): section x4; 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, 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 without insertion of prosthesis due to infection; right chest wall revision 06/14/21; fx lt hip with surgery using cement to repair 08/11/21 Past Anesthesia/Blood Transfusion Reactions: Postoperative Nausea & Vomiting (PONV) Past Psychological History: Anxiety, Depression Smoking Status: Never smoker - Past Family History Brother(s) Family Medical History: Deep Vein Thrombosis (DVT) Additional Family Medical History / Comment(s): 2 BROTHERS WITH DVT'S Medications and Allergies Home Medications Medication Instructions Recorded Confirmed Type Loratadine [Claritin] 10 mg PO HS 01/21/20 12/09/22 History Amitriptyline HCl 10 mg PO HS 10/21/20 12/09/22 History FLUoxetine HCL [PROzac] 20 mg PO HS 05/26/21 12/09/22 History Cholecalciferol (Vitamin D3) 250 mcg PO DAILY 08/11/21 12/09/22 History [Vitamin D3 (125 MCG = 5,000 IU)] Aspirin [Adult Low Dose Aspirin EC] 81 mg PO HS 09/21/21 12/09/22 History Calcium Carb/Mag Ox/Zinc Sulf 1 tab PO DAILY 12/07/22 12/09/22 History [Lrl-Pvj-Lgfz 334-134-5 mg Tab] Cranberry + Vitamin C 2 tab PO DAILY 12/07/22 12/09/22 History Cyanocobalamin (Vitamin B-12) 1,000 mcg PO DAILY 12/07/22 12/09/22 History [Vitamin B-12] Glucosam/Bao-Msm1/C/Massimo/Bosw 1 tab PO DAILY 12/07/22 12/09/22 History [Hsdeviggqau-Ayturunpgyh-GEU Tb] Metamucil Gummies 2 cap PO DAILY 12/07/22 12/09/22 History Ondansetron [Zofran] 4 mg PO Q4H PRN 12/07/22 12/09/22 History Ketorolac [Toradol] 10 mg PO Q6HR #20 tab 12/08/22 12/09/22 Rx Pantoprazole [Protonix] 40 mg PO AC-BRKFST #30 tab 12/08/22 12/09/22 Rx HYDROcodone/APAP 5-325MG [[place] 1 tab PO Q4HR PRN 12/09/22 12/09/22 History 5-325] Allergies Allergy/AdvReac Type Severity Reaction Status Date / Time Sulfa (Sulfonamide Allergy Mild Rash/Hives Verified 12/09/22 21:08 Antibiotics) Physical Exam Vitals: Vital Signs Temp Pulse Resp BP Pulse Ox 12/09/22 19:17 97.8 F 88 18 133/69 95 Intake and Output 12/09/22 12/09/22 12/09/22 06:59 14:59 22:59 Other: Weight 86.183 kg Constitutional: No acute distress, conversant, pleasant Eyes: Anicteric sclerae, moist conjunctiva, Pupils equal round reactive to light ENMT: NC/AT Oropharynx clear, no erythema, or exudates Neck: Supple, no masses, or JVD No carotid bruits No thyromegaly Lungs: Clear to auscultation Clear to percussion Normal respiratory effort, no accessory muscle use Cardiovascular: Heart regular in rate and rhythm, No murmurs, gallops, or rubs No peripheral edema Abdominal: moderate distention discomfort to deep palpation of the epigastric region, no guarding, rebound or rigidity Abdomen moving with respiration Normoactive bowel sounds No hepatomegaly, No splenomegaly No palpable mass No abdominal wall hernia noted Skin: Normal temperature, tone, texture, turgor No induration No subcutaneous nodules No rash, lesions No ulcers Extremities: No digital cyanosis No clubbing Pedal pulses intact and symmetrical Radial pulses intact and symmetrical No calf tenderness Psychiatric: Alert and oriented to person, place and time Appropriate affect fair judgement Neuro Muscles Strength 5/5 in all 4 extremities Sensation to light touch grossly present throughout Cranial nerves II-XII grossly intact Lymphatics: no palpable cervical or supraclavicular lymph nodes Results CBC & Chem 7: 12/09/22 20:10 12/09/22 20:10 Labs: Abnormal Lab Results - Last 24 Hours (Table) 12/09/22 12/09/22 12/09/22 Range/Units 19:52 20:10 20:10 WBC 12.0 H (3.8-10.6) k/uL RBC 3.78 L (3.80-5.40) m/uL Neutrophils # 11.0 H (1.3-7.7) k/uL Lymphocytes # 0.4 L (1.0-4.8) k/uL BUN 6 L (7-17) mg/dL Creatinine 0.47 L (0.52-1.04) mg/dL Glucose 145 H (74-99) mg/dL Calcium 8.3 L (8.4-10.2) mg/dL Total Protein 5.8 L (6.3-8.2) g/dL Albumin 3.2 L (3.5-5.0) g/dL Amylase 131 H (30-110) U/L Urine Protein Trace H (Negative) Ur Leukocyte Esterase Small H (Negative) Urine WBC 15 H (0-5) /hpf Urine Bacteria Rare H (None) /hpf Hyaline Casts 3 H (0-2) /lpf Urine Mucus Rare H (None) /hpf Assessment and Plan Assessment: SBO intractable abd pain , with nausea and vomiting NPO abd xray showed SBO gas pattern recent CT abd done a week ago , showed encroaching mesentric mass into the transverse colon , no SBO during that test elevated amylase IVF hydration with normal saline pain control with opiods zofran PRN for nausea / vomiting general surgery consult metastatic breast cancer to the colon oncology eval full code DVT PPX heparin sc tid
[2022-12-10] MEDS: HYDROmorphone 0.5 MG/0.5 ML SYRINGE IVP PRN ×3 (05:58→17:19)
[2022-12-10] MEDS: PANTOPRAZOLE 40 MG TABLET PO SCH (06:30)
[2022-12-10] MEDS: SODIUM CHLORIDE 0.9% 1,000 ML IV SCH ×3 (06:32→20:09)
--- NOTE | 2022-12-10 12:37 | P.PN ---
Subjective Progress Note Date: 12/10/22 Patient is a 57-year-old female with PMH of metastatic breast cancer, multiple sclerosis, optic neuritis, chronic diarrhea, seasonal ALLERGIES, anxiety and depression presents the ED for abdominal pain. He was recently discharged on December 08 for the same complaint. CT AP at that time showed enlarging mesenteric masses (6.2 x 6.3 x 5.5 cm) of which the largest on of the left appears to be possibly invading into the transverse colon. CT AP also shows enlarging right adrenal mass. The case was discussed with Dr. Palacios who agreed the patient can be discharged home with outpatient follow-up for adjustments in chemotherapy. She returns back to the ED on 12/09/2022 for worsening abdominal pain, nausea and vomiting. KUB shows dilated small bowel that could relate to mechanical small bowel structure. Patient was seen and examined. No acute events overnight. Patient reports well-controlled abdominal pain. She has had four watery bowel movements today. She is passing gas. No nausea or vomiting. General: non toxic, no distress, appears at stated age Derm: warm, dry Head: atraumatic, normocephalic, symmetric Eyes: EOMI, no lid lag, anicteric sclera Mouth: no lip lesion, mucus membranes moist Cardiovascular: S1S2 reg, no murmur, positive posterior tibial pulse bilateral, Lungs: CTA bilateral, no rhonchi, no rales , no accessory muscle use Abdominal: soft, mild tenderness to palpation in the left lower quadrant without rebound, no guarding, no appreciable organomegaly Ext: no gross muscle atrophy, no edema, no contractures Neuro: no focal neuro deficits Psych: Alert, oriented, appropriate affect #Abdominal pain likely related to enlarging mesenteric masses (6.2 x 6.3 x 5.5 cm) of which the largest on of the left appears to be possibly invading into the transverse colon #Elevated amylase #Leukocytosis #Abnormal UA Chronic conditions: Metastatic breast cancer, multiple sclerosis, optic neuritis, chronic diarrhea, seasonal ALLERGIES, anxiety and depression CT from August 2022 shows lower left sided omental mass measuring 5 cm. It appears that her mass has enlarged since the CT. Patient has had multiple liquid bowel movements since his hospitalization. Doubt small bowel obstruction. Pain to be controlled with Dilaudid as needed. Prochlorperazine as needed for nausea and vomiting. Nothing by mouth and advance diet as tolerated. Surgery and oncology consulted. Heparin for DVT prophylaxis. Patient would like to be FULL CODE. Discharge planning based on clinical course. Anticipate discharge in 1-2 days. Objective - Vital Signs Vital signs: Vital Signs Temp 97.9 F 12/10/22 07:25 Pulse 86 12/10/22 08:02 Resp 18 12/10/22 08:02 BP 89/59 12/10/22 07:25 Pulse Ox 96 12/10/22 07:25 FiO2 Intake & Output 12/09/22 12/10/22 12/10/22 18:59 06:59 18:59 Weight 86.183 kg Other: Voiding Method Toilet Toilet # Voids 2 - Labs CBC & Chem 7: 12/09/22 20:10 12/09/22 20:10 Labs: Abnormal Lab Results - Last 24 Hours (Table) 12/09/22 12/09/22 12/09/22 Range/Units 19:52 20:10 20:10 WBC 12.0 H (3.8-10.6) k/uL RBC 3.78 L (3.80-5.40) m/uL Neutrophils # 11.0 H (1.3-7.7) k/uL Lymphocytes # 0.4 L (1.0-4.8) k/uL BUN 6 L (7-17) mg/dL Creatinine 0.47 L (0.52-1.04) mg/dL Glucose 145 H (74-99) mg/dL Calcium 8.3 L (8.4-10.2) mg/dL Total Protein 5.8 L (6.3-8.2) g/dL Albumin 3.2 L (3.5-5.0) g/dL Amylase 131 H (30-110) U/L Urine Protein Trace H (Negative) Ur Leukocyte Esterase Small H (Negative) Urine WBC 15 H (0-5) /hpf Urine Bacteria Rare H (None) /hpf Hyaline Casts 3 H (0-2) /lpf Urine Mucus Rare H (None) /hpf
--- NOTE | 2022-12-10 13:23 | P.CONS ---
History of Present Illness - Reason for Consult Consult date: 12/10/22 SBO, Met breast Cancer - History of Present Illness Mrs. Bell is a very pleasant pt of Dr. Levine with a PMH of MS, osteopenia and breast cancer who was discharged yesterday after short admission. The patient had come in on 10/07/22 because of increasing abdominal pain, that was found to be due to progression of her known metastatic breast cancer. Imaging during that admission had noted a dominant omental metastasis and appeared to be invading into the transverse colon. However the patient at that time had no zayra dence of obstruction, and was discharged home with comfort of management with the plan to treat with change of her systemic therapy.b Patient was started on a new treatment for her metastatic breast cancer in October. She was due for her second cycle but this was delayed due to low neutrophil count and patient stopped taking it while she was on antibiotics this past week for UTI. The patient was to start a new systemic treatment, with Enhertu as an outpatient. However she states that after going home she developed intractable nausea and vomiting, every time she tried to eat something. She also had recurrent abdominal distention and pain, not controlled with her pain regimen. She continued to have recurrent watery diarrhea. She therefore came back to the emergency room. Repeat imaging with CT scans, as well as abdominal x-rays showed development of probable small bowel obstruction. She was therefore admitted for further management. Patient is denying fevers, no other pain to report, shortness of breath, palpitations, urinary symptoms, rash or swelling of the legs. Onc Hx: Presented with palpable right breast mass Aug 2019, she had additional imaging and U/S which revealed 3.5 x 3.8 x 4 cm mass at 7 o'clock right breast, core biopsy 09/16/2019 was positive for invasive ductal carcinoma,grade 2,ER/OR positive(31%.46%) and HER2/GEOVANNA was negative by FISH.(2+ by IHC). Genetic testing were negative. 10/21/2019 she had right mastectomy, pathology revealed grade 3, invasive ductal carcinoma, 5cm, 1/5 nodes positive for micromets. Surgery was complicated by unhealing wound which required debridment and removal of manager radiation,which took a long time to heal. OncotypeDx revealed recurrence score of 51. Completed adjuvant TC 03/25/2020. Completed adjuvant radiation in April 2020. Started arimidex in May/2020. She continued on f/u and did well until she noticed small open wound on right chest wall in November 2020. Went to ER, however, by the time she got there, the wound closed, but she ended up having a CT chest which revealed 1.2 cm right hilar node and borderline enlarged mediastinal nodes, PET 12/26/2020 revealed increased uptake in thoracic nodes, Pulmonary felt that the nodes were reactive to recent chest wall infection at that time. 03/07/[address] chest revealed prominent thoracic nodes favored inflammatory. 07/11/[address] chest revealed no evidence of recurrence. 08/11/2021 she presented with pathologic fracture of left hip, underwent surgery, biopsy was positive for metastatic carcinoma,ER/OR negative and HER2/GEOVANNA negative.PDL-1 negative. PET 09/02/2021 revealed slight uptake in hilar and mediastinal nodes (small size), slight uptake in left hip, otherwise negative. EBUS 09/23/2021 was not diagnostic. Started xeloda on 10/18/2021. 01/03/22 CT CAP and bone scan revealed no evidence of disease. 09/06/2022 treatment f/u CT CAP showed disease progression in abdomen, new right adrenal nodules, new omental lesions, bone scan was negative. 09/17/2022,biopsy of omental lesion was positive for metastatic breast cancer, ER+(21-30%), OR+(21-30%),HER2 negative by FISH (2+ by IHC). She was started in Ibrance and faslodex, end of Sep 2022. She had 1 cycle of ibrance, completed her loading dose of faslodex. She was delayed in starting her 2nd cycle due to low ANC. She resumed but only for a few a days as she was started on abx and stopped ibrance. Review of Systems Constitutional: Reports chronic pain, Reports poor appetite, Reports weakness Eyes: denies blurred vision, denies pain Ears: deny: decreased hearing, ear discharge, earache, tinnitus Ears, nose, mouth and throat: Denies headache, Denies sore throat Cardiovascular: Denies chest pain, Denies shortness of breath Respiratory: Denies cough Gastrointestinal: Reports abdominal pain, Reports bloating, Reports diarrhea, Reports nausea, Reports vomiting Genitourinary: Denies dysuria, Denies hematuria Menstruation: Reports postmenopausal Musculoskeletal: Denies myalgias Integumentary: Denies pruritus, Denies rash Neurological: Reports weakness, Denies numbness Psychiatric: Denies anxiety, Denies depression Endocrine: Reports fatigue Hematologic/Lymphatic: Reports as per HPI Past Medical History Past Medical History: Asthma, Cancer, Neurologic Disorder, Osteoarthritis (OA) Additional Past Medical History / Comment(s): right breast cancer 08/2019,stage IV breast cancer with bone mestasis 07/09; MULTIPLE SCLEROSIS; optic neuritis; lymphadema rt arm; mild lichenoid inflammation lt axillary area and inbetween legs; colitis History of Any Multi-Drug Resistant Organisms: MRSA Year Discovered:: 01/2020 MDRO Source:: abdomen Past Surgical History: Section, Orthopedic Surgery, Tonsillectomy Additional Past Surgical History / Comment(s): section x4; RIGHT MASTECTOMY WITH TISSUE RECONCILEMENT CLERK, subsequent extraction of tissue manager radiation without insertion of prosthesis due to infection; right chest wall revision 06/14/21; fx lt hip with surgery using cement to repair 08/11/21 Past Anesthesia/Blood Transfusion Reactions: Postoperative Nausea & Vomiting (PONV) Past Psychological History: Anxiety, Depression Smoking Status: Never smoker - Past Family History Brother(s) Family Medical History: Deep Vein Thrombosis (DVT) Additional Family Medical History / Comment(s): 2 BROTHERS WITH DVT'S Medications and Allergies Home Medications Medication Instructions Recorded Confirmed Type Loratadine [Claritin] 10 mg PO HS 01/21/20 12/09/22 History Amitriptyline HCl 10 mg PO HS 10/21/20 12/09/22 History FLUoxetine HCL [PROzac] 20 mg PO HS 05/26/21 12/09/22 History Cholecalciferol (Vitamin D3) 250 mcg PO DAILY 08/11/21 12/09/22 History [Vitamin D3 (125 MCG = 5,000 IU)] Aspirin [Adult Low Dose Aspirin EC] 81 mg PO HS 09/21/21 12/09/22 History Calcium Carb/Mag Ox/Zinc Sulf 1 tab PO DAILY 12/07/22 12/09/22 History [Tcf-Bpi-Vokt 334-134-5 mg Tab] Cranberry + Vitamin C 2 tab PO DAILY 12/07/22 12/09/22 History Cyanocobalamin (Vitamin B-12) 1,000 mcg PO DAILY 12/07/22 12/09/22 History [Vitamin B-12] Glucosam/Bao-Msm1/C/Massimo/Bosw 1 tab PO DAILY 12/07/22 12/09/22 History [Ethhkmqlrbq-Vjykdchpgpt-CLK Tb] Metamucil Gummies 2 cap PO DAILY 12/07/22 12/09/22 History Ondansetron [Zofran] 4 mg PO Q4H PRN 12/07/22 12/09/22 History Ketorolac [Toradol] 10 mg PO Q6HR #20 tab 12/08/22 12/09/22 Rx Pantoprazole [Protonix] 40 mg PO AC-BRKFST #30 tab 12/08/22 12/09/22 Rx HYDROcodone/APAP 5-325MG [[place] 1 tab PO Q4HR PRN 12/09/22 12/09/22 History 5-325] Allergies Allergy/AdvReac Type Severity Reaction Status Date / Time Sulfa (Sulfonamide Allergy Mild Rash/Hives Verified 12/09/22 21:08 Antibiotics) Physical Exam Vitals: Vital Signs Temp Pulse Pulse Resp BP BP Pulse Ox 12/10/22 08:02 86 18 12/10/22 07:25 97.9 F 81 18 89/59 96 12/10/22 02:53 98.2 F 86 18 106/69 93 L 12/09/22 22:37 98.1 F 91 16 105/65 95 12/09/22 22:22 88 17 134/74 100 12/09/22 19:17 97.8 F 88 18 133/69 95 Intake and Output 12/09/22 12/10/22 12/10/22 22:59 06:59 14:59 Other: Voiding Method Toilet Toilet # Voids 2 Weight 86.183 kg - Constitutional General appearance: no acute distress - EENT Eyes: EOMI, PERRLA ENT: hearing grossly normal, normal oropharynx - Neck Neck: no lymphadenopathy Thyroid: bilateral: normal size - Respiratory Respiratory: bilateral: CTA - Cardiovascular Rhythm: regular Heart sounds: normal: S1, S2 - Gastrointestinal General gastrointestinal: absent bowel sounds, distended - Integumentary Integumentary: normal - Neurologic Neurologic: CNII-XII intact - Musculoskeletal Musculoskeletal: generalized weakness, strength equal bilaterally - Psychiatric Psychiatric: A&O x's 3, appropriate affect Results CBC & Chem 7: 12/09/22 20:10 12/09/22 20:10 Labs: Abnormal Lab Results - Last 24 Hours (Table) 12/09/22 12/09/22 12/09/22 Range/Units 19:52 20:10 20:10 WBC 12.0 H (3.8-10.6) k/uL RBC 3.78 L (3.80-5.40) m/uL Neutrophils # 11.0 H (1.3-7.7) k/uL Lymphocytes # 0.4 L (1.0-4.8) k/uL BUN 6 L (7-17) mg/dL Creatinine 0.47 L (0.52-1.04) mg/dL Glucose 145 H (74-99) mg/dL Calcium 8.3 L (8.4-10.2) mg/dL Total Protein 5.8 L (6.3-8.2) g/dL Albumin 3.2 L (3.5-5.0) g/dL Amylase 131 H (30-110) U/L Urine Protein Trace H (Negative) Ur Leukocyte Esterase Small H (Negative) Urine WBC 15 H (0-5) /hpf Urine Bacteria Rare H (None) /hpf Hyaline Casts 3 H (0-2) /lpf Urine Mucus Rare H (None) /hpf Abdominal x-ray: report reviewed CT scan - chest: report reviewed CT scan - pelvis: report reviewed US - abdomen: report reviewed Assessment and Plan (1) Small bowel obstruction Narrative/Plan: This is most likely due to malignancy. During her recent admission, abdominal imaging had shown omental metastasis, with the central dominant mass showing some encroachment onto the transverse colon. Repeat CT scans shows progression of the same process with possibly some involvement of the adjacent small bowel. - During a recent admission surgery was not consulted as the patient did not have any clinical evidence of obstruction. The plan was to start her on new systemic therapy later this week. However with progression of obstructive symptoms, as well as exam revealing essentially absent bowel sounds, it is more likely that the patient would require surgical intervention. He has been c onsulted. Await their opinion. - It was discussed with the patient that surgery in a patient with metastatic diseases justified if this is an emergent situation that cannot be resolved laboratory with systemic therapy. The decision is based on risk versus benefit. She expressed understanding. We also discussed that surgery may delay initiation of systemic therapy. Current Visit: Yes Status: Acute Code(s): K56.609 - UNSP INTESTNL OBST, UNSP TO PARTIAL VERSUS COMPLETE OBST SNOMED Code(s): 450008154 (2) Breast cancer metastasized to multiple sites Narrative/Plan: The patient was recently admitted with imaging showing progression of her known metastatic breast cancer. She is status post once cycle of Ibrance and Faslodex. Given the short duration of treatment with her new cycle, it is not definite if the progression represents failure. However as the patient was having progressive symptoms, decision was made to change her systemic therapy. If the patient does proceed to surgery, and systemic treatment will be delayed if indicated Current Visit: Yes Status: Chronic Priority: High Code(s): C50.919 - MALIGNANT NEOPLASM OF UNSP SITE OF UNSPECIFIED FEMALE BREAST SNOMED Code(s): 728823672
--- NOTE | 2022-12-10 15:43 | P.GSCN ---
History of Present Illness Consult date: 12/10/22 History of present illness: REASON FOR CONSULTATION: Abdominal pain HISTORY OF PRESENT ILLNESS: The patient is a 57 year old female who presents of metastatic breast cancer identified within the abdomen. Patient was recently discharged on 12/08/2022 for acute kidney injury and abdominal mass. Patient had been fair at home however after attempting to eat toes, she had intractable nausea and vomiting including upper abdominal pain. Since admission, her abdominal pain has improved. She reports passage of some flatus. She reports diarrhea at least 4 times in 24 hours. No blood in stools. She reports mild abdominal distention. She had been on chemotherapy however held due to side effects of treatment. General surgery is consulted for abdominal pain and intra-abdominal mass. PAST MEDICAL HISTORY: See list and reviewed PAST SURGICAL HISTORY: See list and reviewed MEDICATIONS: See list and reviewed ALLERGIES: See list and reviewed SOCIAL HISTORY: See list and reviewed FAMILY HISTORY: See list and reviewed REVIEW OF ORGAN SYSTEMS: CONSTITUTIONAL: No fevers or chills. Has morbid obesity, BMI 41.1. EYES: Has optic neuritis. HEENT: No difficulties with hearing. No nosebleeds. No difficulty swallowing. RESPIRATORY: Denies pneumonia. Denies any troubles with breathing or dyspnea on exertion. CARDIOVASCULAR: Denies any chest pain, palpitations, or recent heart attacks. GASTROINTESTINAL: Has change in bowel habits with diarrhea. No blood in stools. History of colitis. GENITOURINARY: Denies any blood in urine or increased urinary frequency. Had C-sections. NEUROLOGICAL: Has multiple sclerosis MUSCULOSKELETAL: Has back pain, stiffness or joint arthritis. Has right arm lymphedema. SKIN: No current skin cancer. No rash. History of MRSA. PSYCHIATRIC: Has anxiety and depression. ENDOCRINE: Denies current thyroid disorders. Denies any blood sugar glucose intolerance. HEME/LYMPHATIC: Denies any lumps and bumps around the neck. No recent deep venous thrombosis. ALLERGY/IMMUNOLOGY: No immunoglobulin therapy. No immune deficiencies. BREAST: Has metastatic breast cancer. PHYSICAL EXAM: VITALS: Reviewed CONSTITUTIONAL: Well developed and in no acute distress. EYES: Conjuctivae without sclera icterus. Extraocular movements grossly intact. HEAD, EARS, NOSE, THROAT: Moist buccal mucosa. Head is atraumatic, normo cephalic. Hears conversational speech. No nasal drainage. NECK: Supple. No JV distention. No thyroidomegaly. RESPIRATORY: Non-labored respirations and equal bilateral excursions. No gross wheezes. CARDIOVASCULAR: Palpable 2+ radial pulses. ABDOMEN: Protuberant. No peritonitis. Mild distention. Obese. LYMPH: No neck lymphadenopathy. MUSCULOSKELETAL: No clubbing cyanosis. SKIN: Warm and well perfused with good skin turgor. NEUROLOGIC: Cranial nerves II through XII grossly intact. No focal or lateralizing signs. PSYCH: Appropriate affect. Alert and oriented to person, place and time. Displays appropriate insight. CLINCAL LABS: Reviewed. WBC elevated 8.30-12.0. Hemoglobin of 10.3-11.6. Creatinine 0.47, low. Total protein low 5.8. Abnormal albumin low 3.2 IMAGING: Independently reviewed. CT of the abdomen pelvis 12/07/2022 demonstrates over 5 cm mass at the mid transverse colon without obstruction. Separate mesenteric mass along the small bowel without obstruction. This is my independent interpretation. Abdominal x-ray images and apparent reviewed demonstrates diffuse bowel gas pattern however number the rectum. No free air. This is my independent interpretation. RADIOLOGY: Report reviewed CT of the abdomen pelvis 12/07/2022 with right adrenal mass over 3 cm, over 6.2 cm mass invading transverse colon wall, with retroperitoneal adenopathy Abdominal x-ray report demonstrates a few small bowel dilation questionable for mechanical bowel obstruction. RECORDS: previous old records reviewed from admission 12/07/2022 reviewed with features of acute kidney injury ASSESSMENT: 1. Abdominal pain, upper abdomen 2. Metastatic breast cancer with mesenteric mass 3. Morbid obesity due to excess calories, BMI 41.1 4. Chemotherapy status 5. Hypoalbuminemia 6. Leukocytosis 7. Abnormal x-ray for bowel obstruction PLAN: 1. IV fluid hydration. 2. Clinically, patient is still passing flatus having bowel movements suggesting partial small bowel obstruction. Patient advised that any surgical intervention will not be curative of her primary pathology of metastatic breast cancer. 3. May have clear liquid diet 4. As she has more than one lesion with the risk for obstruction, small bowel follow through advised for imaging prior to surgical intervention. 5. Conservative management in the interim 6. Care plan reviews and discussed with patient for which she is agreeable with care ADVANCE DIRECTIVE: Thank you for this kind consultation. Past Medical History Past Medical History: Asthma, Cancer, Neurologic Disorder, Osteoarthritis (OA) Additional Past Medical History / Comment(s): right breast cancer 08/2019,stage IV breast cancer with bone mestasis 07/09; MULTIPLE SCLEROSIS; optic neuritis; lymphadema rt arm; mild lichenoid inflammation lt axillary area and inbetween legs; colitis History of Any Multi-Drug Resistant Organisms: MRSA Year Discovered:: 01/2020 MDRO Source:: abdomen Past Surgical History: Section, Orthopedic Surgery, Tonsillectomy Additional Past Surgical History / Comment(s): section x4; RIGHT MASTECTOMY WITH TISSUE FRAME TABLE OPERATOR, subsequent extraction of tissue qualitative researcher without insertion of prosthesis due to infection; right chest wall revision 06/14/21; fx lt hip with surgery using cement to repair 08/11/21 Past Anesthesia/Blood Transfusion Reactions: Postoperative Nausea & Vomiting (PONV) Past Psychological History: Anxiety, Depression Smoking Status: Never smoker - Past Family History Brother(s) Family Medical History: Deep Vein Thrombosis (DVT) Additional Family Medical History / Comment(s): 2 BROTHERS WITH DVT'S Medications and Allergies Home Medications Medication Instructions Recorded Confirmed Type Loratadine [Claritin] 10 mg PO HS 01/21/20 12/09/22 History Amitriptyline HCl 10 mg PO HS 10/21/20 12/09/22 History FLUoxetine HCL [PROzac] 20 mg PO HS 05/26/21 12/09/22 History Cholecalciferol (Vitamin D3) 250 mcg PO DAILY 08/11/21 12/09/22 History [Vitamin D3 (125 MCG = 5,000 IU)] Aspirin [Adult Low Dose Aspirin EC] 81 mg PO HS 09/21/21 12/09/22 History Calcium Carb/Mag Ox/Zinc Sulf 1 tab PO DAILY 12/07/22 12/09/22 History [Xjb-Agy-Hclo 334-134-5 mg Tab] Cranberry + Vitamin C 2 tab PO DAILY 12/07/22 12/09/22 History Cyanocobalamin (Vitamin B-12) 1,000 mcg PO DAILY 12/07/22 12/09/22 History [Vitamin B-12] Glucosam/Bao-Msm1/C/Massimo/Bosw 1 tab PO DAILY 12/07/22 12/09/22 History [Gaxnswjyrnv-Xejijfleysa-EYA Tb] Metamucil Gummies 2 cap PO DAILY 12/07/22 12/09/22 History Ondansetron [Zofran] 4 mg PO Q4H PRN 12/07/22 12/09/22 History Ketorolac [Toradol] 10 mg PO Q6HR #20 tab 12/08/22 12/09/22 Rx Pantoprazole [Protonix] 40 mg PO AC-BRKFST #30 tab 12/08/22 12/09/22 Rx HYDROcodone/APAP 5-325MG [[place] 1 tab PO Q4HR PRN 12/09/22 12/09/22 History 5-325] Allergies Allergy/AdvReac Type Severity Reaction Status Date / Time Sulfa (Sulfonamide Allergy Mild Rash/Hives Verified 12/09/22 21:08 Antibiotics) Surgical - Exam Vital Signs Temp Pulse Resp BP Pulse Ox 97.8 F 88 18 133/69 95 12/09/22 19:17 12/09/22 19:17 12/09/22 19:17 12/09/22 19:17 12/09/22 19:17 Results - Labs 12/09/22 20:10 12/09/22 20:10 Abnormal Lab Results - Last 24 Hours (Table) 12/09/22 12/09/22 12/09/22 Range/Units 19:52 20:10 20:10 WBC 12.0 H (3.8-10.6) k/uL RBC 3.78 L (3.80-5.40) m/uL Neutrophils # 11.0 H (1.3-7.7) k/uL Lymphocytes # 0.4 L (1.0-4.8) k/uL BUN 6 L (7-17) mg/dL Creatinine 0.47 L (0.52-1.04) mg/dL Glucose 145 H (74-99) mg/dL Calcium 8.3 L (8.4-10.2) mg/dL Total Protein 5.8 L (6.3-8.2) g/dL Albumin 3.2 L (3.5-5.0) g/dL Amylase 131 H (30-110) U/L Urine Protein Trace H (Negative) Ur Leukocyte Esterase Small H (Negative) Urine WBC 15 H (0-5) /hpf Urine Bacteria Rare H (None) /hpf Hyaline Casts 3 H (0-2) /lpf Urine Mucus Rare H (None) /hpf Microbiology - Last 24 Hours (Table) 12/09/22 19:52 Urine Culture - Preliminary Urine,Voided Diabetes panel 12/09/22 Range/Units 20:10 Sodium 137 (137-145) mmol/L Potassium 4.0 (3.5-5.1) mmol/L Chloride 107 (98-107) mmol/L Carbon Dioxide 23 (22-30) mmol/L BUN 6 L (7-17) mg/dL Creatinine 0.47 L (0.52-1.04) mg/dL Glucose 145 H (74-99) mg/dL Calcium 8.3 L (8.4-10.2) mg/dL AST 21 (14-36) U/L ALT 17 (4-34) U/L Alkaline Phosphatase 95 (38-126) U/L Total Protein 5.8 L (6.3-8.2) g/dL Albumin 3.2 L (3.5-5.0) g/dL Calcium panel 12/09/22 Range/Units 20:10 Calcium 8.3 L (8.4-10.2) mg/dL Albumin 3.2 L (3.5-5.0) g/dL Pituitary panel 12/09/22 Range/Units 20:10 Sodium 137 (137-145) mmol/L Potassium 4.0 (3.5-5.1) mmol/L Chloride 107 (98-107) mmol/L Carbon Dioxide 23 (22-30) mmol/L BUN 6 L (7-17) mg/dL Creatinine 0.47 L (0.52-1.04) mg/dL Glucose 145 H (74-99) mg/dL Calcium 8.3 L (8.4-10.2) mg/dL Adrenal panel 12/09/22 Range/Units 20:10 Sodium 137 (137-145) mmol/L Potassium 4.0 (3.5-5.1) mmol/L Chloride 107 (98-107) mmol/L Carbon Dioxide 23 (22-30) mmol/L BUN 6 L (7-17) mg/dL Creatinine 0.47 L (0.52-1.04) mg/dL Glucose 145 H (74-99) mg/dL Calcium 8.3 L (8.4-10.2) mg/dL Total Bilirubin 0.4 (0.2-1.3) mg/dL AST 21 (14-36) U/L ALT 17 (4-34) U/L Alkaline Phosphatase 95 (38-126) U/L Total Protein 5.8 L (6.3-8.2) g/dL Albumin 3.2 L (3.5-5.0) g/dL
[2022-12-10] MEDS: HEPARIN SODIUM,PORCINE/PF 5,000 UNIT/0.5 ML SYRINGE SQ SCH (17:16)
[2022-12-10] MEDS: ASPIRIN 81 MG PO SCH (20:08)
[2022-12-10] MEDS: AMITRIPTYLINE HCL 10 MG TAB PO SCH (20:08)
[2022-12-10] MEDS ORDERED: ACETAMINOPHEN TAB 325 MG TAB PO PRN (22:11)
[2022-12-11] MEDS: HEPARIN SODIUM,PORCINE/PF 5,000 UNIT/0.5 ML SYRINGE SQ SCH ×4 (00:10→20:43)
[2022-12-11] MEDS: HYDROmorphone 0.5 MG/0.5 ML SYRINGE IVP PRN ×5 (00:12→20:47)
[2022-12-11] MEDS: PANTOPRAZOLE 40 MG TABLET PO SCH (06:31)
[2022-12-11] MEDS ORDERED: ONDANSETRON ODT 4 MG TAB PO STA (10:24)
[2022-12-11 11:08] LABS: HCT 30.2 % (34.0-46.0); HGB 10.2 gm/dL (11.4-16.0); MCH 31.1 pg (25.0-35.0); MCHC 33.7 g/dL (31.0-37.0); MCV 92.1 fL (80.0-100.0); Platelet Count 333 k/uL (150-450); Poikilocytosis Slight; RBC 3.28 m/uL (3.80-5.40); RDW 14.6 % (11.5-15.5); WBC 9.6 k/uL (3.8-10.6)
--- NOTE | 2022-12-11 11:14 | P.PN ---
Subjective Progress Note Date: 12/11/22 CHIEF COMPLAINT: Abdominal pain HISTORY OF PRESENT ILLNESS: The patient is a 57 year old female who presents of metastatic breast cancer identified within the abdomen. Patient is to have abdominal distention and bloating. She reports that she feels about the same as yesterday. She did have nausea earlier this morning which improved with medication. She continues to have diarrhea and a small amount of flatus. Denies any blood in the stools. Patient is scheduled for small bowel follow- through today. Afebrile. Labs pending. C. diff negative. PHYSICAL EXAM: VITAL SIGNS: Reviewed GENERAL: Well-developed in no acute distress. HEENT: No sclera icterus. Extraocular movements grossly intact. Moist buccal mucosa. Head is atraumatic, normocephalic. Hears conversational speech. No nasal drai nage. NECK: Supple without lymphadenopathy. CHEST: Non-labored respirations and equal bilateral excursions. CARDIOVASCULAR: Palpable 2+ radial pulses. ABDOMEN: soft. Distended. Mildly tender upper abdomen MUSCULOSKELETAL: No clubbing or cyanosis. NEUROLOGIC: No focal or lateralizing signs. Cranial nerves II through XII grossly intact. PSYCH: Appropriate affect. Alert and oriented to person, place and time. SKIN: Well perfused. Good skin turgor. ASSESSMENT: 1. Possible partial small bowel obstruction 2. Abdominal pain, upper abdomen 3. Metastatic breast cancer with mesenteric mass 4. Morbid obesity due to excess calories, BMI 41.1 5. Chemotherapy status post 6. Hypoalbuminemia 7. Leukocytosis PLAN: -Patient scheduled for small bowel follow-through today -Further recommendations forthcoming per surgeon regarding x-ray results -Continue clear liquid diet -continue conservative management for the interim -Continue IV fluids -Continue supportive care -Encourage patient to ambulate Physician Crucible Furnace Tender note has been reviewed by physician. Signing provider agrees with the documented findings, assessment, and plan of care. CHIEF COMPLAINT: Abdominal pain HISTORY OF PRESENT ILLNESS: The patient is a 57 year old female who presents of metastatic breast cancer including intra-abdominal mass. She was readmitted to the hospital due to increased abdominal pain. Today, she denies moderate abdominal pain. She reports passing little flatus. No nausea and vomiting. She tolerated clear liquids yesterday. Her is at bedside REVIEW OF ORGAN SYSTEMS: CONSTITUTIONAL: No fevers or chills. Has morbid obesity, BMI 41.1. GASTROINTESTINAL: Has change in bowel habits with diarrhea. No blood in stools. History of colitis. NEUROLOGICAL: Has multiple sclerosis MUSCULOSKELETAL: Has back pain, stiffness or joint arthritis. Has right arm lymphedema. BREAST: Has metastatic breast cancer. PHYSICAL EXAM: VITALS: Reviewed CONSTITUTIONAL: Well developed and in no acute distress. EYES: Conjuctivae without sclera icterus. Extraocular movements grossly intact. HEAD, EARS, NOSE, THROAT: Moist buccal mucosa. Head is atraumatic, normocephalic. Hears conversational speech. No nasal drainage. RESPIRATORY: Non-labored respirations and equal bilateral excursions. No gross wheezes. CARDIOVASCULAR: Palpable 2+ radial pulses. ABDOMEN: Protuberant. No peritonitis. Obese, mild distention MUSCULOSKELETAL: No clubbing cyanosis. SKIN: Warm and well perfused with good skin turgor. NEUROLOGIC: Cranial nerves II through XII grossly intact. No focal or lateralizing signs. PSYCH: Appropriate affect. Alert and oriented to person, place and time. Displays appropriate insight. CLINCAL LABS: Reviewed. IMAGING: Independently reviewed. Abdominal x-ray demonstrated contrast throughout the small bowel including the transverse colon. Contrast identified along the rectum. This is my independent interpretation. ASSESSMENT: 1. Abdominal pain, upper abdomen 2. Metastatic breast cancer with mesenteric mass 3. Morbid obesity due to excess calories, BMI 41.1 4. Chemotherapy status 5. Hypoalbuminemia 6. Leukocytosis 7. Abnormal x-ray for bowel obstruction PLAN: 1. Preliminary small bowel follow-through demonstrates no small bowel obstruction. Tentatively, contrast is in the rectum. At this time, pending final read and additional images of the colon. 2. Liquid diet in the meantime. 3. Family educated that any surgical intervention will not be curative only palliative. Objective - Vital Signs Vital signs: Vital Signs Temp 98.6 F 12/11/22 07:19 Pulse 95 12/11/22 08:22 Resp 18 12/11/22 08:22 BP 106/73 12/11/22 07:19 Pulse Ox 92 L 12/11/22 07:19 FiO2 Intake & Output 12/10/22 12/11/22 12/11/22 18:59 06:59 18:59 Intake Total 1080 Balance 1080 Intake: Oral 1080 Other: Voiding Method Toilet Toilet Toilet # Voids 3 1 # Bowel Movements 1 - Labs CBC & Chem 7: 01/23/23 10:50 12/11/22 10:50 Labs: Microbiology - Last 24 Hours (Table) 12/09/22 19:52 Urine Culture - Preliminary Urine,Voided
[2022-12-11 11:27] LABS: ALT 13 U/L (4-34); AST 16 U/L (14-36); African American GFR (CKD) >90 (>60 ml/min/1.73 sqM); Albumin 2.6 g/dL (3.5-5.0); Albumin/Globulin Ratio 1.1; Alkaline Phosphatase 78 U/L (38-126); Anion Gap 3 mmol/L; Blood Urea Nitrogen <2 mg/dL (7-17); Calcium 7.1 mg/dL (8.4-10.2); Carbon Dioxide 25 mmol/L (22-30); Chloride 108 mmol/L (98-107); Globulin 2.3 g/dL; Glucose 87 mg/dL (74-99); Non-African American GFR(CKD) >90 (>60 ml/min/1.73 sqM); Potassium 3.6 mmol/L (3.5-5.1); Sodium 136 mmol/L (137-145); Total Bilirubin 0.3 mg/dL (0.2-1.3); Total Protein 4.9 g/dL (6.3-8.2)
[2022-12-11 12:18] VITALS: BMI 41.1
--- NOTE | 2022-12-11 13:35 | P.PN ---
Subjective Progress Note Date: 12/11/22 Principal diagnosis: metastatic breast cancer In f/u, abd is still distended, tender, pt vomited anything she ate or drank for the last 2 days, she is currently NPO, pending bowel follow through. No other c/o. Objective - Vital Signs Vital signs: Vital Signs Temp 98.6 F 12/11/22 07:19 Pulse 95 12/11/22 08:22 Resp 18 12/11/22 08:22 BP 106/73 12/11/22 07:19 Pulse Ox 92 L 12/11/22 07:19 FiO2 Intake & Output 12/10/22 12/11/22 12/11/22 18:59 06:59 18:59 Intake Total 1080 Balance 1080 Weight 86.183 kg Intake: Oral 1080 Other: Voiding Method Toilet Toilet Toilet # Voids 3 1 # Bowel Movements 1 - Constitutional General appearance: Present: cooperative, mild distress, obese - EENT Eyes: Present: anicteric sclerae, EOMI ENT: Present: hearing grossly normal - Respiratory Respiratory: bilateral: CTA - Cardiovascular Rhythm: regular Heart sounds: normal: S1, S2 Abnormal Heart Sounds: Absent: systolic murmur, diastolic murmur, rub, S3 Gallop, S4 Gallop, click, other - Peripheral edema leg Peripheral Edema: bilateral: None - Gastrointestinal General gastrointestinal: Present: absent bowel sounds, distended, tenderness - Integumentary Integumentary: Present: pale - Neurologic Neurologic: Present: CNII-XII intact - Musculoskeletal Musculoskeletal: Present: strength equal bilaterally - Psychiatric Psychiatric: Present: A&O x's 3, appropriate affect, intact judgment & insight - Labs CBC & Chem 7: 12/11/22 10:50 12/11/22 10:50 Labs: Abnormal Lab Results - Last 24 Hours (Table) 12/11/22 12/11/22 Range/Units 10:50 10:50 RBC 3.28 L (3.80-5.40) m/uL Hgb 10.2 L (11.4-16.0) gm/dL Hct 30.2 L (34.0-46.0) % Sodium 136 L (137-145) mmol/L Chloride 108 H (98-107) mmol/L BUN <2 L (7-17) mg/dL Creatinine 0.38 L (0.52-1.04) mg/dL Calcium 7.1 L (8.4-10.2) mg/dL Total Protein 4.9 L (6.3-8.2) g/dL Albumin 2.6 L (3.5-5.0) g/dL Microbiology - Last 24 Hours (Table) 12/09/22 19:52 Urine Culture - Preliminary Urine,Voided Presumptive Staph aureus Assessment and Plan (1) Small bowel obstruction Current Visit: Yes Status: Acute Priority: High Code(s): K56.609 - UNSP INTESTNL OBST, UNSP TO PARTIAL VERSUS COMPLETE OBST SNOMED Code(s): 383685593 (2) Breast cancer metastasized to multiple sites Current Visit: Yes Status: Chronic Priority: High Code(s): C50.919 - MALIGNANT NEOPLASM OF UNSP SITE OF UNSPECIFIED FEMALE BREAST SNOMED Code(s): 350269487 Plan: Abd pain/SBO -Surgery consult -Small bowel follow through today, pending result review by Surgeon and recommended next steps -Pain meds, titrate to tolerance -Aggressive bowel regimen to prevent narcotic induced constipation Meastatic breast cancer -Most recent imaging most suggestive of poor response to most recent treatment. She did have only have 1 cycle but, she is now symptomatic and she was not previously. -Pending start of treatment unil currently condition is adequately resolved -May consider a cycle of chemotherapy inpt if persistent symptoms
--- NOTE | 2022-12-11 14:39 | P.PN ---
Subjective Progress Note Date: 12/11/22 (maryanne charting seen at 1015) Patient is a 57-year-old female with metastatic breast cancer, multiple sclerosis, optic neuritis, chronic diarrhea, seasonal ALLERGIES, anxiety and depression who presetned to the ED for abdominal pain. She was hospitalized from 12/07/22 to for the same complaint. During that admission CT AP showed enlarging mesenteric masses (6.2 x 6.3 x 5.5 cm) of which the largest on of the left appears to be possibly invading into the transverse colon and an enlarging right adrenal mass. She was seen by Dr. Palacios and was discharged with the plan to change outpatient chemo regiment. She represetned on 12/09/2022 for worsening abdominal pain, nausea and vomiting. A KUB demonstrated dilated small bowel likely representing mechanical small bowel obstruction. She was seen by oncology who stated that if necessary patient could undergo surgery, she was seen by surgery who felt that surgical intervention was not necessary at this time as patient was having bowel movements. Patient seen and examined at bedside. She continues to have liquid bowel movements. She is complaining of significant nausea. She is still having abdominal pain with any movement, including small ones of getting up and going to the bathroom. She denies any chest pain or shortness of breath. General: nontoxic, no distress, appears at stated age Derm: warm, dry Head: atraumatic, normocephalic, symmetric Eyes: EOMI, no lid lag, anicteric sclera Mouth: no lip lesion, mucus membranes moist Cardiovascular: S1S2 reg, no murmur, positive posterior tibial pulse bilateral, Lungs: Decreased breath sounds bilateral, no rhonchi, no rales , no accessory muscle use Abdominal: No active bowel sounds, soft, tender to palpation diffusely with light palpation, no guarding, no appreciable organomegaly Neuro: CN II-XI grossly intact, no focal neuro deficits Psych: Alert, oriented, appropriate affect Assessment/plan: Intractable abdominal pain related to malignancy and possible mechanical small bowel obstruction Metastatic breast cancer - enlarging mesenteric masses (6.2 x 6.3 x 5.5 cm) of which the largest on of the left appears to be possibly invading into the transverse colon -Await small bowel follow-through -Oncology and surgery recommendations appreciated -Pain control -Antiemetics -Consult midline services for acute cath placement if patient has lost multiple IVs Anemia -Follow CBC -Mild appears at baseline Abnormal urinalysis, UTI ruled out with only 10-50,000 staph. Chronic conditions: multiple sclerosis, optic neuritis, chronic diarrhea, seasonal ALLERGIES, anxiety and depression -Medications reviewed. Patient given a one-time dose of oral Zofran and she lost IV access. We'll continue with Dilaudid and Compazine. Patient is developing mild hyperchloremia. Change to half-normal saline. DVT prophylaxis: Heparin Discussed with: Patient, nursing, surgery, PA Anticipated discharge: pending clinical course Anticipated discharge place: pending clinical course A total of 35 minutes was spent on the care of this complex patient more than 50% of the time was spent in counseling and care coordination. Active Medications Generic Name Dose Route Start Last Admin Trade Name Freq PRN Reason Stop Dose Admin Acetaminophen 650 mg 12/10/22 22:11 12/10/22 22:17 Acetaminophen Tab 325 Mg Tab PO 650 mg Q4HR PRN Administration Fever and/ or Pain Amitriptyline HCl 10 mg 12/10/22 21:00 12/10/22 20:08 Amitriptyline Hcl 10 Mg Tab PO 10 mg HS REYNA Administration Aspirin 81 mg 12/10/22 21:00 12/10/22 20:08 Aspirin 81 Mg PO Not Given HS REYNA Heparin Sodium (Porcine) 5,000 unit 12/10/22 16:00 12/11/22 07:48 Heparin Sodium,Porcine/Pf 5,000 Unit/0.5 Ml Syringe SQ Not Given Q8HR REYNA Hydromorphone HCl 0.5 mg 12/09/22 20:59 12/11/22 11:06 Hydromorphone 0.5 Mg/0.5 Ml Syringe IVP 0.5 mg Q4HR PRN Administration Pain Sodium Chloride 1,000 mls @ 130 mls/hr 12/09/22 21:30 12/10/22 20:09 Saline 0.9% IV 130 mls/hr .[id number] REYNA Administration Naloxone HCl 0.2 mg 12/09/22 21:17 Naloxone 0.4 Mg/Ml 1 Ml Vial IV Q2M PRN Opioid Reversal Pantoprazole Sodium 40 mg 12/10/22 07:30 12/11/22 06:31 Pantoprazole 40 Mg Tablet PO 40 mg [id number] REYNA Administration Prochlorperazine Edisylate 10 mg 12/09/22 21:02 12/11/22 09:16 Prochlorperazine Inj 10 Mg/2 Ml Vial IVP 10 mg Q6HR PRN Administration Nausea And Vomiting Senna/Docusate Sodium 2 each 12/11/22 13:45 Sennosides-Docusate Sodium 1 Each Tab PO BID REYNA Objective - Vital Signs Vital signs: Vital Signs Temp 98.6 F 12/11/22 07:19 Pulse 95 12/11/22 08:22 Resp 18 12/11/22 08:22 BP 106/73 12/11/22 07:19 Pulse Ox 92 L 12/11/22 07:19 FiO2 Intake & Output 12/10/22 12/11/22 12/11/22 18:59 06:59 18:59 Intake Total 1080 Balance 1080 Weight 86.183 kg Intake: Oral 1080 Other: Voiding Method Toilet Toilet Toilet # Voids 3 1 # Bowel Movements 1 - Labs CBC & Chem 7: 12/11/22 10:50 12/11/22 10:50 Labs: Abnormal Lab Results - Last 24 Hours (Table) 12/11/22 12/11/22 Range/Units 10:50 10:50 RBC 3.28 L (3.80-5.40) m/uL Hgb 10.2 L (11.4-16.0) gm/dL Hct 30.2 L (34.0-46.0) % Sodium 136 L (137-145) mmol/L Chloride 108 H (98-107) mmol/L BUN <2 L (7-17) mg/dL Creatinine 0.38 L (0.52-1.04) mg/dL Calcium 7.1 L (8.4-10.2) mg/dL Total Protein 4.9 L (6.3-8.2) g/dL Albumin 2.6 L (3.5-5.0) g/dL Microbiology - Last 24 Hours (Table) 12/09/22 19:52 Urine Culture - Preliminary Urine,Voided Presumptive Staph aureus
--- NOTE | 2022-12-11 14:53 | FL ---
INDICATION: Patient age:Female; 57 years old; Reason for study: abdominal pain; PHH. COMPARISON: KUB 12/09/2022, CT chest abdomen pelvis 12/08/2022. TECHNIQUE: The procedure was explained and patient history elicited. All patient questions were ans wered prior to start of procedure. A athletic scout radiograph of the abdomen was also reviewed. The patient was asked to ingest liquid Gastrografinand incremental frontal abdominal radiographs were then taken until contrast was visualized in the cecum. Radiographs taken: 3 FINDINGS: The athletic scout abdominal radiograph demonstrates similar dilated gas and fluid-filled small bowel in the m idabdomen measuring up to 4.7 cm. There is no evidence of organomegaly or pneumoperitoneum. No abnorm al calcifications. The visualized osseous structures are intact. Parasitization of left hip prosthesi s. Contrast is seen extending from the duodenojejunal junction into the cecum after only 15 minutes, whi ch is within the expected time period. Contrast is demonstrated within the rectum and only 15 minute s. The small bowel follows normal distribution and contour without any evidence of extraluminal or in traluminal irregularity. Dilated small bowel loops measuring up to 4.7 cm. There is no displacement o f bowel loops or extraluminal extravasation of contrast material. Small bowel mucosal folds are felt to be within normal limits. IMPRESSION: Dilated small bowel loops measuring up to 4.7 cm however contrast passes throughout the small bowel a nd colon within 15 minutes of contrast administration indicating no bowel obstruction and likely ileu s.
[2022-12-11] MEDS: SENNOSIDES-DOCUSATE SODIUM 1 EACH TAB PO SCH ×2 (15:03→20:43)
[2022-12-11] MEDS: SODIUM CHLORIDE 0.45% 1,000 ML IV SCH (15:03)
[2022-12-11] MEDS: SODIUM CHLORIDE 0.9% 1,000 ML IV SCH ×2 (17:23→17:24)
[2022-12-11] MEDS: AMITRIPTYLINE HCL 10 MG TAB PO SCH (20:41)
[2022-12-11] MEDS: ASPIRIN 81 MG PO SCH (20:42)
[2022-12-12] MEDS: SODIUM CHLORIDE 0.45% 1,000 ML IV SCH ×2 (06:23→21:33)
[2022-12-12] MEDS: PANTOPRAZOLE 40 MG TABLET PO SCH (06:23)
[2022-12-12] MEDS: HYDROmorphone 0.5 MG/0.5 ML SYRINGE IVP PRN (08:10)
[2022-12-12] MEDS: HEPARIN SODIUM,PORCINE/PF 5,000 UNIT/0.5 ML SYRINGE SQ SCH ×2 (08:12→18:13)
[2022-12-12] MEDS: SENNOSIDES-DOCUSATE SODIUM 1 EACH TAB PO SCH (08:19)
[2022-12-12] MEDS ORDERED: KETOROLAC 15 MG/ML 1 ML VIAL IVP PRN (08:29)
[2022-12-12 09:57] LABS: HCT 28.7 % (37.2-46.3); HGB 9.2 g/dL (12.0-15.0); MCH 30.6 pg (27.0-32.0); MCHC 32.1 g/dL (32.0-37.0); MCV 95.3 fL (80.0-97.0); Mean Platelet Volume 9.7 fL (9.5-12.2); NRBC Per 100 WBC 0 /100 WBCS (0.0-0.0); Platelet Count 309 X 10*3/uL (140-440); RBC 3.01 X 10*6/uL (4.10-5.20); RDW 14.4 % (11.5-14.5); WBC 8.67 X 10*3/uL (4.50-10.00)
[2022-12-12] MEDS ORDERED: PSYLLIUM HUSK 100% 6 GM PACKET PO SCH (10:15)
[2022-12-12 10:26] LABS: African American GFR (CKD) 133.1 (60.0-200.0); Anion Gap 10.7 mmol/L (10.00-18.00); BUN/Creat Ratio 4.25 Ratio (12.00-20.00); Blood Urea Nitrogen 1.7 mg/dL (9.0-27.0); Calcium 7.6 mg/dL (8.7-10.3); Carbon Dioxide 24.3 mmol/L (20.0-27.5); Non-African American GFR(CKD) 114.8 (60.0-200.0); Potassium 3.3 mmol/L (3.5-5.5)
[2022-12-12] MEDS ORDERED: POTASSIUM CHLORIDE ER 20 MEQ TAB.ER PO STA (11:58)
--- NOTE | 2022-12-12 12:00 | P.PN ---
Subjective Progress Note Date: 12/12/22 CHIEF COMPLAINT: Abdominal pain HISTORY OF PRESENT ILLNESS: The patient is a 57 year old female who presents of metastatic breast cancer identified within the abdomen. Patient reports that she continues to have lower abdominal pain. Her nausea has decreased. No vomiting. She is having flatus. She does report having multiple episodes of diarrhea. She is stating that stools starting to become thicker. Small bowel follow-through shows dilated small bowel loops measuring up to 4.7 cm however contrast passes throughout the small bowel and colon within 15 minutes of contrast administration indicating no bowel obstruction and likely ileus. Afebrile. WBC 8.67 Hgb 9.2 platelets 309 sodium is 140 potassium is 3.3 creatinine 0.4 medicine service did add Metamucil PHYSICAL EXAM: VITAL SIGNS: Reviewed GENERAL: Well-developed in no acute distress. HEENT: No sclera icterus. Extraocular movements grossly intact. Moist buccal mucosa. Head is atraumatic, normocephalic. Hears conversational speech. No nasal drainage. NECK: Supple without lymphadenopathy. CHEST: Non-labored respirations and equal bilateral excursions. CARDIOVASCULAR: Palpable 2+ radial pulses. ABDOMEN: soft. mildly distended. tender lower abdomen MUSCULOSKELETAL: No clubbing or cyanosis. NEUROLOGIC: No focal or lateralizing signs. Cranial nerves II through XII grossly intact. PSYCH: Appropriate affect. Alert and oriented to person, place and time. SKIN: Well perfused. Good skin turgor. ASSESSMENT: 1. Ileus 2. Abdominal pain, upper abdomen 3. Metastatic breast cancer with mesenteric mass 4. Morbid obesity due to excess calories, BMI 41.1 5. Chemotherapy status post 6. Hypoalbuminemia 7. Leukocytosis 8. Hypokalemia PLAN: -Continue clear liquid diet -Encourage patient to ambulate -Replace potassium -Continue supportive -Further recommendations forthcoming per surgeon Physician Morgue Technician note has been reviewed by physician. Signing provider agrees with the documented findings, assessment, and plan of care. CHIEF COMPLAINT: Abdominal pain HISTORY OF PRESENT ILLNESS: The patient is a 57 year old female who presents of metastatic breast cancer including intra-abdominal mass. She reports feeling better. She had gastroesophageal reflux disease and epigastric pain including nausea prior. She is tolerating liquid diet. REVIEW OF ORGAN SYSTEMS: CONSTITUTIONAL: No fevers or chills. Has morbid obesity, BMI 41.1. GASTROINTESTINAL: Has change in bowel habits with diarrhea. No blood in stools. History of colitis. NEUROLOGICAL: Has multiple sclerosis MUSCULOSKELETAL: Has back pain, stiffness or joint arthritis. Has right arm lymphedema. BREAST: Has metastatic breast cancer. PHYSICAL EXAM: VITALS: Reviewed CONSTITUTIONAL: Well developed and in no acute distress. EYES: Conjuctivae without sclera icterus. Extraocular movements grossly intact. HEAD, EARS, NOSE, THROAT: Moist buccal mucosa. Head is atraumatic, normocephalic. Hears conversational speech. No nasal drainage. RESPIRATORY: Non-labored respirations and equal bilateral excursions. No gross wheezes. CARDIOVASCULAR: Palpable 2+ radial pulses. ABDOMEN: Protuberant. No peritonitis. Obese, mild distention. Epigastric tenderness. MUSCULOSKELETAL: No clubbing cyanosis. SKIN: Warm and well perfused with good skin turgor. NEUROLOGIC: Cranial nerves II through XII grossly intact. No focal or la teralizing signs. PSYCH: Appropriate affect. Alert and oriented to person, place and time. Displays appropriate insight. CLINCAL LABS: Reviewed. WBC normal. Hgb down 11.2 to 9.6, anemia REPORTS: Small bowel follow through demonstrates no small or large bowel obstruction. Findings consistent with ileus. ASSESSMENT: 1. Abdominal pain, upper abdomen 2. Metastatic breast cancer with mesenteric mass 3. Morbid obesity due to excess calories, BMI 41.1 4. Chemotherapy status 5. Hypoalbuminemia 6. Leukocytosis 7. Abnormal x-ray for bowel obstruction 8. Ileus 9. Gastroesophageal reflux disease 10. Anemia PLAN: 1. She reported epigastric discomfort with reflux and nausea. Recommend upper endoscopy with biopsy as metastatic cancer may invade the gastric wall with gastritis. 2. Upon review of diagnostic studies, no small or large bowel obstruction. No small or large bowel resection or diversion needed at this time. 3. Will continue to monitor Objective - Vital Signs Vital signs: Vital Signs Temp 97.8 F 12/12/22 07:41 Pulse 91 12/12/22 07:41 Resp 16 12/12/22 08:35 BP 115/63 12/12/22 07:41 Pulse Ox 93 L 12/12/22 07:41 FiO2 Intake & Output 12/11/22 12/12/22 12/12/22 18:59 06:59 18:59 Intake Total 1080 Balance 1080 Weight 86.183 kg Intake: Oral 1080 Other: Voiding Method Toilet Toilet # Voids 2 4 - Labs CBC & Chem 7: 12/12/22 05:56 12/12/22 05:56 Labs: Abnormal Lab Results - Last 24 Hours (Table) 12/12/22 12/12/22 Range/Units 05:56 05:56 RBC 3.01 L (4.10-5.20) X 10*6/uL Hgb 9.2 L (12.0-15.0) g/dL Hct 28.7 L (37.2-46.3) % Potassium 3.3 L (3.5-5.5) mmol/L BUN 1.7 L (9.0-27.0) mg/dL Creatinine 0.4 L (0.6-1.5) mg/dL BUN/Creatinine Ratio 4.25 L (12.00-20.00) Ratio Calcium 7.6 L (8.7-10.3) mg/dL Microbiology - Last 24 Hours (Table) 12/09/22 19:52 Urine Culture - Final Urine,Voided Methicillin resist S. aureus
--- NOTE | 2022-12-12 14:32 | P.PN ---
Subjective Progress Note Date: 12/12/22 (delayed charting seen at 1015) Patient is a 57-year-old female with metastatic breast cancer, multiple sclerosis, optic neuritis, chronic diarrhea, seasonal ALLERGIES, anxiety and depression who presetned to the ED for abdominal pain. She was hospitalized from 12/07/22 to for the same complaint. During that admission CT AP showed enlarging mesenteric masses (6.2 x 6.3 x 5.5 cm) of which the largest on of the left appears to be possibly invading into the transverse colon and an enlarging right adrenal mass. She was seen by Dr. Palacios and was discharged with the plan to change outpatient chemo regiment. She represetned on 12/09/2022 for worsening abdominal pain, nausea and vomiting. A KUB demonstrated dilated small bowel likely representing mechanical small bowel obstruction. She was seen by oncology who stated that if necessary patient could undergo surgery, she was seen by surgery who felt that surgical intervention was not necessary at this time as patient was having bowel movements. Small bowel follow through with 15 minute transit time, no obstruction noted. Patient seen and examined at bedside. She continues to have liquid bowel movements, very frequently. DOes not want metamucil powder has vomited from this in the past, will bring in her gummies. Wants to eat more and nausea improved. D/W her results of small bowel follow-through. She is still having pain with any movement. She denies any chest pain or shortness of breath. General: nontoxic, no distress, appears at stated age Derm: warm, dry Head: atraumatic, normocephalic, symmetric Eyes: EOMI, no lid lag, anicteric sclera Mouth: no lip lesion, mucus membranes moist Cardiovascular: S1S2 reg, no murmur, positive posterior tibial pulse bilateral, Lungs: Decreased breath sounds bilateral, no rhonchi, no rales , no accessory muscle use Abdominal: No active bowel sounds, soft, tender to palpation diffusely, no guarding, no appreciable organomegaly Neuro: CN II-XI grossly intact, no focal neuro deficits Psych: Alert, oriented, appropriate affect Assessment/plan: Intractable abdominal pain related to malignancy and possible mechanical small bowel obstruction Metastatic breast cancer - small bowel follow-thought without signs of obstruction. 15 minute transit time, patient still with liquid stool. Await final surgery recs - Discussed with Luz Elena Alvarez [employer] and if no need for surgery will likely start chemo inpatient due to symptoms and inability to stay out of the hospital from symptoms - enlarging mesenteric masses (6.2 x 6.3 x 5.5 cm) of which the largest on of the left appears to be possibly invading into the transverse colon -Oncology and surgery recommendations appreciated -Pain control add oral option of norco 7.5 as was on norco 5 at home. -Antiemetics Anemia -Follow CBC - slight worsening Abnormal urinalysis, UTI ruled out with only 10-50,000 staph. No need for treatment as asymptomatic currently. Chronic conditions: multiple sclerosis, optic neuritis, chronic diarrhea, seasonal ALLERGIES, anxiety and depression - CBC and BMP reviewed, potassium replaced by surgical PA DVT prophylaxis: Heparin Discussed with: Patient, nursing Anticipated discharge: pending clinical course Anticipated discharge place: pending clinical course A total of 35 minutes was spent on the care of this complex patient more than 50% of the time was spent in counseling and care coordination. Active Medications Generic Name Dose Route Start Last Admin Trade Name Freq PRN Reason Stop Dose Admin Acetaminophen 650 mg 12/10/22 22:11 12/10/22 22:17 Acetaminophen Tab 325 Mg Tab PO 650 mg Q4HR PRN Administration Fever and/ or Pain Hydrocodone Bitart/Acetaminophen 1 each 12/12/22 08:29 Hydrocodone/Apap 7.5-325mg 1 Each Tab PO Q6HR PRN Pain Amitriptyline HCl 10 mg 12/10/22 21:00 12/11/22 20:41 Amitriptyline Hcl 10 Mg Tab PO 10 mg HS REYNA Administration Aspirin 81 mg 12/10/22 21:00 12/11/22 20:42 Aspirin 81 Mg PO Not Given HS REYNA Fluoxetine HCl 20 mg 12/12/22 21:00 Fluoxetine Hcl 20 Mg Cap PO HS REYNA Heparin Sodium (Porcine) 5,000 unit 12/10/22 16:00 12/12/22 08:12 Heparin Sodium,Porcine/Pf 5,000 Unit/0.5 Ml Syringe SQ Not Given Q8HR REYNA Hydromorphone HCl 0.5 mg 12/09/22 20:59 12/12/22 08:10 Hydromorphone 0.5 Mg/0.5 Ml Syringe IVP 0.5 mg Q4HR PRN Administration Pain Sodium Chloride 1,000 mls @ 75 mls/hr 12/11/22 14:45 12/12/22 06:23 Saline 0.45% IV 75 mls/hr .[id number] REYNA Administration Ketorolac Tromethamine 15 mg 12/12/22 08:29 Ketorolac 15 Mg/Ml 1 Ml Vial IVP 12/15/22 08:29 Q6HR PRN Pain Naloxone HCl 0.2 mg 12/09/22 21:17 Naloxone 0.4 Mg/Ml 1 Ml Vial IV Q2M PRN Opioid Reversal Pantoprazole Sodium 40 mg 12/10/22 07:30 12/12/22 06:23 Pantoprazole 40 Mg Tablet PO 40 mg [id number]-[id number] REYNA Administration Prochlorperazine Edisylate 10 mg 12/09/22 21:02 12/11/22 09:16 Prochlorperazine Inj 10 Mg/2 Ml Vial IVP 10 mg Q6HR PRN Administration Nausea And Vomiting Psyllium Hydrophilic Mucilloid 6 gm 12/12/22 10:15 12/12/22 13:41 Psyllium Husk 100% 6 Gm Packet PO Not Given BID REYNA Senna/Docusate Sodium 2 each 12/11/22 13:45 12/12/22 08:19 Sennosides-Docusate Sodium 1 Each Tab PO Not Given BID [facility] Objective - Vital Signs Vital signs: Vital Signs Temp 97.8 F 12/12/22 07:41 Pulse 91 12/12/22 07:41 Resp 16 12/12/22 08:35 BP 115/63 12/12/22 07:41 Pulse Ox 93 L 12/12/22 07:41 FiO2 Intake & Output 12/11/22 12/12/22 12/12/22 18:59 06:59 18:59 Intake Total 1080 Balance 1080 Weight 86.183 kg Intake: Oral 1080 Other: Voiding Method Toilet Toilet # Voids 2 4 - Labs CBC & Chem 7: 12/12/22 05:56 12/12/22 05:56 Labs: Abnormal Lab Results - Last 24 Hours (Table) 12/12/22 12/12/22 Range/Units 05:56 05:56 RBC 3.01 L (4.10-5.20) X 10*6/uL Hgb 9.2 L (12.0-15.0) g/dL Hct 28.7 L (37.2-46.3) % Potassium 3.3 L (3.5-5.5) mmol/L BUN 1.7 L (9.0-27.0) mg/dL Creatinine 0.4 L (0.6-1.5) mg/dL BUN/Creatinine Ratio 4.25 L (12.00-20.00) Ratio Calcium 7.6 L (8.7-10.3) mg/dL Microbiology - Last 24 Hours (Table) 12/09/22 19:52 Urine Culture - Final Urine,Voided Methicillin resist S. aureus
[2022-12-12] MEDS: HYDROcodone/APAP 7.5-325MG 1 EACH TAB PO PRN (14:42)
--- NOTE | 2022-12-12 17:20 | P.PN ---
Subjective Progress Note Date: 12/12/22 Principal diagnosis: metastatic breast cancer In f/u, abd is still distended, tender, no vomiting today, ate breakfast no c/o, her small bowel follow through was neg, she had 1 loose stool this AM, passing flatus. No vomiting today. She is not in pain as long as she is moving too much Objective - Vital Signs Vital signs: Vital Signs Temp 97.9 F 12/12/22 14:00 Pulse 92 12/12/22 14:00 Resp 18 12/12/22 14:00 BP 121/70 12/12/22 14:00 Pulse Ox 96 12/12/22 14:00 FiO2 Intake & Output 12/11/22 12/12/22 12/12/22 18:59 06:59 18:59 Intake Total 1080 Balance 1080 Weight 86.183 kg Intake: Oral 1080 Other: Voiding Method Toilet Toilet # Voids 2 4 - Constitutional General appearance: Present: cooperative, no acute distress - EENT Eyes: Present: anicteric sclerae, EOMI ENT: Present: hearing grossly normal - Respiratory Respiratory: bilateral: CTA - Cardiovascular Rhythm: regular Heart sounds: normal: S1, S2 Abnormal Heart Sounds: Absent: systolic murmur, diastolic murmur, rub, S3 Gallop, S4 Gallop, click, other - Peripheral edema leg Peripheral Edema: bilateral: None - Gastrointestinal General gastrointestinal: Present: distended, tenderness - Integumentary Integumentary: Present: normal - Neurologic Neurologic: Present: CNII-XII intact - Musculoskeletal Musculoskeletal: Present: strength equal bilaterally - Psychiatric Psychiatric: Present: A&O x's 3, appropriate affect, intact judgment & insight - Labs CBC & Chem 7: 12/12/22 05:56 12/12/22 05:56 Labs: Abnormal Lab Results - Last 24 Hours (Table) 12/12/22 12/12/22 Range/Units 05:56 05:56 RBC 3.01 L (4.10-5.20) X 10*6/uL Hgb 9.2 L (12.0-15.0) g/dL Hct 28.7 L (37.2-46.3) % Potassium 3.3 L (3.5-5.5) mmol/L BUN 1.7 L (9.0-27.0) mg/dL Creatinine 0.4 L (0.6-1.5) mg/dL BUN/Creatinine Ratio 4.25 L (12.00-20.00) Ratio Calcium 7.6 L (8.7-10.3) mg/dL Microbiology - Last 24 Hours (Table) 12/09/22 19:52 Urine Culture - Final Urine,Voided Methicillin resist S. aureus - Imaging and Cardiology small bowel follow through report reviewed Assessment and Plan (1) Small bowel obstruction Current Visit: Yes Status: Acute Priority: High Code(s): K56.609 - UNSP INTESTNL OBST, UNSP TO PARTIAL VERSUS COMPLETE OBST SNOMED Code(s): 2731288 04 (2) Breast cancer metastasized to multiple sites Current Visit: Yes Status: Chronic Priority: High Code(s): C50.919 - MALIGNANT NEOPLASM OF UNSP SITE OF UNSPECIFIED FEMALE BREAST SNOMED Code(s): 667821265 Plan: Abd pain/SBO -Small bowel follow neg for obstruction, material passed through, no evidence of obstruction. -Pain meds, titrate to tolerance -Aggressive bowel regimen to prevent narcotic induced constipation Meastatic breast cancer -Most recent imaging most suggestive of poor response to most recent treatment. She did have only have 1 cycle but, she is now symptomatic and she was not previously. -Nothing further from a surgical standpoint re: bowels as there is no obstruction -plan is to manage pain -Pending insurance auth for chemo. IF we cannot get auth so pt can start treatment this week then we are going to give 1st cycle inpt as pt has been unable to manage for more then a few days out of the hospital -discussed with pt, , Attending.
[2022-12-12] MEDS: DOCUSATE 100 MG CAP PO SCH (21:28)
[2022-12-12] MEDS: AMITRIPTYLINE HCL 10 MG TAB PO SCH (21:33)
[2022-12-12] MEDS: ASPIRIN 81 MG PO SCH (21:33)
[2022-12-12] MEDS: FLUoxetine HCL 20 MG CAP PO SCH (21:33)
[2022-12-13] MEDS: HEPARIN SODIUM,PORCINE/PF 5,000 UNIT/0.5 ML SYRINGE SQ SCH ×4 (01:02→23:58)
[2022-12-13] MEDS: DOCUSATE 100 MG CAP PO SCH ×2 (08:12→20:33)
[2022-12-13] MEDS ORDERED: PROPOFOL 10 MG/ML 20 ML VIAL IV ONE (09:59)
[2022-12-13] MEDS ORDERED: IV FLUID CONTINUATION 1,000 ML IV ONE (10:02)
--- NOTE | 2022-12-13 10:23 | P.PCN ---
Date of Procedure: 12/13/22 Description of Procedure: PREOPERATIVE DIAGNOSIS: Gastroesophageal reflux disease. Morbid obesity due to excess calories, BMI 41.1 Epigastric abdominal pain Metastatic breast cancer to the abdomen Nausea and vomiting POSTOPERATIVE DIAGNOSIS: Gastroesophageal reflux disease with erosive esophagitis Morbid obesity due to excess calories, BMI 41.1 Epigastric abdominal pain Metastatic breast cancer to the abdomen Nausea and vomiting Diaphragmatic hiatal hernia with gastroesophageal reflux disease OPERATION: Esophagogastroduodenoscopy with biopsies along antrum. SURGEON: Ashley Young MD ANESTHESIA: MAC. INDICATIONS: The patient is a 57-year-old female who presents with gastroesophageal reflux disease, epigastric abdominal pain and metastatic breast cancer with intractable nausea and vomiting. Benefits and risks of the procedure were described. Informed consent was obtained. DESCRIPTION: The patient was brought into the endoscopy suite and laid in the left lateral decubitus position. An Olympus gastroscope was passed along the posterior oropharynx down to the distal esophagus where the squamocolumnar junction was encountered at 35 cm from the incisors. The stomach was entered and no bile reflux was found. Additional findings are listed below. Biopsies with cold forceps were obtained of the antrum. The first through third portion of the duodenum was examined. Retroflexion of the scope confirmed Hill grade 3 lower esophageal valve. The squamocolumnar junction demonstrated LA grade B erosive esophagitis. The stomach was desufflated. The patient tolerated the procedure well. FINDINGS: Squamocolumnar junction 35 cm from the incisors. Diaphragmatic hiatus at 36 cm. Hiatal hernia, 1 cm Hill grade 3 lower esophageal valve. LA grade B erosive esophagitis. Biopsies obtained duodenal Biopsies obtained of antrum and stomach RECOMMENDATIONS: Upper endoscopy as needed. May start regular diet monitor pathology for metastatic breast cancer to stomach
[2022-12-13 10:49] LABS: HCT 28.8 % (37.2-46.3); HGB 9.3 g/dL (12.0-15.0); MCH 30.6 pg (27.0-32.0); MCHC 32.3 g/dL (32.0-37.0); MCV 94.7 fL (80.0-97.0); Mean Platelet Volume 9.4 fL (9.5-12.2); NRBC Per 100 WBC 0 /100 WBCS (0.0-0.0); Platelet Count 328 X 10*3/uL (140-440); RBC 3.04 X 10*6/uL (4.10-5.20); RDW 14.5 % (11.5-14.5); WBC 7.38 X 10*3/uL (4.50-10.00)
[2022-12-13] MEDS: PANTOPRAZOLE 40 MG TABLET PO SCH (11:02)
[2022-12-13 11:09] LABS: Magnesium 1.5 mg/dL (1.5-2.4)
[2022-12-13 11:30] LABS: African American GFR (CKD) 142.5 (60.0-200.0); Blood Urea Nitrogen <1.4 mg/dL (9.0-27.0); Calcium 7.8 mg/dL (8.7-10.3); Carbon Dioxide 26.7 mmol/L (20.0-27.5); Chloride 107 mmol/L (96-109); Glucose 92 mg/dL (70-110); Non-African American GFR(CKD) 122.9 (60.0-200.0); Potassium 3.3 mmol/L (3.5-5.5); Sodium 143 mmol/L (135-145)
[2022-12-13] MEDS: HYDROcodone/APAP 7.5-325MG 1 EACH TAB PO PRN ×2 (12:59→20:31)
[2022-12-13] MEDS ORDERED: DEXAMETHASONE SOD PHOS (MDV) 20 MG in DEXTROSE 5% IN WATER 50 ML IVPB ONE ×2 (13:30)
[2022-12-13] MEDS ORDERED: ONDANSETRON 16 MG in SODIUM CHLORIDE 0.9% 50 ML IVPB ONE (13:30)
[2022-12-13] MEDS ORDERED: FAMOTIDINE 20 MG/2 ML VIAL IV ONE (13:30)
[2022-12-13] MEDS ORDERED: diphenhydrAMINE 50 MG/ML 1 ML VIAL IVP ONE (13:30)
[2022-12-13] MEDS ORDERED: SODIUM CHLORIDE 0.9% IV ONE (14:00)
[2022-12-13] MEDS ORDERED: PACLITAXEL IV ONE (14:00)
[2022-12-13] MEDS ORDERED: CARBOplatin 600 MG in SODIUM CHLORIDE 0.9% 250 ML IV ONE (14:00)
[2022-12-13] MEDS ORDERED: POTASSIUM CHLORIDE ER 20 MEQ TAB.ER PO STA (15:10)
--- NOTE | 2022-12-13 15:11 | P.PN ---
Subjective Progress Note Date: 12/13/22 Patient is a 57-year-old female with metastatic breast cancer, multiple sclerosis, optic neuritis, chronic diarrhea, seasonal ALLERGIES, anxiety and depression who presetned to the ED for abdominal pain. She was hospitalized from 12/07/22 to for the same complaint. During that admission CT AP showed enlarging mesenteric masses (6.2 x 6.3 x 5.5 cm) of which the largest on of the left appears to be possibly invading into the transverse colon and an enlarging right adrenal mass. She was seen by Dr. Palacios and was discharged with the plan to change outpatient chemo regiment. She represetned on 12/09/2022 for worsening abdominal pain, nausea and vomiting. A KUB demonstrated dilated small bowel likely representing mechanical small bowel obstruction. She was seen by oncology who stated that if necessary patient could undergo surgery, she was seen by surgery who felt that surgical intervention was not necessary at this time as patient was having bowel movements. Small bowel follow through with 15 minute transit time, no obstruction noted. She underwent EGD that showed GERD and hiatal hernia. Patient seen and examined at bedside. She feels slightly bloated after EGD, no nausea today, oral medications are controlling pain, no shortness of breath. General: nontoxic, no distress, appears at stated age Derm: warm, dry Head: atraumatic, normocephalic, symmetric Eyes: EOMI, no lid lag, anicteric sclera Mouth: no lip lesion, mucus membranes moist Cardiovascular: S1S2 reg, no murmur, positive posterior tibial pulse bilateral, Lungs: Decreased breath sounds bilateral, no rhonchi, no rales , no accessory muscle use Abdominal: soft, tender to palpation diffusely, no guarding, no appreciable organomegaly Neuro: CN II-XI grossly intact, no focal neuro deficits Psych: Alert, oriented, appropriate affect Assessment/plan: Intractable abdominal pain related to malignancy and possible mechanical small bowel obstruction Metastatic breast cancer Diarrhea - d/w Luz Elena Alvarez NP and Dr. Palacios plan is for inpatient chemo today, as patient is unable to remain out of hospital due to significant symptoms related to tumor burden. - small bowel follow-thought without signs of obstruction. 15 minute transit time, patient still with liquid stool. - Discussed with Luz Elena Alvarez NP and if no need for surgery will likely start chemo inpatient due to symptoms and inability to stay out of the hospital from symptoms - enlarging mesenteric masses (6.2 x 6.3 x 5.5 cm) of which the largest on of the left appears to be possibly invading into the transverse colon -Oncology and surgery recommendations appreciated -Pain control -Antiemetics GERD Hiatal hernia - PPI Anemia, stable -Follow CBC Abnormal urinalysis, UTI ruled out with only 10-50,000 staph. No need for treatment as asymptomatic currently. Chronic conditions: multiple sclerosis, optic neuritis, chronic diarrhea, seas onal ALLERGIES, anxiety and depression - CBC and BMP reviewed, potassium replaced by surgical PA DVT prophylaxis: Heparin Discussed with: Patient, nursing Anticipated discharge: pending clinical course Anticipated discharge place: pending clinical course A total of 35 minutes was spent on the care of this complex patient more than 50% of the time was spent in counseling and care coordination. Active Medications Generic Name Dose Route Start Last Admin Trade Name Freq PRN Reason Stop Dose Admin Acetaminophen 650 mg 12/10/22 22:11 12/10/22 22:17 Acetaminophen Tab 325 Mg Tab PO 650 mg Q4HR PRN Administration Fever and/ or Pain Hydrocodone Bitart/Acetaminophen 1 each 12/12/22 08:29 12/13/22 12:59 Hydrocodone/Apap 7.5-325mg 1 Each Tab PO 1 each Q6HR PRN Administration Pain Amitriptyline HCl 10 mg 12/10/22 21:00 12/12/22 21:33 Amitriptyline Hcl 10 Mg Tab PO 10 mg HS REYNA Administration Aspirin 81 mg 12/10/22 21:00 12/12/22 21:33 Aspirin 81 Mg PO 81 mg HS REYNA Administration Docusate Sodium 100 mg 12/12/22 21:00 12/13/22 08:12 Docusate 100 Mg Cap PO Not Given BID REYNA Fluoxetine HCl 20 mg 12/12/22 21:00 12/12/22 21:33 Fluoxetine Hcl 20 Mg Cap PO 20 mg HS REYNA Administration Heparin Sodium (Porcine) 5,000 unit 12/10/22 16:00 12/13/22 08:12 Heparin Sodium,Porcine/Pf 5,000 Unit/0.5 Ml Syringe SQ Not Given Q8HR REYNA Hydromorphone HCl 0.5 mg 12/09/22 20:59 12/12/22 08:10 Hydromorphone 0.5 Mg/0.5 Ml Syringe IVP 0.5 mg Q4HR PRN Administration Pain Sodium Chloride 1,000 mls @ 75 mls/hr 12/11/22 14:45 12/12/22 21:33 Saline 0.45% IV 75 mls/hr .[id number] REYNA Administration Paclitaxel 300 mg/ Sodium 550 mls @ 183.333 mls/hr 12/13/22 14:00 Chloride IV 12/13/22 16:59 ONCE ONE Ketorolac Tromethamine 15 mg 12/12/22 08:29 12/12/22 14:42 Ketorolac 15 Mg/Ml 1 Ml Vial IVP 12/15/22 08:29 15 mg Q6HR PRN Administration Pain Naloxone HCl 0.2 mg 12/09/22 21:17 Naloxone 0.4 Mg/Ml 1 Ml Vial IV Q2M PRN Opioid Reversal Pantoprazole Sodium 40 mg 12/10/22 07:30 12/13/22 11:02 Pantoprazole 40 Mg Tablet PO 40 mg AC-BRKFST REYNA Administration Prochlorperazine Edisylate 10 mg 12/09/22 21:02 12/11/22 09:16 Prochlorperazine Inj 10 Mg/2 Ml Vial IVP 10 mg Q6HR PRN Administration Nausea And Vomiting Objective - Vital Signs Vital signs: Vital Signs Temp 99.1 F 12/13/22 05:52 Pulse 86 12/13/22 05:52 Resp 17 12/13/22 08:12 BP 153/86 12/13/22 05:52 Pulse Ox 93 L 12/13/22 05:52 FiO2 Intake & Output 12/12/22 12/13/22 12/13/22 18:59 06:59 18:59 Intake Total 50 Balance 50 Intake: IV 50 Other: Voiding Method Toilet Toilet Toilet # Voids 1 3 - Labs CBC & Chem 7: 12/13/22 04:43 12/13/22 04:43 Labs: Abnormal Lab Results - Last 24 Hours (Table) 12/12/22 12/13/22 12/13/22 Range/Units 12:45 04:43 04:43 RBC 3.04 L (4.10-5.20) X 10*6/uL Hgb 9.3 L (12.0-15.0) g/dL Hct 28.8 L (37.2-46.3) % MPV 9.4 L (9.5-12.2) fL Potassium 3.3 L (3.5-5.5) mmol/L Anion Gap 9.20 L (10.00-18.00) mmol/L BUN <1.4 L (9.0-27.0) mg/dL Creatinine 0.3 L (0.6-1.5) mg/dL Calcium 7.8 L (8.7-10.3) mg/dL Stool Lactoferrin POSITIVE A (NEGATIVE) Microbiology - Last 24 Hours (Table) 12/09/22 19:52 Urine Culture - Final Urine,Voided Methicillin resist S. aureus
[2022-12-13] MEDS: SODIUM CHLORIDE 0.45% 1,000 ML IV SCH ×3 (16:38→20:45)
[2022-12-13] MEDS: FLUoxetine HCL 20 MG CAP PO SCH (20:31)
[2022-12-13] MEDS: ASPIRIN 81 MG PO SCH (20:31)
[2022-12-13] MEDS: AMITRIPTYLINE HCL 10 MG TAB PO SCH (20:45)
--- NOTE | 2022-12-13 20:47 | P.PN ---
Subjective Progress Note Date: 12/13/22 CHIEF COMPLAINT: Abdominal pain HISTORY OF PRESENT ILLNESS: The patient is a 57 year old female who presents of metastatic breast cancer including intra-abdominal mass and epigastric abdominal pain. She completed upper endoscopy. She is tolerating regular diet. She is about to start chemotherapy. REVIEW OF ORGAN SYSTEMS: CONSTITUTIONAL: No fevers or chills. Has morbid obesity, BMI 41.1. GASTROINTESTINAL: Has change in bowel habits with diarrhea. No blood in stools. History of colitis. NEUROLOGICAL: Has multiple sclerosis MUSCULOSKELETAL: Has back pain, stiffness or joint arthritis. Has right arm lymphedema. BREAST: Has metastatic breast cancer. PHYSICAL EXAM: VITALS: Reviewed CONSTITUTIONAL: Well developed and in no acute distress. EYES: Conjuctivae without sclera icterus. Extraocular movements grossly intact. HEAD, EARS, NOSE, THROAT: Moist buccal mucosa. Head is atraumatic, normocephalic. Hears conversational speech. No nasal drainage. RESPIRATORY: Non-labored respirations and equal bilateral excursions. No gross wheezes. CARDIOVASCULAR: Palpable 2+ radial pulses. ABDOMEN: Protuberant. No peritonitis. MUSCULOSKELETAL: No clubbing cyanosis. SKIN: Warm and well perfused with good skin turgor. NEUROLOGIC: Cranial nerves II through XII grossly intact. No focal or lateralizing signs. PSYCH: Appropriate affect. Alert and oriented to person, place and time. Displays appropriate insight. CLINCAL LABS: Reviewed. Hemoglobin stable 9.2-9.3, anemia. REPORTS: EGD report demonstrates gastroesophageal reflux disease including hiatal hernia. Findings were reviewed with patient and family at bedside. Biopsies obtained of the stomach. ASSESSMENT: 1. Abdominal pain, upper abdomen 2. Metastatic breast cancer with mesenteric mass 3. Morbid obesity due to excess calories, BMI 41.1 4. Chemotherapy status 5. Hypoalbuminemia 6. Leukocytosis 7. Abnormal x-ray for bowel obstruction 8. Ileus 9. Gastroesophageal reflux disease 10. Anemia PLAN: 1. Recommend Protonix 40 mg daily 2. No acute surgical intervention for nonobstructive intra-abdominal mesenteric mass 3. Clear from a surgical standpoint for chemotherapy. 4. Will sign off and follow as needed Objective - Vital Signs Vital signs: Vital Signs Temp 98.2 F 12/13/22 19:49 Pulse 84 12/13/22 19:49 Resp 16 12/13/22 19:49 BP 94/74 12/13/22 19:49 Pulse Ox 94 L 12/13/22 19:49 FiO2 Intake & Output 12/13/22 12/13/22 12/14/22 06:59 18:59 06:59 Intake Total 350 Balance 350 Intake: IV 50 Intake, IV Titration 300 Amount Dexamethasone Sod Phos ( 100 Mdv) 20 mg In Dextrose 5% in Water 50 ml @ 100 mls /hr IVPB ONCE ONE Rx#: [id number] Ondansetron 16 mg In 50 Sodium Chloride 0.9% 50 ml @ 232 mls/hr IVPB ONCE ONE Rx#:[id number] Sodium Chloride 0.45% 1, 150 000 ml @ 75 mls/hr IV . [id number] [facility] Rx#:[id number] Other: Voiding Method Toilet Toilet Toilet # Voids 3 - Labs CBC & Chem 7: 12/13/22 04:43 12/13/22 04:43 Labs: Abnormal Lab Results - Last 24 Hours (Table) 12/12/22 12/13/22 12/13/22 Range/Units 12:45 04:43 04:43 RBC 3.04 L (4.10-5.20) X 10*6/uL Hgb 9.3 L (12.0-15.0) g/dL Hct 28.8 L (37.2-46.3) % MPV 9.4 L (9.5-12.2) fL Potassium 3.3 L (3.5-5.5) mmol/L Anion Gap 9.20 L (10.00-18.00) mmol/L BUN <1.4 L (9.0-27.0) mg/dL Creatinine 0.3 L (0.6-1.5) mg/dL Calcium 7.8 L (8.7-10.3) mg/dL Stool Lactoferrin POSITIVE A (NEGATIVE)
[2022-12-13] MEDS: MAGNESIUM SULFATE-D5W PMX 1 GM in DEXTROSE/WATER 1 100ML.BAG IVPB SCH ×2 (22:15→23:58)
[2022-12-14] MEDS: PANTOPRAZOLE 40 MG TABLET PO SCH (08:20)
[2022-12-14] MEDS: HEPARIN SODIUM,PORCINE/PF 5,000 UNIT/0.5 ML SYRINGE SQ SCH ×3 (08:20→23:56)
[2022-12-14] MEDS: DOCUSATE 100 MG CAP PO SCH ×3 (08:21→21:59)
[2022-12-14] MEDS: SODIUM CHLORIDE 0.45% 1,000 ML IV SCH (10:31)
--- NOTE | 2022-12-14 14:41 | P.PN ---
Subjective Progress Note Date: 12/14/22 Patient seen and examined at bedside. Patient tolerated chemo with no issues. Patient is said to have a PICC line placed later this afternoon. Patient denies chest pain or shortness breath. Abdominal pain is improving. Objective - Vital Signs Vital signs: Vital Signs Temp 98.2 F 12/14/22 11:40 Pulse 88 12/14/22 11:40 Resp 18 12/14/22 11:40 BP 180/99 12/14/22 11:40 Pulse Ox 93 L 12/14/22 11:40 FiO2 Intake & Output 12/13/22 12/14/22 12/14/22 18:59 06:59 18:59 Intake Total 350 Balance 350 Intake: IV 50 Intake, IV Titration 300 Amount Dexamethasone Sod Phos ( 100 Mdv) 20 mg In Dextrose 5% in Water 50 ml @ 100 mls /hr IVPB ONCE ONE Rx#: [id number] Ondansetron 16 mg In 50 Sodium Chloride 0.9% 50 ml @ 232 mls/hr IVPB ONCE ONE Rx#:[id number] Sodium Chloride 0.45% 1, 150 000 ml @ 75 mls/hr IV . [id number] [facility] Rx#:[id number] Other: Voiding Method Toilet Toilet # Voids 6 - Exam General: [non toxic], [no distress], [appears at stated age] Derm: [warm], [dry] Head: [atraumatic], [normocephalic], [symmetric] Eyes: [EOMI], [no lid lag], [anicteric sclera] Mouth: [no lip lesion], [mucus membranes moist] Cardiovascular: [S1S2 reg], [no murmur], [positive posterior tibial pulse bilateral], Lungs: [CTA bilateral], [no rhonchi, no rales] , [no accessory muscle use] Abdominal: [soft], [ nontender to palpation], [no guarding], [no appreciable organomegaly] Ext: [no gross muscle atrophy], [no edema], [no contractures] Neuro: [ CN II-XI grossly intact], [no focal neuro deficits] Psych: [Alert], [oriented], [appropriate affect] - Labs CBC & Chem 7: 12/13/22 04:43 01/25/23 04:43 Assessment and Plan Assessment: Intractable abdominal pain related to malignancy nonobstructive in nature Metastatic breast cancer PICC line placement later today patient is unable to remain out of hospital due to significant symptoms related to tumor burden. - no need for surgery, chemo inpatient started due to symptoms and inability to stay out of the hospital from symptoms - enlarging mesenteric masses (6.2 x 6.3 x 5.5 cm) of which the largest on of the left appears to be possibly invading into the transverse colon -Oncology recommendations appreciated -Pain control -Antiemetics GERD Hiatal hernia - PPI Anemia, stable -Follow CBC Abnormal urinalysis, UTI ruled out with only 10-50,000 staph. No need for treatment as asymptomatic currently. Chronic conditions: multiple sclerosis, optic neuritis, chronic diarrhea, seasonal ALLERGIES, anxiety and depression - CBC and BMP reviewed, potassium replaced by surgical PA DVT prophylaxis: Heparin Discussed with: Patient, nursing Anticipated discharge: Likely tomorrow Anticipated discharge place: pending clinical course
--- NOTE | 2022-12-14 17:43 | P.PN ---
Subjective Progress Note Date: 12/13/22 Principal diagnosis: metastatic breast cancer In f/u, abd is still distended, no vomiting today, pt has been NPO for EGD this morning. Reports loose stool this AM, passing flatus, but reports diarrhea has improved. She is not in pain as long as she isn't moving too much Objective - Vital Signs Vital signs: Vital Signs Temp 99.1 F 12/13/22 05:52 Pulse 86 12/13/22 05:52 Resp 17 12/13/22 08:12 BP 153/86 12/13/22 05:52 Pulse Ox 93 L 12/13/22 05:52 FiO2 Intake & Output 12/12/22 12/13/22 12/13/22 18:59 06:59 18:59 Intake Total 50 Balance 50 Intake: IV 50 Other: Voiding Method Toilet Toilet Toilet # Voids 1 3 - Constitutional General appearance: Present: average body habitus, cooperative, no acute distress - EENT Eyes: Present: anicteric sclerae, EOMI ENT: Present: hearing grossly normal - Respiratory Details: Breathing even and unlabored - Gastrointestinal General gastrointestinal: Present: distended - Integumentary Integumentary: Present: normal - Neurologic Neurologic Comment(s): Grossly intact Neurologic: Present: CNII-XII intact - Musculoskeletal Musculoskeletal: Present: strength equal bilaterally - Psychiatric Psychiatric: Present: A&O x's 3, appropriate affect, intact judgment & insight - Labs CBC & Chem 7: 12/13/22 04:43 12/13/22 04:43 Labs: Abnormal Lab Results - Last 24 Hours (Table) 12/12/22 12/13/22 12/13/22 Range/Units 12:45 04:43 04:43 RBC 3.04 L (4.10-5.20) X 10*6/uL Hgb 9.3 L (12.0-15.0) g/dL Hct 28.8 L (37.2-46.3) % MPV 9.4 L (9.5-12.2) fL Potassium 3.3 L (3.5-5.5) mmol/L Anion Gap 9.20 L (10.00-18.00) mmol/L BUN <1.4 L (9.0-27.0) mg/dL Creatinine 0.3 L (0.6-1.5) mg/dL Calcium 7.8 L (8.7-10.3) mg/dL Stool Lactoferrin POSITIVE A (NEGATIVE) Microbiology - Last 24 Hours (Table) 12/09/22 19:52 Urine Culture - Final Urine,Voided Methicillin resist S. aureus Assessment and Plan (1) Small bowel obstruction Current Visit: Yes Status: Acute Priority: High Code(s): K56.609 - UNSP INTESTNL OBST, UNSP TO PARTIAL VERSUS COMPLETE OBST SNOMED Code(s): 423353933 (2) Breast cancer metastasized to multiple sites Current Visit: Yes Status: Chronic Priority: High Code(s): C50.919 - MALIGNANT NEOPLASM OF UNSP SITE OF UNSPECIFIED FEMALE BREAST SNOMED Code(s): 977602637 Plan: Abd pain/SBO -Small bowel follow neg for obstruction, material passed through, no evidence of obstruction. -Pain meds, titrate to tolerance -Aggressive bowel regimen to prevent narcotic induced constipation -EGD done today, findings of gastroesophageal reflux disease with erosive esophagitis, metastatic breast cancer to the abdomen, and diaphragmatic hiatal hernia. Biopsies of antrum pending. Meastatic breast cancer -Most recent imaging most suggestive of poor response to most recent treatment. She did have only have 1 cycle but, she is now symptomatic and she was not previously. -Nothing further from a surgical standpoint re: bowels as there is no obstruction -plan is to manage pain -Plan to start carbo/taxol treatment inpatient. Pt will be transferred to Oncology unit and plan is to give treatment today, and then to do remaining treatments in outpt setting. -discussed with pt, , Attending. Pt agreeable to do chemo.
--- NOTE | 2022-12-14 19:00 | P.PN ---
Subjective Progress Note Date: 12/14/22 Principal diagnosis: metastatic breast cancer, symptomatic, 1st chemo inpt In f/u, abd is still distended, no vomiting today, tolerate breakfast, stool is soft, "rice", no blood or rectal pain, mildepigastric pain. She cont to report that she is not in pain as long as she isn't moving too much Objective - Vital Signs Vital signs: Vital Signs Temp 98 F 12/14/22 15:43 Pulse 85 12/14/22 15:43 Resp 18 12/14/22 15:43 BP 175/92 12/14/22 15:43 Pulse Ox 97 12/14/22 15:43 FiO2 Intake & Output 12/13/22 12/14/22 12/14/22 18:59 06:59 18:59 Intake Total 350 Balance 350 Weight 86.183 kg Intake: IV 50 Intake, IV Titration 300 Amount Dexamethasone Sod Phos ( 100 Mdv) 20 mg In Dextrose 5% in Water 50 ml @ 100 mls /hr IVPB ONCE ONE Rx#: [id number] Ondansetron 16 mg In 50 Sodium Chloride 0.9% 50 ml @ 232 mls/hr IVPB ONCE ONE Rx#:[id number] Sodium Chloride 0.45% 1, 150 000 ml @ 75 mls/hr IV . [id number] [facility] Rx#:[id number] Other: Voiding Method Toilet Toilet # Voids 6 3 # Bowel Movements 1 - Constitutional General appearance: Present: cooperative, no acute distress, obese - EENT Eyes: Present: anicteric sclerae, edentulous ENT: Present: hearing grossly normal - Respiratory Details: resp even and unlabored at rest - Gastrointestinal General gastrointestinal: Present: distended, soft, tenderness Localized gastrointestinal: tender: epigastric periumbilical - Integumentary Integumentary: Present: pale - Neurologic Neurologic: Present: CNII-XII intact - Musculoskeletal Musculoskeletal: Present: generalized weakness, strength equal bilaterally - Psychiatric Psychiatric: Present: A&O x's 3, appropriate affect, intact judgment & insight - Labs CBC & Chem 7: 12/13/22 04:43 12/13/22 04:43 - Imaging and Cardiology EGD report reviewed, path reviewed Assessment and Plan (1) Small bowel obstruction Current Visit: Yes Status: Acute Priority: High Code(s): K56.609 - UNSP INTESTNL OBST, UNSP TO PARTIAL VERSUS COMPLETE OBST SNOMED Code(s): 711687008 (2) Breast cancer metastasized to multiple sites Current Visit: Yes Status: Chronic Priority: High Code(s): C50.919 - MALIGNANT NEOPLASM OF UNSP SITE OF UNSPECIFIED FEMALE BREAST SNOMED Code(s): 957170979 Plan: Abd pain/SBO -Small bowel follow neg for obstruction, material passed through, no evidence of obstruction. -EGD done today, findings of gastroesophageal reflux disease with erosive esophagitis, metastatic breast cancer to the abdomen, and diaphragmatic hiatal hernia. Biopsies neg for malignancy or infection. -Current analgesic regimen adequate per pt. -Aggressive bowel regimen to prevent narcotic induced constipation. Educate pt on importance of not allowing stool to get too hard-riak of obstruction Meastatic breast cancer -Most recent imaging most suggestive of poor response to most recent treatment. She did have only have 1 cycle but, she is now symptomatic and she was not previously. -1st dose of carbo/taxol given 12/13, pt tolerated well. -F/U next week for labs and to assess for any side effects from chemo. -Anticipate with chemo that it will have a faster impact on the disease in the abd causing pt symptoms. Discontinued all fluids, see how pt does overnight, hope for discharge in AM. Pt and agree with plan.
[2022-12-14] MEDS: ASPIRIN 81 MG PO SCH (21:59)
[2022-12-14] MEDS: FLUoxetine HCL 20 MG CAP PO SCH (21:59)
[2022-12-14] MEDS: AMITRIPTYLINE HCL 10 MG TAB PO SCH (21:59)
[2022-12-15 07:57] VITALS: RESP 18
[2022-12-15 08:16] LABS: ALT 22 U/L (4-34); AST 41 U/L (14-36); African American GFR (CKD) >90 (>60 ml/min/1.73 sqM); Albumin 2.9 g/dL (3.5-5.0); Albumin/Globulin Ratio 1.3; Alkaline Phosphatase 76 U/L (38-126); Anion Gap 2 mmol/L; Blood Urea Nitrogen 10 mg/dL (7-17); Calcium 7.3 mg/dL (8.4-10.2); Carbon Dioxide 31 mmol/L (22-30); Chloride 103 mmol/L (98-107); Globulin 2.2 g/dL; Glucose 86 mg/dL (74-99); Non-African American GFR(CKD) >90 (>60 ml/min/1.73 sqM); Potassium 3.5 mmol/L (3.5-5.1); Sodium 136 mmol/L (137-145); Total Bilirubin 0.3 mg/dL (0.2-1.3); Total Protein 5.1 g/dL (6.3-8.2)
[2022-12-15] MEDS: DOCUSATE 100 MG CAP PO SCH (08:43)
[2022-12-15] MEDS: PANTOPRAZOLE 40 MG TABLET PO SCH (08:43)
[2022-12-15] MEDS: HEPARIN SODIUM,PORCINE/PF 5,000 UNIT/0.5 ML SYRINGE SQ SCH (08:43)
[2022-12-15 08:45] LABS: Basophils % (A) 0 %; Eosinophils % (A) 0 %; HCT 29.3 % (34.0-46.0); HGB 10.2 gm/dL (11.4-16.0); Lymphocytes # (A) 0.6 k/uL (1.0-4.8); Lymphocytes % (A) 10 %; MCH 31.6 pg (25.0-35.0); MCHC 34.7 g/dL (31.0-37.0); Mean Platelet Volume 8.2; Monocytes # (A) 0.2 k/uL (0-1.0); Monocytes % (A) 3 %; Neutrophils # (A) 5.3 k/uL (1.3-7.7); Neutrophils % (A) 86 %; Platelet Count 323 k/uL (150-450); RBC 3.22 m/uL (3.80-5.40); RDW 14.6 % (11.5-15.5); WBC 6.2 k/uL (3.8-10.6)
[2022-12-15 12:47] VITALS: BP 148/80; PULSE 83; TEMP 97.5
--- NOTE | 2022-12-15 13:38 | P.DS ---
Providers Date of admission: 12/09/22 21:19 Expected date of discharge: 12/15/22 Attending physician: Aron Sam MD Consults: 12/09/22 21:17 Consult Physician Routine Consulting Provider: Severo Levine Consult Reason/Comments: SBO Do you want consulting provider notified?: Yes Primary care physician: Manpreet [facility] Hospital Course: Discharge Diagnosis: Metastatic breast cancer Intractable abdominal pain Small bowel obstruction GERD Hiatal hernia Chronic normocytic anemia Hospital Course: Patient is a 57-year-old female with metastatic breast cancer, multiple sclerosis, optic neuritis, chronic diarrhea, seasonal ALLERGIES, anxiety and depression who presented to the ED for abdominal pain. She was hospitalized from 12/07/22 to for the same complaint. During that admission CT AP showed enlarging mesenteric masses (6.2 x 6.3 x 5.5 cm) of which the largest on of the left appears to be possibly invading into the transverse colon and an enlarging right adrenal mass. She was seen by Dr. Palacios and was discharged with the plan to change outpatient chemo regiment. She represented on 12/09/2022 for worsening abdominal pain, nausea and vomiting. A KUB demonstrated dilated small bowel likely representing mechanical small bowel obstruction. She was seen by oncology who stated that if necessary patient could undergo surgery, she was seen by surgery who felt that surgical intervention was not necessary at this time as patient was having bowel movements. Small bowel follow through with 15 minute transit time, no obstruction noted. She underwent EGD that showed erosive esophagitis, metastatic breast cancer to the abdomen, diaphragmatic hiatal hernia. Patient receilved 1 cycle of chemotherapy inpatient. She will have next week follow-up as an outpatient with oncology. Patient seen and examined at bedside. Vital signs reviewed and stable. General: nontoxic, no distress, appears at stated age Derm: warm, dry Head: atraumatic, normocephalic, symmetric Eyes: EOMI, no lid lag, anicteric sclera Mouth: no lip lesion, mucus membranes moist Cardiovascular: S1S2 reg, no murmur Lungs: CTA bilateral, no rhonchi, no rales , no accessory muscle use Abdominal: soft, nondistended, nontender to palpation, no guarding, no appreciable organomegaly Ext: no gross muscle atrophy, no edema, no contractures Neuro: CN II-XI grossly intact, no focal neuro deficits Psych: Alert, oriented, appropriate affect A total of 33 minutes of time were spent preparing this complex discharge summary. Patient was discharged on 12/15/22 at 12:13. Patient Condition at Discharge: Stable Plan - Discharge Summary Discharge Rx Participant: No New Discharge Prescriptions: New Docusate [Colace] 100 mg PO BID #60 cap Continue Amitriptyline HCl 10 mg PO HS Cholecalciferol (Vitamin D3) [Vitamin D3 (125 MCG = 5,000 IU)] 250 mcg PO DAILY Aspirin [Adult Low Dose Aspirin EC] 81 mg PO HS Pantoprazole [Protonix] 40 mg PO AC-BRKFST #30 tab FLUoxetine HCL [PROzac] 20 mg PO HS Metamucil Gummies 2 cap PO DAILY Cyanocobalamin (Vitamin B-12) [Vitamin B-12] 1,000 mcg PO DAILY Changed HYDROcodone/APAP 5-325MG [Chelsea 5-325] 1 tab PO Q6HR PRN #0 PRN Reason: Pain Discontinued Loratadine [Claritin] 10 mg PO HS Cranberry + Vitamin C 2 tab PO DAILY Calcium Carb/Mag Ox/Zinc Sulf [Giv-Ksh-Xshs 334-134-5 mg Tab] 1 tab PO DAILY Ketorolac [Toradol] 10 mg PO Q6HR #20 tab Glucosam/Bao-Msm1/C/Massimo/Bosw [Ippnjxhusqg-Ttrqcfheaeo-UQG Tb] 1 tab PO DAILY Ondansetron [Zofran] 4 mg PO Q4H PRN PRN Reason: Nausea Discharge Medication List Amitriptyline HCl 10 mg PO HS 10/21/20 [History] FLUoxetine HCL [PROzac] 20 mg PO HS 05/26/21 [History] Cholecalciferol (Vitamin D3) [Vitamin D3 (125 MCG = 5,000 IU)] 250 mcg PO DAILY 08/11/21 [History] Aspirin [Adult Low Dose Aspirin EC] 81 mg PO HS 09/21/21 [History] Cyanocobalamin (Vitamin B-12) [Vitamin B-12] 1,000 mcg PO DAILY 12/07/22 [History] Metamucil Gummies 2 cap PO DAILY 12/07/22 [History] Pantoprazole [Protonix] 40 mg PO AC-BRKFST #30 tab 12/08/22 [Rx] Docusate [Colace] 100 mg PO BID #60 cap 12/15/22 [Rx] HYDROcodone/APAP 5-325MG [Chelsea 5-325] 1 tab PO Q6HR PRN #0 12/15/22 [Rx] Follow up Appointment(s)/Referral(s): Manpreet Santillan MD [Primary Care Provider] - 12/24/22 10:15 am Severo Levine MD [STAFF PHYSICIAN] - 12/18/22 10:30 am (Nurse visit for labs and evaluation) Patient Instructions/Handouts: Docusate (Into the rectum), Breast Cancer in Women (GEN), Bowel Obstruction (DC) Activity/Diet/Wound Care/Special Instructions: Please see your PCP as soon as possible. Please see your oncologist on 12/18. Discharge Disposition: HOME SELF-CARE
== END 2022-12-15 13:33 | disposition home or self-care (01) | DRG 375 ==
LOC: EC 19:08 → 4SSUR 21:19 → 5NMEDONC 12-13 15:01
PROVIDERS: ADMIT Internal Medicine; ATTEND Internal Medicine
PROC: 0DB78ZX Excision of Stomach, Pylorus, Via Natural or Artificial Opening Endoscopic, Diagnostic (ICD-10-PCS; principal; 2022-12-13 07:30)
DX: C78.5 Secondary malignant neoplasm of large intestine and rectum (principal); C79.51 Secondary malignant neoplasm of bone; K56.699 Other intestinal obstruction unspecified as to partial versus complete obstruction; K22.10 Ulcer of esophagus without bleeding; Z68.41 Body mass index [BMI] 40.0-44.9, adult; H46.9 Unspecified optic neuritis; E88.09 Other disorders of plasma-protein metabolism, not elsewhere classified; E87.8 Other disorders of electrolyte and fluid balance, not elsewhere classified; E66.01 Morbid (severe) obesity due to excess calories; G35 Multiple sclerosis; F32.A Depression, unspecified; D63.0 Anemia in neoplastic disease; K21.00 Gastro-esophageal reflux disease with esophagitis, without bleeding; K44.9 Diaphragmatic hernia without obstruction or gangrene; M85.80 Other specified disorders of bone density and structure, unspecified site; G89.3 Neoplasm related pain (acute) (chronic); K52.9 Noninfective gastroenteritis and colitis, unspecified; F41.9 Anxiety disorder, unspecified; E27.9 Disorder of adrenal gland, unspecified; E87.6 Hypokalemia; K29.50 Unspecified chronic gastritis without bleeding; Z20.822 Contact with and (suspected) exposure to COVID-19; Z90.11 Acquired absence of right breast and nipple; Z79.82 Long term (current) use of aspirin; Z79.899 Other long term (current) drug therapy; Z88.2 Allergy status to sulfonamides; Z85.3 Personal history of malignant neoplasm of breast; Z86.14 Personal history of Methicillin resistant Staphylococcus aureus infection
CPT/HCPCS: 36410; 36415; 43239; 74018; 74250; 76937; 80048; 80053; 81001; 82150; 83605; 83630; 83690; 83735; 85025; 85027; 87077; 87086; 87186; 87324; 87636; 88305; 96361; 96374; 96375; 99284

== ENCOUNTER → 2023-02-05 | Outpatient (CLI) | payer OTHER ==
[2023-02-05 14:12] LABS: African American GFR (CKD) >90 (>60 ml/min/1.73 sqM); Blood Urea Nitrogen 10 mg/dL (7-17); Non-African American GFR(CKD) >90 (>60 ml/min/1.73 sqM)
--- NOTE | 2023-02-05 16:08 | CT ---
EXAMINATION TYPE: CT ChestAbdPelvis w con DATE OF EXAM: 02/05/2023 COMPARISON: 12/08/2022, 09/06/2022 HISTORY: 57-year-old female C50.311, history of right breast ca TECHNIQUE: Contiguous axial scanning of the chest, abdomen, and pelvis performed with IV Contrast, pa tient injected with 100 mL of Isovue 300. Delayed images through the kidneys were obtained. Coronal/s agittal reconstructions performed. CT DLP: 1299 mGycm Automated exposure control for dose reduction was used. FINDINGS: CHEST: Heart normal size without pericardial effusion. Aorta normal caliber with conventional arch vessel branching anatomy. No thoracic lymphadenopathy by CT size criteria. Left axillary nodes have improved. Patient is status post right mastectomy. The changes appear stable. Lungs show mild centrilobular emphysema and mild diffuse bronchial wall thickening. No consolidation or pleural effusion. ABDOMEN: Low attenuation of the hepatic parenchyma may be due to the phase of imaging. Correlate for underlyin g fatty infiltration of the liver. No focal liver lesion or biliary ductal dilatation. A small 1.5 cm duodenal diverticulum is noted at the junction of the second and third portions of the duodenum. Por gomez venous system patent. Gallbladder, left adrenal gland, kidneys, spleen, and pancreas within normal limits. 2.0 cm nodule right adrenal gland versus 4.2 cm, previously. No dilated small bowel, free fluid, or free air. No mesenteric or retroperitoneal lymphadenopathy. Normal appendix. Oral contrast progressed to the mid transverse colon. There is mild stool burden. No pericolonic inflammatory change. PELVIS: Bladder is urine distended. Visualization is limited due to pronounced streak and beam hardening suzanna fact from the patient's left hip arthroplasty. Uterus anteverted. Both ovaries are visualized. Some focal nodularity adjacent to the inferior margin of the distal third transverse colon, axial herlinda ge 74 markedly decreased from prior. The other omental lesions midline and right side appear to have resolved. Left external iliac chain node currently measuring 1.5 cm versus 2.6 cm, previously. BONES: Prominent artifact from patient's left hip arthroplasty. Mild degenerative change right hip. Anterior endplate spondylosis lower thoracic spine. No osseous destructive process seen. IMPRESSION: 1. NO NEW DISEASE OR PROGRESSION IDENTIFIED. INTERVAL TREATMENT RESPONSE FOLLOWS: 2. RESOLUTION OF PREVIOUS LEFT AXILLARY NODES AND RESOLUTION OF THE PREVIOUS LOWER OMENTAL/PERITONEAL DEPOSITS. ONE SMALL DEPOSIT ALONG THE INFERIOR MARGIN OF THE TRANSVERSE COLON REMAINS MEASURING 1.3 CM VERSUS 6.5 CM, PREVIOUSLY. 3. DECREASING SIZE OF THE RIGHT ADRENAL MASS NOW 2.0 CM VERSUS 4.2 CM, PREVIOUSLY. 4. DECREASING SIZE OF LEFT EXTERNAL ILIAC CHAIN NODE AT 1.5 CM VERSUS 2.6 CM, PREVIOUSLY.
== END | disposition home or self-care (01) ==
LOC: RADCTMAIN 11:59
PROVIDERS: ATTEND Internal Medicine Hematology & Oncology
DX: C50.311 Malignant neoplasm of lower-inner quadrant of right female breast (principal); E27.8 Other specified disorders of adrenal gland
CPT/HCPCS: 82565; 84520; 71260; 74177; 36415; Q9967

== ENCOUNTER → 2023-03-09 | Outpatient (CLI) | payer OTHER ==
[2023-03-09 14:31] VITALS: BP 107/71; PULSE 77; RESP 17; TEMP 97.7
--- NOTE | 2023-03-09 14:55 | P.PN ---
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 Core biopsy was positive for invasive ductal carcinoma, G-2, ER/IN positive, HER-2 negative. The lesion was 3.5 x 3.8 cm in size at the 7 o'clock position of the right breast. Genetic testing was negative. On she underwent a right mastectomy with subpectoral implant reconstruction. Pathology at the time of the mastectomy revealed a 4 cm lesion. Lymph nodes revealed sentinel node positive for micrometastatic disease and 5 additional nodes negative for cancer. The implant became infected and was necessary for this to be removed. She did not have new implants replaced. She completed 4 cycles of adjuvant TC on 5719. She completed adjuvant radiation therapy in April 2020. She was started on Arimidex in May 2020 and is continuing on this without difficulty Following the radiation the patient noted a small opening in her right chest wall incision. She has had intermittent drainage from several sites since that time. She wished to have revision of the surgical scar and removal of redundant tissue. Secondary to the radiation she received pre-operative hyperbaric oxygen and continued this after the procedu She hit her hip on the table at work several days before she was diagnosed with a fracture on 08-11-21. She had hip surgery on 08-12-21. She is walking now. Her pathology was consistent for metastatic breast cancer. She has no complaints of lumps masses or nodules on the chest wall or either breast. She had a left breast mammogram on 11-01-21 Benign BIRAD 2 She is complaining of pain in her left hip. 03-30-[address] Levine 02-22-22 reviewed PET scan on [id number] revealed slight uptake in hilar and mediastinal lymph nodes slight uptake in hip otherwise negative She was started on Xeloda on [id number] On computed tomography scan of COPD and bone scan revealed no evidence of disease She was tolerating treatment well except for dryness in her hands and feet The patient is not complaining of any new lumps masses or nodules of concern in either breast, she is not complaining of any lumps or nodules in her right chest wall or right axilla 11-09-22 left breast mammogram 11-02-22 KENJI Machuca Is not complaining of any new lumps masses or nodules of concern in her left breast, nor on her right chest wall. 09-06-22 CT scan revealed disease progression in abdomen, right adrenal, and omental implants She is presently on IBRANCE it is causing her diahrea 03-09-23 note 02-12-23 DR. Levine reviewed: 31525 right mastectomy, pathology revealed grade 3 invasive ductal carcinoma, 5 cm, one of 5 nodes was positive for micrometastatic her surgery was complicated by a nonhealing wound which required debridement and removal of an nursing center tutor Oncotype DX: 51 33330 started adjuvant TC and completed 4 cycles on 994916 Completed adjuvant radiation April 2020 Started Arimidex May 2020 9020 [id number] presented with pathologic fracture of the left hip underwent surgery, biopsy positive for metastatic carcinoma, ER/IN negative and HER-2 negative PET scan [id number] slight uptake in hilar and mediastinal nodes slight uptake in left hip otherwise negative Started on Xeloda on [id number] repeat computed tomography scan of chest abdomen and pelvis revealed evidence of disease progression in abdomen, the right adrenal nodules, new omental lesions 373057 biopsy of omental lesion positive for metastatic disease 002049 started falsodex and Ibrance November 2022 was hospitalized for abdominal pain and dehydration and computed tomography scan at that time 85107 revealed disease progression in her abdomen 25880 started on carboplatin/Taxol Repeat CT chest abdomen and pelvis 44596 significant improvement in disease At this time she is feeling well not complaining of abdominal pain not complaining of any nausea or vomiting On Sunday she will start a new chemotherapy at [facility] Q 3 weeks indefinitely This time Nahomy is not complaining of any new lumps masses or nodules of concern in her right chest wall or left breast. She is not complaining of any hip pain. She does not complain of any abdominal pain. She is feeling well. Family History: paternal aunt: breast cancer paternal cousin: bilateral breast cancer Hormonal History: menarche: 13 M1, age at first :23, breast fed: yes menopause: stopped periods 2 years ago BCP: 14 years hormones: none Surgical history: Right mastectomy with subpectoral implant placement and axillary node removal Removal of subpectoral implant Anal fissure Tonsillectomy right hip surgery Medical history: asthma lymphedema right arm Multiple sclerosis Social History: Nicotine: Negative Alcohol: Negative Drugs: Negative - Constitutional Comment: hot flashes 5 times/day Constitutional: Denies chills, Denies fever - EENT Comment: optic neuritits Ears: deny: decreased hearing, tinnitus Ears, nose, mouth and throat: Denies headache, Denies sore throat - Breasts Breasts: bilateral: as per HPI - Cardiovascular Cardiovascular: Denies chest pain, Denies shortness of breath - Respiratory Respiratory: Denies cough - Gastrointestinal Comment: colitis Gastrointestinal: Denies abdominal pain, Denies diarrhea, Denies nausea, Denies vomiting - Genitourinary (Female) Genitourinary: Denies dysuria, Denies hematuria - Menstruation Menstruation: Reports postmenopausal - Musculoskeletal Musculoskeletal: Denies myalgias - Integumentary Comment: Skin 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 by 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 results pending Integumentary: Denies pruritus, Denies rash - Neurological Neurological: Denies numbness, Denies weakness - Psychiatric Psychiatric: Reports anxiety, Reports depression - Endocrine Endocrine: Denies fatigue, Denies weight change - Hematologic/Lymphatic Comment: baby aspirin - Allergic/Immunologic Allergic/Immunologic: Reports as per HPI Objective - Vital Signs Vital signs: Vital Signs Temp 97.7 F 03/09/23 14:29 Pulse 77 03/09/23 14:29 Resp 17 03/09/23 14:29 BP 107/71 03/09/23 14:29 Pulse Ox 97 03/09/23 14:29 FiO2 Intake & Output 03/08/23 03/09/23 03/09/23 18:59 06:59 18:59 Weight 86.636 kg - Constitutional General appearance: Present: cooperative - EENT Eyes: Present: EOMI - Neck Neck: Present: normal ROM - Respiratory Respiratory: bilateral: CTA - Cardiovascular Rhythm: regular Heart sounds: normal: S1, S2 - Gastrointestinal General gastrointestinal: Present: soft - Integumentary Integumentary: Present: normal turgor - Musculoskeletal Musculoskeletal: Present: gait normal - Psychiatric Psychiatric: Present: A&O x's 3, appropriate affect, intact judgment & insight - Additional findings Additional findings: Breast Exam: BRA: 42D inspection: Chest wall no evidence of recurrence Left breast grade 3 ptosis Palpation: Right chest wall: No evidence of recurrent cancer Right axilla: No adenopathy of concern Left breast: Multi-positional exam fibrocystic changes no dominant masses or nodules of concern Left axilla: Skin coloration changes for which she has been recommended to see a 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 in the past this is not bothering the patient at this time no adenopathy of concern Assessment and Plan Assessment: Impression: Stage IV breast cancer metastatic to abdomen/omentum Note reviewed from Dr. Levine of 02-12-23 Plan: Continue)'s Continue with Dr. Levine Left breast mammogram follow up in 4 months CC: Tyrell
== END ==
LOC: WWCWWP 14:21
PROVIDERS: ATTEND Surgery
DX: C50.911 Malignant neoplasm of unspecified site of right female breast (principal); Z85.3 Personal history of malignant neoplasm of breast; C79.51 Secondary malignant neoplasm of bone; C79.89 Secondary malignant neoplasm of other specified sites; G35 Multiple sclerosis; J44.9 Chronic obstructive pulmonary disease, unspecified; Z17.0 Estrogen receptor positive status [ER+]; Z51.11 Encounter for antineoplastic chemotherapy; Z80.3 Family history of malignant neoplasm of breast; Z90.11 Acquired absence of right breast and nipple; Z92.3 Personal history of irradiation; I89.0 Lymphedema, not elsewhere classified; Z88.2 Allergy status to sulfonamides

== ENCOUNTER → 2023-05-01 | Outpatient (CLI) | payer OTHER ==
[2023-05-01 12:42] LABS: African American GFR (CKD) >90 (>60 ml/min/1.73 sqM); Blood Urea Nitrogen 6 mg/dL (7-17); Non-African American GFR(CKD) >90 (>60 ml/min/1.73 sqM)
--- NOTE | 2023-05-01 22:03 | CT ---
EXAMINATION TYPE: CT ChestAbdPelvis w con DATE OF EXAM: 05/01/2023 COMPARISON: 02/05/2023 and 12/08/2022 HISTORY: 57-year-old female C50.311, obs for mets hx of breast ca TECHNIQUE: Contiguous axial scanning of the chest, abdomen, and pelvis performed with IV Contrast, pa tient injected with 80 mL of Isovue 300. Delayed images through the kidneys were obtained. Coronal/sa gittal reconstructions performed. CT DLP: 1671.10 mGycm Automated exposure control for dose reduction was used. FINDINGS: Chest: Patient is status post right mastectomy. Overlying breast prosthesis. Heart upper limits of normal in size without pericardial effusion. Aorta normal caliber with conventional arch vessel branching anatomy. No thoracic lymphadenopathy by CT size criteria. A platelike seroma deep along the inferior lateral aspect of the right mastectomy site measures 6.3 c m wide and 9 mm thick. This is slightly increasing from prior exam. Mild diffuse bronchial wall thickening suggests bronchitis or chronic asthma. No consolidation or ple ural effusion. ABDOMEN: No focal liver lesion or biliary ductal dilatation. Portal venous system is patent. There is a small 1.7 cm diverticulum from the third portion of the duodenum projecting superiorly. Gallbladder, left adrenal gland, kidneys, spleen, and pancreas within normal limits. Nodule of the right adrenal gland measuring 1.8 cm versus 2.0 cm, previously. Much larger and had 4.2 cm on the exam prior to that and 12/08/2022. No dilated small bowel, free fluid, or free air. No mesenteric or retroperitoneal lymphadenopathy. Normal appendix. Oral contrast progressed to the hepatic flexure of the colon. Mild to moderate stool burden. No pericolonic inflammatory change. The previous 1.3 cm peritoneal deposit along the inferio r margin of the transverse colon has further decreased in size now measuring 6 mm. Pelvis: Bladder partially distended. Mild pelvic floor relaxation. Uterus anteverted. Small bilateral ovaries . No abnormal fluid collection in the pelvis. A left external iliac chain lymph nodes measuring 1.3 cm versus 1.5 cm on 02/05/2023 and 2.6 cm on 11/20. BONES: Left hip total arthroplasty. Mild degenerative changes are scattered throughout the spine. Anterior e ndplate spondylosis lower thoracic spine. No osseous destructive process. IMPRESSION: 1. FURTHER TREATMENT RESPONSE FOLLOWS: 2. LEFT EXTERNAL ILIAC CHAIN NODE IS SMALLER AT 1.3 CM VERSUS 1.5 CM, PREVIOUSLY. 3. PREVIOUS PERITONEAL DEPOSIT BELOW THE TRANSVERSE COLON NOW PUNCTATE AT 6 MM VERSUS 1.3 CM, PREVIOU SLY. 4. RIGHT ADRENAL NODULE SMALLER AT 1.8 CM VERSUS 2.0 CM, PREVIOUSLY.
== END | disposition home or self-care (01) ==
LOC: RADCTMAIN 11:36
PROVIDERS: ATTEND Internal Medicine Hematology & Oncology
DX: C50.311 Malignant neoplasm of lower-inner quadrant of right female breast (principal); G62.0 Drug-induced polyneuropathy; D70.2 Other drug-induced agranulocytosis; G89.3 Neoplasm related pain (acute) (chronic); Z85.3 Personal history of malignant neoplasm of breast
CPT/HCPCS: 82565; 84520; 71260; 74177; 36415; Q9967

== ENCOUNTER → 2023-11-02 | Outpatient (CLI) | payer OTHER ==
--- NOTE | 2023-11-02 13:09 | MM ---
Reason for Exam: Hx of breast cancer, mastectomy. Last screening mammogram was performed 12 month(s) ago. Patient History: Menarche at age 13. First Full-Term at age 22. Postmenopausal. Breast cancer, right, age 53. Previous chest radiation therapy at age 53. Previous chemotherapy at age 53. Mastectomy on the Right side. Chemotherapy. Radiation Therapy, right. Paternal cousin had breast cancer, age 40. Prior Study Comparison: 09/23/2020 Left Diagnostic Mammogram, [facility]. 11/01/2021 Left Diagnostic Mammogram, [facility]. 11/02/2022 Left MG 3D diag mammo w/cad , [facility]. Tissue Density: Left: There are scattered fibroglandular densities. Findings: Analyzed By CAD. There is no suspicious group of microcalcifications or new suspicious mass. Overall Assessment: Negative, BI-RAD 1 Management: Screening Mammogram of the left breast in 1 year. Results were given to the patient verbally at the time of exam. Patient should continue monthly self-breast exams. A clinical breast exam by your physician is recommended on an annual basis. This exam should not preclude additional follow-up of suspicious palpable abnormalities. Note on Diana scores and lifetime risk: 1. A Diana score greater than 3% is considered moderate risk. If this is the case, consider specialist referral to assess eligibility for a risk reducing agent. 2. If overall lifetime risk for the development of breast cancer is 20% or higher, the patient may qualify for future screening with alternating mammogram and breast MRI. Electronically signed and approved by: Varun Nielson DO
== END | disposition home or self-care (01) ==
LOC: RADMAMWWP 12:44
PROVIDERS: ATTEND Surgery
DX: R92.322 Mammographic fibroglandular density, left breast (principal); Z85.3 Personal history of malignant neoplasm of breast; Z80.3 Family history of malignant neoplasm of breast; Z78.0 Asymptomatic menopausal state
CPT/HCPCS: 77061; 77065

== ENCOUNTER → 2023-11-26 | Outpatient (CLI) | payer OTHER ==
[2023-11-26 10:16] LABS: African American GFR (CKD) >90 (>60 ml/min/1.73 sqM); Blood Urea Nitrogen 6 mg/dL (7-17); Non-African American GFR(CKD) >90 (>60 ml/min/1.73 sqM)
--- NOTE | 2023-11-29 07:13 | CT ---
EXAMINATION TYPE: CT ChestAbdPelvis wo/w con CT DLP: 2634.6 mGycm, Automated exposure control for dose reduction was used. DATE OF EXAM: 11/26/2023 10:39 AM COMPARISON: CT 07/24/2023 and before CLINICAL INDICATION:Female, 58 years old with history of C50.311 BREAST CANCER; LOCATED WITHIN [facility], F/U stage [address] cancer TECHNIQUE: Multiple axial images of the chest, abdomen, and pelvis were obtained. Two-dimensional cor onal and sagittal reconstructions were obtained. Contrast used:100 mL of Isovue 300 with IV Contrast, Oral contrast used: with Oral Contrast FINDINGS: CHEST: LUNGS/ PLEURA: New 8 mm groundglass focal opacity in the right lung apex image 8 series 7. New small reticulonodular cluster left upper lobe image 13 and left lower lobe images 25-27, and small patch of groundglass right lower lobe image 40. No large nodules or masses. No consolidation, effusion, pneum othorax. AIRWAY: Central airways are patent. LOWER NECK: No significant findings. MEDIASTINUM: No gross evidence of adenopathy. HEART: Heart size upper normal. No significant coronary arterial calcifications.. No appreciable mili cardial effusion. VASCULATURE: No significant aortic atherosclerosis.. Ascending aorta is 3.1 CM, descending is 2.1 CM . Aorta is considered normal in size. Pulmonary trunk measures 2.6 CM. Pulmonary trunk is normal in size. Grossly preserved enhancement of the pulmonary arteries, in the limits of non-CTA exam. SOFT TISSUES/LYMPH NODES: Stable soft tissues with posttreatment changes of the right chest wall stat us post mastectomy. No enlarged axillary nodes. MUSCULOSKELETAL: Osseous structures appear unchanged. Left hip arthroplasty. No new or enlarging bone lesion. Degenerative changes of the spine are similar. OTHER: No other significant finding. ABDOMEN PELVIS: ABDOMEN LIVER: Suspect mild fatty infiltration. No evidence of mass. GALLBLADDER AND BILE DUCTS: Unremarkable. PANCREAS: Unremarkable. SPLEEN: Unremarkable. ADRENAL GLANDS: Stable, slightly thickened appearance bilaterally without evidence of mass.. KIDNEYS AND URETERS: Kidneys concentrate and excrete contrast symmetrically. No hydronephrosis or mas ses visualized. No visible renal calculi on noncontrast study. PELVIS Assessment is limited artifact from the left hip arthroplasty. BLADDER: Appears stable REPRODUCTIVE: Not well assessed, grossly stable. ABDOMEN & PELVIS STOMACH AND BOWEL: Stomach and small bowel are nondistended. Circumferentially thickened appearance o f the pylorus likely due to contraction/nondistention. Small duodenal diverticulum redemonstrated. Co ntrast traverses the stomach and small bowel without evidence of obstruction. Small amount of contras t in the right colon. Appendix appears within normal limits. Moderate colonic stool without focal acu te abnormality seen. PERITONEUM/RETROPERITONEUM: No evidence of pneumoperitoneum or free fluid. Previously described peritoneal deposit along the inferior margin of the transverse colon, which at o ne time had been rather large, is stable to slightly decreased in size now measuring no more than 7.2 5 mm coronal image 28 series 10, versus 10 mm on the last study. No sizable new or enlarging intraper itoneal nodules or masses. VASCULATURE: No evidence of aortic aneurysm. Grossly unremarkable IVC. Portal vein and splenic vein a re enhancing. SMV is enhancing. MUSCULOSKELETAL: Osseous structures appear unchanged. Left hip arthroplasty. No new or enlarging bone lesion. Degenerative changes of the spine are similar. LYMPH NODES: Previous left iliac chain node is stable to slightly smaller, now 6.6 mm and was 8.2 mm. No new or enlarging nodes otherwise identified. SOFT TISSUES/ABDOMINAL WALL: Stable and unremarkable. OTHER: No other significant finding. IMPRESSION: 1. A few scattered new small groundglass and tiny clustered reticulonodular densities throughout the lungs, nonspecific but favored to represent sequela of infectious/inflammatory process. These will b e reassessed on follow-up. 2. Otherwise stable exam, without evidence of new or worsening metastatic disease.
== END | disposition home or self-care (01) ==
LOC: RADCTMAIN 08:45
PROVIDERS: ATTEND Internal Medicine Hematology & Oncology
DX: C50.311 Malignant neoplasm of lower-inner quadrant of right female breast (principal); J98.4 Other disorders of lung; R11.0 Nausea; G62.0 Drug-induced polyneuropathy; G89.3 Neoplasm related pain (acute) (chronic)
CPT/HCPCS: 82565; 84520; 71270; 74178; 36415; Q9967

== ENCOUNTER → 2023-12-27 | Outpatient (CLI) | payer OTHER ==
--- NOTE | 2023-12-27 09:22 | P.PN ---
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 Core biopsy was positive for invasive ductal carcinoma, G-2, ER/ME positive, HER-2 negative. The lesion was 3.5 x 3.8 cm in size at the 7 o'clock position of the right breast. Genetic testing was negative. On she underwent a right mastectomy with subpectoral implant reconstruction. Pathology at the time of the mastectomy revealed a 4 cm lesion. Lymph nodes revealed sentinel node positive for micrometastatic disease and 5 additional nodes negative for cancer. The implant became infected and was necessary for this to be removed. She did not have new implants replaced. She completed 4 cycles of adjuvant TC on 5719. She completed adjuvant radiation therapy in April 2020. She was started on Arimidex in May 2020 and is continuing on this without difficulty Following the radiation the patient noted a small opening in her right chest wall incision. She has had intermittent drainage from several sites since that time. She wished to have revision of the surgical scar and removal of redundant tissue. Secondary to the radiation she received pre-operative hyperbaric oxygen and continued this after the procedu She hit her hip on the table at work several days before she was diagnosed with a fracture on 08-11-21. She had hip surgery on 08-12-21. She is walking now. Her pathology was consistent for metastatic breast cancer. She has no complaints of lumps masses or nodules on the chest wall or either breast. She had a left breast mammogram on 11-01-21 Benign BIRAD 2 She is complaining of pain in her left hip. 03-30-[address] Levine 02-22-22 reviewed PET scan on [id number] revealed slight uptake in hilar and mediastinal lymph nodes slight uptake in hip otherwise negative She was started on Xeloda on [id number] On computed tomography scan of COPD and bone scan revealed no evidence of disease She was tolerating treatment well except for dryness in her hands and feet The patient is not complaining of any new lumps masses or nodules of concern in either breast, she is not complaining of any lumps or nodules in her right chest wall or right axilla 11-09-22 left breast mammogram 11-02-22 BIRAD 2 Is not complaining of any new lumps masses or nodules of concern in her left breast, nor on her right chest wall. 09-06-22 CT scan revealed disease progression in abdomen, right adrenal, and omental implants She is presently on IBRANCE it is causing her diahrea 03-09-23 note 02-12-23 DR. Levine reviewed: 24701 right mastectomy, pathology revealed grade 3 invasive ductal carcinoma, 5 cm, one of 5 nodes was positive for micrometastatic her surgery was complicated by a nonhealing wound which required debridement and removal of an disposal operator Oncotype DX: [id number] started adjuvant TC and completed 4 cycles on [id number] Completed adjuvant radiation April 2020 Started Arimidex May 2020 [id number] presented with pathologic fracture of the left hip underwent surgery, biopsy positive for metastatic carcinoma, ER/ME negative and HER-2 negative PET scan 280737 slight uptake in hilar and mediastinal nodes slight uptake in left hip otherwise negative Started on Xeloda on [id number] repeat computed tomography scan of chest abdomen and pelvis revealed evidence of disease progression in abdomen, the right adrenal nodules, new ome ntal lesions 515062 biopsy of omental lesion positive for metastatic disease [id number] started falsodex and Ibrance November 2022 was hospitalized for abdominal pain and dehydration and computed to mography scan at that time 61233 revealed disease progression in her abdomen 01710 started on carboplatin/Taxol Repeat CT chest abdomen and pelvis 40589 significant improvement in disease At this time she is feeling well not complaining of abdominal pain not complaining of any nausea or vomiting On Sunday she will start a new chemotherapy at [facility] enhertu Q 3 weeks indefinitely This time Nahomy is not complaining of any new lumps masses or nodules of concern in her right chest wall or left breast. She is not complaining of any hip pain. She does not complain of any abdominal pain. She is feeling well. 12-27-23 left breast mammogram on 11-02-[address] Levine 10-22-23 reviewed; ordered CT scan CAP prior to next visit on 02-18-23 started on enhertu; still taking this every three weeks given IV right now considered maintenance, considering port placement secondary to this 05-01-23 further improvement in disease 07-24-23 CT scan CAP stable disease The patient has some complaints of scar tissue on the right chest wall, she has no new lumps masses or nodules at this time. She does have skin discoloration under her left arm, this has not changed. It is not painful it is not progressing. She was seen by dermatology clinic and told that they were uncertain as to what this was. The present time she just is going to be followed clinically for this. Family History: paternal aunt: breast cancer paternal cousin: bilateral breast cancer Hormonal History: menarche: 13 M1, age at first :23, breast fed: yes menopause: stopped periods 2 years ago BCP: 14 years hormones: none Surgical history: Right mastectomy with subpectoral implant placement and axillary node removal Removal of subpectoral implant Anal fissure Tonsillectomy right hip surgery Medical history: asthma lymphedema right arm Multiple sclerosis Social History: Nicotine: Negative Alcohol: Negative Drugs: Negative - Constitutional Comment: hot flashes 5 times/day Constitutional: Denies chills, Denies fever - EENT Comment: optic neuritits Ears: deny: decreased hearing, tinnitus Ears, nose, mouth and throat: Denies headache, Denies sore throat - Breasts Breasts: bilateral: as per HPI - Cardiovascular Cardiovascular: Denies chest pain, Denies shortness of breath - Respiratory Respiratory: Denies cough - Gastrointestinal Comment: colitis Gastrointestinal: Denies abdominal pain, Denies diarrhea, Denies nausea, Denies vomiting - Genitourinary (Female) Genitourinary: Denies dysuria, Denies hematuria - Menstruation Menstruation: Reports postmenopausal - Musculoskeletal Musculoskeletal: Denies myalgias - Integumentary Comment: Skin biopsy done by porcelain turner results pending Integumentary: Denies pruritus, Denies rash - Neurological Neurological: Denies numbness, Denies weakness - Psychiatric Psychiatric: Reports anxiety, Reports depression - Endocrine Endocrine: Denies fatigue, Denies weight change - Hematologic/Lymphatic Comment: baby aspirin - Allergic/Immunologic Allergic/Immunologic: Reports as per HPI Objective - Constitutional General appearance: Present: cooperative - EENT Eyes: Present: EOMI ENT: Present: hearing grossly normal - Neck Neck: Present: normal ROM - Respiratory Respiratory: bilateral: CTA - Cardiovascular Heart sounds: normal: S1, S2 - Psychiatric Psychiatric: Present: A&O x's 3, appropriate affect, intact judgment & insight - Additional findings Additional findings: Breast Exam: BRA: 42D inspection: Chest wall no evidence of recurrence Left breast grade 3 ptosis Palpation: Right chest wall: No evidence of recurrent cancer Right axilla: No adenopathy of concern Left breast: Multi-positional exam fibrocystic changes no dominant masses or nodules of concern Left axilla: Skin coloration changes for which she has been recommended to see a porcelain turner in the past this is not bothering the patient at this time no adenopathy of concern Assessment and Plan Assessment: Impression: Stage IV breast cancer metastatic to abdomen/omentum Note reviewed from Dr. Levine of 10-22-23; stability of the disease Plan: Continue with Dr. Julianna schmid Left breast mammogram ; BIRAD 1 follow up in [address] CAP ordered for , left breast mammogram in 1 year we have discussed if we found something would we do anything secondary to metastatic disease, and at this time the patient would like to be followed CC: Tyrell
[2023-12-27 09:28] VITALS: BP 130/80; PULSE 100; RESP 16; TEMP 98
== END ==
LOC: WWCWWP 08:37
PROVIDERS: ATTEND Surgery
DX: C50.911 Malignant neoplasm of unspecified site of right female breast (principal); C79.51 Secondary malignant neoplasm of bone; C79.89 Secondary malignant neoplasm of other specified sites; G35 Multiple sclerosis; J44.89 Other specified chronic obstructive pulmonary disease; Z17.0 Estrogen receptor positive status [ER+]; Z80.3 Family history of malignant neoplasm of breast; Z92.3 Personal history of irradiation; Z90.11 Acquired absence of right breast and nipple; Z88.2 Allergy status to sulfonamides; Z79.82 Long term (current) use of aspirin; Z79.899 Other long term (current) drug therapy

== ENCOUNTER → 2024-01-11 | Outpatient (CLI) | payer OTHER ==
[2024-01-11 11:19] LABS: African American GFR (CKD) >90 (>60 ml/min/1.73 sqM); Blood Urea Nitrogen 13 mg/dL (7-17); Non-African American GFR(CKD) >90 (>60 ml/min/1.73 sqM)
--- NOTE | 2024-01-11 12:01 | CT ---
EXAMINATION TYPE: CT chest w con CT DLP: 656 mGycm, Automated exposure control for dose reduction was used. DATE OF EXAM: 01/11/2024 11:36 AM COMPARISON: CT 11/26/2023. CLINICAL INDICATION:Female, 58 years old with history of C50.311 Breast cancer; J69.8 PNEUMONITIS; PH H, breast CA, pneumonitis TECHNIQUE: Multiple axial images were obtained through the chest. Sagittal and coronal reformats were created for review. Contrast used:100 mL of Isovue 300 with IV Contrast (None if empty) Oral contrast used: (None if empty) FINDINGS: LUNGS/ PLEURA: The's similar appearing right apical groundglass opacity mentioned on prior series 3 i mage 8. Stable left upper lung posterior reticulonodular opacities. Right lower lung ground glass opa city is less apparent on today's exam suggesting some degree resolution. AIRWAY: Patent and unremarkable. HEART: Size within normal limits. MEDIASTINUM: No gross evidence of adenopathy. VASCULATURE: No aortic aneurysm. MUSCULOSKELETAL: No acute osseous abnormalities SOFT TISSUES/LYMPH NODES: Postsurgical changes to the right breast. LOWER NECK: No significant findings. UPPER ABDOMEN: Diffuse low-attenuation to the liver parenchyma. IMPRESSION: No new or enlarging pulmonary nodules. Findings in the chest are improved and/or stable. Back to surv eillance schedule for patient's known breast cancer.
== END | disposition home or self-care (01) ==
LOC: RADCTMAIN 10:43
PROVIDERS: ATTEND Internal Medicine Hematology & Oncology
DX: C50.311 Malignant neoplasm of lower-inner quadrant of right female breast (principal); J69.8 Pneumonitis due to inhalation of other solids and liquids
CPT/HCPCS: 82565; 84520; 71260; 36415; Q9967

== ENCOUNTER → 2024-03-17 | Outpatient (CLI) | payer OTHER ==
[2024-03-17 10:47] LABS: African American GFR (CKD) >90 (>60 ml/min/1.73 sqM); Blood Urea Nitrogen 10 mg/dL (7-17); Non-African American GFR(CKD) >90 (>60 ml/min/1.73 sqM)
--- NOTE | 2024-03-17 13:09 | CT ---
EXAMINATION TYPE: CT chest w con DATE OF EXAM: 03/17/2024 COMPARISON: 01/11/2024 HISTORY: f/u breast ca CT DLP: 669 mGycm, Automated exposure control for dose reduction was used. CONTRAST: Performed injected with 100ml mL of Isovue 300. TECHNIQUE: Axial images were obtained at 5 mm thick sections. Reconstructed images are reviewed on [facility] computer in the coronal plane. FINDINGS: Portion of the thyroid visualized is normal. There appears to be some chronic scarring at the right apex. There is some new vague increased density within the posterior right lung, series 4 image 25 measurin g 0.5 cm. Some subtle new density may be at the lateral right apex measuring 0.4 cm, series 4 image 9 . There is increasing density within the posterior lateral left lung. Series 4 image 31. Tiny nodule may be present, series 4 image 34 measuring 0.3 cm. Some vague increased density may be in the transportation dispatcher ior lateral left lung base measuring 0.5 cm. Series 4 image 37. No enlarged mediastinal or hilar adenopathy is evident. The ascending aorta diameter at the level o f the main pulmonary artery is 2.7 cm. The main pulmonary artery diameter at the bifurcation is 2.[address] sections are obtained through the upper abdomen. Abdomen is essentially unremarkable. IMPRESSION: 1. Vague increase areas of density within the lung cota discussed above. These are nonspecific and would include both metastasis and infectious etiologies. Atelectasis is less likely. Short-term foll ow-up is recommended within 3 months.
== END | disposition home or self-care (01) ==
LOC: RADCTMAIN 10:00
PROVIDERS: ATTEND Internal Medicine Hematology & Oncology
DX: J98.4 Other disorders of lung (principal); C50.311 Malignant neoplasm of lower-inner quadrant of right female breast; G62.0 Drug-induced polyneuropathy; G89.3 Neoplasm related pain (acute) (chronic); M85.9 Disorder of bone density and structure, unspecified; R11.0 Nausea; Z71.3 Dietary counseling and surveillance
CPT/HCPCS: 82565; 84520; 71260; 36415; Q9967

== ENCOUNTER → 2024-05-02 | Outpatient (CLI) | payer OTHER ==
--- NOTE | 2024-05-02 09:20 | P.PN ---
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 Core biopsy was positive for invasive ductal carcinoma, G-2, ER/MN positive, HER-2 negative. The lesion was 3.5 x 3.8 cm in size at the 7 o'clock position of the right breast. Genetic testing was negative. On she underwent a right mastectomy with subpectoral implant reconstruction. Pathology at the time of the mastectomy revealed a 4 cm lesion. Lymph nodes revealed sentinel node positive for micrometastatic disease and 5 additional nodes negative for cancer. The implant became infected and was necessary for this to be removed. She did not have new implants replaced. She completed 4 cycles of adjuvant TC on 5719. She completed adjuvant radiation therapy in April 2020. She was started on Arimidex in May 2020 and is continuing on this without difficulty Following the radiation the patient noted a small opening in her right chest wall incision. She has had intermittent drainage from several sites since that time. She wished to have revision of the surgical scar and removal of redundant tissue. Secondary to the radiation she received pre-operative hyperbaric oxygen and continued this after the procedu She hit her hip on the table at work several days before she was diagnosed with a fracture on 08-11-21. She had hip surgery on 08-12-21. She is walking now. Her pathology was consistent for metastatic breast cancer. She has no complaints of lumps masses or nodules on the chest wall or either breast. She had a left breast mammogram on 11-01-21 Benign BIRAD 2 She is complaining of pain in her left hip. 03-30-[address] Levine 02-22-22 reviewed PET scan on [id number] revealed slight uptake in hilar and mediastinal lymph nodes slight uptake in hip otherwise negative She was started on Xeloda on [id number] On computed tomography scan of COPD and bone scan revealed no evidence of disease She was tolerating treatment well except for dryness in her hands and feet The patient is not complaining of any new lumps masses or nodules of concern in either breast, she is not complaining of any lumps or nodules in her right chest wall or right axilla 11-09-22 left breast mammogram 11-02-22 BIRAD 2 Is not complaining of any new lumps masses or nodules of concern in her left breast, nor on her right chest wall. 09-06-22 CT scan revealed disease progression in abdomen, right adrenal, and omental implants She is presently on IBRANCE it is causing her diahrea 03-09-23 note 02-12-23 DR. Levine reviewed: 79984 right mastectomy, pathology revealed grade 3 invasive ductal carcinoma, 5 cm, one of 5 nodes was positive for micrometastatic her surgery was complicated by a nonhealing wound which required debridement and removal of an magazine keeper Oncotype DX: 51 [id number] started adjuvant TC and completed 4 cycles on [id number] Completed adjuvant radiation April 2020 Started Arimidex May 2020 [id number] presented with pathologic fracture of the left hip underwent surgery, biopsy positive for metastatic carcinoma, ER/MN negative and HER-2 negative PET scan 509666 slight uptake in hilar and mediastinal nodes slight uptake in left hip otherwise negative Started on Xeloda on [id number] repeat computed tomography scan of chest abdomen and pelvis revealed evidence of disease progression in abdomen, the right adrenal nodules, new omental lesions [id number] biopsy of omental lesion positive for metastatic disease 340401 started falsodex and Ibrance November 2022 was hospitalized for abdominal pain and dehydration and computed tomography scan at that time 26973 revealed disease progression in her abdomen 77800 started on carboplatin/Taxol Repeat CT chest abdomen and pelvis 11752 significant improvement in disease At this time she is feeling well not complaining of abdominal pain not complaining of any nausea or vomiting On Sunday she will start a new chemotherapy at [facility] en[facility]tu Q 3 weeks indefinitely This time Nahomy is not complaining of any new lumps masses or nodules of concern in her right chest wall or left breast. She is not complaining of any hip pain. She does not complain of any abdominal pain. She is feeling well. 12-27-23 left breast mammogram on 11-02-[address] Levine 10-22-23 reviewed; ordered CT scan CAP prior to next visit on 02-18-23 started on enhertu; still taking this every three weeks given IV right now considered maintenance, considering port placement secondary to this 05-01-23 further improvement in disease 07-24-23 CT scan CAP stable disease The patient has some complaints of scar tissue on the right chest wall, she has no new lumps masses or nodules at this time. She does have skin discoloration under her left arm, this has not changed. It is not painful it is not progressing. She was seen by dermatology clinic and told that they were uncertain as to what this was. The present time she just is going to be followed clinically for this. 05-02-24 note medical oncology reviewed 03-24-24 CT scan of CAP on 03-17-24 no evidence of recurrence; tolerating enhertu; she did not have a port placed yet she gets this every three weeks She is complaining of some generalized fatigue. She is not complaining of any new lumps masses or nodules of concern on her chest wall or breast. She did have some cramping in the left chest wall, and this has improved with physical therapy Family History: paternal aunt: breast cancer paternal cousin: bilateral breast cancer Hormonal History: menarche: 13 M1, age at first :23, breast fed: yes menopause: stopped periods 2 years ago BCP: 14 years hormones: none Surgical history: Right mastectomy with subpectoral implant placement and axillary node removal Removal of subpectoral implant Anal fissure Tonsillectomy right hip surgery Medical history: asthma lymphedema right arm Multiple sclerosis Social History: Nicotine: Negative Alcohol: Negative Drugs: Negative - Constitutional Comment: hot flashes 5 times/day Constitutional: Denies chills, Denies fever - EENT Comment: optic neuritits Ears: deny: decreased hearing, tinnitus Ears, nose, mouth and throat: Denies headache, Denies sore throat - Breasts Breasts: bilateral: as per HPI - Cardiovascular Cardiovascular: Denies chest pain, Denies shortness of breath - Respiratory Respiratory: Denies cough - Gastrointestinal Comment: colitis Gastrointestinal: Denies abdominal pain, Denies diarrhea, Denies nausea, Denies vomiting - Genitourinary (Female) Genitourinary: Denies dysuria, Denies hematuria - Menstruation Menstruation: Reports postmenopausal - Musculoskeletal Musculoskeletal: Denies myalgias - Integumentary Comment: Skin biopsy done by sand cleaning machine operator results pending Integumentary: Denies pruritus, Denies rash - Neurological Neurological: Denies numbness, Denies weakness - Psychiatric Psychiatric: Reports anxiety, Reports depression - Endocrine Endocrine: Denies fatigue, Denies weight change - Hematologic/Lymphatic Comment: baby aspirin - Allergic/Immunologic Allergic/Immunologic: Reports as per HPI Objective - Constitutional General appearance: Present: cooperative - EENT Eyes: Present: EOMI ENT: Present: hearing grossly normal - Neck Neck: Present: normal ROM - Respiratory Respiratory: bilateral: CTA - Cardiovascular Heart sounds: normal: S1, S2 - Integumentary Integumentary: Present: normal turgor - Psychiatric Psychiatric: Present: A&O x's 3, appropriate affect, intact judgment & insight - Additional findings Additional findings: Breast Exam: BRA: 42D inspection: Chest wall no evidence of recurrence Left breast grade 3 ptosis Palpation: Right chest wall: No evidence of recurrent cancer Right axilla: No adenopathy of concern Left breast: Multi-positional exam fibrocystic changes no dominant masses or nodules of concern Left axilla: Skin coloration changes for which she has been recommended to see a sand cleaning machine operator in the past this is not bothering the patient at this time no adenopathy of concern Assessment and Plan Assessment: Impression: Stage IV breast cancer metastatic to abdomen/omentum Note reviewed from Dr. Levine of 03-24-24 stability of the disease Plan: Continue with Dr. Julianna schmid Left breast mammogram ; BIRAD 1 follow up in [address] CAP 03-17-24 stable left breast mammogram in October 2024 we have discussed if we found something would we do anything secondary to metastatic disease, and at this time the patient would like to be followed follow up in October new prescription for right breast prosthesis and bra CC: Tyrell
[2024-05-02 11:22] VITALS: BP 152/87; PULSE 100; RESP 16; TEMP 97.9
== END ==
LOC: WWCWWP 08:50
PROVIDERS: ATTEND Surgery
DX: C50.911 Malignant neoplasm of unspecified site of right female breast (principal); C79.51 Secondary malignant neoplasm of bone; C79.89 Secondary malignant neoplasm of other specified sites; Z17.0 Estrogen receptor positive status [ER+]; Z90.11 Acquired absence of right breast and nipple; Z80.3 Family history of malignant neoplasm of breast; Z92.3 Personal history of irradiation; Z88.2 Allergy status to sulfonamides

== ENCOUNTER → 2024-05-15 | Outpatient (CLI) | payer OTHER ==
[2024-05-15 16:26] LABS: African American GFR (CKD) >90 (>60 ml/min/1.73 sqM); Blood Urea Nitrogen 11 mg/dL (7-17); Non-African American GFR(CKD) >90 (>60 ml/min/1.73 sqM)
--- NOTE | 2024-05-17 21:38 | CT ---
EXAMINATION TYPE: CT chest w con CT DLP: 612 mGycm, Automated exposure control for dose reduction was used. DATE OF EXAM: 05/15/2024 5:03 PM COMPARISON: CT 03/17/2024 and before. CLINICAL INDICATION:Female, 58 years old with history of C50.311 BREAST CANCER; PHH, Breast Ca. TECHNIQUE: Multiple axial images were obtained through the chest. Sagittal and coronal reformats were created for review. Contrast used:100 mL of Isovue 300 with IV Contrast (None if empty) Oral contrast used: (None if empty) FINDINGS: LUNGS/ PLEURA: Interval worsened appearance of the lungs, with multiple focal nodular densities which are new and progressed from the prior study. These appear predominantly solid but irregularly shaped with small surrounding groundglass halos. Examples on the right include: 14 x 11 mm right upper lobe image 14, 26 x 9 mm in the superior segment right lower lobe image 26. Examples on the left include: 13 x 10 mm in the upper lobe image 16, 20 x 12 mm in the left lower lobe image 34. A few other small er examples are possible. No pleural effusion or pneumothorax. AIRWAY: Central airways are patent. LOWER NECK: Base of neck and thyroid are stable and unremarkable.. MEDIASTINUM: No enlarged nodes by CT size criteria. No significant change from prior. No enlarged hi lar nodes are suggested. HEART: Heart size upper normal. . No appreciable pericardial effusion. VASCULATURE: No significant aortic atherosclerosis. No dissection.. Ascending aorta is 3.2 CM, desce nding is 2.1 cm. Pulmonary trunk assessment limited by motion but roughly measures 2.5 CM. Pulmonary trunk appears normal in size. SOFT TISSUES/LYMPH NODES: Stable chest wall soft tissues with postmastectomy changes on the right. No evidence of chest wall mass or axillary adenopathy. UPPER ABDOMEN: No significant findings. No mass of the visualized adrenals. MUSCULOSKELETAL: No acute fracture or lytic/blastic lesion. Mild degenerative changes including the t horacic spine. IMPRESSION: Multiple new and enlarging pulmonary nodular densities bilaterally, concerning for metastases unless proven otherwise.
== END | disposition home or self-care (01) ==
LOC: RADCTMAIN 16:16
PROVIDERS: ATTEND Internal Medicine Hematology & Oncology
DX: C50.311 Malignant neoplasm of lower-inner quadrant of right female breast (principal); J98.4 Other disorders of lung; G89.3 Neoplasm related pain (acute) (chronic); G62.0 Drug-induced polyneuropathy; Z71.3 Dietary counseling and surveillance; R11.0 Nausea
CPT/HCPCS: 82565; 84520; 71260; 36415; Q9967

== ENCOUNTER → 2024-05-16 | Outpatient (CLI) | payer OTHER ==
--- NOTE | 2024-05-16 21:52 | MR ---
EXAMINATION TYPE: MR brain wo/w con DATE OF EXAM: 05/16/2024 COMPARISON: NONE HISTORY: Increased headaches, dizziness, weakness left side, Hx Stage 4 Breast cancer TECHNIQUE: Multiplanar, multisequence images of the brain and brainstem is performed without and with IV contras t, utilizing 8.5 mL intravenous Gadavist . FINDINGS: Diffusion weighted images demonstrate no evidence of a recent infarct or other diffusion ab normality. Mild ventricular and sulcal prominence. Occasional small focus of T2 hyperintensity scatte red throughout the white matter bilaterally. Approximately 20 scattered lesions are seen. Lesions are nonspecific in appearance and distribution. Midline structures demonstrate empty sella morphology. The craniocervical junction appears within no rmal limits. Post contrast images demonstrate no suspicious enhancing intraparenchymal masses. The d ural venous sinuses appear patent. The visualized sinuses are clear and the globes are intact. Some p atchy fluid signal inferior right mastoid air cells. IMPRESSION: 1. There is mild diffuse age-related cerebral atrophy and mild to moderate probable chronic small ves jesse ischemic change noted. 2. No suspicious enhancing intraparenchymal masses to suggest metastatic disease to the brain. 3. Some focal fluid inferior right mastoid air cells, right-sided mastoiditis cannot be excluded in a ppropriate clinical setting. Correlate clinically.
== END | disposition home or self-care (01) ==
LOC: RADMRIMAIN 20:00
PROVIDERS: ATTEND Internal Medicine Hematology & Oncology
DX: C50.311 Malignant neoplasm of lower-inner quadrant of right female breast (principal); R11.0 Nausea; G31.9 Degenerative disease of nervous system, unspecified; G62.0 Drug-induced polyneuropathy; G89.3 Neoplasm related pain (acute) (chronic); Z71.3 Dietary counseling and surveillance
CPT/HCPCS: 70553; A9585

== ENCOUNTER 2024-07-03 11:00 | Day surgery (SDC) | payer OTHER ==
[2024-07-03] MEDS ORDERED: LACTATED RINGERS 1,000 ML BAG ONE (12:00)
[2024-07-03] MEDS ORDERED: fentaNYL (PF) 50 MCG/ML 2 ML AMP ONE (12:15)
[2024-07-03] MEDS ORDERED: GLYCOPYRROLATE 0.2 MG/ML 2 ML VIAL ONE (12:15)
[2024-07-03] MEDS ORDERED: LIDOCAINE 1% INJ 10MG/ML (20 ML MDV) ONE (12:15)
[2024-07-03] MEDS ORDERED: ROCURONIUM 10 MG/ML (5 ML VIAL) IV ONE (12:15)
[2024-07-03] MEDS ORDERED: NEOSTIGMINE 1 MG/ML 10 ML VIAL ONE (12:15)
[2024-07-03] MEDS ORDERED: PROPOFOL 10 MG/ML 20 ML VIAL IV ONE (12:15)
[2024-07-03] MEDS ORDERED: ONDANSETRON 4 MG/2 ML VIAL ONE (12:15)
[2024-07-03] MEDS ORDERED: SUCCINYLCHOLINE CHLORIDE 200 MG/10 ML VIAL IV ONE (12:15)
--- NOTE | 2024-08-07 15:36 | P.PCN ---
Date of Procedure: 08/03/24 Operative Findings: Preoperative Diagnosis: History of breast cancer Right lower lobe pulmonary opacity, measuring 1.4 x 1.5 cm Left lower lobe pulmonary opacity, measuring 2.0 x 1.2 cm. Postoperative Diagnosis: Right lower lobe pulmonary opacity Left lower lobe pulmonary opacity Procedure(s) Performed: Flexible bronchoscopy Robotic-assisted bronchoscopy and addition to radial ultrasound evaluation of the right lower lobe and left lower lobe pulmonary opacities Robotic-assisted transbronchial transbronchial needle aspirate, transbronchial biopsies and transbronchial brushing of the right lower lobe pulmonary opacity Robotic-assisted transbronchial transbronchial biopsy and BAL of left lower lobe pulmonary opacity. Anesthesia: GETA Surgeon: Eagle Deo Estimated Blood Loss (ml): 0 Pathology: other Condition: stable Disposition: same day Operative Findings: A physical exam was performed. Informed consent was obtained from the patient after explaining all the risks (pneumothorax, life threatening bleeding, infection and adverse effects due to medications), benefits and alternatives to the procedure which the patient appeared to understand and so stated. The patient was connected to the monitoring devices. General anesthesia was induced and the patient was intubated by anesthesia. A final timeout was performed and the procedure confirmed by the attending staff bronchoscopist. The bronchoscope was inserted and the airway examined. Airway examination shows that the distal trachea, Right upper lobe and middle lobe and lower lobe bronchi was all within normal limits. Patient left mainstem bronchus is within normal limits. Examination of left lower lobe was within normal limits. The left upper lobe bronchus and the lingular segment was also patent within normal limits. The flexible bronchoscope was removed and the robotic bronchoscope was inserted. Registration was completed. I next guided the robotic bronchoscope using the navigation system into the right lower lobe pulmonary opacity. Once in proper position, the bronchoscope was frozen. The radial EBUS probe was placed through the bronchoscope and confirmed abnormal u/s images vs normal lung. A needle was placed through the working channel and another fluoroscopic guidance, we sampled the area in the right lower lobe where the opacity was present. We then used a clot biopsy pattern with ultrasound confirmation for 2 additional passes with the needle. Following that, a forceps were next introduced through working channel and extended the appropriate distance and 3 transbronchial biopsies were performed using fluoroscopic guidan ce. The u/s probe was then reinserted to confirm location. When confirmed this process was repeated for a total of 8-10 transbronchial biopsies. After reassessment with EBUS, a brush was placed through the extendable working channel for 1 pass with fluoroscopic guidance. U/S evaluation was then used to confirm location. I next guided the robotic bronchoscope using the navigation system into the left lower lobe pulmonary opacity. Once in proper position, the bronchoscope was frozen. The radial EBUS probe was placed through the bronchoscope and confirmed abnormal u/s images vs normal lung. U/S evaluation was then used to reconfirm location. Forceps were next introduced through working channel and extended the appropriate distance and 3 transbronchial biopsies were performed using fl uoroscopic guidance. The u/s probe was then reinserted to confirm location. When confirmed this process was repeated for a total of 8-10 transbronchial biopsies. 40ml of saline was then instilled into the area of the lesion. 10 ml of effluent from the BAL was collected. The aspirate was bloody and ultimately declotted and based on that, the sample was discarded. Flex. bronchoscope was inserted and regular suctioning was done. At the completion of the procedure, no residual secretions or bloody material within the airway. The bronchoscope was removed. The patient was extubated. FINDINGS: 1.The airways appeared normal 2 Successful navigation, ultrasonographic identification, and biopsies of right lower lobe and left lower lobe pulm opacity 3.The the radial ultrasound view was concentric RECOMMENDATIONS: Await pathology and cytology results The referring physician will be alerted to the results when available. The patient was advised to follow up with the referring physician with the biopsy results Patient will be called with results.
--- NOTE | 2024-08-19 18:21 | FL ---
EXAMINATION TYPE: FL bronchoscopy COMPARISON: Pre Operative Images if available both CT/MRI or plain film CLINICAL INDICATION: Female, 58 years old with history of LUNG BIOPSY USING ION AND TRINA LUNG NODUL E; TECHNIQUE: FL bronchoscopy, multiple fluoroscopic images provided for procedure. Total fluoroscopy time: 1.47 seconds minutes Total submitted images to PACS: 2 DAP: 9.9753 mGym2 Gycm2 uGym2 cGycm2 FINDINGS: ION bronchoscopy images demonstrate bronchoscope terminating in the lung. No immediate complications identified, no pneumothorax identified. IMPRESSION: 1. No evidence for intraoperative complication. 2. Please see the operative/procedural note for further details. [facility], , 08/19/2024 6:19 PM
--- NOTE | 2024-08-20 15:14 | CT ---
EXAMINATION TYPE: CT chest wo con CT DLP: 586 mGycm, Automated exposure control for dose reduction was used. DATE OF EXAM: 07/08/2024 6:45 PM COMPARISON: Multiple CT chest with most recent 05/15/2024. CLINICAL INDICATION: Female, 58 year old with history of peribronchial navigation, pulmonary nodulari ty; , TECHNIQUE: Multiple axial images were obtained through the chest without IV contrast. Lack of IV or o ral contrast limits evaluation of solid and hollow organ viscera. . Coronal and sagittal reformats re viewed. ION protocol utilized. FINDINGS: LUNGS/ PLEURA: No pleural effusion or pneumothorax. Interval increase in size of irregular shaped co nsolidative opacity within the superior segment of the right lower lobe measuring 4.5 x 1.7 cm, previ ously measured 2.6 x 0.9 cm. Similar size of left lower lobe irregular shaped opacity measuring 2.4 x 1.0 cm, previously 2.0 x 1.2 cm. Demonstrates linear bands extending to the pleura. Similar appearan ce of left apical opacity measuring 1.4 x 0.8 cm, previously 1.3 x 1.0 cm. Slight enlargement of righ t apical opacity measuring 2.1 x 1.1 cm, previously 1.4 x 1.1 cm. No new sites of opacity is identifi ed. AIRWAY: Patent and unremarkable.. HEART: Size within normal limits. No pericardial effusion. Small coronary arterial calcifications. Ao rtic valvular calcifications. MEDIASTINUM: No pathologically enlarged lymph nodes greater than 1 cm short axis identified. VASCULATURE: No aortic aneurysm. MUSCULOSKELETAL: No acute osseous abnormalities. No aggressive osseous lesion. SOFT TISSUES/LYMPH NODES: No axillary adenopathy identified. Postsurgical changes from right-sided ma stectomy with similar scarring demonstrated. LOWER NECK: No significant findings. UPPER ABDOMEN: No significant findings. IMPRESSION: Enlarging multifocal irregular consolidative opacities within the lungs. Raises concern for metastasi s until proven otherwise. Posttreatment change is within the differential versus other etiologies.
== END 2024-07-03 15:41 ==
LOC: ORWHC2ENDO 11:00
PROVIDERS: ATTEND Internal Medicine Critical Care Medicine
DX: R91.8 Other nonspecific abnormal finding of lung field (principal); J45.909 Unspecified asthma, uncomplicated; Z86.718 Personal history of other venous thrombosis and embolism; Z88.2 Allergy status to sulfonamides; Z79.899 Other long term (current) drug therapy; Z85.3 Personal history of malignant neoplasm of breast
CPT/HCPCS: 31623; 31624; 31629; 31632; 31652; 71250; 88108; 88305

== ENCOUNTER → 2024-11-28 | Outpatient (CLI) | payer OTHER ==
[2024-11-28 11:34] LABS: African American GFR (CKD) >90 (>60 ml/min/1.73 sqM); Blood Urea Nitrogen 6 mg/dL (7-17); Non-African American GFR(CKD) >90 (>60 ml/min/1.73 sqM)
--- NOTE | 2024-12-01 11:13 | CT ---
EXAMINATION TYPE: CT ChestAbdPelvis w con DATE OF EXAM: 11/28/2024 COMPARISON: Prior chest CT July 03 2024 and older studies HISTORY: breast cancer CT DLP: 1948.20 mGycm. Automated Exposure Control for Dose Reduction was Utilized. CONTRAST: CT scan of the thorax, abdomen and pelvis is performed with oral and with IV Contrast, patient inject ed with 100 mL of Isovue 300. FINDINGS: LUNGS/ PLEURA: No pleural effusion or pneumothorax. Slight decrease in size of irregular shaped conso lidative opacity within the superior segment of the right lower lobe measuring 4.1 x 1.1 cm versus 4. 5 x 1.7 cm previously. Improved aeration in left lower lobe irregular shaped opacity prior measuring 2.4 x 1.0 cm, now less well-defined axial image 31 series 4. Demonstrates linear bands extending to t he pleura. Fairly stable posterior left apical opacity measuring 1.2 x 1.1 cm versus 1.4 x 0.8 cm pre viously. Improved right apical opacity measuring 2.1 x 1.1 cm now difficult to accurately measure adj acent to smaller scar tissue. No new nodules or masses. AIRWAY: Patent and unremarkable.. HEART: Size within normal limits. No pericardial effusion. Aortic valvular calcifications. MEDIASTINUM: No pathologically enlarged lymph nodes greater than 1 cm short axis identified. VASCULATURE: No aortic aneurysm. MUSCULOSKELETAL: No acute osseous abnormalities. No aggressive osseous lesion. SOFT TISSUES/LYMPH NODES: No axillary adenopathy identified. Postsurgical changes from right-sided ma stectomy with similar scarring demonstrated. LOWER NECK: No significant findings. LIVER/GB: No significant abnormality is appreciated. PANCREAS: No significant abnormality is seen. SPLEEN: No significant abnormality is seen. ADRENALS: No significant abnormality is seen. KIDNEYS: No significant abnormality is seen. BOWEL: Oral contrast reaches the level of the splenic flexure. No abnormal small or large bowel dilat ation. GENITAL ORGANS: No gross abnormality seen. LYMPH NODES: No greater than 1cm abdominal or pelvic lymph nodes are appreciated. OSSEOUS STRUCTURES: Metallic artifact from total left hip arthroplasty redemonstrated causing some st reak artifact somewhat limiting evaluation of pelvic structures. OTHER: No significant additional abnormality is seen. IMPRESSION: Partial positive treatment response to the bilateral pulmonary lesions. No new or enlarg ing masses or adenopathy identified. [facility], , 12/01/2024 11:11 AM
== END | disposition home or self-care (01) ==
LOC: RADCTMAIN 10:34
PROVIDERS: ATTEND Internal Medicine Hematology & Oncology
DX: C50.311 Malignant neoplasm of lower-inner quadrant of right female breast (principal); J98.4 Other disorders of lung; G62.0 Drug-induced polyneuropathy; G89.3 Neoplasm related pain (acute) (chronic); M85.9 Disorder of bone density and structure, unspecified
CPT/HCPCS: 82565; 84520; 71260; 74177; 36415; Q9967

== ENCOUNTER 2024-12-10 06:08 | Day surgery (SDC) | payer OTHER ==
[~2024-12-10 06:08] MED LIST changes: -ALBUTEROL NEB (CONC) 2.5 MG/0.5 ML INHALATION ONE; -LACTATED RINGERS 1,000 ML IV SCH; -LIDOCAINE 2% (PF) 20 MG/ML 5 ML VIAL INHALATION ONE; -LIDOCAINE VISCOUS 300 MG/15 ML CUP MUCOUS MEM ONE; +Pre Op ABX Message 1 EACH MISC MISCELLANE ONE
[2024-12-10] MEDS ORDERED: HYDROmorphone 0.5 MG/0.5 ML SYRINGE IVP PRN (07:00)
[2024-12-10 07:04] VITALS: TEMP 97.2
[2024-12-10] MEDS: LACTATED RINGERS 1,000 ML IV SCH (07:12)
[2024-12-10] MEDS: ACETAMINOPHEN TAB 500 MG TAB PO PRN (07:16)
[2024-12-10] MEDS: DEXAMETHASONE SOD PHOSPHATE 4 MG/ML 1 ML VIAL IVP STA (07:18)
[2024-12-10] MEDS: ONDANSETRON 4 MG/2 ML VIAL IVP PRN (07:19)
[2024-12-10] MEDS: FAMOTIDINE 20 MG/2 ML VIAL IV STA (07:21)
[2024-12-10] MEDS: HEPARIN SODIUM,PORCINE 5,000 UNIT/ML 1 ML VIAL SQ PRN (07:23)
[2024-12-10] MEDS: IV FLUID CONTINUATION 1,000 ML IV ONE (07:23)
--- NOTE | 2024-12-10 08:11 | P.GSHP ---
History of Present Illness H&P Date: 12/10/24 Chief Complaint: History of breast cancer This is a 59-year-old female who presents today for Port-A-Cath. Patient has a history of breast cancer. Past Medical History Past Medical History: Asthma, Cancer, Deep Vein Thrombosis (DVT), Neurologic Disorder, Osteoarthritis (OA) Additional Past Medical History / Comment(s): right breast cancer 08/2019,stage IV breast cancer with bone mestasis 07/09; MULTIPLE SCLEROSIS; optic neuritis; lymphadema rt arm; mild lichenoid inflammation lt axillary area and inbetween legs; colitis History of Any Multi-Drug Resistant Organisms: MRSA Date of last positivie culture/infection: 01/2020 MDRO Source:: abdomen Past Surgical History: Section, Orthopedic Surgery, Tonsillectomy Additional Past Surgical History / Comment(s): section x4; RIGHT MASTECTOMY WITH TISSUE ROTARY DRILLER PROSPECTING, subsequent extraction of tissue senior billing consultant without insertion of prosthesis due to infection; right chest wall revision 06/14/21; fx lt hip with surgery using cement to repair 08/11/21. Past Anesthesia/Blood Transfusion Reactions: Postoperative Nausea & Vomiting (PONV) Past Psychological History: Anxiety, Depression Smoking Status: Never smoker Past Alcohol Use History: None Reported Additional Past Alcohol Use History / Comment(s): Never smoker Past Drug Use History: None Reported - Past Family History Brother(s) Family Medical History: Deep Vein Thrombosis (DVT) Additional Family Medical History / Comment(s): 2 BROTHERS WITH DVT'S Medications and Allergies Home Medications Medication Instructions Recorded Confirmed Type Amitriptyline HCl 10 mg PO HS 10/21/20 12/10/24 History FLUoxetine HCL [PROzac] 20 mg PO HS 05/26/21 12/10/24 History Cholecalciferol (Vitamin D3) 250 mcg PO DAILY 08/11/21 12/10/24 History [Vitamin D3 (125 MCG = 5,000 IU)] Pantoprazole [Protonix] 40 mg PO AC-BRKFST #30 tab 12/08/22 12/10/24 Rx Albuterol Nebulized [Ventolin 1 dose INHALATION DAILY PRN 12/08/24 12/10/24 History Nebulized] Ascorbic Acid [Vitamin C] 1 tab PO DAILY 12/08/24 12/10/24 History Loratadine 10 mg PO DAILY 12/08/24 12/10/24 History Pyridoxine HCl (Vitamin B6) 1 tab PO DAILY 12/08/24 12/10/24 History [Vitamin B-6] Allergies Allergy/AdvReac Type Severity Reaction Status Date / Time Sulfa (Sulfonamide Allergy Mild Rash/Hives Verified 12/10/24 06:36 Antibiotics) Surgical - Exam Vital Signs Temp Pulse Resp BP Pulse Ox 97.2 F L 87 18 141/57 96 12/10/24 06:47 12/10/24 06:47 12/10/24 06:47 12/10/24 06:47 12/10/24 06:47 - General well developed, well nourished, no distress - Eyes PERRL - ENT normal pinna - Neck no masses - Respiratory normal expansion - Cardiovascular Rhythm: regular - Abdomen Abdomen: soft, non tender Assessment and Plan Assessment: For breast cancer. Will perform Port-A-Cath placement.
[2024-12-10] MEDS ORDERED: fentaNYL (PF) 50 MCG/ML 2 ML AMP ONE (09:14)
[2024-12-10] MEDS ORDERED: PROPOFOL 10 MG/ML 20 ML VIAL IV ONE (09:14)
[2024-12-10] MEDS ORDERED: MIDAZOLAM 2 MG/2 ML VIAL ONE (09:14)
[2024-12-10] MEDS ORDERED: ceFAZolin 1 GM/50 ML BAG (PMX) ONE (09:14)
[2024-12-10] MEDS: BUPIVACAINE (PF) 0.25% 30 ML VIAL SQ ONE (09:47)
--- NOTE | 2024-12-10 10:08 | P.OP ---
Date of Procedure: 12/10/24 Preoperative Diagnosis: History of breast cancer Postoperative Diagnosis: History of breast cancer Procedure(s) Performed: Right subclavian Port-A-Cath Anesthesia: MAC Surgeon: Robbin Pfeiffer Estimated Blood Loss (ml): 5 Pathology: none sent Condition: stable Disposition: PACU Description of Procedure: The patient was placed on the operating table in the supine position. The patient received IV sedation. The patient's chest was prepped and draped in the usual sterile fashion. A roll had been placed between the shoulder blades in a longitudinal fashion. After prepping and draping the skin was anesthetized 1% local Xylocaine. And then using the Seldinger technique the subclavian vein was cannulated. A wire was placed into the vein and fluoroscopy position the wire at the atrial caval junction. Next the dilator sheath was placed over top the wire and the wire was withdrawn. The catheter was positioned at the atriocaval position. The catheter was placed through the sheath after the dilator was withdrawn. The sheath was then withdrawn. Position of the catheter was confirmed with fluoroscopy. The Port-A-Cath was connected to the catheter. The Port-A-Cath was flushed with saline and then heparinized saline. The skin was closed interrupted 3-0 Monocryl suture. Dermabond was applied. Patient tolerated procedure well and was sent to recovery room stable condition.
--- NOTE | 2024-12-10 10:15 | XR ---
EXAMINATION TYPE: XR chest 1V portable DATE OF EXAM: 12/10/2024 COMPARISON: CT 12 days earlier CLINICAL INDICATION: Female, 59 years old with history of Right subclavian Port-A-Cath; breast cancer TECHNIQUE: Single frontal upright view of the chest is obtained. FINDINGS: There is new right subclavian Mediport catheter terminating in SVC. No pneumothorax is zayra dent. Mild increased interstitial prominence bilaterally. No suspicious focal consolidation. Cardiac silhouette size is upper limits of normal. Osseous structures are intact. IMPRESSION: As above. [facility], , 12/10/2024 10:13 AM
[2024-12-10 10:20] VITALS: RESP 16
--- NOTE | 2024-12-10 10:43 | FL ---
EXAMINATION TYPE: FL guided central line placemt DATE OF EXAM: 12/10/2024 10:02 AM COMPARISON: Pre Operative Images if available both CT/MRI or plain film CLINICAL INDICATION: Female, 59 years old with history of PORT A CATH INSERTION; TECHNIQUE: FL guided central line placemt, multiple fluoroscopic images provided for procedure. Total fluoroscopy time: 5.2 seconds Total submitted images to PACS: 2 DAP: 0.2244 mGym2 Gycm2 uGym2 cGycm2 or equivalent. FINDINGS: Fluoroscopic imaging for central line placement, tip in appropriate position. No evidence for pneumot horax. IMPRESSION: 1. No evidence for intraoperative complication. 2. Please see the operative/procedural note for further details. [facility], , 12/10/2024 10:40 AM
[2024-12-10 10:46] VITALS: BP 134/84; PULSE 88
== END 2024-12-10 11:00 | disposition home or self-care (01) ==
LOC: OR 06:08
PROVIDERS: ATTEND Surgery
DX: Z85.3 Personal history of malignant neoplasm of breast (principal); J45.909 Unspecified asthma, uncomplicated; F32.A Depression, unspecified; F41.9 Anxiety disorder, unspecified; G35 Multiple sclerosis; M19.90 Unspecified osteoarthritis, unspecified site; K21.9 Gastro-esophageal reflux disease without esophagitis; Z86.718 Personal history of other venous thrombosis and embolism; Z88.1 Allergy status to other antibiotic agents; Z88.2 Allergy status to sulfonamides; Z79.51 Long term (current) use of inhaled steroids; Z79.899 Other long term (current) drug therapy
CPT/HCPCS: 77001; 71045; 36561; C1788; J2250; J1644; J1100; J2405; J3010; J3490; J1642; J0690; J2704; J0665

== ENCOUNTER → 2024-12-17 | Outpatient (CLI) | payer OTHER ==
--- NOTE | 2024-12-17 08:18 | MM ---
Reason for Exam: Hx of breast cancer, mastectomy. Last mammogram was performed 1 year(s) and 1 month(s) ago. Patient History: Menarche at age 13. First Full-Term at age 22. Postmenopausal. Breast cancer, right, age 53. Previous chest radiation therapy at age 53. Previous chemotherapy at age 53. Mastectomy on the Right side. Chemotherapy. Radiation Therapy, right. Paternal cousin had breast cancer, age 40. Paternal aunt had breast cancer at or over age 50. Prior Study Comparison: 11/01/2021 Left Diagnostic Mammogram, [facility]. 11/02/2022 Left MG 3D diag mammo w/cad LT, [facility]. 11/02/2023 Left MG 3D diag mammo w/cad LT, [facility]. Tissue Density: Left: There are scattered areas of fibroglandular density. Findings: Analyzed By CAD. No new suspicious masses, calcifications or distortions. Overall Assessment: Negative, BI-RAD 1 Management: Screening Mammogram of the left breast in 1 year. Results were given to the patient verbally at the time of exam. Patient should continue monthly self-breast exams. A clinical breast exam by your physician is recommended on an annual basis. This exam should not preclude additional follow-up of suspicious palpable abnormalities. Note on Diana scores and lifetime risk: 1. A Diana score greater than 3% is considered moderate risk. If this is the case, consider specialist referral to assess eligibility for a risk reducing agent. 2. If overall lifetime risk for the development of breast cancer is 20% or higher, the patient may qualify for future screening with alternating mammogram and breast MRI. [facility], , 12/17/2024 8:15 AM. Electronically signed and approved by: Varun Nielson DO
== END | disposition home or self-care (01) ==
LOC: RADMAMWWP 07:27
PROVIDERS: ATTEND Surgery
DX: R92.322 Mammographic fibroglandular density, left breast (principal); R92.2 Inconclusive mammogram; Z85.3 Personal history of malignant neoplasm of breast; Z78.0 Asymptomatic menopausal state; Z80.3 Family history of malignant neoplasm of breast
CPT/HCPCS: 77061; 77065

== ENCOUNTER → 2024-12-18 | Outpatient (CLI) | payer OTHER ==
[2024-12-18 11:45] VITALS: BP 179/84; PULSE 110; RESP 18; TEMP 97.9
--- NOTE | 2024-12-18 12:14 | P.PN ---
Subjective Progress Note Date: 12/18/24 Principal diagnosis: stage 4 breast cancer 12-18-24 Principal diagnosis: metastatic breast cancer stage 4 right breast cancer/ mets to left hip Stage II right breast invasive ductal cancer, now stage 4 with hip mets Nahomy is a 56-year-old white female who was initially seen in August 2019 with a mass in her right breast. Core biopsy was positive for invasive ductal carcinoma, G-2, ER/ND positive, HER-2 negative. The lesion was 3.5 x 3.8 cm in size at the 7 o'clock position of the right breast. Genetic testing was negative. On she underwent a right mastectomy with subpectoral implant reconstruction. Pathology at the time of the mastectomy revealed a 4 cm lesion. Lymph nodes revealed sentinel node positive for micrometastatic disease and 5 additional nodes negative for cancer. The implant became infected and was necessary for this to be removed. She did not have new implants replaced. She completed 4 cycles of adjuvant TC on 5719. She completed adjuvant radiation therapy in April 2020. She was started on Arimidex in May 2020 and is continuing on this without difficulty Following the radiation the patient noted a small opening in her right chest wall incision. She has had intermittent drainage from several sites since that time. She wished to have revision of the surgical scar and removal of redundant tissue. Secondary to the radiation she received pre-operative hyperbaric oxygen and continued this after the procedu She hit her hip on the table at work several days before she was diagnosed with a fracture on 08-11-21. She had hip surgery on 08-12-21. She is walking now. Her p athology was consistent for metastatic breast cancer. She has no complaints of lumps masses or nodules on the chest wall or either breast. She had a left breast mammogram on 11-01-21 Benign BIRAD 2 She is complaining of pain in her left hip. 03-30-[address] Levine 02-22-22 reviewed PET scan on [id number] revealed slight uptake in hilar and mediastinal lymph nodes slight uptake in hip otherwise negative She was started on Xeloda on [id number] On computed tomography scan of COPD and bone scan revealed no evidence of disease She was tolerating treatment well except for dryness in her hands and feet The patient is not complaining of any new lumps masses or nodules of concern in either breast, she is not complaining of any lumps or nodules in her right chest wall or right axilla 11-09-22 left breast mammogram 11-02-22 BIRAD 2 Is not complaining of any new lumps masses or nodules of concern in her left breast, nor on her right chest wall. 09-06-22 CT scan revealed disease progression in abdomen, right adrenal, and omental implants She is presently on IBRANCE it is causing her diahrea 03-09-23 note 02-12-23 DR. Levine reviewed: [id number] right mastectomy, pathology revealed grade 3 invasive ductal carcinoma, 5 cm, one of 5 nodes was positive for micrometastatic her surgery was complicated by a nonhealing wound which required debridement and removal of an shiatsu therapist Oncotype DX: 51 36644 started adjuvant TC and completed 4 cycles on [id number] Completed adjuvant radiation April 2020 Started Arimidex May 2020 [id number] presented with pathologic fracture of the left hip underwent surgery, biopsy positive for metastatic carcinoma, ER/ND negative and HER-2 negative PET scan 476405 slight uptake in hilar and mediastinal nodes slight uptake in left hip otherwise negative Started on Xeloda on [id number] repeat computed tomography scan of chest abdomen and pelvis revealed evidence of disease progression in abdomen, the right adrenal nodules, new omental lesions [id number] biopsy of omental lesion positive for metastatic disease 220311 started falsodex and Ibrance November 2022 was hospitalized for abdominal pain and dehydration and computed tomography scan at that time 88332 revealed disease progression in her abdomen 63570 started on carboplatin/Taxol Repeat CT chest abdomen and pelvis 51583 significant improvement in disease At this time she is feeling well not complaining of abdominal pain not complaining of any nausea or vomiting On Sunday she will start a new chemotherapy at [facility] enhertu Q 3 weeks indefinitely This time Nahomy is not complaining of any new lumps masses or nodules of concern in her right chest wall or left breast. She is not complaining of any hip pain. She does not complain of any abdominal pain. She is feeling well. 12-27-23 left breast mammogram on 11-02-[address] Levine 10-22-23 reviewed; ordered CT scan CAP prior to next visit on 02-18-23 started on enhertu; still taking this every three weeks given IV right now considered maintenance, considering port placement secondary to this 05-01-23 further improvement in disease 07-24-23 CT scan CAP stable disease The patient has some complaints of scar tissue on the right chest wall, she has no new lumps masses or nodules at this time. She does have skin discoloration under her left arm, this has not changed. It is not painful it is not progressing. She was seen by dermatology clinic and told that they were uncertain as to what this was. The present time she just is going to be followed clinically for this. 05-02-24 note medical oncology reviewed 03-24-24 CT scan of CAP on 03-17-24 no evidence of recurrence; tolerating enhertu; she did not have a port placed yet she gets this every three weeks She is complaining of some generalized fatigue. She is not complaining of any new lumps masses or nodules of concern on her chest wall or breast. She did have some cramping in the left chest wall, and this has improved with physical therapy 12-18-24 Nahomy is a 59 -year-old white female who was initially seen in August 2019 with a mass in her right breast. Core biopsy was positive for invasive ductal carcinoma, G-2, ER/ND positive, HER-2 negative. The lesion was 3.5 x 3.8 cm in size at the 7 o'clock position of the right breast. Genetic testing was negative. On she underwent a right mastectomy with subpectoral implant reconstruction. Pathology at the time of the mastectomy revealed a 4 cm lesion. Lymph nodes revealed sentinel node positive for micrometastatic disease and 5 additional nodes negative for cancer. The implant became infected and was necessary for this to be removed. She did not have new implants replaced. She completed 4 cycles of adjuvant TC on 5719. She completed adjuvant radiation therapy in April 2020. She was started on Arimidex in May 2020 and is continuing on this without difficulty Following the radiation the patient noted a small opening in her right chest wall incision. She has had intermittent drainage from several sites since that time. She wished to have revision of the surgical scar and removal of redundant tissue. Secondary to the radiation she received pre-operative hyperbaric oxygen and continued this after the procedure. She hit her hip on the table at work several days before she was diagnosed with a fracture on 08-11-21. She had hip surgery on 08-12-21. She is walking now. Her pathology was consistent for metastatic breast cancer. omental biopsy (+) for mets 09-17-22 chemotherapy at [facility] Q 3 weeks indefinitely but changed to trodelvy secondary to possible pneumonitis from enhertuplan to do CT CAP done 11-28-24 and was stable left mammogram Birad 1 personally reviewed and interpreted note 09-23-24 Dr. Levine reviewed she had a port a cath placed last week by DR. Hungania She has alopecia from new chemotherapy Family History: paternal aunt: breast cancer paternal cousin: bilateral breast cancer Hormonal History: menarche: 13 M1, age at first :23, breast fed: yes menopause: stopped periods 2 years ago BCP: 14 years hormones: none Surgical history: Right mastectomy with subpectoral implant placement and axillary node removal Removal of subpectoral implant Anal fissure Tonsillectomy right hip surgery port a cath placed Medical history: asthma lymphedema right arm Multiple sclerosis Social History: Nicotine: Negative Alcohol: Negative Drugs: Negative - Constitutional Comment: hot flashes 5 times/day Constitutional: Denies chills, Denies fever - EENT Comment: optic neuritits Ears: deny: decreased hearing, tinnitus Ears, nose, mouth and throat: Denies headache, Denies sore throat - Breasts Breasts: bilateral: as per HPI - Cardiovascular Cardiovascular: Denies chest pain, Denies shortness of breath - Respiratory Respiratory: Denies cough - Gastrointestinal Comment: colitis Gastrointestinal: Denies abdominal pain, Denies diarrhea, Denies nausea, Denies vomiting - Genitourinary (Female) Genitourinary: Denies dysuria, Denies hematuria - Menstruation Menstruation: Reports postmenopausal - Musculoskeletal Musculoskeletal: Denies myalgias - Integumentary Comment: Skin biopsy done by workers compensation claims supervisor results pending Integumentary: Denies pruritus, Denies rash - Neurological Neurological: Denies numbness, Denies weakness - Psychiatric Psychiatric: Reports anxiety, Reports depression - Endocrine Endocrine: Denies fatigue, Denies weight change - Hematologic/Lymphatic Comment: baby aspirin - Allergic/Immunologic Allergic/Immunologic: Reports as per HPI Objective - Vital Signs Vital signs: Vital Signs Temp 97.9 F 12/18/24 11:43 Pulse 110 H 12/18/24 11:43 Resp 18 12/18/24 11:43 BP 179/84 12/18/24 11:43 Pulse Ox 97 12/18/24 11:43 FiO2 Intake & Output 12/17/24 12/18/24 12/18/24 18:59 06:59 18:59 Weight 92.986 kg - Constitutional General appearance: Present: cooperative - EENT Eyes: Present: EOMI ENT: Present: hearing grossly normal - Neck Neck: Present: normal ROM - Respiratory Respiratory: bilateral: CTA - Cardiovascular Rhythm: regular Heart sounds: normal: S1, S2 - Integumentary Integumentary Comment(s): alopecea Integumentary: Present: normal turgor - Psychiatric Psychiatric: Present: A&O x's 3, appropriate affect, intact judgment & insight - Additional findings Additional findings: Breast Exam: BRA: 42D inspection: Chest wall no evidence of recurrence Left breast grade 3 ptosis Palpation: Right chest wall: No evidence of recurrent cancer Right axilla: No adenopathy of concern Left breast: Multi-positional exam fibrocystic changes no dominant masses or nodules of concern Left axilla: Skin coloration changes for which she has been recommended to see a workers compensation claims supervisor in the past this is not bothering the patient at this time no adenopathy of concern Assessment and Plan Assessment: Impression: Stage IV breast cancer metastatic to abdomen/omentum Note reviewed from Dr. Levine of 09-23-24 stability of the disease Plan: Continue with Dr. Julianna schmid stopped and on trodelvy Left breast mammogram 12-17-24 BIRAD 1 follow up in [address] CAP 11-28-24 stable CC: Tyrell
== END ==
LOC: WWCWWP 10:59
PROVIDERS: ATTEND Surgery
DX: C79.81 Secondary malignant neoplasm of breast (principal); Z88.2 Allergy status to sulfonamides

== ENCOUNTER → 2025-03-09 | Outpatient (CLI) | payer OTHER ==
[2025-03-09 10:46] LABS: African American GFR (CKD) >90 (>60 ml/min/1.73 sqM); Blood Urea Nitrogen 9 mg/dL (7-17); Non-African American GFR(CKD) >90 (>60 ml/min/1.73 sqM)
--- NOTE | 2025-03-09 13:15 | CT ---
EXAMINATION TYPE: CT ChestAbdPelvis w con DATE OF EXAM: 03/09/2025 12:48 PM COMPARISON: 11/28/2024 09/02/2021 PET CLINICAL INDICATION: Female, 59 years old with history of C50.311 MALIG NEOPLM OF LOWER-INNER QUADRAN T OF RI; PHH, HX OF RT BREAST CA F/U Technique: CT ChestAbdPelvis w con; Multiple axial images were obtained. Two-dimensional coronal and sagittal reconstructions were obtained. Contrast used:100 ML mL of Isovue 300 with IV Contrast, (None if empty) Oral contrast used: with Oral Contrast CT DLP: 1544 mGycm, Automated exposure control for dose reduction was used. Findings: CHEST: LUNGS/ PLEURA: No focal consolidation, pneumothorax or pleural effusion. AIRWAY: Patent and unremarkable. HEART: Size within normal limits. No significant coronary artery calcifications. MEDIASTINUM: No gross evidence of adenopathy. VASCULATURE: No aortic aneurysm. Right chest wall Eoinlw-x-Uiqi with tip terminating in the superior vena cava. MUSCULOSKELETAL: No acute osseous abnormalities. SOFT TISSUES/LYMPH NODES: Left breast is surgically absent. LOWER NECK: No significant findings. ABDOMEN: ABDOMEN LIVER: Diffusely hypoattenuating parenchyma. GALLBLADDER AND BILE DUCTS: Unremarkable. PANCREAS: Unremarkable. SPLEEN: Unremarkable. ADRENAL GLANDS: Unremarkable. KIDNEYS AND URETERS: No evidence of hydronephrosis or obstructing renal calculus. The ureters are unr emarkable. PELVIS BLADDER: Unremarkable REPRODUCTIVE: Unremarkable. ABDOMEN & PELVIS STOMACH AND BOWEL: No evidence of bowel obstruction. The appendix is normal. PERITONEUM/RETROPERITONEUM: No evidence of pneumoperitoneum or free fluid. VASCULATURE: No evidence of aortic aneurysm. MUSCULOSKELETAL: No acute osseous abnormalities, left hip arthroplasty limits evaluation the pelvis. LYMPH NODES: No gross evidence for lymphadenopathy. SOFT TISSUE/ABDOMINAL WALL: Unremarkable IMPRESSION: 1. Postsurgical changes to the right breast. No evidence for lymphadenopathy. No suspicious masses. 2. Hepatic steatosis. 3. Left hip arthroplasty appears intact. [facility], , 03/09/2025 1:12 PM
== END | disposition home or self-care (01) ==
LOC: RADCTMAIN 10:02
PROVIDERS: ATTEND Internal Medicine Hematology & Oncology
DX: C50.311 Malignant neoplasm of lower-inner quadrant of right female breast (principal); G62.0 Drug-induced polyneuropathy; G89.3 Neoplasm related pain (acute) (chronic); M85.9 Disorder of bone density and structure, unspecified; Z71.3 Dietary counseling and surveillance; K76.0 Fatty (change of) liver, not elsewhere classified; Z98.890 Other specified postprocedural states
CPT/HCPCS: 82565; 84520; 71260; 74177; 36415; Q9967